=== PATIENT | female | born 1965 | race Caucasian/White ===

== ENCOUNTER 2017-05-09 20:23 | Inpatient (IN) | payer SELFPAY ==
[~2017-05-09] VITALS: Ht 167.6 cm; Wt 118.8 kg
[2017-05-09] MEDS ORDERED: RT-ALBUTEROL/IPRATROPIUM 3 ML (DUONEB) VIAL ONE (20:29)
[2017-05-09] MEDS ORDERED: RT-ALBUTEROL SULF 2.5 MG/3 ML PRE-MIX VIAL INH STA ×3 (20:32→21:34)
--- OUTSIDE RECORDS SUMMARY | 2017-05-09 20:32 | XMS REPORT ---
Author Author DIYA MITCHELL Organization [facility] Address [address] [place] [address] Care Team Providers Care Stuffing Machine Operator Name Role Phone DIYA MITCHELL Unavailable PROBLEMS Type Condition ICD9-CM Code [id number] Code Onset Dates Condition Status SNOMED Code Problem Non morbid obesity due to excess calories E66.09 Active 361704162 Problem Anxiety F41.9 Active 44755729 Problem Controlled type 2 diabetes mellitus without complication, without long -term current use of insulin E11.9 Active 266876503 Problem Mood disorder F39 Active 86826235 Problem Panlobular emphysema J43.1 Active 0173775 ALLERGIES No Information SOCIAL HISTORY Never Assessed PLAN OF CARE VITAL SIGNS MEDICATIONS Medication Instructions Dosage Frequency Start Date End Date Duration Status Xanax 0.25 MG Orally Three times a day 1 tablet 8h Active RESULTS No Results PROCEDURES No Known procedures IMMUNIZATIONS No Known Immunizations MEDICAL (GENERAL) HISTORY Type Description Date Medical History Diabetes Medical History Hyperlipidemia Medical History Hx of Pneumonia Surgical History tubal ligation Surgical History gall bladder removal Surgical History hysterectomy Hospitalization History surgeries Hospitalization History Pneumonia x 9
--- OUTSIDE RECORDS SUMMARY | 2017-05-09 20:32 | XMS REPORT ---
Author Author DIYA MITCHELL [facility] Address [address] [place] [address] Care Team Providers Care Soup Mixer Name Role Phone DIYA MITCHELL Unavailable PROBLEMS Type Condition ICD9-CM Code [id number] Code Onset Dates Condition Status SNOMED Code Problem Non morbid obesity due to excess calories E66.09 Active 127868449 Problem Anxiety F41.9 Active 78014786 Problem Controlled type 2 diabetes mellitus without complication, without long -term current use of insulin E11.9 Active 265351797 Problem Mood disorder F39 Active 13943629 Problem Panlobular emphysema J43.1 Active 3891235 ALLERGIES Unknown Allergies SOCIAL HISTORY No smoking Hx information available PLAN OF CARE VITAL SIGNS MEDICATIONS Medication Instructions Dosage Frequency Start Date End Date Duration Status Xanax 0.25 MG Orally Three times a day 1 tablet 8h Active RESULTS No Results PROCEDURES No Known procedures IMMUNIZATIONS No Known Immunizations
--- OUTSIDE RECORDS SUMMARY | 2017-05-09 20:32 | XMS REPORT ---
Author Author DIYA MITCHELL [facility] Address [address] [place] [address] Care Team Providers Care Cloth Cutting Inspector Name Role Phone DIYA MITCHELL Unavailable PROBLEMS Type Condition ICD9-CM Code DCM51-[id number] Code Onset Dates Condition Status SNOMED Code Problem Non morbid obesity due to excess calories E66.09 Active 014291785 Problem Anxiety F41.9 Active 45206099 Problem Controlled type 2 diabetes mellitus without complication, without long -term current use of insulin E11.9 Active 171532196 Problem Mood disorder F39 Active 10408661 Problem Panlobular emphysema J43.1 Active 8356927 ALLERGIES No Information SOCIAL HISTORY Never Assessed PLAN OF CARE VITAL SIGNS MEDICATIONS Unknown Medications RESULTS No Results PROCEDURES No Known procedures IMMUNIZATIONS No Known Immunizations MEDICAL (GENERAL) HISTORY Type Description Date Medical History Diabetes Medical History Hyperlipidemia Medical History Hx of Pneumonia Surgical History tubal ligation Surgical History gall bladder removal Surgical History hysterectomy Hospitalization History surgeries Hospitalization History Pneumonia x 9
--- OUTSIDE RECORDS SUMMARY | 2017-05-09 20:32 | XMS REPORT ---
Author Author DIYA MITCHELL [facility] Address [address] [place] [address] Care Team Providers Care Home Service Technician Name Role Phone STEPHEN DIYA Unavailable PROBLEMS Type Condition ICD9-CM Code [id number] Code Onset Dates Condition Status SNOMED Code Problem Non morbid obesity due to excess calories E66.09 Active 575745080 Problem Anxiety F41.9 Active 78935341 Problem Controlled type 2 diabetes mellitus without complication, without long -term current use of insulin E11.9 Active 856172325 Problem Mood disorder F39 Active 06046729 Problem Panlobular emphysema J43.1 Active 6895755 ALLERGIES Substance Reaction Event Type Date Status Penicillin V Potassium vomiting Drug Allergy Jun, Active Morphine Sulfate anaphylaxis Drug Allergy Jun, Active Aspirin hives Drug Allergy Jun, Active SOCIAL HISTORY Never Assessed PLAN OF CARE Activity Details Follow Up 4 Weeks Reason:mood disorder VITAL SIGNS Height 5 ft 6 in in 2016-07-01 Weight 282 lbs 2016-07-01 Temperature 98.3 degrees Fahrenheit 2016-07-01 Heart Rate 80 bpm 2016-07-01 Respiratory Rate 20 2016-07-01 BMI 45.51 kg/m2 2016-07-01 Blood pressure systolic 120 mmHg 2016-07-01 Blood pressure diastolic 76 mmHg 2016-07-01 MEDICATIONS Medication Instructions Dosage Frequency Start Date End Date Duration Status Simvastatin 20 mg Orally Once a day 1 tablet in the evening 24h Active Metformin HCl 500 MG Orally Twice a day 1 tablet with meals 12h Active Lisinopril 5 MG Orally Once a day 1 tablet 24h Active Incruse Ellipta 62.5 MCG/INH Inhalation Once a day 1 puff 24h Active Venlafaxine HCl 37.5 MG Orally Once a day 1 tablet with food 24h Jun, 30 day(s) Active Breo Ellipta 100-25 MCG/INH Inhalation Once a day 1 puff 24h Active Amaryl 2 MG Orally 2 times a day 1 tablet with breakfast or the first main meal of the day 12h Active Xanax 0.25 MG Orally Three times a day 1 tablet 8h Active RESULTS Name Result Date Reference Range MICROALBUMIN, URINE (IN HOUSE) 2016-07-01 MICROALBUMIN NORMAL Lot # [id number] Exp date 06/2017 Clarity CLEAR Color YELLOW ALB 10MG/L CRE 200MG/DL A:C (IN HOUSE) <300MG/G Control Control Lot # Exp date LH 2016-07-01 LH 18.6 TSH 2016-07-01 TSH 2.370 0.450-4.500 FSH, SERUM 2016-07-01 FSH 27.1 CBC 2016-07-01 WBC 6.9 3.4-10.8 RBC 5.02 3.77-5.28 Hemoglobin 15.0 11.1-15.9 Hematocrit 43.2 34.0-46.6 MCV 86 79-97 MCH 29.9 26.6-33.0 MCHC 34.7 31.5-35.7 RDW 13.4 12.3-15.4 Platelets 242 150-379 Neutrophils 61 Lymphs 32 Monocytes 5 Eos 2 Basos 0 Neutrophils (Absolute) 4.1 1.4-7.0 Lymphs (Absolute) 2.2 0.7-3.1 Monocytes(Absolute) 0.4 0.1-0.9 Eos (Absolute) 0.1 0.0-0.4 Baso (Absolute) 0.0 0.0-0.2 Immature Granulocytes 0 Immature Grans (Abs) 0.0 0.0-0.1 VITAMIN D, 25-H 2016-07-01 Vitamin D, 25-Hydroxy 11.5 30.0-100.0 LIPID PANEL 2016-07-01 Cholesterol, Total 193 100-199 Triglycerides 153 0-149 HDL Cholesterol 50 >39 VLDL Cholesterol Jamar 31 5-40 LDL Cholesterol Calc 112 0-99 CMP 2016-07-01 Glucose, Serum 154 65-99 BUN 9 6-24 Creatinine, Serum 0.51 0.57-1.00 eGFR If NonAfricn Am 111 >59 eGFR If Africn Am 128 >59 BUN/Creatinine Ratio 18 9-23 Sodium, Serum 139 134-144 Potassium, Serum 4.3 3.5-5.2 Chloride, Serum 98 96-106 Carbon Dioxide, Total 26 18-29 Calcium, Serum 9.2 8.7-10.2 Protein, Total, Serum 6.5 6.0-8.5 Albumin, Serum 4.1 3.5-5.5 Globulin, Total 2.4 1.5-4.5 A/G Ratio 1.7 1.1-2.5 Bilirubin, Total 0.4 0.0-1.2 Alkaline Phosphatase, S 95 39-117 AST (SGOT) 15 0-40 ALT (SGPT) 16 0-32 A1C (IN HOUSE) 2016-07-01 A1C IN HOUSE 8.1 4.3 - 5.6 % Previous A1c NA Lot [id number] Exp date 06/2017 PROCEDURES Procedure Date Ordered Result Body Site LIPID PANEL Jul 01, 2016 COMPREHEN METABOLIC PANEL Jul 01, 2016 GLYCATED HEMOGLOBIN TEST Jul 01, 2016 MICROALBUMIN, SEMIQUANT Jul 01, 2016 COMPLETE CBC W/AUTO DIFF WBC Jul 01, 2016 GONADOTROPIN (FSH) Jul 01, 2016 ASSAY OF VITAMIN D Jul 01, 2016 VENIPUNCT, ROUTINE* Jul 01, 2016 ASSAY THYROID STIM HORMONE Jul 01, 2016 GONADOTROPIN (LH) Jul 01, 2016 IMMUNIZATIONS No Known Immunizations MEDICAL (GENERAL) HISTORY Type Description Date Medical History Diabetes Medical History Hyperlipidemia Medical History Hx of Pneumonia Surgical History tubal ligation Surgical History gall bladder removal Surgical History hysterectomy Hospitalization History surgeries Hospitalization History Pneumonia x 9
--- OUTSIDE RECORDS SUMMARY | 2017-05-09 20:32 | XMS REPORT ---
Author Author DIYA MITCHELL [facility] Address [address] [place] [address] Care Team Providers Care Structural Test Engineer Name Role Phone DIYA MITCHELL Unavailable PROBLEMS Type Condition ICD9-CM Code AYS00-TA Code Onset Dates Condition Status SNOMED Code Problem Non morbid obesity due to excess calories E66.09 Active 456214717 Problem Anxiety F41.9 Active 89697927 Problem Controlled type 2 diabetes mellitus without complication, without long -term current use of insulin E11.9 Active 828729739 Problem Mood disorder F39 Active 64211683 Problem Panlobular emphysema J43.1 Active 9472223 ALLERGIES Unknown Allergies SOCIAL HISTORY No smoking Hx information available PLAN OF CARE VITAL SIGNS MEDICATIONS Unknown Medications RESULTS No Results PROCEDURES No Known procedures IMMUNIZATIONS No Known Immunizations
--- OUTSIDE RECORDS SUMMARY | 2017-05-09 20:33 | XMS REPORT ---
Author Author DIYA MITCHELL Organization [facility] Address [address] [place] [address] Care Team Providers Care Typing Element Machine Operator Name Role Phone STEPHEN DIYA Unavailable PROBLEMS Type Condition ICD9-CM Code MUP49-LM Code Onset Dates Condition Status SNOMED Code Problem Non morbid obesity due to excess calories E66.09 Active 795623575 Problem Anxiety F41.9 Active 35295930 Problem Controlled type 2 diabetes mellitus without complication, without long -term current use of insulin E11.9 Active 697915894 Problem Mood disorder F39 Active 38069328 Problem Panlobular emphysema J43.1 Active 0109200 ALLERGIES Substance Reaction Event Type Date Status Penicillin V Potassium vomiting Drug Allergy Jul, Active Morphine Sulfate anaphylaxis Drug Allergy Jul, Active Aspirin hives Drug Allergy Jul, Active SOCIAL HISTORY Never Assessed PLAN OF CARE Activity Details Follow Up 4 Weeks Reason:obesity VITAL SIGNS Height 5 ft 6 in in 2016-07-29 Weight 283.7 lbs 2016-07-29 Temperature 97.8 degrees Fahrenheit 2016-07-29 Heart Rate 78 bpm 2016-07-29 Respiratory Rate 20 2016-07-29 BMI 45.79 kg/m2 2016-07-29 Blood pressure systolic 126 mmHg 2016-07-29 Blood pressure diastolic 78 mmHg 2016-07-29 MEDICATIONS Medication Instructions Dosage Frequency Start Date End Date Duration Status Metformin HCl 500 MG Orally Twice a day 2 tablets 12h Active Lisinopril 5 mg Orally Once a day 1 tablet 24h Active Simvastatin 20 mg Orally Once a day 1 tablet in the evening 24h Active Ergocalciferol 04653 UNIT Orally 2 times a week 1 capsule Jun, September, 12 weeks Active Amaryl 2 MG Orally 2 times a day 1 tablet with meal 12h Active Breo Ellipta 100-25 MCG/INH Inhalation Once a day 1 puff 24h Active Xanax 0.25 MG Orally Three times a day 1 tablet 8h Active Venlafaxine HCl 37.5 MG Orally Once a day 1 tablet with food 24h Jun, 30 day(s) Active Incruse Ellipta 62.5 MCG/INH Inhalation Once a day 1 puff 24h Active RESULTS No Results PROCEDURES No Known procedures IMMUNIZATIONS No Known Immunizations MEDICAL (GENERAL) HISTORY Type Description Date Medical History Diabetes Medical History Hyperlipidemia Medical History Hx of Pneumonia Surgical History tubal ligation Surgical History gall bladder removal Surgical History hysterectomy Hospitalization History surgeries Hospitalization History Pneumonia x 9
--- OUTSIDE RECORDS SUMMARY | 2017-05-09 20:33 | XMS REPORT ---
Author DIYA Quintero Organization [employer] Address Unknown Phone Unavailable Care Team Providers Care Gamma Operator Name Role Phone DIYA MITCHELL CP Unavailable Allergies, Adverse Reactions, Alerts Substance Reaction Event Type Penicillin V Potassium vomiting Drug Allergy Morphine Sulfate anaphylaxis Drug Allergy Aspirin hives Drug Allergy Problems Problem Type Condition Code Onset Dates Condition Status Assessment Controlled type 2 diabetes mellitus without complication, without long-term current use of insulin E11.9 Active Problem Controlled type 2 diabetes mellitus without complication, without long -term current use of insulin E11.9 Active Medications Medication Code System Code Instructions Start Date End Date Status Dosage Xanax [facility] [address]-02 0.25 MG Orally Three times a day 1 tablet Prozac NDC 0 20 mg Oral Once a day 1 capsule Lisinopril [facility] [address]-67 5 MG Orally Once a day 1 tablet Breo Ellipta [facility] [address]-26 100-25 MCG/INH Inhalation Once a day, voucher 1st fill 1 [place] [address]-31 2 MG Orally 2 times a day 1 tablet with breakfast or the first [place] [address]-85 20 mg Orally Once a day 1 tablet in the evening Metformin HCl [facility] [address]-55 500 MG Orally Twice a day 1 tablet with meals Procedures Procedure Coding System Code Date Office Visit, Est Pt., Level 3 CPT-4 05058 Mar 11, 2016 VENIPUNCT, ROUTINE* CPT-4 65579 Mar 11, 2016 GLYCATED HEMOGLOBIN TEST CPT-4 03014 Mar 11, 2016 Vital Signs Date/Time: Mar 11, 2016 Cardiac Monitoring Heart Rate 88 bpm Weight 269 lbs Height 5 ft 6 in in BMI 43.41 Index Blood Pressure Diastolic 70 mmHg Blood Pressure Systolic 118 mmHg Results Name Result Date Reference Range Unit Abnormality Flag A1C ----Hemoglobin A1c 7.8 [id number] 4.8-5.6 % H ROUTINE VENIPUNCTURE Summary Purpose [employer] Submission
--- OUTSIDE RECORDS SUMMARY | 2017-05-09 20:33 | XMS REPORT | Continuity of Care Document ---
Demographics x Preferred Language Unknown Marital Status Unknown Hindu Affiliation Unknown Race Unknown Ethnic Group Unknown Author Author [facility] Organization [facility] Address Unknown Phone Unavailable Allergies There is no data. Medications There is no data. Problems There is no data. Procedures There is no data. Results There is no data. Encounters ACCT No. Visit Date/Time Discharge Status Pt. Type Provider Facility Loc./Unit Complaint [id number] 04/23/2014 10:21:00 04/23/2014 23:59:59 CLS Outpatient Carissa Bagley
--- OUTSIDE RECORDS SUMMARY | 2017-05-09 20:33 | XMS REPORT ---
Author Author DIYA MITCHELL [facility] Address [address] [place] [address] Care Team Providers Care Materials Planner/Production Planner Name Role Phone DIYA MITCHELL Unavailable PROBLEMS Type Condition ICD9-CM Code [id number] Code Onset Dates Condition Status SNOMED Code Problem Non morbid obesity due to excess calories E66.09 Active 907994560 Problem Anxiety F41.9 Active 89887221 Problem Controlled type 2 diabetes mellitus without complication, without long -term current use of insulin E11.9 Active 037589399 Problem Mood disorder F39 Active 00253403 Problem Panlobular emphysema J43.1 Active 8454859 ALLERGIES Substance Reaction Event Type Date Status Penicillin V Potassium vomiting Drug Allergy September, Active Morphine Sulfate anaphylaxis Drug Allergy September, Active Aspirin hives Drug Allergy September, Active SOCIAL HISTORY Never Assessed PLAN OF CARE VITAL SIGNS Height 5 ft 6 in in 2016-09-29 Weight 279.3 lbs 2016-09-29 Temperature 98.4 degrees Fahrenheit 2016-09-29 Heart Rate 78 bpm 2016-09-29 Respiratory Rate 20 2016-09-29 BMI 45.08 kg/m2 2016-09-29 Blood pressure systolic 116 mmHg 2016-09-29 Blood pressure diastolic 70 mmHg 2016-09-29 MEDICATIONS Medication Instructions Dosage Frequency Start Date End Date Duration Status Venlafaxine HCl 37.5 MG Orally Once a day 1 tablet with food 24h Jun, 30 day(s) Active Xanax 0.25 MG Orally Three times a day 1 tablet 8h 28 days Active Metformin HCl 500 MG Orally Twice a day 2 tablets 12h Active Breo Ellipta 100-25 MCG/INH Inhalation Once a day 1 puff 24h Active Lisinopril 5 mg Orally Once a day 1 tablet 24h Active Amaryl 2 MG Orally 2 times a day 1 tablet with meal 12h Active Simvastatin 20 mg Orally Once a day 1 tablet in the evening 24h Active Incruse Ellipta 62.5 MCG/INH Inhalation Once a day 1 puff 24h Active RESULTS Name Result Date Reference Range A1C (IN HOUSE) 2016-09-29 A1C IN HOUSE 7.5 4.3 - 5.6 % Previous A1c 8.1 Lot [id number] Exp date 05/2018 PROCEDURES Procedure Date Ordered Result Body Site GLYCATED HEMOGLOBIN TEST September 29, 2016 IMMUNIZATIONS No Known Immunizations MEDICAL (GENERAL) HISTORY Type Description Date Medical History Diabetes Medical History Hyperlipidemia Medical History Hx of Pneumonia Surgical History tubal ligation Surgical History gall bladder removal Surgical History hysterectomy Hospitalization History surgeries Hospitalization History Pneumonia x 9
--- OUTSIDE RECORDS SUMMARY | 2017-05-09 20:33 | XMS REPORT ---
Author Author DIYA MITCHELL Organization [facility] Address [address] [place] [address] Care Team Providers Care Principal Architectural Firm Name Role Phone DIYA MITCHELL Unavailable PROBLEMS Type Condition ICD9-CM Code WEV77-JA Code Onset Dates Condition Status SNOMED Code Problem Non morbid obesity due to excess calories E66.09 Active 666268404 Problem Anxiety F41.9 Active 68721677 Problem Controlled type 2 diabetes mellitus without complication, without long -term current use of insulin E11.9 Active 995739150 Problem Mood disorder F39 Active 01026054 Problem Panlobular emphysema J43.1 Active 7313735 ALLERGIES No Information SOCIAL HISTORY Never Assessed PLAN OF CARE VITAL SIGNS MEDICATIONS Medication Instructions Dosage Frequency Start Date End Date Duration Status Ergocalciferol 37557 UNIT Orally 2 times a week 1 capsule Jun, September, 12 weeks Active RESULTS No Results PROCEDURES No Known procedures IMMUNIZATIONS No Known Immunizations MEDICAL (GENERAL) HISTORY Type Description Date Medical History Diabetes Medical History Hyperlipidemia Medical History Hx of Pneumonia Surgical History tubal ligation Surgical History gall bladder removal Surgical History hysterectomy Hospitalization History surgeries Hospitalization History Pneumonia x 9
[2017-05-09] MEDS ORDERED: FLUT1AER INH (20:44)
[2017-05-09] MEDS ORDERED: METF500T4 PO (20:44)
[2017-05-09] MEDS ORDERED: VNL37.5T PO (20:44)
[2017-05-09] MEDS ORDERED: UMEC62.5 INH (20:44)
[2017-05-09] MEDS ORDERED: LISI-556 PO (20:44)
[2017-05-09] MEDS ORDERED: SIMV20TA3 PO (20:44)
[2017-05-09] MEDS ORDERED: GLIM2TAB PO (20:44)
[2017-05-09] MEDS ORDERED: RT-ALBUTEROL/IPRATROPIUM 3 ML (DUONEB) VIAL INH ONE ×2 (20:45→21:45)
[2017-05-09 20:49] LABS: BASOPHILS % (AUTO) 0 % (0-10); EOSINOPHILS # (AUTO) 0.2 10^3/uL (0.0-0.3); EOSINOPHILS % (AUTO) 2 % (0-10); HEMATOCRIT 45 % (35-52); HEMOGLOBIN 14.7 G/DL (11.5-16.0); LYMPHOCYTES # (AUTO) 1.6 X 10^3 (1.0-4.0); LYMPHOCYTES % (AUTO) 16 % (12-44); MEAN CORPUSCULAR HEMOGLOBIN 30 PG (25-34); MEAN CORPUSCULAR HGB CONC 33 G/DL (32-36); MEAN CORPUSCULAR VOLUME 92 FL (80-99); MEAN PLATELET VOLUME 10.2 FL (7.4-10.4); MONOCYTES # (AUTO) 0.7 X 10^3 (0.0-1.0); MONOCYTES % (AUTO) 7 % (0-12); NEUTROPHILS # (AUTO) 7.4 X 10^3 (1.8-7.8); NEUTROPHILS % (AUTO) 76 % (42-75); PLATELET COUNT 268 10^3/uL (130-400); RED BLOOD COUNT 4.88 10^6/uL (4.35-5.85); RED CELL DISTRIBUTION WIDTH 13.5 % (10.0-14.5); WHITE BLOOD COUNT 9.8 10^3/uL (4.3-11.0)
[2017-05-09 21:06] LABS: ALANINE AMINOTRANSFERASE 23 U/L (0-55); ALBUMIN 3.9 GM/DL (3.2-4.5); ALKALINE PHOSPHATASE 127 U/L (40-136); BILIRUBIN,TOTAL 0.4 MG/DL (0.1-1.0); BUN/CREATININE RATIO 21; CALCIUM 9.2 MG/DL (8.5-10.1); CARBON DIOXIDE 28 MMOL/L (21-32); CHLORIDE 99 MMOL/L (98-107); CREATININE SERUM 0.72 MG/DL (0.60-1.30); GFR ESTIMATED > 60; GLUCOSE 177 MG/DL (70-105); POTASSIUM 4.1 MMOL/L (3.6-5.0); SODIUM 141 MMOL/L (135-145); TOTAL PROTEIN 7.5 GM/DL (6.4-8.2)
--- NOTE | 2017-05-09 21:19 | Diagnostic Imaging Report ---
INDICATION: Shortness of breath, chest pain COMPARISON: None FINDINGS: Single view of the chest demonstrates infiltrate in the lingula and left base. The right lung is clear. The heart is normal. There is no pneumothorax or effusion. IMPRESSION: Infiltrate left lung base and lingula. Followup recommended. Dictated by: Dictated on workstation # [id number]
--- NOTE | 2017-05-09 21:26 | ED General ---
General Chief Complaint: Chest Pain Stated Complaint: CHEST PAIN Nursing Triage Note: PT PRESENTS TO ER WITH COMPLAINT OF CHEST PAIN, SOA, COUGH, CONGESTION, FEVER. STATES ALL HER SYMPTOMS STARTED 05/06/17. Nursing Sepsis Screen: No Definite Risk Source of Information: Patient Exam Limitations: No Limitations History of Present Illness Time Seen by Provider: 20:25 Initial Comments Here with report of chest pain, short of air, cough, congestion and fever that has been going on over the last 3-4 days. Report is quite short of breath tonight. Has central chest pain related to coughing. O2 sat on arrival was 80 percent on room air. Patient is not typically on oxygen. She quit smoking 2-3 months ago. Denies vomiting or diarrhea. Timing/Duration: 3-4 Days Severity: Moderate, Severe Associated Systoms: Chest Pain, Cough, Fever/Chills, No Nausea/Vomiting, Shortness of Air Allergies and Home Medications Allergies Coded Allergies: Penicillins (Verified Allergy, Unknown, 05/09/17) aspirin (Verified Allergy, Unknown, 05/09/17) morphine (Verified Allergy, Unknown, 05/09/17) Home Medications Fluticasone/Vilanterol 1 Each Blst.w.dev, (Reported) Glimepiride 2 Mg Tablet, (Reported) Lisinopril 5 Mg Tablet, (Reported) Metformin HCl 500 Mg Tablet, (Reported) Simvastatin 20 Mg Tablet, (Reported) Umeclidinium [place] 62.5 Mcg Blst.w.dev, (Reported) Venlafaxine HCl 37.5 Mg Tab, (Reported) Constitutional: see HPI, chills, fever EENTM: nose congestion, No ear pain Respiratory: short of breath, wheezing Cardiovascular: chest pain, No palpitations Gastrointestinal: No abdominal pain, No nausea, No vomiting Genitourinary: no symptoms reported Musculoskeletal: no symptoms reported Skin: no symptoms reported Psychiatric/Neurological: No Symptoms Reported All Other Systems Reviewed Negative Unless Noted: Yes Past Ncmrcsc-Uniudb-Wkmepu Hx Patient Social History Alcohol Use: Denies Use Recreational Drug Use: No Smoking Status: Former Smoker Former Smoker, Quit: Mar 07, 2017 Recent Foreign Travel: No Contact w/Someone Who Travel: No Recent Infectious Disease Expo: No Recent Hopitalizations: No Physical Abuse: No Sexual Abuse: No Seasonal Allergies Seasonal Allergies: No Surgeries Surgeries: Gallbladder, 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, Tubal Ligation Respiratory Respiratory Disorders: COPD Cardiovascular Cardiac Disorders: Hypertension Neurological History of Neurological Disord: No 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 Genitourinary History of Genitourinary Disor: No Gastrointestinal History of Gastrointestinal Di: No Musculoskeletal History of Musculoskeletal Dis: No Endocrine History of Endocrine Disorders: Yes Endocrine Disorders: Diabetes, Non-Insulin dep HEENT History of HEENT Disorders: No Cancer History of Cancer: No Psychosocial History of Psychiatric Problem: Yes Behavioral Health Disorders: Anxiety, Depression Suicide Risk Score: 0 Integumentary History of Skin or Integumenta: No Blood Transfusions History of Blood Disorders: No Reviewed Nursing Assessment Reviewed/Agree w Nursing PMH: Yes Family Medical History Significant Family History: No Pertinent Family Hx Physical Exam-Suspected Sepsis Physical Exam Vital Signs Vital Sign - Last 12Hours 05/09/17 05/09/17 20:33 20:45 Temp 98.6 Pulse 125 Resp 22 B/P (MAP) 142/75 (97) Pulse Ox 91 O2 Delivery Nasal Cannula O2 Flow Rate 2.00 Capillary Refill : Less Than 3 Seconds Blood Pressure Mean: 97 General Appearance: No Apparent Distress, WD/WN HEENT: PERRL/EOMI, Pharynx Normal Neck: Non Tender, Supple Respiratory: Accessory Muscle Use, Decreased Breath Sounds, Expiration, Wheezing Cardiovascular: No Murmur Gastrointestinal: Non Tender, Soft Back: Normal Inspection, No CVA Tenderness, No Vertebral Tenderness Extremity: Normal Range of Motion, Non Tender Neurologic/Psychiatric: Alert, Oriented x3 Skin: normal color, warm/dry Focused Exam Evaluation Lactate Level Laboratory Tests 05/09/17 20:37: Lactic Acid Level 1.39 Lactic Acid Level Laboratory Tests Test 05/09/17 20:37 Lactic Acid Level 1.39 MMOL/L (0.50-2.00) Progress/Results/Core Measures Suspected Sepsis Recent Fever Within 48 Hours: No Infection Criteria Present: None New/Unexplained Altered Menta: No Sepsis Screen: No Definite Risk Sepsis Diagnosis: SIRS Temperature:98.6 Pulse: 125 Respiratory Rate: 22 Laboratory Tests 05/09/17 20:37: White Blood Count 9.8 Blood Pressure 142 /75 Mean: 97 Laboratory Tests 05/09/17 20:37: Lactic Acid Level 1.39 Laboratory Tests 05/09/17 20:37: Creatinine 0.72, INR Comment 1.0, Platelet Count 268, Total Bilirubin 0.4 Results/Orders Lab Results Laboratory Tests Test 05/09/17 20:37 Range/Units White Blood Count 9.8 4.3-11.0 10^3/uL Red Blood Count 4.88 4.35-5.85 10^6/uL Hemoglobin 14.7 11.5-16.0 G/DL Hematocrit 45 35-52 % Mean Corpuscular Volume 92 80-99 FL Mean Corpuscular Hemoglobin 30 25-34 PG Mean Corpuscular Hemoglobin Concent 33 32-36 G/DL Red Cell Distribution Width 13.5 10.0-14.5 % Platelet Count 268 130-400 10^3/uL Mean Platelet Volume 10.2 7.4-10.4 FL Neutrophils (%) (Auto) 76 H 42-75 % Lymphocytes (%) (Auto) 16 12-44 % Monocytes (%) (Auto) 7 0-12 % Eosinophils (%) (Auto) 2 0-10 % Basophils (%) (Auto) 0 0-10 % Neutrophils # (Auto) 7.4 1.8-7.8 X 10^3 Lymphocytes # (Auto) 1.6 1.0-4.0 X 10^3 Monocytes # (Auto) 0.7 0.0-1.0 X 10^3 Eosinophils # (Auto) 0.2 0.0-0.3 10^3/uL Basophils # (Auto) 0.0 0.0-0.1 10^3/uL Prothrombin Time 13.0 12.2-14.7 SEC INR Comment 1.0 0.8-1.4 Activated Partial Thromboplast Time 31 24-35 SEC Sodium Level 141 135-145 MMOL/L Potassium Level 4.1 3.6-5.0 MMOL/L Chloride Level 99 98-107 MMOL/L Carbon Dioxide Level 28 21-32 MMOL/L Anion Gap 14 5-14 MMOL/L Blood Urea Nitrogen 15 7-18 MG/DL Creatinine 0.72 0.60-1.30 MG/DL Estimat Glomerular Filtration Rate > 60 BUN/Creatinine Ratio 21 Glucose Level 177 H 70-105 MG/DL Lactic Acid Level 1.39 0.50-2.00 MMOL/L Calcium Level 9.2 8.5-10.1 MG/DL Total Bilirubin 0.4 0.1-1.0 MG/DL Aspartate Amino Transf (AST/SGOT) 25 5-34 U/L Alanine Aminotransferase (ALT/SGPT) 23 0-55 U/L Alkaline Phosphatase 127 40-136 U/L Troponin I < 0.30 <0.30 NG/ML Total Protein 7.5 6.4-8.2 GM/DL Albumin 3.9 3.2-4.5 GM/DL Micro Results Microbiology 05/09/17 Influenza Types A,B Antigen (NOEMI) - Final, Complete My Orders Orders - HERMELINDO RAMSEY MD Cbc With Automated Diff (05/09/17 20:30) Comprehensive Metabolic Panel (05/09/17 20:30) Lactic Acid Analyzer (05/09/17 20:30) Blood Culture (05/09/17 20:30) Sputum Culture (05/09/17 20:30) Ua Culture If Indicated (05/09/17 20:30) Protime With Inr (05/09/17 20:30) Partial Thromboplastin Time (05/09/17 20:30) Chest 1 View, Ap/Pa Only (05/09/17 20:30) O2 (05/09/17 20:30) Saline Lock/Iv-Start (05/09/17 20:30) Ekg Tracing (05/09/17 20:30) Troponin I (05/09/17 20:30) Vital Signs Adult Sepsis Patie Q1H (05/09/17 20:30) Remove Rings In Anticipation O (05/09/17 20:30) Influenza A And B Antigens (05/09/17 20:30) Albuterol/Ipra Inhalation Soln (Duoneb I (05/09/17 20:29) Albuterol Pre-Mix Nebs (Rt) (Proventil (05/09/17 20:32) Albuterol/Ipra Inhalation Soln (Duoneb I (05/09/17 20:45) Svn Sm Volume Nebulizer Rt-Rfs (05/09/17 20:32) Svn Sm Volume Nebulizer Rt-Rfs (05/09/17 20:32) Albuterol Pre-Mix Nebs (Rt) (Proventil (05/09/17 20:39) Svn Sm Volume Nebulizer Rt-Rfs (05/09/17 20:39) Prednisone Tablet (Deltasone Tablet) (05/09/17 21:45) Albuterol Pre-Mix Nebs (Rt) (Proventil (05/09/17 21:34) Albuterol/Ipra Inhalation Soln (Duoneb I (05/09/17 21:45) Svn Sm Volume Nebulizer Rt-Rfs (05/09/17 21:34) Svn Sm Volume Nebulizer Rt-Rfs (05/09/17 21:34) Levofloxacin Pre-Mix 750mg Bag (05/09/17 21:43) Medications Given in ED Current Medications Medications Dose Ordered Sig/Cait Route Start Time Stop Time Status Last Admin Dose Admin Albuterol/ Ipratropium 3 ml ONCE ONCE INH 05/09/17 20:45 05/09/17 20:46 DC 05/09/17 20:36 3 ML Prednisone 40 mg ONCE ONCE PO 05/09/17 21:45 05/09/17 21:46 05/09/17 21:35 40 MG Vital Signs/I&O Vital Sign - Last 12Hours 05/09/17 05/09/17 05/09/17 05/09/17 20:33 20:35 20:37 20:41 Pulse Ox 91 94 94 O2 Delivery Nasal Cannula Nasal Cannula Nasal Cannula Nasal Cannula O2 Flow Rate 2.00 3.00 2.0 3.00 05/09/17 20:45 Temp 98.6 Pulse 125 Resp 22 B/P (MAP) 142/75 (97) Pulse Ox 80 O2 Delivery Room Air Capillary Refill : Less Than 3 Seconds Blood Pressure Mean: 97 Progress Note : Progress Note Seen and evaluated on arrival. Patient had O2 saturation 80 percent on room air. Placed on nasal cannula at 3 L and initiated DuoNeb treatment. This was followed by 3 albuterol treatments. After this we will or near baseline but she is still requiring oxygen. Blood cultures, lactic acid, influenza screen and chest x-ray ordered as well as labs and EKG. Monitor patient. 2126: I did discuss the case with Dr. Pinky Harry after findings of pneumonia noted on chest x-ray. Patient still requiring oxygen. Patient to be admitted, inpatient status. Discussed with patient who agrees with plan. Rocephin and Zithromax considered for treatment but patient reports that she has penicillin allergy and questions that she may have had a reaction to cephalexin. Levaquin 750 mg IV ordered. Admit, inpatient status. Patient agrees with plan. ECG Initial ECG Impression Date: May 09, 2017 Initial ECG Impression Time: 20:25 Initial ECG Rate: 125 Initial ECG Rhythm: S.Tach Comment Sinus tachycardia with left atrial abnormality. No evidence of ST elevation MO. Normal axis. No previous available for comparison. Interpreted by me. Diagnostic Imaging Diagonstic Imaging: Xray Plain Films/CT/US/NM/MRI: chest Comments VIA [facility]. [place], [place] NAME: [facility] REC#: [id number] PT STATUS: REG ER : 1965 PHYSICIAN: HERMELINDO RAMSEY MD ADMIT DATE: 05/09/17/ER Draft Date of Exam:05/09/17 CHEST 1 VIEW, AP/PA ONLY INDICATION: Shortness of breath, chest pain COMPARISON: None FINDINGS: Single view of the chest demonstrates infiltrate in the lingula and left base. The right lung is clear. The heart is normal. There is no pneumothorax or effusion. IMPRESSION: Infiltrate left lung base and lingula. Followup recommended. Dictated on workstation # [id number] Dict: 05/09/172115 Trans: 05/09/17 [facility] [id number] Interpreted by: RHEA DARDEN Electronically signed by: Departure Communication (Admissions) Time/Spoke to Admitting Phy: 21:27 Impression Impression: Primary Impression: Left lower lobe pneumonia Qualified Codes: J18.1 - Lobar pneumonia, unspecified organism Additional Impression: Hypoxia Disposition: ADMITTED INPATIENT Condition: Stable Admissions Decision to Admit Reason: Admit from ER (General) Decision to Admit/Date: May 09, 2017 Time/Decision to Admit Time: 21:27 Departure-Patient Inst. Referrals: [facility] [place] ([place]P) Primary Care Physician HERMELINDO RAMSEY MD May 09, 2017 21:26
[2017-05-09] MEDS ORDERED: LEVOFLOXACIN 750 MG/150 ML IV 150 ML IV STA (21:43)
[2017-05-09] MEDS ORDERED: predniSONE 20 MG TAB PO ONE (21:45)
--- OUTSIDE RECORDS SUMMARY | 2017-05-09 21:58 | XMS REPORT | Continuity of Care Document ---
Demographics x Preferred Language Unknown Marital Status Unknown Congregational Affiliation Unknown Race Unknown Ethnic Group Unknown Author Author [facility] Organization [facility] Address Unknown Phone Unavailable Allergies There is no data. Medications There is no data. Problems There is no data. Procedures There is no data. Results There is no data. Encounters ACCT No. Visit Date/Time Discharge Status Pt. Type Provider Facility Loc./Unit Complaint [id number] 04/23/2014 10:21:00 04/23/2014 23:59:59 CLS Outpatient Carissa Bagley
[2017-05-09] MEDS ORDERED: ONDANSETRON 4 MG/2 ML (SDV) Z0FRAN IVP ONE (22:15)
[2017-05-09 22:38] VITALS: BP 96/48
[2017-05-09] MEDS ORDERED: CATHETER FLUSH 10 ML SYR IV PRN (22:45)
[2017-05-09] MEDS: ACETAMINOPHEN 325 MG TABLET/CAPLET (TYLENOL) PO PRN (22:49)
[2017-05-09] MEDS ORDERED: RT-ALBUTEROL/IPRATROPIUM 3 ML (DUONEB) VIAL INH PRN (23:15)
[2017-05-10] MEDS: RT-ALBUTEROL/IPRATROPIUM 3 ML (DUONEB) VIAL INH SCH ×6 (02:00→22:37)
[2017-05-10 03:17] VITALS: BP 108/50
[2017-05-10 05:39] LABS: BASOPHILS % (AUTO) 0 % (0-10); EOSINOPHILS % (AUTO) 0 % (0-10); HEMATOCRIT 40 % (35-52); HEMOGLOBIN 13.3 G/DL (11.5-16.0); LYMPHOCYTES # (AUTO) 0.5 X 10^3 (1.0-4.0); LYMPHOCYTES % (AUTO) 6 % (12-44); MEAN CORPUSCULAR HEMOGLOBIN 31 PG (25-34); MEAN CORPUSCULAR HGB CONC 33 G/DL (32-36); MEAN CORPUSCULAR VOLUME 93 FL (80-99); MEAN PLATELET VOLUME 10.1 FL (7.4-10.4); MONOCYTES # (AUTO) 0.3 X 10^3 (0.0-1.0); MONOCYTES % (AUTO) 3 % (0-12); NEUTROPHILS # (AUTO) 7.8 X 10^3 (1.8-7.8); NEUTROPHILS % (AUTO) 91 % (42-75); PLATELET COUNT 247 10^3/uL (130-400); RED BLOOD COUNT 4.32 10^6/uL (4.35-5.85); RED CELL DISTRIBUTION WIDTH 13.3 % (10.0-14.5); WHITE BLOOD COUNT 8.6 10^3/uL (4.3-11.0)
[2017-05-10 06:05] LABS: ALANINE AMINOTRANSFERASE 22 U/L (0-55); ALBUMIN 3.6 GM/DL (3.2-4.5); ALKALINE PHOSPHATASE 100 U/L (40-136); BILIRUBIN,TOTAL 0.3 MG/DL (0.1-1.0); BUN/CREATININE RATIO 20; CALCIUM 9.2 MG/DL (8.5-10.1); CARBON DIOXIDE 28 MMOL/L (21-32); CHLORIDE 99 MMOL/L (98-107); CREATININE SERUM 0.82 MG/DL (0.60-1.30); GFR ESTIMATED > 60; GLUCOSE 321 MG/DL (70-105); POTASSIUM 4.3 MMOL/L (3.6-5.0); SODIUM 140 MMOL/L (135-145); TOTAL PROTEIN 6.7 GM/DL (6.4-8.2)
[2017-05-10 06:12] LABS: BAND NEUTROPHILS 0 %; BASOPHILS % (MANUAL) 0 %; EOSINOPHILS % (MANUAL) 0 %; LYMPHOCYTES % (MANUAL) 5 %; MONOCYTES % (MANUAL) 6 %; NEUTROPHILS % (MANUAL) 88 %; RBC MORPH NORMAL; REACTIVE LYMPHOCYTES 1 %
[2017-05-10] MEDS: CATHETER FLUSH 10 ML SYR IV SCH ×3 (06:24→19:53)
[2017-05-10] MEDS ORDERED: predniSONE 20 MG TAB PO SCH (07:00)
[2017-05-10 08:00] VITALS: BP 114/71
[2017-05-10] MEDS ORDERED: IBUP-30 PO (08:59)
--- NOTE | 2017-05-10 09:07 | History & Physicial (CHS) ---
HPI History of Present Illness: Pleasant 51yo woman with a history of COPD presented to hospital with complaints of cough and shortness of breath developing over the past few days. Denies fever. Patient states she could tell that she was getting sick but wanted to wait to be seen until after [place] because she didn't want to miss [place] with her grandkids. After that, she realized that she had "gotten behind" and was sicker than she realized. She has a dry cough with minimal phlegm. She is short of breath getting up and around. No chest pain. NO edema. She quit smoking 2 months ago after many years of smoking cigarettes. Source: patient Exam Limitations: no limitations Date seen by provider: May 10, 2017 Time Seen by Provider: 09:00 Attending Physician Elmer Rick MD [facility] Date of Admission May 09, 2017 at 9:35 pm Home Medications Home Medications Reviewed patient Home Medication Reconciliation Form Allergies Coded Allergies: Penicillins (Verified Allergy, Unknown, 05/09/17) aspirin (Verified Allergy, Unknown, 05/09/17) morphine (Verified Allergy, Unknown, 05/09/17) ASN-[id number]-Uyejfp Hx Patient Social History Alcohol Use: Denies Use Recreational Drug Use: No Smoking Status: Former Smoker Type Used: Cigarettes Recent Foreign Travel: No Contact w/other who traveled: No Recent Hopitalizations: No Recent Infectious Disease Expo: No Physical Abuse Screen: No Sexual Abuse: No Family Medical History Significant Family History: No Pertinent Family Hx Family History: Diabetes mellitus 19 FATHER FH: breast cancer 19 MOTHER Myocardial infarction 19 FATHER Thyroid disease G8 SISTER Review of Systems (CHC) Constitutional: no symptoms reported All Other Systems Reviewed Negative Unless Noted: Yes (Negative excepted noted.) Reviewed Test Results Reviewed Test Results Lab Laboratory Tests Test 05/09/17 20:37 05/10/17 05:08 Range/Units White Blood Count 9.8 8.6 4.3-11.0 10^3/uL Red Blood Count 4.88 4.32 L 4.35-5.85 10^6/uL Hemoglobin 14.7 13.3 11.5-16.0 G/DL Hematocrit 45 40 35-52 % Mean Corpuscular Volume 92 93 80-99 FL Mean Corpuscular Hemoglobin 30 31 25-34 PG Mean Corpuscular Hemoglobin Concent 33 33 32-36 G/DL Red Cell Distribution Width 13.5 13.3 10.0-14.5 % Platelet Count 268 247 130-400 10^3/uL Mean Platelet Volume 10.2 10.1 7.4-10.4 FL Neutrophils (%) (Auto) 76 H 91 H 42-75 % Lymphocytes (%) (Auto) 16 6 L 12-44 % Monocytes (%) (Auto) 7 3 0-12 % Eosinophils (%) (Auto) 2 0 0-10 % Basophils (%) (Auto) 0 0 0-10 % Neutrophils # (Auto) 7.4 7.8 1.8-7.8 X 10^3 Lymphocytes # (Auto) 1.6 0.5 L 1.0-4.0 X 10^3 Monocytes # (Auto) 0.7 0.3 0.0-1.0 X 10^3 Eosinophils # (Auto) 0.2 0.0 0.0-0.3 10^3/uL Basophils # (Auto) 0.0 0.0 0.0-0.1 10^3/uL Prothrombin Time 13.0 12.2-14.7 SEC INR Comment 1.0 0.8-1.4 Activated Partial Thromboplast Time 31 24-35 SEC Sodium Level 141 140 135-145 MMOL/L Potassium Level 4.1 4.3 3.6-5.0 MMOL/L Chloride Level 99 99 98-107 MMOL/L Carbon Dioxide Level 28 28 21-32 MMOL/L Anion Gap 14 13 5-14 MMOL/L Blood Urea Nitrogen 15 16 7-18 MG/DL Creatinine 0.72 0.82 0.60-1.30 MG/DL Estimat Glomerular Filtration Rate > 60 > 60 BUN/Creatinine Ratio 21 20 Glucose Level 177 H 321 H 70-105 MG/DL Lactic Acid Level 1.39 0.50-2.00 MMOL/L Calcium Level 9.2 9.2 8.5-10.1 MG/DL Total Bilirubin 0.4 0.3 0.1-1.0 MG/DL Aspartate Amino Transf (AST/SGOT) 25 19 5-34 U/L Alanine Aminotransferase (ALT/SGPT) 23 22 0-55 U/L Alkaline Phosphatase 127 100 40-136 U/L Troponin I < 0.30 <0.30 NG/ML Total Protein 7.5 6.7 6.4-8.2 GM/DL Albumin 3.9 3.6 3.2-4.5 GM/DL Neutrophils % (Manual) 88 % Lymphocytes % (Manual) 5 % Monocytes % (Manual) 6 % Eosinophils % (Manual) 0 % Basophils % (Manual) 0 % Band Neutrophils 0 % Reactive Lymphocytes 1 % Blood Morphology Comment NORMAL Radiology Date of Exam: 05/09/17 CHEST 1 VIEW, AP/PA ONLY INDICATION: Shortness of breath, chest pain COMPARISON: None FINDINGS: Single view of the chest demonstrates infiltrate in the lingula and left base. The right lung is clear. The heart is normal. There is no pneumothorax or effusion. IMPRESSION: Infiltrate left lung base and lingula. Followup recommended. Physical Exam-(CHC) Physical Exam Vital Signs VS - Last 72 Hours, by Label 05/09/17 05/09/17 05/09/17 05/09/17 20:33 20:35 20:37 20:41 Pulse Ox 91 94 94 O2 Delivery Nasal Cannula Nasal Cannula Nasal Cannula Nasal Cannula O2 Flow Rate 2.00 3.00 2.0 3.00 05/09/17 05/09/17 05/09/17 05/09/17 20:45 22:25 22:38 22:49 Temp 98.6 98.9 100.0 100.0 Pulse 125 120 118 Resp 22 20 24 B/P (MAP) 142/75 (97) 96/48 (64) Pulse Ox 80 95 95 O2 Delivery Room Air Nasal Cannula Nasal Cannula O2 Flow Rate 3.00 3.00 05/09/17 05/09/17 05/09/17 05/10/17 22:58 22:58 23:10 02:38 Pulse 118 Pulse Ox 94 94 O2 Delivery Nasal Cannula Nasal Cannula Nasal Cannula O2 Flow Rate 3.00 3.00 3.00 05/10/17 05/10/17 05/10/17 03:17 08:00 10:23 Temp 95.5 99.0 Pulse 111 110 Resp 20 24 B/P (MAP) 108/50 (69) 114/71 (85) Pulse Ox 97 96 94 O2 Delivery Nasal Cannula Nasal Cannula Nasal Cannula O2 Flow Rate 3.00 3.00 3.00 Capillary Refill : Less Than 3 Seconds General Appearance: WD/WN, mild distress (dyspneic but able to complete full sentances) HEENT: PERRL/EOMI, normal ENT inspection, pharynx normal Neck: non-tender, full range of motion, supple, normal inspection Respiratory: chest non-tender, respiratory distress, decreased breath sounds, wheezing Cardiovascular: regular rate, rhythm, no edema, no gallop, no JVD, no murmur Gastrointestinal: normal bowel sounds, non tender, soft, no organomegaly Back: normal inspection, no CVA tenderness, no vertebral tenderness Extremities: normal range of motion, non-tender, normal inspection, no pedal edema, no calf tenderness, normal capillary refill 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/Psychiatric: supervisor drying II-XII nml as tested, no motor/sensory deficits, alert, normal mood/affect, oriented x 3 Skin: normal color, warm/dry Clinical Quality Measures DVT/VTE Risk/Contraindication: Risk Factor Score Per Nursin RFS Level Per Nursing on Admit: 4+=Very High Copy Copies To 1: ANDREE MITCHELL APRN Assessment/Plan Assessment/Plan Admission Dx ACUTE BACTERIAL EXACERBATION OF CHRONIC BRONCHITIS ACUTE HYPOXEMIA HTN DMT2 HL Plan ACUTE BACTERIAL EXACERBATION OF CHRONIC BRONCHITIS ACUTE HYPOXEMIA ADM: will change to solumedrol 40mg IV q6h, plan to decrease tomorrow; needs to do nebs q4h and q2h PRN SOB/cough. on levaquin day 05/21 (allergic to PCN). O2 to keep saO2 >90%. HTN ADM: restart home antihypertensives DMT2 ADM: anticipate that BS are going to go up with the steroids. start home glimepiride and metformin. Add SSI later today or tomorrow if BS >200. HL ADM: home simvastatin DVT PROPH: SCDs, encourage ambulation TID GI PROPH: not indicated ELMER RICK MD May 10, 2017 9:07 am
[2017-05-10] MEDS: methylPREDNISolone 40 MG/ML (Solu-MEDROL) VIAL IV SCH ×2 (09:51→16:26)
[2017-05-10] MEDS: GLIMEPIRIDE 2 MG (AMARYL) TAB PO SCH ×2 (09:51→16:26)
[2017-05-10] MEDS: VENlafaxine 37.5 MG (EFFEXOR) TAB PO SCH (09:51)
[2017-05-10] MEDS: lisINopril 5 MG (PRINIVIL) TABLET PO SCH (09:52)
[2017-05-10] MEDS: metFORMIN 500 MG (GLUCOPHAGE) TAB PO SCH ×2 (09:52→16:27)
[2017-05-10 12:00] VITALS: BP 105/64
[2017-05-10 15:55] VITALS: BP 125/66
[2017-05-10] MEDS: inSUlin ASPART (NovoLOG) 1 UNIT/0.01 ML (CHARGE PER UNIT) SC SCH ×2 (16:26→21:48)
[2017-05-10] MEDS: BENZONATATE 100 MG (TESSALON) CAPSULE PO PRN (17:17)
[2017-05-10 19:24] VITALS: BP 88/65
[2017-05-10] MEDS: SIMvastatin 20 MG (ZOCOR) TAB PO SCH (19:53)
[2017-05-10] MEDS ORDERED: LEVOFLOXACIN 750 MG/D5W 150 ML PRE-MIX IV SCH (21:00)
[2017-05-11] VITALS: BP 100/88
[2017-05-11] MEDS: methylPREDNISolone 40 MG/ML (Solu-MEDROL) VIAL IV SCH ×3 (00:06→11:34)
[2017-05-11] MEDS: RT-ALBUTEROL/IPRATROPIUM 3 ML (DUONEB) VIAL INH SCH ×5 (03:04→19:43)
[2017-05-11 05:52] LABS: BASOPHILS % (AUTO) 0 % (0-10); EOSINOPHILS % (AUTO) 0 % (0-10); HEMATOCRIT 39 % (35-52); HEMOGLOBIN 12.8 G/DL (11.5-16.0); LYMPHOCYTES # (AUTO) 0.6 X 10^3 (1.0-4.0); LYMPHOCYTES % (AUTO) 9 % (12-44); MEAN CORPUSCULAR HEMOGLOBIN 30 PG (25-34); MEAN CORPUSCULAR HGB CONC 33 G/DL (32-36); MEAN CORPUSCULAR VOLUME 93 FL (80-99); MONOCYTES # (AUTO) 0.5 X 10^3 (0.0-1.0); MONOCYTES % (AUTO) 8 % (0-12); NEUTROPHILS # (AUTO) 5.2 X 10^3 (1.8-7.8); NEUTROPHILS % (AUTO) 83 % (42-75); PLATELET COUNT 246 10^3/uL (130-400); RED BLOOD COUNT 4.21 10^6/uL (4.35-5.85); RED CELL DISTRIBUTION WIDTH 13.3 % (10.0-14.5); WHITE BLOOD COUNT 6.3 10^3/uL (4.3-11.0)
[2017-05-11 06:16] LABS: BUN/CREATININE RATIO 22; CALCIUM 9.2 MG/DL (8.5-10.1); CARBON DIOXIDE 27 MMOL/L (21-32); CHLORIDE 100 MMOL/L (98-107); CREATININE SERUM 0.65 MG/DL (0.60-1.30); GFR ESTIMATED > 60; GLUCOSE 219 MG/DL (70-105); POTASSIUM 4.3 MMOL/L (3.6-5.0); SODIUM 139 MMOL/L (135-145)
[2017-05-11] MEDS: GLIMEPIRIDE 2 MG (AMARYL) TAB PO SCH ×2 (06:36→16:45)
[2017-05-11] MEDS: metFORMIN 500 MG (GLUCOPHAGE) TAB PO SCH ×2 (06:36→16:45)
[2017-05-11] MEDS: inSUlin ASPART (NovoLOG) 1 UNIT/0.01 ML (CHARGE PER UNIT) SC SCH ×4 (06:36→21:05)
[2017-05-11] MEDS: CATHETER FLUSH 10 ML SYR IV SCH ×3 (06:36→21:17)
[2017-05-11 08:00] VITALS: BP 109/73
--- NOTE | 2017-05-11 09:16 | Progress Note (SOAP) ---
Subjective Subjective/Events-last exam Pt complaining of coughing but feeling better on the whole. Review of Systems Date Seen by Provider: May 11, 2017 Time Seen by Provider: 09:00 Pulmonary: No Dyspnea, Cough Cardiovascular: No: Chest Pain Objective Exam Last Set of Vital Signs Vital Signs Date Time Temp Pulse Resp B/P (MAP) Pulse Ox O2 Delivery O2 Flow Rate FiO2 05/11/17 08:00 98.4 86 24 109/73 (85) 93 Nasal Cannula 3.00 Capillary Refill : Less Than 3 Seconds I&O Intake and Output 05/11/17 00:00 Intake Total 1940 ml Output Total 600 ml Balance 1340 ml Intake Oral 1790 ml IV Total 150 ml Output Urine Total 600 ml # Voids 5 # Bowel Movements 2 General: Alert, Oriented X3, Cooperative, No Acute Distress Lungs: Clear to Auscultation, Normal Air Movement Heart: Regular Rate, Normal S1, Normal S2, No Murmurs, Gallops, Rubs Abdomen: Normal Bowel Sounds, Soft, No Tenderness, No Hepatosplenomegaly, No Masses Extremities: No Clubbing, No Cyanosis, No Edema, Normal Pulses, No Tenderness/ Swelling Psych/Mental Status: Mental Status NL, Mood NL Results/Procedures Lab Laboratory Tests 05/10/17 15:34: Glucometer 282H 05/10/17 21:11: Glucometer 256H 05/11/17 05:20: White Blood Count 6.3, Red Blood Count 4.21L, Hemoglobin 12.8, Hematocrit 39, Mean Corpuscular Volume 93, Mean Corpuscular Hemoglobin 30, Mean Corpuscular Hemoglobin Concent 33, Red Cell Distribution Width 13.3, Platelet Count 246, Mean Platelet Volume 10.0, Neutrophils (%) (Auto) 83H, Lymphocytes (%) (Auto) 9L , Monocytes (%) (Auto) 8, Eosinophils (%) (Auto) 0, Basophils (%) (Auto) 0, Neutrophils # (Auto) 5.2, Lymphocytes # (Auto) 0.6L, Monocytes # (Auto) 0.5, Eosinophils # (Auto) 0.0, Basophils # (Auto) 0.0, Sodium Level 139, Potassium Level 4.3, Chloride Level 100, Carbon Dioxide Level 27, Anion Gap 12, Blood Urea Nitrogen 14, Creatinine 0.65, Estimat Glomerular Filtration Rate > 60, BUN/ Creatinine Ratio 22, Glucose Level 219H, Calcium Level 9.2 Microbiology 05/09/17 Blood Culture - Preliminary, Resulted No growth 05/09/17 Gram Stain - Final, Resulted 05/09/17 Sputum Culture - Preliminary, Resulted Probable Strep Pneumoniae Radiology Date of Exam: 05/09/17 CHEST 1 VIEW, AP/PA ONLY INDICATION: Shortness of breath, chest pain COMPARISON: None FINDINGS: Single view of the chest demonstrates infiltrate in the lingula and left base. The right lung is clear. The heart is normal. There is no pneumothorax or effusion. IMPRESSION: Infiltrate left lung base and lingula. Followup recommended. Assessment/Plan Assessment/Plan Plan ACUTE BACTERIAL EXACERBATION OF CHRONIC BRONCHITIS ACUTE HYPOXEMIA ADM: will change to solumedrol 40mg IV q6h, plan to decrease tomorrow; needs to do nebs q4h and q2h PRN SOB/cough. on levaquin day 05/21 (allergic to PCN). O2 to keep saO2 >90%. 05/11 - drop solumedrol to 40mg IV q12h; probably go to [facility] tomorrow. continue nebs. levaquin day 06/21. still on 3L, anticipate she will need home O2 , so will do O2 qual today. maybe home tomorrow with O2 depending on how she does; equally likely to be over the weekend. HTN ADM: restart home antihypertensives 05/10 - stable DMT2 ADM: anticipate that BS are going to go up with the steroids. start home glimepiride and metformin. Add SSI later today or tomorrow if BS >200. 05/10 - on SSI HL ADM: home simvastatin DVT PROPH: SCDs, encourage ambulation TID GI PROPH: not indicated Clinical Quality Measures DVT/VTE Risk/Contraindication: Risk Factor Score Per Nursin RFS Level Per Nursing on Admit: 4+=Very High ELMER RICK MD May 11, 2017 9:16 am
[2017-05-11] MEDS: VENlafaxine 37.5 MG (EFFEXOR) TAB PO SCH (09:19)
[2017-05-11] MEDS: lisINopril 5 MG (PRINIVIL) TABLET PO SCH (09:19)
[2017-05-11] MEDS: BENZONATATE 100 MG (TESSALON) CAPSULE PO PRN ×2 (09:20→21:23)
[2017-05-11] MEDS: ACETAMINOPHEN 325 MG TABLET/CAPLET (TYLENOL) PO PRN ×2 (09:21→16:49)
[2017-05-11] MEDS: LEVOFLOXACIN 750 MG TAB (LEVAQUIN) PO SCH (11:33)
[2017-05-11 15:59] VITALS: BP 116/57
[2017-05-11] MEDS: SIMvastatin 20 MG (ZOCOR) TAB PO SCH (21:17)
[2017-05-11 23:46] VITALS: BP 114/58
[2017-05-12] MEDS: methylPREDNISolone 40 MG/ML (Solu-MEDROL) VIAL IV SCH ×3 (00:15→23:48)
[2017-05-12] MEDS: RT-ALBUTEROL/IPRATROPIUM 3 ML (DUONEB) VIAL INH SCH ×7 (00:50→22:24)
[2017-05-12 06:02] LABS: BASOPHILS % (AUTO) 0 % (0-10); EOSINOPHILS % (AUTO) 0 % (0-10); HEMATOCRIT 43 % (35-52); HEMOGLOBIN 14.1 G/DL (11.5-16.0); LYMPHOCYTES % (AUTO) 15 % (12-44); MEAN CORPUSCULAR HEMOGLOBIN 31 PG (25-34); MEAN CORPUSCULAR HGB CONC 33 G/DL (32-36); MEAN CORPUSCULAR VOLUME 93 FL (80-99); MEAN PLATELET VOLUME 9.8 FL (7.4-10.4); MONOCYTES # (AUTO) 0.5 X 10^3 (0.0-1.0); MONOCYTES % (AUTO) 8 % (0-12); NEUTROPHILS # (AUTO) 5.2 X 10^3 (1.8-7.8); NEUTROPHILS % (AUTO) 78 % (42-75); PLATELET COUNT 262 10^3/uL (130-400); RED BLOOD COUNT 4.63 10^6/uL (4.35-5.85); RED CELL DISTRIBUTION WIDTH 13.5 % (10.0-14.5); WHITE BLOOD COUNT 6.7 10^3/uL (4.3-11.0)
[2017-05-12] MEDS: CATHETER FLUSH 10 ML SYR IV SCH ×3 (06:07→20:45)
[2017-05-12] MEDS: metFORMIN 500 MG (GLUCOPHAGE) TAB PO SCH ×2 (06:07→16:40)
[2017-05-12] MEDS: GLIMEPIRIDE 2 MG (AMARYL) TAB PO SCH ×2 (06:07→16:40)
[2017-05-12] MEDS: inSUlin ASPART (NovoLOG) 1 UNIT/0.01 ML (CHARGE PER UNIT) SC SCH ×4 (06:07→20:44)
[2017-05-12 06:21] LABS: BUN/CREATININE RATIO 26; CALCIUM 9.1 MG/DL (8.5-10.1); CARBON DIOXIDE 31 MMOL/L (21-32); CHLORIDE 97 MMOL/L (98-107); CREATININE SERUM 0.66 MG/DL (0.60-1.30); GFR ESTIMATED > 60; GLUCOSE 237 MG/DL (70-105); SODIUM 138 MMOL/L (135-145)
[2017-05-12 08:00] VITALS: BP 102/65
[2017-05-12] MEDS: VENlafaxine 37.5 MG (EFFEXOR) TAB PO SCH (08:46)
[2017-05-12] MEDS: lisINopril 5 MG (PRINIVIL) TABLET PO SCH (08:46)
--- NOTE | 2017-05-12 11:13 | Progress Note (SOAP) ---
Subjective Subjective/Events-last exam Patient states she is breathing better, not as short of breath, coughing up some mucus. was up walking in halls yesterday. Review of Systems Date Seen by Provider: May 12, 2017 Time Seen by Provider: 09:00 Pulmonary: Dyspnea, Cough Cardiovascular: No: Chest Pain Objective Exam Last Set of Vital Signs Vital Signs Date Time Temp Pulse Resp B/P (MAP) Pulse Ox O2 Delivery O2 Flow Rate FiO2 05/12/17 08:00 97.7 101 20 102/65 (77) 93 Nasal Cannula 3.00 Capillary Refill : Less Than 3 Seconds I&O Intake and Output 05/12/17 00:00 Intake Total 4420 ml Balance 4420 ml Intake Oral 4420 ml # Voids 18 # Bowel Movements 2 General: Alert, Oriented X3, Cooperative, No Acute Distress Lungs: Clear to Auscultation, Normal Air Movement Heart: Regular Rate, Normal S1, Normal S2, No Murmurs, Gallops, Rubs Abdomen: Normal Bowel Sounds, Soft, No Tenderness, No Hepatosplenomegaly, No Masses Extremities: No Clubbing, No Cyanosis, No Edema Psych/Mental Status: Mental Status NL, Mood NL Results/Procedures Lab Laboratory Tests 05/11/17 11:12: Glucometer 231H 05/11/17 15:42: Glucometer 255H 05/11/17 20:57: Glucometer 195H 05/12/17 05:39: Glucometer 216H 05/12/17 05:51: White Blood Count 6.7, Red Blood Count 4.63, Hemoglobin 14.1, Hematocrit 43, Mean Corpuscular Volume 93, Mean Corpuscular Hemoglobin 31, Mean Corpuscular Hemoglobin Concent 33, Red Cell Distribution Width 13.5, Platelet Count 262, Mean Platelet Volume 9.8, Neutrophils (%) (Auto) 78H, Lymphocytes (%) (Auto) 15 , Monocytes (%) (Auto) 8, Eosinophils (%) (Auto) 0, Basophils (%) (Auto) 0, Neutrophils # (Auto) 5.2, Lymphocytes # (Auto) 1.0, Monocytes # (Auto) 0.5, Eosinophils # (Auto) 0.0, Basophils # (Auto) 0.0, Sodium Level 138, Potassium Level 5.0, Chloride Level 97L, Carbon Dioxide Level 31, Anion Gap 10, Blood Urea Nitrogen 17, Creatinine 0.66, Estimat Glomerular Filtration Rate > 60, BUN/ Creatinine Ratio 26, Glucose Level 237H, Calcium Level 9.1 Microbiology 05/09/17 Blood Culture - Preliminary, Resulted No growth 05/09/17 Gram Stain - Final, Complete 05/09/17 Sputum Culture - Final, Complete Normal britta Radiology Date of Exam: 05/09/17 CHEST 1 VIEW, AP/PA ONLY INDICATION: Shortness of breath, chest pain COMPARISON: None FINDINGS: Single view of the chest demonstrates infiltrate in the lingula and left base. The right lung is clear. The heart is normal. There is no pneumothorax or effusion. IMPRESSION: Infiltrate left lung base and lingula. Followup recommended. Assessment/Plan Assessment/Plan Plan ACUTE BACTERIAL EXACERBATION OF CHRONIC BRONCHITIS ACUTE HYPOXEMIA ADM: will change to solumedrol 40mg IV q6h, plan to decrease tomorrow; needs to do nebs q4h and q2h PRN SOB/cough. on levaquin day 1 (allergic to PCN). O2 to keep saO2 >90%. 05/11 - drop solumedrol to 40mg IV q12h; probably go to [facility] tomorrow. continue nebs. levaquin day 2/7. still on 3L, anticipate she will need home O2 , so will do O2 qual today. maybe home tomorrow with O2 depending on how she does; equally likely to be over the weekend. 05/12 - start oral steroids at prednisone 60mg. advise slow taper as outpatinet. levaquin day 3/7. still on 3L, home O2 order is paper and will need to be signed prior to discharge. anticipate DC on Mon or Monday. HTN ADM: restart home antihypertensives 05/10 - stable DMT2 ADM: anticipate that BS are going to go up with the steroids. start home glimepiride and metformin. Add SSI later today or tomorrow if BS >200. 05/10 - on SSI 05/11 - BS still in the 200s HL ADM: home simvastatin DVT PROPH: SCDs, encourage ambulation TID GI PROPH: not indicated Clinical Quality Measures DVT/VTE Risk/Contraindication: Risk Factor Score Per Nursin RFS Level Per Nursing on Admit: 4+=Very High ELMER RICK MD May 12, 2017 11:12 am
[2017-05-12] MEDS: LEVOFLOXACIN 750 MG TAB (LEVAQUIN) PO SCH (11:23)
[2017-05-12 14:46] VITALS: BP 102/65
[2017-05-12 16:27] VITALS: BP 97/60
[2017-05-12] MEDS: BENZONATATE 100 MG (TESSALON) CAPSULE PO PRN (16:45)
[2017-05-12] MEDS: SIMvastatin 20 MG (ZOCOR) TAB PO SCH (20:44)
[2017-05-13] VITALS: BP 115/75
[2017-05-13] MEDS: BENZONATATE 100 MG (TESSALON) CAPSULE PO PRN (01:15)
[2017-05-13] MEDS: RT-ALBUTEROL/IPRATROPIUM 3 ML (DUONEB) VIAL INH SCH ×4 (01:50→13:35)
--- NOTE | 2017-05-13 05:03 | Progress Note (SOAP) ---
Subjective Subjective/Events-last exam No acute events overnight. Patient is feeling well this morning, sats are 97% on 3L and patient states that she has been up and walked and she would like to go home today. Review of Systems Date Seen by Provider: May 13, 2017 Time Seen by Provider: 12:29 General: No Chills, No Night Sweats, No Fatigue HEENT: No Head Aches, No Eye Pain, No Ear Pain Pulmonary: No Dyspnea, Cough Cardiovascular: No: Chest Pain, Lt Headedness Gastrointestinal: No: Nausea, Vomiting, Abdominal Pain Genitourinary: No Dysuria, No Frequency Neurological: No: Weakness, Numbness, Incoordination, Seizures Objective Exam Last Set of Vital Signs Vital Signs Date Time Temp Pulse Resp B/P (MAP) Pulse Ox O2 Delivery O2 Flow Rate FiO2 05/13/17 01:51 97 Nasal Cannula 3.00 05/13/17 00:00 97.4 79 20 115/75 (88) 05/12/17 14:46 32 Capillary Refill : Less Than 3 Seconds I&O Intake and Output 05/13/17 00:00 Intake Total 1450 ml Balance 1450 ml Intake Oral 1450 ml # Voids 16 # Bowel Movements 6 General: Alert, Oriented X3, Cooperative, No Acute Distress HEENT: Atraumatic, PERRLA, EOMI, Mucous Memb Moist/[place] Neck: Supple, No JVD, No Thyromegaly Lungs: Other (mildly decreased in bases; 3L per NC) Heart: Regular Rate, Normal S1, Normal S2 Abdomen: Normal Bowel Sounds, Soft, No Tenderness, No Hepatosplenomegaly, No Masses Extremities: No Clubbing, No Cyanosis Skin: No Rashes, No Significant Lesion Neuro: Normal Speech, Normal Tone, Sensation Intact, Cranial Nerves 3-12 NL Psych/Mental Status: Mental Status NL, Mood NL Results/Procedures Lab Laboratory Tests 05/12/17 05:39: Glucometer 216H 05/12/17 05:51: White Blood Count 6.7, Red Blood Count 4.63, Hemoglobin 14.1, Hematocrit 43, Mean Corpuscular Volume 93, Mean Corpuscular Hemoglobin 31, Mean Corpuscular Hemoglobin Concent 33, Red Cell Distribution Width 13.5, Platelet Count 262, Mean Platelet Volume 9.8, Neutrophils (%) (Auto) 78H, Lymphocytes (%) (Auto) 15 , Monocytes (%) (Auto) 8, Eosinophils (%) (Auto) 0, Basophils (%) (Auto) 0, Neutrophils # (Auto) 5.2, Lymphocytes # (Auto) 1.0, Monocytes # (Auto) 0.5, Eosinophils # (Auto) 0.0, Basophils # (Auto) 0.0, Sodium Level 138, Potassium Level 5.0, Chloride Level 97L, Carbon Dioxide Level 31, Anion Gap 10, Blood Urea Nitrogen 17, Creatinine 0.66, Estimat Glomerular Filtration Rate > 60, BUN/ Creatinine Ratio 26, Glucose Level 237H, Calcium Level 9.1 05/12/17 11:04: Glucometer 246H 05/12/17 16:29: Glucometer 230H 05/12/17 20:14: Glucometer 186H Microbiology 05/09/17 Blood Culture - Preliminary, Resulted No growth 05/09/17 Gram Stain - Final, Complete 05/09/17 Sputum Culture - Final, Complete Normal britta Radiology Date of Exam: 05/09/17 CHEST 1 VIEW, AP/PA ONLY INDICATION: Shortness of breath, chest pain COMPARISON: None FINDINGS: Single view of the chest demonstrates infiltrate in the lingula and left base. The right lung is clear. The heart is normal. There is no pneumothorax or effusion. IMPRESSION: Infiltrate left lung base and lingula. Followup recommended. Assessment/Plan Assessment/Plan Plan ACUTE BACTERIAL EXACERBATION OF CHRONIC BRONCHITIS ACUTE HYPOXEMIA ADM: will change to solumedrol 40mg IV q6h, plan to decrease tomorrow; needs to do nebs q4h and q2h PRN SOB/cough. on levaquin day 05/21 (allergic to PCN). O2 to keep saO2 >90%. 05/11 - drop solumedrol to 40mg IV q12h; probably go to [facility] tomorrow. continue nebs. levaquin day 06/21. still on 3L, anticipate she will need home O2 , so will do O2 qual today. maybe home tomorrow with O2 depending on how she does; equally likely to be over the weekend. 05/12 - start oral steroids at prednisone 60mg. advise slow taper as outpatinet. levaquin day 07/19. still on 3L, home O2 order is paper and will need to be signed prior to discharge. anticipate DC on Mon or Monday. 05/13 - Pt remains on 3L but now maintaining sats of 3L per NC. Will qualify for home O2 and plan for discharge today HTN ADM: restart home antihypertensives 05/10 - stable 05/13 - Vital signs remain stable DMT2 ADM: anticipate that BS are going to go up with the steroids. start home glimepiride and metformin. Add SSI later today or tomorrow if BS >200. 05/10 - on SSI 05/11 - BS still in the 200s 05/13 - remains with mild hyperclycemia despite sliding scale insulin, likely secondary to steroid use HL ADM: home simvastatin DVT PROPH: SCDs, encourage ambulation TID GI PROPH: not indicated Clinical Quality Measures DVT/VTE Risk/Contraindication: Risk Factor Score Per Nursin RFS Level Per Nursing on Admit: 4+=Very High NOLBERTO CARR DO May 13, 2017 05:03
[2017-05-13 05:30] LABS: BASOPHILS % (AUTO) 0 % (0-10); EOSINOPHILS % (AUTO) 0 % (0-10); HEMATOCRIT 41 % (35-52); HEMOGLOBIN 13.4 G/DL (11.5-16.0); LYMPHOCYTES # (AUTO) 0.9 X 10^3 (1.0-4.0); LYMPHOCYTES % (AUTO) 20 % (12-44); MEAN CORPUSCULAR HEMOGLOBIN 31 PG (25-34); MEAN CORPUSCULAR HGB CONC 33 G/DL (32-36); MEAN CORPUSCULAR VOLUME 94 FL (80-99); MEAN PLATELET VOLUME 9.8 FL (7.4-10.4); MONOCYTES # (AUTO) 0.3 X 10^3 (0.0-1.0); MONOCYTES % (AUTO) 6 % (0-12); NEUTROPHILS # (AUTO) 3.5 X 10^3 (1.8-7.8); NEUTROPHILS % (AUTO) 75 % (42-75); PLATELET COUNT 208 10^3/uL (130-400); RED BLOOD COUNT 4.38 10^6/uL (4.35-5.85); RED CELL DISTRIBUTION WIDTH 13.4 % (10.0-14.5); WHITE BLOOD COUNT 4.7 10^3/uL (4.3-11.0)
[2017-05-13 05:48] LABS: BUN/CREATININE RATIO 28; CALCIUM 8.7 MG/DL (8.5-10.1); CARBON DIOXIDE 27 MMOL/L (21-32); CHLORIDE 95 MMOL/L (98-107); CREATININE SERUM 0.68 MG/DL (0.60-1.30); GFR ESTIMATED > 60; GLUCOSE 279 MG/DL (70-105); POTASSIUM 4.5 MMOL/L (3.6-5.0); SODIUM 137 MMOL/L (135-145)
[2017-05-13] MEDS: GLIMEPIRIDE 2 MG (AMARYL) TAB PO SCH (06:16)
[2017-05-13] MEDS: inSUlin ASPART (NovoLOG) 1 UNIT/0.01 ML (CHARGE PER UNIT) SC SCH ×2 (06:16→11:04)
[2017-05-13] MEDS: metFORMIN 500 MG (GLUCOPHAGE) TAB PO SCH (06:16)
[2017-05-13] MEDS: CATHETER FLUSH 10 ML SYR IV SCH (06:16)
[2017-05-13] MEDS ORDERED: predniSONE 20 MG TAB PO SCH (07:00)
[2017-05-13 08:00] VITALS: BP 115/71
[2017-05-13] MEDS: lisINopril 5 MG (PRINIVIL) TABLET PO SCH (09:13)
[2017-05-13] MEDS: VENlafaxine 37.5 MG (EFFEXOR) TAB PO SCH (09:13)
[2017-05-13] MEDS: LEVOFLOXACIN 750 MG TAB (LEVAQUIN) PO SCH (11:03)
--- NOTE | 2017-05-13 12:43 | Discharge Summary ---
Diagnosis/Chief Complaint Date of Admission May 09, 2017 at 21:35 Date of Discharge 05/13/17 Admission Diagnosis Admission Diagnosis ACUTE BACTERIAL EXACERBATION OF CHRONIC BRONCHITIS ACUTE HYPOXEMIA HTN DMT2 HL Discharge Diagnosis ACUTE BACTERIAL EXACERBATION OF CHRONIC BRONCHITIS ACUTE HYPOXEMIA ADM: will change to solumedrol 40mg IV q6h, plan to decrease tomorrow; needs to do nebs q4h and q2h PRN SOB/cough. on levaquin day 05/21 (allergic to PCN). O2 to keep saO2 >90%. 05/11 - drop solumedrol to 40mg IV q12h; probably go to [facility] tomorrow. continue nebs. levaquin day 06/21. still on 3L, anticipate she will need home O2 , so will do O2 qual today. maybe home tomorrow with O2 depending on how she does; equally likely to be over the weekend. 05/12 - start oral steroids at prednisone 60mg. advise slow taper as outpatinet. levaquin day 07/19. still on 3L, home O2 order is paper and will need to be signed prior to discharge. anticipate DC on Mon or Monday. 05/13 - Pt remains on 3L but now maintaining sats of 3L per NC. Qualified for home O2, will discharge home on 3L. Levaquin to complete a total of 7 days. Prolonged steroid taper over 12 days. HTN ADM: restart home antihypertensives 05/10 - stable 05/13 - Vital signs remain stable, continue on home medications DMT2 ADM: anticipate that BS are going to go up with the steroids. start home glimepiride and metformin. Add SSI later today or tomorrow if BS >200. 05/10 - on SSI 05/11 - BS still in the 200s 05/13 - remains with mild hyperclycemia despite sliding scale insulin, likely secondary to steroid use HL ADM: home simvastatin 05/13: continue home medication Chief Complaint/HPI Chief Complaint/HPI Pleasant 51yo woman with a history of COPD presented to hospital with complaints of cough and shortness of breath developing over the past few days. Denies fever. Patient states she could tell that she was getting sick but wanted to wait to be seen until after [place] because she didn't want to miss [place] with her grandkids. After that, she realized that she had "gotten behind" and was sicker than she realized. She has a dry cough with minimal phlegm. She is short of breath getting up and around. No chest pain. NO edema. She quit smoking 2 months ago after many years of smoking cigarettes. Discharge Summary-Simple/Stand Consultations Discharge Physical Examination Allergies: Coded Allergies: Penicillins (Verified Allergy, Unknown, 05/09/17) aspirin (Verified Allergy, Unknown, 05/09/17) morphine (Verified Allergy, Unknown, 05/09/17) Vitals & I&Os Vital Sign - Last 12Hours Date Time Temp Pulse Resp B/P (MAP) Pulse Ox O2 Delivery O2 Flow Rate FiO2 05/13/17 10:45 96 Nasal Cannula 3.00 05/13/17 08:00 97.4 92 18 115/71 (86) 05/12/17 14:46 32 Intake and Output 05/13/17 00:00 Intake Total 1400 ml Balance 1400 ml General Appearance: Alert, Oriented X3, Cooperative, No Acute Distress HEENT: Atraumatic, PERRLA, EOMI, Mucous Memb Moist/[place] Respiratory: Other (mildly diminished in bases) Cardiovascular: Regular Rate, Normal S1, Normal S2, No Murmurs Abdominal: Normal Bowel Sounds, Soft, No Tenderness, No Hepatosplenomegaly, No Masses Extremities: No Clubbing, No Cyanosis, No Tenderness/Swelling Skin: No Rashes, No Significant Lesion Neuro: Normal Speech, Normal Tone, Cranial Nerves 3-12 NL Psych/Mental Status: Mental Status NL, Mood NL Hospital Course See final discharge diagnosis. Labs Laboratory Tests Test 05/10/17 21:11 05/11/17 05:20 05/11/17 11:12 05/11/17 15:42 Range/Units Glucometer 256 H 231 H 255 H 70-110 MG/DL White Blood Count 6.3 4.3-11.0 10^3/uL Red Blood Count 4.21 L 4.35-5.85 10^6/uL Hemoglobin 12.8 11.5-16.0 G/DL Hematocrit 39 35-52 % Mean Corpuscular Volume 93 80-99 FL Mean Corpuscular Hemoglobin 30 25-34 PG Mean Corpuscular Hemoglobin Concent 33 32-36 G/DL Red Cell Distribution Width 13.3 10.0-14.5 % Platelet Count 246 130-400 10^3/uL Mean Platelet Volume 10.0 7.4-10.4 FL Neutrophils (%) (Auto) 83 H 42-75 % Lymphocytes (%) (Auto) 9 L 12-44 % Monocytes (%) (Auto) 8 0-12 % Eosinophils (%) (Auto) 0 0-10 % Basophils (%) (Auto) 0 0-10 % Neutrophils # (Auto) 5.2 1.8-7.8 X 10^3 Lymphocytes # (Auto) 0.6 L 1.0-4.0 X 10^3 Monocytes # (Auto) 0.5 0.0-1.0 X 10^3 Eosinophils # (Auto) 0.0 0.0-0.3 10^3/uL Basophils # (Auto) 0.0 0.0-0.1 10^3/uL Sodium Level 139 135-145 MMOL/L Potassium Level 4.3 3.6-5.0 MMOL/L Chloride Level 100 98-107 MMOL/L Carbon Dioxide Level 27 21-32 MMOL/L Anion Gap 12 5-14 MMOL/L Blood Urea Nitrogen 14 7-18 MG/DL Creatinine 0.65 0.60-1.30 MG/DL Estimat Glomerular Filtration Rate > 60 BUN/Creatinine Ratio 22 Glucose Level 219 H 70-105 MG/DL Calcium Level 9.2 8.5-10.1 MG/DL Test 05/11/17 20:57 05/12/17 05:39 05/12/17 05:51 05/12/17 11:04 Range/Units Glucometer 195 H 216 H 246 H 70-110 MG/DL White Blood Count 6.7 4.3-11.0 10^3/uL Red Blood Count 4.63 4.35-5.85 10^6/uL Hemoglobin 14.1 11.5-16.0 G/DL Hematocrit 43 35-52 % Mean Corpuscular Volume 93 80-99 FL Mean Corpuscular Hemoglobin 31 25-34 PG Mean Corpuscular Hemoglobin Concent 33 32-36 G/DL Red Cell Distribution Width 13.5 10.0-14.5 % Platelet Count 262 130-400 10^3/uL Mean Platelet Volume 9.8 7.4-10.4 FL Neutrophils (%) (Auto) 78 H 42-75 % Lymphocytes (%) (Auto) 15 12-44 % Monocytes (%) (Auto) 8 0-12 % Eosinophils (%) (Auto) 0 0-10 % Basophils (%) (Auto) 0 0-10 % Neutrophils # (Auto) 5.2 1.8-7.8 X 10^3 Lymphocytes # (Auto) 1.0 1.0-4.0 X 10^3 Monocytes # (Auto) 0.5 0.0-1.0 X 10^3 Eosinophils # (Auto) 0.0 0.0-0.3 10^3/uL Basophils # (Auto) 0.0 0.0-0.1 10^3/uL Sodium Level 138 135-145 MMOL/L Potassium Level 5.0 3.6-5.0 MMOL/L Chloride Level 97 L 98-107 MMOL/L Carbon Dioxide Level 31 21-32 MMOL/L Anion Gap 10 5-14 MMOL/L Blood Urea Nitrogen 17 7-18 MG/DL Creatinine 0.66 0.60-1.30 MG/DL Estimat Glomerular Filtration Rate > 60 BUN/Creatinine Ratio 26 Glucose Level 237 H 70-105 MG/DL Calcium Level 9.1 8.5-10.1 MG/DL Test 05/12/17 16:29 05/12/17 20:14 05/13/17 05:14 05/13/17 05:32 Range/Units Glucometer 230 H 186 H 238 H 70-110 MG/DL White Blood Count 4.7 4.3-11.0 10^3/uL Red Blood Count 4.38 4.35-5.85 10^6/uL Hemoglobin 13.4 11.5-16.0 G/DL Hematocrit 41 35-52 % Mean Corpuscular Volume 94 80-99 FL Mean Corpuscular Hemoglobin 31 25-34 PG Mean Corpuscular Hemoglobin Concent 33 32-36 G/DL Red Cell Distribution Width 13.4 10.0-14.5 % Platelet Count 208 130-400 10^3/uL Mean Platelet Volume 9.8 7.4-10.4 FL Neutrophils (%) (Auto) 75 42-75 % Lymphocytes (%) (Auto) 20 12-44 % Monocytes (%) (Auto) 6 0-12 % Eosinophils (%) (Auto) 0 0-10 % Basophils (%) (Auto) 0 0-10 % Neutrophils # (Auto) 3.5 1.8-7.8 X 10^3 Lymphocytes # (Auto) 0.9 L 1.0-4.0 X 10^3 Monocytes # (Auto) 0.3 0.0-1.0 X 10^3 Eosinophils # (Auto) 0.0 0.0-0.3 10^3/uL Basophils # (Auto) 0.0 0.0-0.1 10^3/uL Sodium Level 137 135-145 MMOL/L Potassium Level 4.5 3.6-5.0 MMOL/L Chloride Level 95 L 98-107 MMOL/L Carbon Dioxide Level 27 21-32 MMOL/L Anion Gap 15 H 5-14 MMOL/L Blood Urea Nitrogen 19 H 7-18 MG/DL Creatinine 0.68 0.60-1.30 MG/DL Estimat Glomerular Filtration Rate > 60 BUN/Creatinine Ratio 28 Glucose Level 279 H 70-105 MG/DL Calcium Level 8.7 8.5-10.1 MG/DL Test 05/13/17 10:50 Range/Units Glucometer 268 H 70-110 MG/DL Radiology Reviewed Date of Exam: 05/09/17 CHEST 1 VIEW, AP/PA ONLY INDICATION: Shortness of breath, chest pain COMPARISON: None FINDINGS: Single view of the chest demonstrates infiltrate in the lingula and left base. The right lung is clear. The heart is normal. There is no pneumothorax or effusion. IMPRESSION: Infiltrate left lung base and lingula. Followup recommended. Discussion & Recommendations On the morning of discharge patient reports that she is feeling back to baseline and she feels ready to go home. We had her qualified for home oxygen and she was discharged on 3L O2 per [place]. She was discharged on a slow prednisone taper over 12 days. We will have her follow up with her PCP next week as scheduled on her discharge paperwork. Discharge Instructions to patient/family Please see electronic discharge instructions given to patient. Discharge Medications Reviewed and agree with Discharge Medication list on patient's Discharge Instruction sheet Clinical Quality Measures DVT/VTE Risk/Contraindication: Risk Factor Score Per Nursin RFS Level Per Nursing on Admit: 4+=Very High NOLBERTO CARR DO May 13, 2017 12:43
[2017-05-13] MEDS ORDERED: BENZ-36 PO (12:53)
[2017-05-13] MEDS ORDERED: PRD20T PO (12:53)
[2017-05-13] MEDS ORDERED: IPRA3AMP INH (12:53)
[2017-05-13] MEDS ORDERED: LEVO750T39 PO (12:53)
--- NOTE | 2017-05-13 12:57 | Discharge Instructions ---
Discharge [facility] Discharge Medications New, Converted or Re-Newed RX: Transmitted to Pharmacy New Medications: Benzonatate (Benzonatate) 100 Mg Capsule 200 MG PO BID PRN for COUGH for 14 Days, #28 CAP 0 Refills Levofloxacin (Levofloxacin) 750 Mg Tablet 750 MG PO DAILY@1100 for 3 Days, #3 TAB 0 Refills Prednisone (Prednisone) 20 Mg Tab 60 MG PO DAILY@0700 for 12 Days, #17 TAB 0 Refills 60 mg x2 days, 40 mg x3 days, 20 mg x3 days, 10 mg x4 days Continued Medications: Fluticasone/Vilanterol (Breo Ellipta 100-25 Mcg INH) 1 Each Blst.w.dev 1 PUFF INH HS, EA LAST FILLED 02-13-17 Glimepiride (Glimepiride) 2 Mg Tablet 2 MG PO BID, TAB LAST FILLED #60 03-20-17 Ibuprofen (Advil) 200 Mg Tablet 400 MG PO Q6H PRN for PAIN-MILD, TAB TAKES 2 (200MG) TABLETS Lisinopril (Lisinopril) 5 Mg Tablet 5 MG PO DAILY, TAB LAST FILLED #30 03-20-17 Metformin HCl (Metformin HCl) 500 Mg Tablet 1000 MG PO BID, TAB LAST FILLED #120 03-20-17 TAKES 2 (500MG) TABLETS Simvastatin (Simvastatin) 20 Mg Tablet 20 MG PO HS, TAB LAST FILLED #30 03-20-17 Umeclidinium [place] (Incruse Ellipta) 62.5 Mcg Blst.w.dev 1 PUFF INH DAILY, EA LAST FILLED 02-13-17 Venlafaxine HCl (Venlafaxine HCl) 37.5 Mg Tab 37.5 MG PO DAILY, TAB LAST FILLED #30 03-20-17 Patient Instructions Patient Instructions use home oxygen until directed to stop by PCP Goal/Follow Up Appt: Mason GEORGES 05/19/17 at 1:20 PM Patient Instructions: take medications as directed, keep follow up appt, use oxygen as directed Return to [facility] For: fever greater than 101 unrelieved by ibuprofen or tylenol, severe pain unrelieved by medication, severe shortness of breath unrelieved by home medications or oxygen, or any other emergent complaints or concerns Activity & Diet Discharge Diet: ADA Diet, Cardiac Diet Activity as Tolerated: Yes Orders-Post D/C & Referrals Pneu Vac Indicated: Yes NOLBERTO CARR DO May 13, 2017 12:57
[2017-05-13 14:42] VITALS: BP 115/71
== END 2017-05-13 14:42 | disposition home or self-care (01) | DRG 192 ==
LOC: EDUNIT# 20:23 → ER 20:25 → 4TH 21:35
PROVIDERS: ADMIT Pediatrics; ATTEND Pediatrics
DX: J44.0 Chronic obstructive pulmonary disease with (acute) lower respiratory infection (principal); J44.1 Chronic obstructive pulmonary disease with (acute) exacerbation; R09.02 Hypoxemia; I10 Essential (primary) hypertension; E11.9 Type 2 diabetes mellitus without complications; E78.5 Hyperlipidemia, unspecified; Z87.891 Personal history of nicotine dependence; Z88.0 Allergy status to penicillin; Z88.5 Allergy status to narcotic agent; Z88.8 Allergy status to other drugs, medicaments and biological substances; F41.9 Anxiety disorder, unspecified; F32.9 Major depressive disorder, single episode, unspecified; Z79.84 Long term (current) use of oral hypoglycemic drugs
CPT/HCPCS: 36415; 71010; 80048; 80053; 82962; 83605; 84484; 85007; 85025; 85027; 85610; 85730; 87040; 87070; 87077; 87205; 87804; 93005; 94640; 94644; 94760; 94761; 96374; 96375

== ENCOUNTER 2017-07-12 15:17 | Emergency (ER) | payer SELFPAY ==
[~2017-07-12] VITALS: Ht 167.6 cm; Wt 145.1 kg
[~2017-07-12 15:17] MED LIST: BENZ-36 PO; FLUT1AER INH; GLIM2TAB PO; IBUP-30 PO; IPRA3AMP INH; LEVO750T39 PO; LISI-556 PO; METF500T4 PO; PRD20T PO; SIMV20TA3 PO; UMEC62.5 INH; VNL37.5T PO
--- OUTSIDE RECORDS SUMMARY | 2017-07-12 15:23 | XMS REPORT | Continuity of Care Document ---
Demographics x Preferred Language Unknown Marital Status Unknown [employer] Affiliation Unknown Race Unknown Ethnic Group Unknown Author Author [facility] Organization [facility] Address Unknown Phone Unavailable Allergies There is no data. Medications There is no data. Problems There is no data. Procedures There is no data. Results There is no data. Encounters ACCT No. Visit Date/Time Discharge Status Pt. Type Provider Facility Loc./Unit Complaint [id number] 04/23/2014 10:21:00 04/23/2014 23:59:59 CLS Outpatient Carissa Bagley
[2017-07-12] MEDS ORDERED: RT-ALBUTEROL/IPRATROPIUM 3 ML (DUONEB) VIAL ONE (15:30)
[2017-07-12] MEDS ORDERED: NS IV 1000 ML 1,000 ML IV SCH (15:59)
[2017-07-12] MEDS ORDERED: ACETAMINOPHEN 500 MG TAB (TYLENOL) PO PRN (16:00)
[2017-07-12 16:10] LABS: BASOPHILS % (AUTO) 0 % (0-10); EOSINOPHILS # (AUTO) 0.3 10^3/uL (0.0-0.3); EOSINOPHILS % (AUTO) 5 % (0-10); HEMATOCRIT 41 % (35-52); HEMOGLOBIN 13.9 G/DL (11.5-16.0); LYMPHOCYTES # (AUTO) 1.9 X 10^3 (1.0-4.0); LYMPHOCYTES % (AUTO) 28 % (12-44); MEAN CORPUSCULAR HEMOGLOBIN 31 PG (25-34); MEAN CORPUSCULAR HGB CONC 34 G/DL (32-36); MEAN CORPUSCULAR VOLUME 91 FL (80-99); MEAN PLATELET VOLUME 10.1 FL (7.4-10.4); MONOCYTES # (AUTO) 0.5 X 10^3 (0.0-1.0); MONOCYTES % (AUTO) 7 % (0-12); NEUTROPHILS # (AUTO) 4.2 X 10^3 (1.8-7.8); NEUTROPHILS % (AUTO) 61 % (42-75); PLATELET COUNT 222 10^3/uL (130-400); RED BLOOD COUNT 4.55 10^6/uL (4.35-5.85); RED CELL DISTRIBUTION WIDTH 13.2 % (10.0-14.5); WHITE BLOOD COUNT 6.9 10^3/uL (4.3-11.0)
[2017-07-12 16:21] LABS: ALANINE AMINOTRANSFERASE 27 U/L (0-55); ALKALINE PHOSPHATASE 84 U/L (40-136); BILIRUBIN,TOTAL 0.4 MG/DL (0.1-1.0); BUN/CREATININE RATIO 18; CALCIUM 9.2 MG/DL (8.5-10.1); CARBON DIOXIDE 29 MMOL/L (21-32); CHLORIDE 102 MMOL/L (98-107); CREATININE SERUM 0.61 MG/DL (0.60-1.30); GFR ESTIMATED > 60; GLUCOSE 190 MG/DL (70-105); POTASSIUM 3.8 MMOL/L (3.6-5.0); PROTHROMBIN TIME PATIENT 13.2 SEC (12.2-14.7); SODIUM 142 MMOL/L (135-145)
--- NOTE | 2017-07-12 16:23 | Diagnostic Imaging Report ---
Indication: Shortness of breath. Comparison: 05/09/2017 Findings: Upright portable view of the chest is obtained. Heart size is normal. The pulmonary vessels appear unremarkable. There is no pneumothorax, mediastinal widening or pleural fluid. Lungs are clear. Impression: Negative chest. Dictated by: Dictated on workstation # [id number]
[2017-07-12 16:41] LABS: TSH (THYROID ANALYZER) 1.42 UIU/ML (0.35-4.94)
[2017-07-12] MEDS ORDERED: RT-ALBUTEROL SULF 2.5 MG/3 ML PRE-MIX VIAL INH STA (17:08)
[2017-07-12] MEDS ORDERED: methylPREDNISolone 125 MG (Solu-MEDROL) VIAL IVP ONE (17:15)
[2017-07-12] MEDS ORDERED: RT-ALBUTEROL/IPRATROPIUM 3 ML (DUONEB) VIAL INH ONE (17:15)
--- NOTE | 2017-07-12 17:21 | ED Respiratory ---
General Chief Complaint: Respiratory Problems Stated Complaint: SOA Nursing Triage Note: AMB TO ROOM WITH O2 IN PLACE. PATIENT REPORTS SHE HAS BEEN SOA FOR SEVERAL DAYS. Source: patient Exam Limitations: no limitations History of Present Illness Date Seen by Provider: Jul 12, 2017 Time Seen by Provider: 16:50 Allergies and Home Medications Allergies Coded Allergies: Penicillins (Verified Allergy, Unknown, 05/09/17) aspirin (Verified Allergy, Unknown, 05/09/17) morphine (Verified Allergy, Unknown, 05/09/17) Home Medications Benzonatate 100 Mg Capsule, 200 MG PO BID PRN for COUGH Prescribed by: NOLBERTO CARR on 05/13/17 1253 Fluticasone/Vilanterol 1 Each Blst.w.dev, 1 PUFF INH HS, (Reported) LAST FILLED 02-13-17 Glimepiride 2 Mg Tablet, 2 MG PO BID, (Reported) LAST FILLED #60 03-20-17 Ibuprofen 200 Mg Tablet, 400 MG PO Q6H PRN for PAIN-MILD, (Reported) TAKES 2 (200MG) TABLETS Levofloxacin 750 Mg Tablet, 750 MG PO DAILY@1100 Prescribed by: NOLBERTO CARR on 05/13/17 1253 Lisinopril 5 Mg Tablet, 5 MG PO DAILY, (Reported) LAST FILLED #30 03-20-17 Metformin HCl 500 Mg Tablet, 1,000 MG PO BID, (Reported) LAST FILLED #120 03-20-17 TAKES 2 (500MG) TABLETS Prednisone 20 Mg Tab, 60 MG PO DAILY@0700 60 mg x2 days, 40 mg x3 days, 20 mg x3 days, 10 mg x4 days Prescribed by: NOLBERTO CARR on 05/13/17 1253 Simvastatin 20 Mg Tablet, 20 MG PO HS, (Reported) LAST FILLED #30 03-20-17 Umeclidinium [place] 62.5 Mcg Blst.w.dev, 1 PUFF INH DAILY, (Reported) LAST FILLED 02-13-17 Venlafaxine HCl 37.5 Mg Tab, 37.5 MG PO DAILY, (Reported) LAST FILLED #30 03-20-17 Past [id number] Hx Patient Social History Alcohol Use: Denies Use Recreational Drug Use: No Type Used: Cigarettes Former Smoker, Quit: Mar 06, 2017 Recent Foreign Travel: No Contact w/Someone Who Travel: No Recent Infectious Disease Expo: No Recent Hopitalizations: No Seasonal Allergies Seasonal Allergies: No Surgeries History of Surgeries: Yes Surgeries: Gallbladder, 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, Tubal Ligation Respiratory History of Respiratory Disorde: Yes Respiratory Disorders: COPD Cardiovascular History of Cardiac Disorders: No Cardiac Disorders: Hypertension Neurological History of Neurological Disord: No 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 Genitourinary History of Genitourinary Disor: No Gastrointestinal History of Gastrointestinal Di: No Musculoskeletal History of Musculoskeletal Dis: No Endocrine History of Endocrine Disorders: Yes Endocrine Disorders: Diabetes, Non-Insulin dep HEENT History of HEENT Disorders: No Cancer History of Cancer: No Psychosocial History of Psychiatric Problem: Yes Behavioral Health Disorders: Anxiety, Depression Integumentary History of Skin or Integumenta: No Blood Transfusions History of Blood Disorders: No Family Medical History Significant Family History: No Pertinent Family Hx Family Medial History: Diabetes mellitus 19 FATHER FH: breast cancer 19 MOTHER Myocardial infarction 19 FATHER Thyroid disease G8 SISTER Physical Exam Vital Signs Vital Signs - First Documented 07/12/17 15:24 Temp 98.2 Pulse 88 Resp 18 B/P (MAP) 149/98 (115) Pulse Ox 90 O2 Delivery Nasal Cannula O2 Flow Rate 3.00 FiO2 90 Capillary Refill : Less Than 3 Seconds Focused Exam Evaluation Lactate Level Laboratory Tests 07/12/17 15:45: Lactic Acid Level 1.98 Lactic Acid Level Laboratory Tests Test 07/12/17 15:45 Lactic Acid Level 1.98 MMOL/L (0.50-2.00) Progress/Results/Core Measures Suspected Sepsis Recent Fever Within 48 Hours: No Infection Criteria Present: Suspected New Infection New/Unexplained Altered Menta: No Sepsis Screen: No Definite Risk Sepsis Diagnosis: SIRS Temperature:98.2 Pulse: 88 Respiratory Rate: 18 Laboratory Tests 07/12/17 15:45: White Blood Count 6.9 Blood Pressure 149 /98 Mean: 115 Laboratory Tests 07/12/17 15:45: Lactic Acid Level 1.98 Laboratory Tests 07/12/17 15:45: Creatinine 0.61, INR Comment 1.0, Platelet Count 222, Total Bilirubin 0.4 Results/Orders Lab Results Laboratory Tests Test 07/12/17 15:45 07/12/17 19:30 Range/Units White Blood Count 6.9 4.3-11.0 10^3/uL Red Blood Count 4.55 4.35-5.85 10^6/uL Hemoglobin 13.9 11.5-16.0 G/DL Hematocrit 41 35-52 % Mean Corpuscular Volume 91 80-99 FL Mean Corpuscular Hemoglobin 31 25-34 PG Mean Corpuscular Hemoglobin Concent 34 32-36 G/DL Red Cell Distribution Width 13.2 10.0-14.5 % Platelet Count 222 130-400 10^3/uL Mean Platelet Volume 10.1 7.4-10.4 FL Neutrophils (%) (Auto) 61 42-75 % Lymphocytes (%) (Auto) 28 12-44 % Monocytes (%) (Auto) 7 0-12 % Eosinophils (%) (Auto) 5 0-10 % Basophils (%) (Auto) 0 0-10 % Neutrophils # (Auto) 4.2 1.8-7.8 X 10^3 Lymphocytes # (Auto) 1.9 1.0-4.0 X 10^3 Monocytes # (Auto) 0.5 0.0-1.0 X 10^3 Eosinophils # (Auto) 0.3 0.0-0.3 10^3/uL Basophils # (Auto) 0.0 0.0-0.1 10^3/uL Prothrombin Time 13.2 12.2-14.7 SEC INR Comment 1.0 0.8-1.4 Activated Partial Thromboplast Time 25 24-35 SEC Sodium Level 142 135-145 MMOL/L Potassium Level 3.8 3.6-5.0 MMOL/L Chloride Level 102 98-107 MMOL/L Carbon Dioxide Level 29 21-32 MMOL/L Anion Gap 11 5-14 MMOL/L Blood Urea Nitrogen 11 7-18 MG/DL Creatinine 0.61 0.60-1.30 MG/DL Estimat Glomerular Filtration Rate > 60 BUN/Creatinine Ratio 18 Glucose Level 190 H 70-105 MG/DL Lactic Acid Level 1.98 0.50-2.00 MMOL/L Calcium Level 9.2 8.5-10.1 MG/DL Total Bilirubin 0.4 0.1-1.0 MG/DL Aspartate Amino Transf (AST/SGOT) 25 5-34 U/L Alanine Aminotransferase (ALT/SGPT) 27 0-55 U/L Alkaline Phosphatase 84 40-136 U/L Troponin I < 0.30 <0.30 NG/ML Total Protein 7.0 6.4-8.2 GM/DL Albumin 4.0 3.2-4.5 GM/DL TSH Person Testing 1.42 0.35-4.94 UIU/ML Urine Color YELLOW Urine Clarity CLEAR Urine pH 5 5-9 Urine Specific [place] 1.025 H 1.016-1.022 Urine Protein 2+ H NEGATIVE Urine Glucose (UA) NEGATIVE NEGATIVE Urine Ketones 1+ H NEGATIVE Urine Nitrite NEGATIVE NEGATIVE Urine Bilirubin 1+ H NEGATIVE Urine Urobilinogen 1 NORMAL MG/DL Urine Leukocyte Esterase 1+ H NEGATIVE Urine RBC (Auto) NEGATIVE NEGATIVE Urine RBC NONE /HPF Urine WBC 0-2 /HPF Urine Squamous Epithelial Cells 10-25 H /HPF Urine Crystals PRESENT H /LPF Urine Amorphous Sediment RARE PRATIBHA URATES H /LPF Urine Bacteria NONE /HPF Urine Casts NONE /LPF Urine Mucus MODERATE H /LPF Urine Culture Indicated NO Micro Results Microbiology 07/12/17 Influenza Types A,B Antigen (NOEMI) - Final, Complete My Orders Orders - TONIA GASTELUM PA Cbc With Automated Diff (07/12/17 15:59) Comprehensive Metabolic Panel (07/12/17 15:59) Lactic Acid Analyzer (07/12/17 15:59) Blood Culture (07/12/17 15:59) Sputum Culture (07/12/17 15:59) Ua Culture If Indicated (07/12/17 15:59) Protime With Inr (07/12/17 15:59) Partial Thromboplastin Time (07/12/17 15:59) Chest 1 View, Ap/Pa Only (07/12/17 15:59) O2 (07/12/17 15:59) Acetaminophen Tablet (Tylenol Tablet) (07/12/17 16:00) Saline Lock/Iv-Start (07/12/17 15:59) Saline Lock/Iv-Start (07/12/17 15:59) Ekg Tracing (07/12/17 15:59) Troponin I (07/12/17 15:59) Vital Signs Adult Sepsis Patie Q1H (07/12/17 15:59) Remove Rings In Anticipation O (07/12/17 15:59) Influenza A And B Antigens (07/12/17 15:59) Thyroid Analyzer (07/12/17 15:59) Ns Iv 1000 Ml (Sodium Chloride 0.9%) (07/12/17 15:59) Albuterol Pre-Mix Nebs (Rt) (Proventil (07/12/17 17:08) Albuterol/Ipra Inhalation Soln (Duoneb I (07/12/17 17:15) Svn Sm Volume Nebulizer Rt-Rfs (07/12/17 17:08) Svn Sm Volume Nebulizer Rt-Rfs (07/12/17 17:08) Methylprednisolone Sod Succ (Solu-Medrol (07/12/17 17:15) Saline Lock/Iv-Start (07/12/17 18:38) Ns Iv 1000 Ml (Sodium Chloride 0.9%) (07/12/17 18:38) Medications Given in ED Current Medications Medications Dose Ordered Sig/Cait Route Start Time Stop Time Status Last Admin Dose Admin Acetaminophen 1,000 mg ONCE PRN PO 07/12/17 16:00 07/12/17 16:28 DC 07/12/17 16:27 1,000 MG Albuterol/ Ipratropium 3 ml ONCE ONCE INH 07/12/17 17:15 07/12/17 17:16 DC 07/12/17 17:33 3 ML Albuterol/ Ipratropium 3 ml STK-MED ONCE .ROUTE 07/12/17 15:30 07/12/17 15:34 DC 07/12/17 15:44 3 ML Methylprednisolone Sodium Succinate 125 mg ONCE ONCE IVP 07/12/17 17:15 07/12/17 17:16 DC 07/12/17 17:51 125 MG Ondansetron HCl 4 mg ONCE ONCE IVP 07/12/17 20:15 07/12/17 20:16 DC 07/12/17 20:07 4 MG Sodium Chloride 1,000 ml @ 0 mls/hr Q0M ONCE IV 07/12/17 18:38 07/12/17 18:39 DC 07/12/17 18:45 0 MLS/HR Vital Signs/I&O Vital Sign - Last 12Hours 07/12/17 07/12/17 07/12/17 07/12/17 15:24 15:24 15:41 17:33 Temp 98.2 Pulse 88 Resp 18 B/P (MAP) 149/98 (115) Pulse Ox 90 93 94 O2 Delivery Nasal Cannula Nasal Cannula Nasal Cannula Nasal Cannula O2 Flow Rate 3.00 3.00 3.00 FiO2 90 07/12/17 17:54 Pulse 89 Resp 18 B/P (MAP) 128/84 (99) Pulse Ox 94 O2 Delivery Nasal Cannula O2 Flow Rate 3.00 Capillary Refill : Less Than 3 Seconds Blood Pressure Mean: 115 Departure Impression Impression: Primary Impression: Acute viral bronchitis Additional Impressions: COPD with exacerbation Volume depletion Disposition: 01 HOME, SELF-CARE Condition: Improved Departure-Patient Inst. Decision time for Depature: 20:24 Referrals: [facility] (PCP/Family) Primary Care Physician Patient Instructions: Acute Bronchitis, Adult (DC) Add. Discharge Instructions: All discharge instructions reviewed with patient and/or family. Voiced understanding. Medications as instructed. Tylenol Extra Strength over-the- counter as directed for pain. Ibuprofen 600 mg by mouth every 6-8 hours as needed for pain or fever. Drink plenty of fluids. Elevate the lower extremities on pillows. Monitor blood sugars closely. If your blood sugars are ranging above 250, stop the prednisone. You may need to wear your oxygen more frequently over the next several days. Follow-up with [facility] in the next 1-2 days for recheck, call for appointment time tomorrow morning. Return to the emergency department for worsened symptoms or any other concerns. Scripts Levalbuterol HCl (Xopenex) 1.25 Mg/3 Ml Vial.neb 1.25 MG IH Q4H Y for SHORTNESS OF BREATH, #25 INHALER 0 Refills Prov: TONIA GASTELMU 07/12/17 Ondansetron (Ondansetron Odt) 8 Mg Tab.rapdis 8 MG PO Q6H Y for NAUSEA/VOMITING-1ST LINE, #10 TAB 0 Refills Prov: TONIA GASTELUM 07/12/17 Prednisone (Prednisone) 20 Mg Tab 20 MG PO DAILY, #5 TAB 0 Refills Prov: TONIA GASTELUM 07/12/17 TONIA GASTELUM Jul 12, 2017 17:21
[2017-07-12 17:54] VITALS: BP 128/84
[2017-07-12] MEDS ORDERED: NS IV 1000 ML 1,000 ML IV ONE (18:38)
[2017-07-12 19:41] LABS: CLARITY,URINE CLEAR; COLOR,URINE YELLOW; GLUCOSE, URINE (UA) NEGATIVE (NEGATIVE); KETONES,URINE 1+ (NEGATIVE); LEUKOCYTE ESTERASE ,URINE 1+ (NEGATIVE); NITRITE,URINE NEGATIVE (NEGATIVE); PH,URINE 5 (5-9); PROTEIN,URINE 2+ (NEGATIVE); UROBILINOGEN,URINE 1 MG/DL (NORMAL)
[2017-07-12 19:57] LABS: BILIRUBIN,URINE 1+ (NEGATIVE); WBC,URINE 0-2 /HPF
[2017-07-12 19:58] LABS: AMORPHOUS SEDIMENT,UR RARE AMOR URATES /LPF
[2017-07-12] MEDS ORDERED: ONDANSETRON 4 MG/2 ML (SDV) Z0FRAN IVP ONE (20:15)
[2017-07-12] MEDS ORDERED: PRD20T PO (20:41)
[2017-07-12] MEDS ORDERED: ONDA8TAB13 PO (20:41)
[2017-07-12] MEDS ORDERED: LEVA1.2527 IH (20:41)
[2017-07-12] MEDS ORDERED: RX-ONDANSETRON 4 MG ODT (ZOFRAN) PPK #4 PO STA (20:42)
[2017-07-12] MEDS ORDERED: POTA10TA10 PO (20:44)
[2017-07-12] MEDS ORDERED: FURO-125 PO (20:44)
[2017-07-12 21:15] VITALS: BP 122/90
== END 2017-07-12 21:15 | disposition home or self-care (01) ==
LOC: EDUNIT# 15:17 → ER 15:18
DX: J20.9 Acute bronchitis, unspecified (principal); J44.1 Chronic obstructive pulmonary disease with (acute) exacerbation; E86.9 Volume depletion, unspecified; I10 Essential (primary) hypertension; E11.9 Type 2 diabetes mellitus without complications; F41.9 Anxiety disorder, unspecified; F32.9 Major depressive disorder, single episode, unspecified; Z88.0 Allergy status to penicillin; Z88.6 Allergy status to analgesic agent; Z88.5 Allergy status to narcotic agent; Z79.84 Long term (current) use of oral hypoglycemic drugs; Z82.49 Family history of ischemic heart disease and other diseases of the circulatory system; Z80.3 Family history of malignant neoplasm of breast; Z79.52 Long term (current) use of systemic steroids; Z87.891 Personal history of nicotine dependence; Z90.710 Acquired absence of both cervix and uterus; Z98.51 Tubal ligation status
CPT/HCPCS: 36415; 71045; 80053; 81000; 82962; 83605; 84443; 84484; 85025; 85610; 85730; 87040; 87070; 87077; 87186; 87205; 87804; 93005; 94640; 96361; 96374; 96375

== ENCOUNTER 2020-03-18 21:38 | Inpatient (IN) | payer SELFPAY ==
[~2020-03-18] VITALS: Ht 167.7 cm; Wt 119.3 kg
[~2020-03-18 21:38] MED LIST changes: +FURO-125 PO; -GLIM2TAB PO; +GLIM2TAB4 PO; -IPRA3AMP INH; +IPRA3AMP31 INH; +LEVA1.2527 IH; +METF-397 PO; -METF500T4 PO; +ONDA8TAB13 PO; +POTA10TA10 PO; +SIMV20TA26 PO; -SIMV20TA3 PO
[2020-03-18] MEDS ORDERED: ADVAIR HFA 115/21 MCG INHALER 8 GM IH ONE (21:44)
[2020-03-18] MEDS ORDERED: ALBUTEROL/IPRATROP (COMBIVENT RESPIMAT) 4 GM INHALER ONE (21:44)
[2020-03-18] MEDS ORDERED: ONDANSETRON 4 MG/2 ML (SDV) Z0FRAN ONE (21:58)
[2020-03-18] MEDS ORDERED: ACETAMINOPHEN 500 MG TAB (TYLENOL) ONE (22:01)
[2020-03-18] MEDS ORDERED: IBUPROFEN 800 MG (MOTRIN) TAB PO ONE ×2 (22:01→22:15)
[2020-03-18] MEDS ORDERED: ACETAMINOPHEN 500 MG TAB (TYLENOL) PO ONE (22:15)
[2020-03-18 22:31] LABS: BASOPHILS % (AUTO) 1 % (0-10); EOSINOPHILS % (AUTO) 1 % (0-10); HEMATOCRIT 45 % (35-52); HEMOGLOBIN 15.2 g/dL (11.5-16.0); LYMPHOCYTES # (AUTO) 0.6 10^3/uL (1.0-4.0); LYMPHOCYTES % (AUTO) 10 % (12-44); MEAN CORPUSCULAR HEMOGLOBIN 30 pg (25-34); MEAN CORPUSCULAR HGB CONC 34 g/dL (32-36); MEAN CORPUSCULAR VOLUME 88 fL (80-99); MEAN PLATELET VOLUME 10.5 fL (9.0-12.2); MONOCYTES # (AUTO) 0.5 10^3/uL (0.0-1.0); MONOCYTES % (AUTO) 9 % (0-12); NEUTROPHILS # (AUTO) 4.9 10^3/uL (1.8-7.8); NEUTROPHILS % (AUTO) 80 % (42-75); PLATELET COUNT 186 10^3/uL (130-400); WHITE BLOOD COUNT 6.1 10^3/uL (4.3-11.0)
[2020-03-18] MEDS ORDERED: NS IV 1000 ML 1,000 ML ONE (22:33)
[2020-03-18] MEDS ORDERED: NS IV 1000 ML 1,000 ML IV SCH ×2 (22:34→23:35)
[2020-03-18] MEDS ORDERED: NS IV 1000 ML 1,000 ML IV ONE ×2 (22:45→23:35)
[2020-03-18 22:46] LABS: FIBRIN DEGRADATION PRODUCTS 0.59 UG/ML (0.00-0.49); PROTHROMBIN TIME PATIENT 13.1 SEC (12.2-14.7)
[2020-03-18 22:54] LABS: ERYTHROCYTE SEDIMENTATION RATE 17 MM/HR (0-30)
[2020-03-18 22:55] LABS: ALANINE AMINOTRANSFERASE 23 U/L (0-55); ALBUMIN 3.8 GM/DL (3.2-4.5); ALKALINE PHOSPHATASE 96 U/L (40-136); BILIRUBIN,TOTAL 0.5 MG/DL (0.1-1.0); BUN/CREATININE RATIO 12; CALCIUM 8.8 MG/DL (8.5-10.1); CARBON DIOXIDE 22 MMOL/L (21-32); CHLORIDE 98 MMOL/L (98-107); CREATINE KINASE 51 U/L (29-168); CREATININE SERUM 0.81 MG/DL (0.60-1.30); GFR ESTIMATED > 60; GLUCOSE 368 MG/DL (70-105); MAGNESIUM 1.6 MG/DL (1.6-2.4); POTASSIUM 3.8 MMOL/L (3.6-5.0); SODIUM 136 MMOL/L (135-145); TOTAL PROTEIN 6.9 GM/DL (6.4-8.2)
[2020-03-18 23:11] LABS: ABG BASE EXCESS 2.4 MMOL/L (-2.5-2.5); ABG OXYGEN SATURATION 92 % (94-100); ABG PCO2 48 MMHG (35-45); ABG PH 7.38 (7.37-7.43); ABG PO2 75 MMHG (79-93); ABG TCO2 28.1 MMOL/L (21.0-31.0)
--- NOTE | 2020-03-18 23:13 | ED Respiratory ---
General Chief Complaint: Respiratory Problems Stated Complaint: CHEST PAIN;SOA;COUGH;FEVER;DIZZINESS Source: patient (SOMEWHAT LIMITED HISTORIAN) History of Present Illness Date Seen by Provider: Mar 18, 2020 Time Seen by Provider: 21:43 Initial Comments PT ARRIVES VIA POV FROM HOME--PTS' ADULT DAUGHTER DROVE THEM HERE PT'S 16 Y.O. "FOSTER" DAUGHTER IS ALSO BEING SEEN FOR SAME--FOSTER DAUGHTER BEGAN HAVING SYMPTOMS YESTERDAY AND WAS SENT HOME FROM SCHOOL YESTERDAY, BUT DID NOT SEEK CARE UNTIL TONIGHT. 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 SMOKED 2 PPD, QUIT 2 YEARS AGO HAS HISTORY OF PNEUMONIA HAS NOT TAKEN ANYTHING FOR BODY ACHES OR FEVER PT IS DIABETIC, TAKES PILLS, BUT DOES NOT CHECK HER BLOOD SUGAR STATES SHE WAS TESTED FOR COVID-19 AT WORK A COUPLE OF MONTHS AGO, AND WAS NEGATIVE. NO KNOWN SICK CONTACTS AT WORK. "FOSTER" DAUGHTER IS IN SCHOOL. IS NOT KNOWN IF SHE HAS BEEN EXPOSED TO COVID- 19. PCP: [facility], AMANDA MITCHELL Allergies and Home Medications Allergies Coded Allergies: Penicillins (Verified Allergy, Unknown, 05/09/17) aspirin (Verified Allergy, Unknown, 05/09/17) morphine (Verified Allergy, Unknown, 05/09/17) Home Medications Benzonatate 100 Mg Capsule, 200 MG PO BID PRN for COUGH Prescribed by: NOLBERTO CARR on 05/13/17 1253 Fluticasone/Vilanterol 1 Each Blst.w.dev, 1 PUFF INH HS, (Reported) LAST FILLED 02-13-17 Furosemide 20 Mg Tablet, 20 MG PO DAILY Prescribed by: TONIA GASTELUM on 07/12/172043 Glimepiride 2 Mg Tablet, 2 MG PO BID, (Reported) LAST FILLED #60 03-20-17 Ibuprofen 200 Mg Tablet, 400 MG PO Q6H PRN for PAIN-MILD, (Reported) TAKES 2 (200MG) TABLETS Levalbuterol HCl 1.25 Mg/3 Ml Vial.neb, 1.25 MG IH Q4H PRN for SHORTNESS OF ENRIQUE ATH Prescribed by: TONIA GASTELUM on 07/12/172040 Levofloxacin 750 Mg Tablet, 750 MG PO DAILY@1100 Prescribed by: NOLBERTO CARR on 05/13/17 1253 Lisinopril 5 Mg Tablet, 5 MG PO DAILY, (Reported) LAST FILLED #30 03-20-17 Metformin HCl 500 Mg Tablet, 1,000 MG PO BID, (Reported) LAST FILLED #120 03-20-17 TAKES 2 (500MG) TABLETS Ondansetron 8 Mg Tab.rapdis, 8 MG PO Q6H PRN for NAUSEA/VOMITING-1ST LINE Prescribed by: TONIA GASTELUM on 07/12/172040 Potassium Chloride 10 Meq Tablet.er, 10 MEQ PO DAILY Prescribed by: TONIA GASTELUM on 07/12/172043 Prednisone 20 Mg Tab, 60 MG PO DAILY@0700 60 mg x2 days, 40 mg x3 days, 20 mg x3 days, 10 mg x4 days Prescribed by: NOLBERTO CARR on 05/13/17 1253 Prednisone 20 Mg Tab, 20 MG PO DAILY Prescribed by: TONIA GASTELUM on 07/12/172040 Simvastatin 20 Mg Tablet, 20 MG PO HS, (Reported) LAST FILLED #30 03-20-17 Umeclidinium Keyser 62.5 Mcg Blst.w.dev, 1 PUFF INH DAILY, (Reported) LAST FILLED 02-13-17 Venlafaxine HCl 37.5 Mg Tab, 37.5 MG PO DAILY, (Reported) LAST FILLED #30 03-20-17 Patient Home Medication List Home Medication List Reviewed: Yes Review of Systems Review of Systems Constitutional: see HPI, chills, dizziness, fever, malaise, weakness EENTM: no symptoms reported Respiratory: see HPI, cough, dyspnea on exertion, orthopnea; No phlegm; short of breath Cardiovascular: chest pain (ONLY WITH BREATHING); No edema, No palpitations, No syncope Gastrointestinal: see HPI; No abdominal pain, No diarrhea; nausea; No vomiting Genitourinary: no symptoms reported Musculoskeletal: see HPI (BODY ACHES) Skin: no symptoms reported; No rash Psychiatric/Neurological: No Symptoms Reported; Denies Headache, Denies Numbness, Denies Paresthesia, Denies Seizure, Denies Tingling, Denies Weakness Hematologic/Lymphatic: No Symptoms Reported Immunological/Allergic: no symptoms reported Past Utvknht-Tediyw-Pngyai Hx Past Med/Social Hx: Reviewed and Corrections made Patient Social History Alcohol Use: Denies Use Recreational Drug Use: No Smoking Status: Former Smoker (2 PPD, QUIT 2 YEARS AGO) Type Used: Cigarettes Former Smoker, Quit: Mar 06, 2017 Recent Hopitalizations: No Seasonal Allergies Seasonal Allergies: No Past Medical History Surgeries: Yes Gallbladder, 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, Tubal Ligation Respiratory: Yes Pneumonia, COPD Cardiac: Yes Hypertension 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 12.8oz. [id number]; 42.3 BMI Method:Stated General Appearance: mild distress (MILDLY DYSPNEIC ON ARRIVAL. APPEARS MILDLY ILL. 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 tested, no motor/sensory deficits, a lert, oriented x 3 Skin: normal color, warm/dry (VERY WARM); No rash Focused Exam Lactate Level 03/18/20 21:55: Lactic Acid Level 0.91 Lactic Acid Level Laboratory Tests Test 03/18/20 21:55 Lactic Acid Level 0.91 MMOL/L (0.50-2.00) Progress/Results/Core Measures Suspected Sepsis SIRS Temperature: Pulse: Respiratory Rate: Laboratory Tests 03/18/20 21:55: White Blood Count 6.1 Blood Pressure / Mean: 03/18/20 21:55: Lactic Acid Level 0.91 Laboratory Tests 03/18/20 21:55: Creatinine 0.81, INR Comment 1.0, Platelet Count 186, Total Bilirubin 0.5 Results/Orders Lab Results Laboratory Tests Test 03/18/20 02:15 03/18/20 21:50 03/18/20 21:55 03/18/20 22:20 Range/Units Urine Color YELLOW Urine Clarity SL CLOUDY Urine pH 5.5 5-9 Urine Specific [place] 1.010 L 1.016-1.022 Urine Protein NEGATIVE NEGATIVE Urine Glucose (UA) 3+ H NEGATIVE Urine Ketones 2+ H NEGATIVE Urine Nitrite NEGATIVE NEGATIVE Urine Bilirubin NEGATIVE NEGATIVE Urine Urobilinogen 0.2 < = 1.0 MG/DL Urine Leukocyte Esterase NEGATIVE NEGATIVE Urine RBC (Auto) 1+ H NEGATIVE Urine RBC 5-10 H /HPF Urine WBC 5-10 H /HPF Urine Squamous Epithelial Cells 5-10 /HPF Urine Crystals PRESENT H /LPF Urine Amorphous Sediment FEW PRATIBHA URATES H /LPF Urine Bacteria FEW H /HPF Urine Casts NONE /LPF Urine Mucus NEGATIVE /LPF Urine Culture Indicated YES Urine Opiates Screen NEGATIVE NEGATIVE Urine Oxycodone Screen NEGATIVE NEGATIVE Urine Methadone Screen NEGATIVE NEGATIVE Urine Propoxyphene Screen NEGATIVE NEGATIVE Urine Barbiturates Screen NEGATIVE NEGATIVE Ur Tricyclic Antidepressants Screen NEGATIVE NEGATIVE Urine Phencyclidine Screen NEGATIVE NEGATIVE Urine Amphetamines Screen NEGATIVE NEGATIVE Urine Methamphetamines Screen NEGATIVE NEGATIVE Urine Benzodiazepines Screen NEGATIVE NEGATIVE Urine Cocaine Screen NEGATIVE NEGATIVE Urine Cannabinoids Screen NEGATIVE NEGATIVE Coronavirus 2019 (TASHA) Positive H Negative White Blood Count 6.1 4.3-11.0 10^3/uL Red Blood Count 5.08 3.80-5.11 10^6/uL Hemoglobin 15.2 11.5-16.0 g/dL Hematocrit 45 35-52 % Mean Corpuscular Volume 88 80-99 fL Mean Corpuscular Hemoglobin 30 25-34 pg Mean Corpuscular Hemoglobin Concent 34 32-36 g/dL Red Cell Distribution Width 12.4 10.0-14.5 % Platelet Count 186 130-400 10^3/uL Mean Platelet Volume 10.5 9.0-12.2 fL Immature Granulocyte % (Auto) 0 % Neutrophils (%) (Auto) 80 H 42-75 % Lymphocytes (%) (Auto) 10 L 12-44 % Monocytes (%) (Auto) 9 0-12 % Eosinophils (%) (Auto) 1 0-10 % Basophils (%) (Auto) 1 0-10 % Neutrophils # (Auto) 4.9 1.8-7.8 10^3/uL Lymphocytes # (Auto) 0.6 L 1.0-4.0 10^3/uL Monocytes # (Auto) 0.5 0.0-1.0 10^3/uL Eosinophils # (Auto) 0.0 0.0-0.3 10^3/uL Basophils # (Auto) 0.0 0.0-0.1 10^3/uL Immature Granulocyte # (Auto) 0.0 0.0-0.1 10^3/uL Erythrocyte Sedimentation Rate 17 0-30 MM/HR Prothrombin Time 13.1 12.2-14.7 SEC INR Comment 1.0 0.8-1.4 Activated Partial Thromboplast Time 25 24-35 SEC D-Dimer 0.59 H 0.00-0.49 UG/ML Sodium Level 136 135-145 MMOL/L Potassium Level 3.8 3.6-5.0 MMOL/L Chloride Level 98 98-107 MMOL/L Carbon Dioxide Level 22 21-32 MMOL/L Anion Gap 16 H 5-14 MMOL/L Blood Urea Nitrogen 10 7-18 MG/DL Creatinine 0.81 0.60-1.30 MG/DL Estimat Glomerular Filtration Rate > 60 BUN/Creatinine Ratio 12 Glucose Level 368 H 70-105 MG/DL Lactic Acid Level 0.91 0.50-2.00 MMOL/L Calcium Level 8.8 8.5-10.1 MG/DL Corrected Calcium 9.0 8.5-10.1 MG/DL Magnesium Level 1.6 1.6-2.4 MG/DL Total Bilirubin 0.5 0.1-1.0 MG/DL Aspartate Amino Transf (AST/SGOT) 20 5-34 U/L Alanine Aminotransferase (ALT/SGPT) 23 0-55 U/L Alkaline Phosphatase 96 40-136 U/L Lactate Dehydrogenase 196 125-220 U/L Total Creatine Kinase 51 29-168 U/L Creatine Kinase MB 1.1 <6.6 NG/ML Myoglobin 30.6 10.0-92.0 NG/ML Troponin I < 0.028 <0.028 NG/ML C-Reactive Protein High Sensitivity 2.00 H 0.00-0.50 MG/DL B-Type Natriuretic Peptide 15.3 <100.0 PG/ML Total Protein 6.9 6.4-8.2 GM/DL Albumin 3.8 3.2-4.5 GM/DL Procalcitonin 0.10 H <0.10 NG/ML Serum Test, Qualitative NEGATIVE NEGATIVE Blood Gas Puncture Site RW Blood Gas Patient Temperature 38.6 Arterial Blood pH 7.38 7.37-7.43 Arterial Blood Partial Pressure CO2 48 H 35-45 MMHG Arterial Blood Partial Pressure O2 75 L 79-93 MMHG Arterial Blood HCO3 27 23-27 MMOL/L Arterial Blood Total CO2 28.1 21.0-31.0 MMOL/L Arterial Blood Oxygen Saturation 92 L 94-100 % Arterial Blood Base Excess 2.4 -2.5-2.5 MMOL/L Erich Test POS Blood Gas Ventilator Setting NO Blood Gas Inspired Oxygen 2 Micro Results Microbiology 03/18/20 Influenza Types A,B Antigen (NOEMI) - Final, Complete My Orders Orders - ELANA CINTRON DO Fluticasone/Salmeterol 115/21 (Advair Hf (03/18/20 21:44) Dexamethasone Injection (Decadron Inje (03/18/20 21:44) Albuterol/Ipratropium Inhaler (Combivent (03/18/20 21:44) Chest 1 View, Ap/Pa Only (03/18/20 21:46) Ed Iv/Invasive Line Start (03/18/20 21:46) Ekg Tracing (03/18/20 21:46) O2 (03/18/20 21:46) Monitor-Rhythm Ecg Trace Only (03/18/20 21:46) Arterial Blood Gas (03/18/20 21:46) BNP (03/18/20 21:46) Cbc With Automated Diff (03/18/20 21:46) Comprehensive Metabolic Panel (03/18/20 21:46) Creatine Kinase (03/18/20 21:46) Creatine Kinase Mb (03/18/20 21:46) Hs C Reactive Protein (03/18/20 21:46) Fibrin Degradation Products (03/18/20 21:46) Drug Screen Stat (Urine) (03/18/20 21:46) Hcg,Qualitative Serum (03/18/20 21:46) Lactic Acid Analyzer (03/18/20 21:46) Magnesium (03/18/20 21:46) Procalcitonin (Pct) (03/18/20 21:46) Protime With Inr (03/18/20 21:46) Partial Thromboplastin Time (03/18/20 21:46) Ua Culture If Indicated (03/18/20 21:46) Blood Culture (03/18/20 21:46) Influenza A And B Antigens (03/18/20 21:46) Erythrocyte Sedimentation Rate (03/18/20 21:46) Myoglobin Serum (03/18/20 21:46) Troponin I (03/18/20 21:46) LDH (03/18/20 21:46) Covid 19 Inhouse Test (03/18/20 21:46) Ondansetron Injection (Zofran Injectio (03/18/20 21:58) Acetaminophen Tablet (Tylenol Tablet) (03/18/20 22:15) Ibuprofen Tablet (Motrin Tablet) (03/18/20 22:15) Ibuprofen Tablet (Motrin Tablet) (03/18/20 22:01) Acetaminophen Tablet (Tylenol Tablet) (03/18/20 22:01) Ed Iv/Invasive Line Start (03/18/20 22:34) Ns Iv 1000 Ml (Sodium Chloride 0.9%) (03/18/20 22:34) Ns Iv 1000 Ml (Sodium Chloride 0.9%) (03/18/20 22:33) Ns Iv 1000 Ml (Sodium Chloride 0.9%) (03/18/20 22:45) Ns Iv 1000 Ml (Sodium Chloride 0.9%) (03/18/20 23:35) Ct Angio Chest W (03/18/20 23:35) Ed Iv/Invasive Line Start (03/18/20 23:35) Ns Iv 1000 Ml (Sodium Chloride 0.9%) (03/18/20 23:35) Medications Given in ED Current Medications Medications Dose Ordered Sig/Cait Route Start Time Stop Time Status Last Admin Dose Admin Acetaminophen 1,000 mg ONCE ONCE PO 03/18/20 22:15 03/18/20 22:16 DC 03/18/20 22:26 1,000 MG Albuterol/ Ipratropium 4 gm STK-MED ONCE .ROUTE 03/18/20 21:44 03/18/20 21:45 DC 03/18/20 21:55 4 GM Dexamethasone Sodium Phosphate 10 mg STK-MED ONCE .ROUTE 03/18/20 21:44 03/18/20 21:45 DC 03/18/20 22:05 6 MG Ibuprofen 800 mg ONCE ONCE PO 03/18/20 22:15 03/18/20 22:16 DC 03/18/20 22:26 800 MG Ondansetron HCl 4 mg STK-MED ONCE .ROUTE 03/18/20 21:58 03/18/20 22:01 DC 03/18/20 22:00 4 MG Salmeterol Xinafoate/ Fluticasone 60 puff STK-MED ONCE IH 03/18/20 21:44 03/18/20 21:45 DC 03/18/20 21:55 60 PUFF Vital Signs/I&O 03/18/20 03/18/20 03/18/20 03/18/20 21:40 21:40 22:26 22:26 Temp 38.6 38.7 38.7 Pulse 126 Resp 22 B/P (MAP) 137/78 (97) Pulse Ox 94 94 O2 Delivery Nasal Cannula Nasal Cannula O2 Flow Rate 2.00 2.00 03/19/20 00:00 Intake Total 1000 ml Balance 1000 ml Capillary Refill : Progress Note : Progress Note PLACED IN ISOLATION ROOM PPE WORN AT ALL TIMES COVID-19 TESTING PERFORMED O2 SAT 89% ON ROOM AIR ON ARRIVAL--PLACED ON O2 AT 2L/NC WITH O2 SATS UP TO 95% GIVEN IV FLUIDS, TYLENOL AND MOTRIN--TEMP AND HEART RATE DOWN GIVEN DECADRON, AND COMBIVENT AND ADVAIR INHALERS WITH MUCH IMPROVEMENT IN BREATHING--RESPIRATORY RATE DOWN TO 20'S, RESPIRATIONS EVEN AND UNLABORED, WITH INCREASED AERATION IN ALL LUNG MCADAMS PT BEGAN HAVING NAUSEA SHORTLY AFTER ARRIVAL, GIVEN ZOFRAN AND NAUSEA MUCH IMPROVED NO COUGH NOTED DURING ER STAY ACCUCHECK AT TIME OF ADMIT 353 FEELS MUCH BETTER AT TIME OF ADMIT NO DETERIORATION IN PT'S CONDITION DURING ER STAY ADVISED PT OF PRESENCE OF AORTIC ANEURYSM AND NEED FOR FOLLOW UP WITH HER PCP TO MONITOR THIS ECG Initial ECG Impression Date: Mar 18, 2020 Initial ECG Impression Time: 21:54 Initial ECG Rate: 115 Initial ECG Rhythm: S.Tach Diagnostic Imaging Comments CXR--BIBASILAR ATELECTASIS ? --PENDING RADIOLOGIST REVIEW CT CHEST ANGIOGRAM--PER STAT RAD VIA FAX AT 0032 NO P.E. OR ACUTE FINDINGS, SMALL 4 CM ASCENDING THORACIC AORTIC ANEURYSM. Reviewed: Reviewed by Me Departure Communication (Admissions) Family Conversation SPOKE WITH PT'S DAUGHTER,( NELSON ) THAT BROUGHT HER AND FOSTER DAUGHTER TO ER, AND INFORMED HER OF POSITIVE COVID-19 TESTS AND STRESSED THE NEED AND IMPORTANCE FOR ALL HOUSEHOLD MEMBERS AND CLOSE CONTACTS TO BE QUARANTINED FOR 2 WEEKS, OR UNTIL CLEARED BY HEALTH DEPARTMENT. WORK NOTES GIVEN FOR OTHER FAMILY MEMBERS. 0033--SPOKE WITH DR. OCHOA, HOSPITALIST FOR COVID PATIENTS. ACCEPTS PT FOR ADMIT. ORDERS NOTED. Impression Primary Impression: COVID-19 virus infection Additional Impressions: Acute respiratory failure with hypoxia COPD (chronic obstructive pulmonary disease) Uncontrolled diabetes mellitus Disposition: ADMITTED INPATIENT Condition: Improved Admissions Decision to Admit Reason: Admit from ER (General) Decision to Admit/Date: Mar 19, 2020 Time/Decision to Admit Time: 00:30 Departure-Patient Inst. Referrals: [facility] (PCP/Family) Primary Care Physician ELANA CINTRON DO Mar 18, 2020 23:13
[2020-03-18 23:15] LABS: CREATINE KINASE MB 1.1 NG/ML (<6.6)
--- NOTE | 2020-03-18 23:15 | NUR ---
SPOKE WITH PATIENT DAUGHTER NELSON AT THIS TIME TO UPDATE HER OF HER MOTHERS CONDITION. NELSON ALSO ASKED ABOUT MEKA WHO LIVES WITH MAYO. MAYO IS/WAS MEKA'S FOSTER MOTHER AND NOW POA/GUARDIAN SINCE MEKA HAS MENTAL RETARDATION AND CANNOT CARE FOR HERSELF.
[2020-03-18 23:18] LABS: ALLENS TEST POS; INSPIRED O2 2; PATIENT TEMP 38.6; VENTILATOR NO
[2020-03-19] VITALS (10 sets, daily range): BP systolic 100–137; BP diastolic 55–89
[2020-03-19] MEDS ORDERED: cefTRIAXone FOR IV USE 1,000 MG in WATER (STERILE) FOR INJECTION 10 ML IV ONE (00:45)
[2020-03-19] MEDS ORDERED: ENOXAPARIN 40 MG/0.4 ML (LOVENOX) SYR SC ONE (00:45)
[2020-03-19] MEDS ORDERED: NS IV 1000 ML 1,000 ML IV SCH (01:00)
--- NOTE | 2020-03-19 01:00 | NUR ---
PATIENT ENCOURAGED TO VOID FOR URINE SAMPLE. STATES DOES NOT FEEL LIKE SHE NEEDS TO GO AT THIS TIME. DR CINTRON INFORMED ORDER WAS ADDED UA TO ADMISSION ORDER SET.
--- NOTE | 2020-03-19 01:37 | NUR ---
REPORT TO MARGARETTE JACKMAN PATIENT IS GOING TO ROOM 431.
--- NOTE | 2020-03-19 02:00 | NUR ---
Pt admitted to room 431-1, with an admitting diagnosis of COVID-19, Acute Resp Failure w/ Hypoxia, Uncontrolled DM, and COPD, on 03/19/20 from [place] ED via wheelchair, accompanied by staff. MAYO CONDE introduced to surroundings, call light, bed controls, phone, TV, temperature control, lights, meal times, smoking policy, visitor policy, side rail policy, bathrooms and showers. Patient Rights given to patient in the handbook. MAYO CONDE verbalizes understanding that [facility] is not responsible for the loss or damage to any personal effects or valuables that are kept in the patients possession during their hospitalization. MAYO CONDE verbalizes understanding of Interdisciplinary Patient Education. Patient was informed about the Rapid Response Team and its purpose.
[2020-03-19] MEDS: NS IV 1000 ML 1,000 ML IV SCH ×4 (02:30→23:24)
[2020-03-19 02:37] LABS: BILIRUBIN,URINE NEGATIVE (NEGATIVE); CLARITY,URINE SL CLOUDY; COLOR,URINE YELLOW; GLUCOSE, URINE (UA) 3+ (NEGATIVE); KETONES,URINE 2+ (NEGATIVE); LEUKOCYTE ESTERASE ,URINE NEGATIVE (NEGATIVE); NITRITE,URINE NEGATIVE (NEGATIVE); PH,URINE 5.5 (5-9); PROTEIN,URINE NEGATIVE (NEGATIVE)
[2020-03-19] MEDS ORDERED: ONDANSETRON 4 MG/2 ML (SDV) Z0FRAN IV PRN (02:45)
[2020-03-19 02:57] LABS: AMORPHOUS SEDIMENT,UR FEW AMOR URATES /LPF; BACTERIA,URINE FEW /HPF
[2020-03-19] MEDS ORDERED: AZITHROMYCIN 500 MG/NS 250 ML IVPB IV ONE ×2 (03:00)
[2020-03-19 03:03] LABS: AMPHETAMINE SCREEN, URINE NEGATIVE (NEGATIVE); BENZODIAZEPINES SCREEN URINE NEGATIVE (NEGATIVE); COCAINE SCREEN URINE NEGATIVE (NEGATIVE)
[2020-03-19 03:04] LABS: BARBITURATE SCREEN URINE NEGATIVE (NEGATIVE); CANNABINOID SCREEN, URINE NEGATIVE (NEGATIVE); METHADONE STAT NEGATIVE (NEGATIVE); METHAMPHETAMINE SCREEN URINE S NEGATIVE (NEGATIVE); OPIATE SCREEN URINE NEGATIVE (NEGATIVE); OXYCODONE STAT NEGATIVE (NEGATIVE); PROPOXYPHENE STAT NEGATIVE (NEGATIVE); TRICYCLIC ANTIDEPRESSANTS SCRE NEGATIVE (NEGATIVE)
--- NOTE | 2020-03-19 05:15 | NUR ---
PT'S ACCUCHECK READING [address] OCHOA WAS CONTACTED AND NOTIFIED. ORDER RECEIVED TO GIVE NOVOLOG 20 UNITS.
[2020-03-19] MEDS ORDERED: inSUlin ASPART (NovoLOG) 1 UNIT/0.01 ML (CHARGE PER UNIT) SC ONE (05:30)
[2020-03-19] MEDS: inSUlin ASPART (NovoLOG) 1 UNIT/0.01 ML (CHARGE PER UNIT) SC SCH ×2 (05:31→11:15)
--- NOTE | 2020-03-19 05:37 | Diagnostic Imaging Report ---
INDICATION: Dyspnea. Comparison made with prior examination 03/11/2018. FINDINGS: The heart size, mediastinal configuration, and pulmonary vascularity are within normal limits. There is no pleural effusion, pneumothorax, or pneumonia. The osseous structures are unremarkable. IMPRESSION: No acute cardiopulmonary abnormality. Dictated by: Dictated on workstation # [id number]
[2020-03-19] MEDS ORDERED: RT-ALBUTEROL INHALER HFA (VENTOLIN HFA) 18 GM IH SCH (06:00)
[2020-03-19 06:10] LABS: BASOPHILS % (AUTO) 0 % (0-10); EOSINOPHILS % (AUTO) 0 % (0-10); HEMATOCRIT 42 % (35-52); HEMOGLOBIN 13.6 g/dL (11.5-16.0); LYMPHOCYTES # (AUTO) 0.4 10^3/uL (1.0-4.0); LYMPHOCYTES % (AUTO) 8 % (12-44); MEAN CORPUSCULAR HEMOGLOBIN 30 pg (25-34); MEAN CORPUSCULAR HGB CONC 33 g/dL (32-36); MEAN CORPUSCULAR VOLUME 91 fL (80-99); MONOCYTES # (AUTO) 0.2 10^3/uL (0.0-1.0); MONOCYTES % (AUTO) 3 % (0-12); NEUTROPHILS # (AUTO) 3.9 10^3/uL (1.8-7.8); NEUTROPHILS % (AUTO) 88 % (42-75); PLATELET COUNT 173 10^3/uL (130-400); WHITE BLOOD COUNT 4.4 10^3/uL (4.3-11.0)
[2020-03-19 06:30] LABS: ALANINE AMINOTRANSFERASE 22 U/L (0-55); ALBUMIN 3.2 GM/DL (3.2-4.5); ALKALINE PHOSPHATASE 83 U/L (40-136); BILIRUBIN,TOTAL 0.3 MG/DL (0.1-1.0); BUN/CREATININE RATIO 18; CALCIUM 7.6 MG/DL (8.5-10.1); CARBON DIOXIDE 16 MMOL/L (21-32); CHLORIDE 104 MMOL/L (98-107); GFR ESTIMATED > 60; POTASSIUM 4.5 MMOL/L (3.6-5.0); SODIUM 137 MMOL/L (135-145); TOTAL PROTEIN 6.1 GM/DL (6.4-8.2)
[2020-03-19 06:37] LABS: LYMPHOCYTES % (MANUAL) 7 %; MONOCYTES % (MANUAL) 2 %; NEUTROPHILS % (MANUAL) 91 %; RBC MORPH NORMAL
[2020-03-19 07:02] LABS: GLUCOSE 466 MG/DL (70-105)
--- NOTE | 2020-03-19 07:09 | Diagnostic Imaging Report ---
PROCEDURE: CT angiography of the chest with contrast. TECHNIQUE: Multiple contiguous axial images were obtained through the chest after uneventful bolus administration of intravenous contrast. 3D reconstructed CTA MIP acquisitions were also performed. Auto Exposure Controls were utilized during the CT exam to meet ALARA standards for radiation dose reduction. INDICATION: Chest pain, cough, shortness of air COMPARISON: Radiographs from the same day FINDINGS: The pulmonary arteries are diagnostic to the proximal lobar level and no filling defect is seen to indicate a pulmonary embolus. The heart is normal in size. The ascending aorta is mildly ectatic measuring 3.9 cm, with no dissection seen. There is a small 5 mm nodule in the right lower lobe (image 61 series 2). There is significant motion artifact in the lungs. No consolidation is seen. There is no pleural effusion or pneumothorax. No central endobronchial lesion is seen. No acute osseous abnormality is seen. Imaged portions of the upper abdomen demonstrate no acute abnormality. IMPRESSION: 1. No pulmonary embolus. 2. Mildly ectatic ascending aorta with no dissection seen. 3. 5 mm nodule in the right lower lobe. Follow-up CT of the chest could be considered in 12 months Dictated by: Dictated on workstation # [id number]
[2020-03-19] MEDS: ENOXAPARIN 40 MG/0.4 ML (LOVENOX) SYR SC SCH ×2 (08:39→21:58)
[2020-03-19] MEDS: PANTOPRAZOLE 40 MG (PROTONIX) VIAL IV SCH (08:41)
[2020-03-19] MEDS: UMECLIDINIUM BROMIDE (INCRUSE ELLIPTA) 7'S IH SCH (08:47)
[2020-03-19] MEDS: ADVAIR HFA 115/21 MCG INHALER 8 GM IH SCH ×2 (08:47→22:02)
[2020-03-19] MEDS: ALBUTEROL/IPRATROP (COMBIVENT RESPIMAT) 4 GM INHALER IH SCH ×4 (08:47→22:03)
--- NOTE | 2020-03-19 11:00 | NUR ---
DEIRDRE AT BEDSIDE ROUNDING WITH PT. VERBAL ORDERS FOR 25U REGULAR INSULIN X1 GIVEN AT THIS TIME.
--- NOTE | 2020-03-19 11:07 | History & Physical-Hospitalist ---
History of Present Illness HPI/Chief Complaint CC: COVID-19 with hypoxia HPI: This is a 54yoWF clinic patient of [facility] who has a h/o DM and obesity with TAM who presents to the ER with hypoxia and dyspnea. Patient was given Decadron and high sugars have occurred. Insulin given aggressively. Patient feels aching and severe weakness. I have reviewed her home meds and will restart OHA also. No pain reported. Source: patient, RN/MD Exam Limitations: no limitations Date Seen 03/19/20 Time Seen by a Provider: 11:00 Attending Physician Arik Dowling MD PCP Center[facility] [place] Referring Physician Date of Admission Mar 19, 2020 at 00:30 Home Medications & Allergies Home Medications Reviewed patient Home Medication Reconciliation performed by pharmacy medication reconciliations control valve technician and/or nursing. Patients Allergies have been reviewed. Allergies Allergies Coded Allergies Penicillins (Verified Allergy, Unknown, 05/09/17) aspirin (Verified Allergy, Unknown, 05/09/17) morphine (Verified Allergy, Unknown, 05/09/17) Past Buhsndy-Szpvpq-Zacfqo Hx Past Med/Social Hx: Reviewed Nursing Past Med/Soc Hx, Reviewed and Corrections made Patient Social History Marrital Status: single Employed/Student: employed Alcohol Use: Denies Use Recreational Drug Use: No Smoking Status: Former Smoker (2 PPD, QUIT 2 YEARS AGO) Former Smoker, Quit: Mar 06, 2017 Type Used: Cigarettes Recent Foreign Travel: No Contact w/other who traveled: No Recent Hopitalizations: No Recent Infectious Disease Expo: No Seasonal Allergies Seasonal Allergies: No Past Medical History Surgeries: Gallbladder, 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, Tubal Ligation Respiratory: Sleep Apnea Currently Using CPAP: Yes Currently Using BIPAP: No Cardiac: Hypertension 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, Menopausal Endocrine: Diabetes, Non-Insulin dep Psychosocial: Anxiety, Depression History of Blood Disorders: No Family History Diabetes mellitus 19 FATHER FH: breast cancer 19 MOTHER Myocardial infarction 19 FATHER Thyroid disease G8 SISTER No Pertinent Family Hx Review of Systems Constitutional: dizziness, fever, malaise, weakness Respiratory: cough, dyspnea on exertion, short of breath Physical Exam Physical Exam Vital Signs Vital Signs - First Documented 03/18/20 03/19/20 21:40 04:59 Temp 38.6 Pulse 126 Resp 22 B/P (MAP) 137/78 (97) Pulse Ox 94 O2 Delivery Nasal Cannula O2 Flow Rate 2.00 FiO2 28 Capillary Refill : Less Than 3 Seconds Height, Weight, BMI Height: 5'6.00" Weight: 320lbs. 12.8oz. 145.566609vk; 42.42 BMI Method:Stated General Appearance: No Apparent Distress, Anxious, Chronically ill, Obese Eyes: Right Eye Normal Inspection, Right Eye PERRL HEENT: PERRL/EOMI, Normal ENT Inspection, Pharynx Normal, Moist Mucous Membranes Neck: Full Range of Motion, Normal Inspection, Non Tender Respiratory: Chest Non Tender, No Accessory Muscle Use, No Respiratory Distress, Decreased Breath Sounds, Wheezing Cardiovascular: Regular Rate, Rhythm, No Edema, No Gallop, No JVD, No Murmur, Normal Peripheral Pulses Gastrointestinal: Normal Bowel Sounds, No Organomegaly, No Pulsatile Mass, Non Tender, Soft Back: Normal Inspection, No CVA Tenderness, No Vertebral Tenderness Extremity: Normal Capillary Refill, Normal Inspection, Normal Range of Motion, Non Tender, No Calf Tenderness, No Pedal Edema Neurologic/Psychiatric: Alert, Oriented x3, No Motor/Sensory Deficits, Normal Mood/Affect Skin: Normal Color, Warm/Dry Lymphatic: No Adenopathy Results Results/Procedures Labs Laboratory Tests 03/18/20 21:55 03/19/20 05:21 Patient resulted labs reviewed. Assessment/Plan Admission Diagnosis Assessment: COVID-19 BOBBY with hypoxia TAM COPD TAM on CPAP DM OOC Plan: Monitor labs Monitor sugars Home meds Admission Status: Inpatient Order (span 2 midnights) Reason for Inpatient Admission: COVID 19 Diagnosis/Problems Diagnosis/Problems (1) COVID-19 virus infection Status: Acute (2) Acute respiratory failure with hypoxia Status: Acute (3) Uncontrolled diabetes mellitus Status: Acute (4) COPD (chronic obstructive pulmonary disease) Status: Acute Clinical Quality Measures DVT/VTE Risk/Contraindication: Risk Factor Score Per Nursin RFS Level Per Nursing on Admit: 4+=Very High FEDERICA GILMORE DO Mar 19, 2020 11:07
[2020-03-19] MEDS ORDERED: VNL37.5T PO (11:12)
[2020-03-19] MEDS ORDERED: SPIR50TA PO (11:12)
[2020-03-19] MEDS ORDERED: SIMV40TA25 PO (11:12)
[2020-03-19] MEDS ORDERED: METF-478 PO (11:12)
[2020-03-19] MEDS ORDERED: GLMP2T PO (11:12)
[2020-03-19] MEDS ORDERED: PIOG30TA38 PO (11:12)
[2020-03-19] MEDS ORDERED: ONDA-105 PO (11:12)
[2020-03-19] MEDS ORDERED: BUDE10.22 IH (11:12)
--- NOTE | 2020-03-19 11:15 | NUR ---
SPOKE WITH THE PT (I CALLED HER ROOM PHONE) AND CALLED [facility] AND [facility] TO COMPLETE THE MED REC WHEN I FIRST CALLED THE PT SHE SEEMED CONFUSED ABOUT HER MEDICATIONS AND COULDNT NAME MOST OF THEM (THE ONLY ONES SHE COULD REMEMBER WERE METFORMIN AND SYMBICORT) AND I LET HER KNOW I WOULD GET A MEDICATION LIST FROM [facility] AND CALL HER BACK TO GO OVER HER MEDICATIONS. [facility] TOLD ME THE FOLLOWING INFORMATION: 02-13-2020 METFORMIN ER 500MG #120/30DS 02-13-2020 SYMBICORT 80 #1/30DS 02-13-2020 SPIRONOLACTONE 50MG #30/30DS 02-13-2020 ZOFRAN 4MG #30 THE FOLLOWING MEDICATIONS ARE PAST DUE FOR REFILLS AND I DID DOCUMENT THE FILL DATE ON THE MED REC: 01-17-2020 ACTOS 30MG #30/30DS 12-31-2019 VENLAFAXINE 37.5MG #30/30DS 12-31-2019 GLIMEPIRIDE 2MG #60/30DS 12-31-2019 SIMVASTATIN 20MG #30/30DS WHEN I WAS GOING OVER THE ABOVE MEDICATIONS WITH THE PT SHE KEPT SAYING "IM NOT SURE THE DR JUST CHANGED THEM ALL AROUND AND IM SO CONFUSED". I THEN REDIRECTED THE CONVERSATION TO PAST DUE FILL DATES AND THE PT WAS NOT ABLE TO TELL ME HOW/WHY SHE STILL HAS MEDICATIONS ON THE ABOVE MEDS THAT ARE PAST DUE. I ASKED IF THERE WAS A FAMILY MEMBER/LOVED ONE/FRIEND WHO I COULD CALL TO FIND OUT MORE INFORMATION ABOUT THE MEDICATIONS AND PT RESPONDED "NO, I TAKE CARE OF ALL MY OWN MEDS" OTC MEDS: NONE
[2020-03-19] MEDS ORDERED: inSUlin (REGULAR) HUMAN 1 UNIT/0.01 ML (CHARGE PER UNIT) ONE (11:27)
[2020-03-19] MEDS ORDERED: inSUlin (REGULAR) HUMAN 1 UNIT/0.01 ML (CHARGE PER UNIT) SC NR (11:30)
--- NOTE | 2020-03-19 13:20 | NUR ---
"RD ASSESSMENT PMHx: COPD; DM; pneumonia; HTN; PT INTERACTION: Note pt is currently in COVID isolation, per chart review. Note all information for nutrition assessment is per Anthony RN or per chart review. Anthony states current appetite appears good. Note PO intake 50% x1meal, per chart review. Anthony states no issues with nausea, vomiting, constipation, diarrhea, or chewing/swallowing food, and that her last BM was 03/17. Note pt not currently on bowel regimen per chart review. Note unable to determine recent wt hx, per chart review. Note unable to determine current level of DM management or recent HbA1c, per chart review. Note per ED Provider report, pt does not regularly check blood glucose levels. ABNORMAL NUTRITION-RELATED LAB VALUES LOW: Ca 7.6; Pro 6.1; HIGH: glu 466 Est. kcal needs: 4388-7681 kcal | 15-18 kcal/kg Est. Pro needs: 95-119 g Pro | 0.8-1.0 g Pro/kg PES STATEMENT: Inadequate oral intake (NI-2.1) related to loss of appetite as evidenced by chart review, communication with RN, and PO intake 50% x1meal. INTERVENTION: Continue with current diet order of CHO 45g/m 1snack diet. Pt may benefit from nutrition supplementation if PO intake declines. Did not offer diet education at this time, due to COVID isolation. Would encourage pt to eat when able. Will continue to follow and reassess as pt needs, intake, and status change. Celso Stern, MS RD LD"
[2020-03-19] MEDS: IBUPROFEN 800 MG (MOTRIN) TAB PO PRN ×2 (14:12→21:57)
[2020-03-19] MEDS ORDERED: NON-FORMULARY MEDICATION 1 EA EA (Ondansetron HCl 4 MG) PO PRN (16:45)
[2020-03-19] MEDS ORDERED: ONDANSETRON 4 MG (ZOFRAN) ORAL DISSOLVE TAB PO PRN (17:30)
[2020-03-19] MEDS: ACETAMINOPHEN 500 MG TAB (TYLENOL) PO PRN (18:05)
[2020-03-19] MEDS: inSUlin (REGULAR) HUMAN 1 UNIT/0.01 ML (CHARGE PER UNIT) SC SCH (18:05)
[2020-03-19] MEDS ORDERED: GLIMEPIRIDE 2 MG (AMARYL) TAB PO SCH (21:00)
[2020-03-19] MEDS ORDERED: metFORMIN XR 500 MG (GLUCOPHAGE XR) TAB PO SCH (21:00)
[2020-03-19] MEDS ORDERED: NON-FORMULARY MEDICATION 1 EA EA (Budesonide/Formoterol Fumarate (Symbicort 80-4.5 Mcg Inh IH SCH (21:00)
[2020-03-19] MEDS ORDERED: cefTRIAXone 1,000 MG/SWFI 10 ML IV PUSH IV SCH ×2 (21:00)
[2020-03-19] MEDS: SIMvastatin 40 MG (ZOCOR) TAB PO SCH (21:58)
[2020-03-20] VITALS (7 sets, daily range): BP systolic 101–138; BP diastolic 59–84
[2020-03-20] MEDS: ALBUTEROL/IPRATROP (COMBIVENT RESPIMAT) 4 GM INHALER IH SCH ×6 (04:43→23:34)
[2020-03-20] MEDS: metFORMIN XR 500 MG (GLUCOPHAGE XR) TAB PO SCH ×2 (06:03→17:26)
[2020-03-20] MEDS: inSUlin (REGULAR) HUMAN 1 UNIT/0.01 ML (CHARGE PER UNIT) SC SCH ×3 (06:05→17:26)
[2020-03-20] MEDS: NS IV 1000 ML 1,000 ML IV SCH ×3 (06:07→21:51)
--- NOTE | 2020-03-20 06:47 | NUR ---
Dr. Reid notified of consult.
[2020-03-20] MEDS: UMECLIDINIUM BROMIDE (INCRUSE ELLIPTA) 7'S IH SCH (07:32)
[2020-03-20] MEDS: ADVAIR HFA 115/21 MCG INHALER 8 GM IH SCH ×2 (07:33→19:19)
[2020-03-20 08:12] LABS: BASOPHILS % (AUTO) 0 % (0-10); EOSINOPHILS % (AUTO) 0 % (0-10); HEMATOCRIT 40 % (35-52); HEMOGLOBIN 12.9 g/dL (11.5-16.0); LYMPHOCYTES # (AUTO) 2.4 10^3/uL (1.0-4.0); LYMPHOCYTES % (AUTO) 57 % (12-44); MEAN CORPUSCULAR HEMOGLOBIN 30 pg (25-34); MEAN CORPUSCULAR HGB CONC 33 g/dL (32-36); MEAN CORPUSCULAR VOLUME 92 fL (80-99); MEAN PLATELET VOLUME 10.2 fL (9.0-12.2); MONOCYTES # (AUTO) 0.3 10^3/uL (0.0-1.0); MONOCYTES % (AUTO) 6 % (0-12); NEUTROPHILS # (AUTO) 1.5 10^3/uL (1.8-7.8); NEUTROPHILS % (AUTO) 37 % (42-75); PLATELET COUNT 157 10^3/uL (130-400); WHITE BLOOD COUNT 4.2 10^3/uL (4.3-11.0)
[2020-03-20 08:34] LABS: ALBUMIN 3.3 GM/DL (3.2-4.5); CHLORIDE 109 MMOL/L (98-107); POTASSIUM 3.2 MMOL/L (3.6-5.0); SODIUM 143 MMOL/L (135-145)
[2020-03-20 08:36] LABS: CALCIUM 7.9 MG/DL (8.5-10.1)
[2020-03-20 08:37] LABS: GLUCOSE 101 MG/DL (70-105); TOTAL PROTEIN 5.8 GM/DL (6.4-8.2)
[2020-03-20 08:38] LABS: CARBON DIOXIDE 23 MMOL/L (21-32)
[2020-03-20 08:39] LABS: BILIRUBIN,TOTAL 0.2 MG/DL (0.1-1.0)
[2020-03-20 08:40] LABS: ALKALINE PHOSPHATASE 66 U/L (40-136); CREATININE SERUM 0.68 MG/DL (0.60-1.30); GFR ESTIMATED > 60
[2020-03-20 08:41] LABS: BUN/CREATININE RATIO 21
[2020-03-20 08:43] LABS: ALANINE AMINOTRANSFERASE 25 U/L (0-55)
--- NOTE | 2020-03-20 08:43 | Pulmonary Consultation ---
History of Present Illness History of Present Illness Date Seen by Provider: Mar 20, 2020 Time Seen by Provider: 08:39 Date of Admission History of Present Illness 54yo with hx of COPD, morbid obesity and TAM presented to ED secondary to worsening hypoxia. his is a 54yoWF clinic patient of [facility] who has a h/o DM and obesity with TAM who presents to the ER with hypoxia and dyspnea. Patient was given Decadron and high sugars have occurred. Insulin given aggressively. Patient feels aching and severe weakness. I have reviewed her home meds and will restart OHA also. No pain reported. PT ARRIVES VIA POV FROM HOME--PTS' ADULT DAUGHTER DROVE THEM HERE PT'S 18 Y.O. "FOSTER" DAUGHTER IS ALSO BEING SEEN FOR SAME--FOSTER DAUGHTER BEGAN HAVING SYMPTOMS YESTERDAY AND WAS SENT HOME FROM SCHOOL YESTERDAY, BUT DID NOT SEEK CARE UNTIL TONIGHT. 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 NO KNOWN SICK CONTACTS AT WORK. "FOSTER" DAUGHTER IS IN SCHOOL. IS NOT KNOWN IF SHE HAS BEEN EXPOSED TO COVID- 19. 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 Allergies and Home Medications Allergies Coded Allergies: Penicillins (Verified Allergy, Unknown, 05/09/17) aspirin (Verified Allergy, Unknown, 05/09/17) morphine (Verified Allergy, Unknown, 05/09/17) Home Medications Budesonide/Formoterol Fumarate 10.2 Gm Hfa.aer.ad, 2 PUFF IH BID, (Reported) Glimepiride 2 Mg Tab, 2 MG PO BID, (Reported) LAST FILLED 12-31-2019 #60 Metformin HCl 500 Mg Tab.er.24, 1,000 MG PO BID, (Reported) Ondansetron HCl 4 Mg Tablet, 4 MG PO TID PRN for NAUSEA/VOMITING-1ST LINE, (Reported) Pioglitazone HCl 30 Mg Tablet, 30 MG PO DAILY, (Reported) LAST FILLED 01-17-2020 #30 Simvastatin 40 Mg Tablet, 40 MG PO HS, (Reported) LAST FILLED 12-31-2019 #30 Spironolactone 50 Mg Tablet, 50 MG PO DAILY, (Reported) Venlafaxine HCl 37.5 Mg Tab, 37.5 MG PO DAILY, (Reported) LAST FILLED 12-31-2019 #30 Past Kxlnblt-Udfycc-Zwvqed Hx Past Med/Social Hx: Reviewed Nursing Past Med/Soc Hx, Reviewed and Corrections made Patient Social History Alcohol Use: Denies Use Recreational Drug Use: No Smoking Status: Former Smoker (2 PPD, QUIT 2 YEARS AGO) Type Used: Cigarettes Former Smoker, Quit: Mar 06, 2017 Recent Foreign Travel: No Contact w/Someone Who Travel: No Recent Infectious Disease Expo: No Recent Hopitalizations: No Physical Abuse: No Sexual Abuse: No Mistreated: No Fear: No Seasonal Allergies Seasonal Allergies: No Past Medical History Surgeries: Yes Gallbladder, 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, Tubal Ligation Respiratory: Yes Pneumonia, COPD Currently Using CPAP: Yes Currently Using BIPAP: No Cardiac: Yes Hypertension Neurological: 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 12.8oz. 145.964312aj; 42.42 BMI Method:Stated Exam Exam Vital Signs Date Time Temp Pulse Resp B/P (MAP) Pulse Ox O2 Delivery O2 Flow Rate FiO2 03/20/20 07:35 98 Nasal Cannula 1.00 03/20/20 07:33 98 Nasal Cannula 1.00 03/20/20 07:32 98 Nasal Cannula 1.00 03/20/20 07:31 98 Nasal Cannula 1.00 03/20/20 07:00 74 03/20/20 04:10 36.2 79 18 101/59 (73) 96 Nasal Cannula 1.00 03/20/20 01:00 75 03/19/20 23:17 36.2 76 18 113/55 (74) 96 Room Air 03/19/20 21:50 Nasal Cannula 2.00 03/19/20 19:49 36.0 74 18 100/58 (72) 92 Room Air 03/19/20 19:48 76 03/19/20 16:05 35.8 104 18 132/89 (103) 94 Room Air 03/19/20 14:52 95 Room Air 03/19/20 12:15 91 03/19/20 11:18 95 Nasal Cannula 2.00 03/19/20 11:15 36.9 87 18 111/62 (78) 96 Nasal Cannula 1.00 03/19/20 08:48 97 Nasal Cannula 2.00 I & O 03/20/20 07:00 Intake Total 4000 ml Output Total 3100 ml Balance 900 ml Height & Weight Height: 5'6.00" Weight: 320lbs. 12.8oz. 145.498240qx; 42.42 BMI Method:Stated General Appearance: No Apparent Distress, Anxious, Chronically ill, Obese HEENT: PERRL/EOMI, Normal ENT Inspection, Pharynx Normal, Moist Mucous Membranes Neck: Full Range of Motion, Normal Inspection, Non Tender Respiratory: Chest Non Tender, No Accessory Muscle Use, No Respiratory Distress, Decreased Breath Sounds, Wheezing Cardiovascular: Regular Rate, Rhythm, No Edema, No Gallop, No JVD, No Murmur, Normal Peripheral Pulses Capillary Refill: Less Than 3 Seconds Gastrointestinal: normal bowel sounds, non tender, soft Extremity: Normal Capillary Refill, Normal Inspection, Normal Range of Motion, Non Tender, No Calf Tenderness, No Pedal Edema Neurologic/Psychiatric: Alert, Oriented x3, No Motor/Sensory Deficits, Normal Mood/Affect Skin: Normal Color, Warm/Dry Lymphatic: No Adenopathy Results Lab Laboratory Tests 03/18/20 21:55 03/19/20 05:21 03/20/20 08:00 Assessment/Plan Assessment/Plan COVID positive pneumonia -Start Remdesivir and CVP -Continue Decadron -Doubt bacterial PNA -D/C ABx COPD Obesity with TAM MEGHA MOYER DO Mar 20, 2020 08:43
[2020-03-20] MEDS ORDERED: KCL 20 MEQ TAB (K-DUR) PO NR (08:45)
[2020-03-20] MEDS: ENOXAPARIN 40 MG/0.4 ML (LOVENOX) SYR SC SCH ×2 (08:51→21:17)
[2020-03-20] MEDS: SPIRONOLACTONE 25 MG (ALDACTONE) TAB PO SCH (08:51)
[2020-03-20] MEDS: PANTOPRAZOLE 40 MG (PROTONIX) VIAL IV SCH (08:51)
[2020-03-20] MEDS: VENlafaxine 37.5 MG (EFFEXOR) TAB PO SCH (08:51)
[2020-03-20] MEDS: PIOGLITAZONE 30MG (ACTOS) TAB PO SCH (08:52)
[2020-03-20] MEDS: GLIMEPIRIDE 2 MG (AMARYL) TAB PO SCH ×2 (08:52→17:26)
[2020-03-20] MEDS ORDERED: AZITHROMYCIN 250 MG TAB (ZITHROMAX) PO SCH (09:00)
[2020-03-20] MEDS ORDERED: REMDESIVIR INJ 200 MG in NS (IVPB) 210 ML IV NR (09:00)
[2020-03-20] MEDS ORDERED: SPIRONOLACTONE 50 MG PO SCH (09:00)
--- NOTE | 2020-03-20 11:52 | Progress Note - Hospitalist ---
Subjective HPI/CC On Admission Date Seen by Provider: Mar 20, 2020 Time Seen by Provider: 11:30 CC: COVID-19 with hypoxia HPI: This is a 54yoWF clinic patient of [facility] who has a h/o DM and obesity with TAM who presents to the ER with hypoxia and dyspnea. Patient was given Decadron and high sugars have occurred. Insulin given aggressively. Patient feels aching and severe weakness. I have reviewed her home meds and will restart OHA also. No pain reported. Subjective/Events-last exam Pt hesitant about plasma because she thinks she is going to get hepatitis and I tried to reassure her Remdesivir gave her nausea so will try to restart that Wants some outside food SOB continues Feels awful Tried to reassure Review of Systems General: Fatigue Pulmonary: Dyspnea, Cough Focused Exam Lactate Level 03/18/20 21:55: Lactic Acid Level 0.91 Objective Exam Vital Signs Vital Signs Date Time Temp Pulse Resp B/P (MAP) Pulse Ox O2 Delivery O2 Flow Rate FiO2 03/20/20 20:17 35.7 62 18 120/72 (88) 95 Room Air 03/20/20 19:19 1.00 03/19/20 08:32 28 Capillary Refill : Less Than 3 Seconds General Appearance: No Apparent Distress, WD/WN, Chronically ill, Obese Respiratory: Chest Non Tender, No Accessory Muscle Use, No Respiratory Distress, Crackles, Decreased Breath Sounds Cardiovascular: Regular Rate, Rhythm Neurologic/Psychiatric: Alert, Oriented x3, No Motor/Sensory Deficits, Normal Mood/Affect Results/Procedures Lab Laboratory Tests 03/20/20 08:00 Patient resulted labs reviewed. Assessment/Plan Assessment and Plan Assess & Plan/Chief Complaint Assessment: COVID-19 BOBBY with hypoxia TAM COPD TAM on CPAP DM OOC Plan: Monitor labs Monitor sugars Home meds Diagnosis/Problems Diagnosis/Problems (1) COVID-19 virus infection Status: Acute (2) Acute respiratory failure with hypoxia Status: Acute (3) Uncontrolled diabetes mellitus Status: Acute (4) COPD (chronic obstructive pulmonary disease) Status: Acute Clinical Quality Measures DVT/VTE Risk/Contraindication: Risk Factor Score Per Nursin RFS Level Per Nursing on Admit: 4+=Very High FEDERICA GILMORE DO Mar 20, 2020 11:52
[2020-03-20] MEDS: IBUPROFEN 800 MG (MOTRIN) TAB PO PRN (17:26)
[2020-03-20] MEDS: SIMvastatin 40 MG (ZOCOR) TAB PO SCH (21:17)
[2020-03-21 00:32] VITALS: BP 128/84
[2020-03-21] MEDS: NS IV 1000 ML 1,000 ML IV SCH ×4 (01:47→17:20)
[2020-03-21] MEDS: ALBUTEROL/IPRATROP (COMBIVENT RESPIMAT) 4 GM INHALER IH SCH ×5 (03:09→19:22)
[2020-03-21 04:30] VITALS: BP 139/76
[2020-03-21] MEDS: inSUlin (REGULAR) HUMAN 1 UNIT/0.01 ML (CHARGE PER UNIT) SC SCH ×3 (06:02→17:18)
[2020-03-21] MEDS: metFORMIN XR 500 MG (GLUCOPHAGE XR) TAB PO SCH ×2 (06:02→17:18)
[2020-03-21 07:07] LABS: BASOPHILS % (AUTO) 0 % (0-10); EOSINOPHILS % (AUTO) 0 % (0-10); HEMOGLOBIN 11.8 g/dL (11.5-16.0); MEAN PLATELET VOLUME 10.6 fL (9.0-12.2); PLATELET COUNT 132 10^3/uL (130-400)
[2020-03-21 07:10] LABS: HEMATOCRIT 36 % (35-52); LYMPHOCYTES # (AUTO) 2.3 10^3/uL (1.0-4.0); LYMPHOCYTES % (AUTO) 42 % (12-44); MEAN CORPUSCULAR HEMOGLOBIN 30 pg (25-34); MEAN CORPUSCULAR HGB CONC 33 g/dL (32-36); MEAN CORPUSCULAR VOLUME 93 fL (80-99); MONOCYTES # (AUTO) 0.4 10^3/uL (0.0-1.0); MONOCYTES % (AUTO) 6 % (0-12); NEUTROPHILS # (AUTO) 2.8 10^3/uL (1.8-7.8); NEUTROPHILS % (AUTO) 52 % (42-75); WHITE BLOOD COUNT 5.5 10^3/uL (4.3-11.0)
[2020-03-21 07:18] LABS: CHLORIDE 109 MMOL/L (98-107); POTASSIUM 3.5 MMOL/L (3.6-5.0); SODIUM 140 MMOL/L (135-145)
[2020-03-21 07:19] LABS: CALCIUM 7.8 MG/DL (8.5-10.1)
[2020-03-21 07:20] LABS: GLUCOSE 117 MG/DL (70-105); TOTAL PROTEIN 5.3 GM/DL (6.4-8.2)
[2020-03-21 07:21] LABS: CARBON DIOXIDE 24 MMOL/L (21-32)
[2020-03-21 07:22] LABS: BILIRUBIN,TOTAL 0.3 MG/DL (0.1-1.0)
[2020-03-21 07:23] LABS: ALKALINE PHOSPHATASE 67 U/L (40-136)
[2020-03-21 07:24] LABS: CREATININE SERUM 0.59 MG/DL (0.60-1.30); GFR ESTIMATED > 60
[2020-03-21 07:25] LABS: BUN/CREATININE RATIO 20
[2020-03-21 07:27] LABS: ALANINE AMINOTRANSFERASE 29 U/L (0-55)
[2020-03-21] MEDS: ADVAIR HFA 115/21 MCG INHALER 8 GM IH SCH ×2 (08:02→19:22)
[2020-03-21] MEDS: UMECLIDINIUM BROMIDE (INCRUSE ELLIPTA) 7'S IH SCH (08:04)
[2020-03-21 08:20] VITALS: BP 119/72
[2020-03-21] MEDS: SPIRONOLACTONE 25 MG (ALDACTONE) TAB PO SCH (09:24)
[2020-03-21] MEDS: GLIMEPIRIDE 2 MG (AMARYL) TAB PO SCH ×2 (09:24→17:18)
[2020-03-21] MEDS: ENOXAPARIN 40 MG/0.4 ML (LOVENOX) SYR SC SCH ×2 (09:26→21:04)
[2020-03-21] MEDS: VENlafaxine 37.5 MG (EFFEXOR) TAB PO SCH (09:26)
[2020-03-21] MEDS: PANTOPRAZOLE 40 MG (PROTONIX) VIAL IV SCH (09:26)
[2020-03-21] MEDS: PIOGLITAZONE 30MG (ACTOS) TAB PO SCH (09:26)
[2020-03-21] MEDS: REMDESIVIR INJ 100 MG in NS (IVPB) 230 ML IV SCH (09:29)
[2020-03-21 11:50] VITALS: BP 139/69
--- NOTE | 2020-03-21 12:54 | Progress Note - Hospitalist ---
Subjective HPI/CC On Admission Date Seen by Provider: Mar 21, 2020 Time Seen by Provider: 12:49 CC: COVID-19 with hypoxia HPI: This is a 54yoWF clinic patient of [facility] who has a h/o DM and obesity with TAM who presents to the ER with hypoxia and dyspnea. Patient was given Decadron and high sugars have occurred. Insulin given aggressively. Patient feels aching and severe weakness. I have reviewed her home meds and will restart OHA also. No pain reported. Subjective/Events-last exam feeling better afebile with less SOB. Off oxygen with sats >94 Focused Exam Lactate Level 03/18/20 21:55: Lactic Acid Level 0.91 Objective Exam Vital Signs Vital Signs Date Time Temp Pulse Resp B/P (MAP) Pulse Ox O2 Delivery O2 Flow Rate FiO2 03/21/20 12:34 75 03/21/20 11:50 36.2 18 139/69 (92) 96 Room Air 03/21/20 11:10 0.50 03/19/20 08:32 28 Capillary Refill : NONELess Than 3 Seconds General Appearance: No Apparent Distress Respiratory: Chest Non Tender, Lungs Clear, Normal Breath Sounds, No Accessory Muscle Use, No Respiratory Distress Cardiovascular: Regular Rate, Rhythm, No Edema, No Gallop, No JVD, No Murmur, Normal Peripheral Pulses Gastrointestinal: Normal Bowel Sounds, No Organomegaly, No Pulsatile Mass, Non Tender, Soft Results/Procedures Lab Laboratory Tests 03/21/20 06:50 Patient resulted labs reviewed. Assessment/Plan Assessment and Plan Assess & Plan/Chief Complaint Assessment: COVID-19 BOBBY with hypoxia improving continue decadron TAM COPD TAM on CPAP DM OOC discussed importance of maintaining a very low glycemic diet in lamens terms. Clinical Quality Measures DVT/VTE Risk/Contraindication: Risk Factor Score Per Nursin RFS Level Per Nursing on Admit: 4+=Very High MARIA ISABEL OCHOA MD Mar 21, 2020 12:54
[2020-03-21 16:05] VITALS: BP 139/76
[2020-03-21 20:00] VITALS: BP 125/75
[2020-03-21] MEDS: SIMvastatin 40 MG (ZOCOR) TAB PO SCH (21:04)
[2020-03-21] MEDS: ACETAMINOPHEN 500 MG TAB (TYLENOL) PO PRN (21:05)
[2020-03-22 00:49] VITALS: BP 129/62
[2020-03-22] MEDS: NS IV 1000 ML 1,000 ML IV SCH ×2 (00:51→08:08)
[2020-03-22 03:55] VITALS: BP 147/73
[2020-03-22] MEDS: metFORMIN XR 500 MG (GLUCOPHAGE XR) TAB PO SCH (06:34)
[2020-03-22] MEDS: inSUlin (REGULAR) HUMAN 1 UNIT/0.01 ML (CHARGE PER UNIT) SC SCH ×2 (06:37→12:21)
[2020-03-22] MEDS: ALBUTEROL/IPRATROP (COMBIVENT RESPIMAT) 4 GM INHALER IH SCH (07:30)
[2020-03-22 08:00] VITALS: BP 159/83
[2020-03-22] MEDS: VENlafaxine 37.5 MG (EFFEXOR) TAB PO SCH (08:07)
[2020-03-22] MEDS: SPIRONOLACTONE 25 MG (ALDACTONE) TAB PO SCH (08:08)
[2020-03-22] MEDS: PIOGLITAZONE 30MG (ACTOS) TAB PO SCH (08:08)
[2020-03-22] MEDS: ENOXAPARIN 40 MG/0.4 ML (LOVENOX) SYR SC SCH (08:08)
[2020-03-22] MEDS: PANTOPRAZOLE 40 MG (PROTONIX) VIAL IV SCH (08:09)
[2020-03-22] MEDS: REMDESIVIR INJ 100 MG in NS (IVPB) 230 ML IV SCH (08:09)
[2020-03-22] MEDS: GLIMEPIRIDE 2 MG (AMARYL) TAB PO SCH (08:13)
[2020-03-22] MEDS: UMECLIDINIUM BROMIDE (INCRUSE ELLIPTA) 7'S IH SCH (09:06)
[2020-03-22] MEDS: ADVAIR HFA 115/21 MCG INHALER 8 GM IH SCH (09:07)
[2020-03-22 11:07] VITALS: BP 159/83
[2020-03-22] MEDS ORDERED: ALBUTEROL/IPRATROP (COMBIVENT RESPIMAT) 4 GM INHALER IH SCH (11:15)
[2020-03-22 11:32] VITALS: BP 141/74
--- NOTE | 2020-03-22 12:09 | Discharge Summary ---
Diagnosis/Chief Complaint Date of Admission Mar 19, 2020 at 00:30 Date of Discharge Admission Diagnosis Assessment: COVID-19 BOBBY with hypoxia TAM COPD TAM on CPAP DM OOC Plan: Monitor labs Monitor sugars Home meds [facility] Discharge Diagnosis (1) COVID-19 virus infection Status: Acute (2) Acute respiratory failure with hypoxia Status: Acute (3) Uncontrolled diabetes mellitus Status: Acute (4) COPD (chronic obstructive pulmonary disease) Status: Acute Discharge Summary Discharge Physical Exam Allergies: Coded Allergies: Penicillins (Verified Allergy, Unknown, 05/09/17) aspirin (Verified Allergy, Unknown, 05/09/17) morphine (Verified Allergy, Unknown, 05/09/17) Vitals & I&Os Vital Signs Date Time Temp Pulse Resp B/P (MAP) Pulse Ox O2 Delivery O2 Flow Rate FiO2 03/22/20 11:32 72 20 141/74 (96) 93 Room Air 03/22/20 11:07 36.2 21 03/22/20 08:00 0.00 General Appearance: No Apparent Distress, WD/WN Respiratory: Chest Non Tender, Lungs Clear, Normal Breath Sounds, No Accessory Muscle Use, No Respiratory Distress Cardiovascular: Regular Rate, Rhythm, No Edema, No Gallop, No JVD, No Murmur, Normal Peripheral Pulses Gastrointestinal: Normal Bowel Sounds, No Organomegaly, No Pulsatile Mass, Non Tender, Soft Extremity: Normal Capillary Refill, Normal Inspection, Normal Range of Motion, Non Tender, No Calf Tenderness, No Pedal Edema Hospital Course Was the Problem List Reviewed?: Yes Patient reports initially feeling feverish with body aches and pains 9 days ago on Monday. This was associated with fatigue. Her daughter was sick with similar symptoms and both tested positive for Covid. Upon arrival to the emergency room 4 days ago the patient had a room air saturation of 89%. CT angio of the chest revealed no evidence for pulmonary embolism it also revealed no evidence for infiltrate and her chest x-ray was unremarkable. Patient is a 80-59-ltbn-year smoking history but quit 2 years ago. She was started on O2 2 L with increase in saturation to 94 to 96% was given Decadron and has had I belie ve about 3-1/2 days of remdesivir. She is remained afebrile for the past 48 hours she has been off of oxygen with O2 saturations 93 to 94%. She has had minimal intermittent cough in her chest has been clear with unremarkable vital signs. She still reports feeling a little fatigue but reports no other symptoms. She has been independent in her room and appear to be in no acute di stress. As she has type 2 diabetes mellitus and is required insulin in addition to her usual oral therapy due to Decadron in addition to the fact that she has not had pneumonia risk of Decadron are outweighed by the benefits she will not be discharged on Decadron. Infection control has been notified and this time after checking with the [facility] will will be giving the patient quarantine recommendations. For now the patient is to remain quarantined until further notice. Her and daughter are at home and the daughter has known Covid and doing well. The will remain quarantined from his place of work and has been so for the past week. We will continue home medication unchanged with follow-up at [facility] when the patient is released from quarantined she was told that she will also require a negative Covid test before she can return to working at [employer] [facility] [facility]. Labs (last 24 hrs) Laboratory Tests 03/21/20 16:15: Glucometer 208H 03/21/20 20:13: Glucometer 135H 03/22/20 06:32: Glucometer 109 03/22/20 11:15: Glucometer 196H Microbiology 03/19/20 Urine Culture - Final, Complete Gram Pos Mixed Bacterial Valerie 03/18/20 Blood Culture - Preliminary, Resulted No growth 03/18/20 Influenza Types A,B Antigen (NOEMI) - Final, Complete Patient resulted labs reviewed. Pending Labs Laboratory Tests 03/22/20 06:32: Glucometer 109 03/22/20 11:15: Glucometer 196 Discussion & Recommendations Discharge Planning: >30 minutes discharge planning Discharge Home Medications: Active Scripts Active Reported Ondansetron HCl 4 Mg Tablet 4 Mg PO TID PRN Simvastatin 40 Mg Tablet 40 Mg PO HS LAST FILLED 12-31-2019 #30 Venlafaxine HCl 37.5 Mg Tab 37.5 Mg PO DAILY LAST FILLED 12-31-2019 #30 Aldactone (Spironolactone) 50 Mg Tablet 50 Mg PO DAILY Metformin HCl ER (Metformin HCl) 500 Mg Tab.er.24 1,000 Mg PO BID Symbicort 80-4.5 Mcg Inhaler (Budesonide/Formoterol Fumarate) 10.2 Gm Hfa.aer.ad 2 Puff IH BID Actos (Pioglitazone HCl) 30 Mg Tablet 30 Mg PO DAILY LAST FILLED 01-17-2020 #30 Amaryl (Glimepiride) 2 Mg Tab 2 Mg PO BID LAST FILLED 12-31-2019 #60 Instructions to patient/family Please see electronic discharge instructions given to patient. Clinical Quality Measures DVT/VTE Risk/Contraindication: Risk Factor Score Per Nursin RFS Level Per Nursing on Admit: 4+=Very High Copy Copies To 1: [facility]/MARIA ISABEL KERNS MD Mar 22, 2020 12:09
[2020-03-22 14:00] VITALS: BP 141/74
== END 2020-03-22 14:20 | disposition home or self-care (01) | DRG 177 ==
LOC: EDUNIT# 21:38 → ER 21:39 → 4TH 03-19 00:30
PROVIDERS: ADMIT Internal Medicine; ATTEND Internal Medicine
PROC: XW033E5 Introduction of Remdesivir Anti-infective into Peripheral Vein, Percutaneous Approach, New Technology Group 5 (ICD-10-PCS; principal; 2020-03-20)
DX: U07.1 COVID-19 (principal); J12.89 Other viral pneumonia; J96.01 Acute respiratory failure with hypoxia; Z68.41 Body mass index [BMI] 40.0-44.9, adult; J44.0 Chronic obstructive pulmonary disease with (acute) lower respiratory infection; E66.01 Morbid (severe) obesity due to excess calories; G47.33 Obstructive sleep apnea (adult) (pediatric); E11.65 Type 2 diabetes mellitus with hyperglycemia; T38.0X5A Adverse effect of glucocorticoids and synthetic analogues, initial encounter; I10 Essential (primary) hypertension; F41.9 Anxiety disorder, unspecified; F32.9 Major depressive disorder, single episode, unspecified; I71.2 Thoracic aortic aneurysm, without rupture; Z87.891 Personal history of nicotine dependence; Z79.84 Long term (current) use of oral hypoglycemic drugs
CPT/HCPCS: 36415; 71045; 71275; 80053; 80306; 81000; 82550; 82553; 82805; 82962; 83605; 83615; 83735; 83874; 83880; 84145; 84484; 84703; 85007; 85025; 85027; 85379; 85610; 85652; 85730; 86141; 86900; 86901; 87040; 87088; 87635; 87804; 93005; 93041; 94640; 94664; 94760

== ENCOUNTER 2020-03-25 11:45 | Inpatient (IN) | payer SELFPAY ==
[~2020-03-25] VITALS: Ht 167 cm; Wt 82.8 kg
[~2020-03-25 11:45] MED LIST changes: +BUDE10.22 IH; +GLMP2T PO; +METF-478 PO; +ONDA-105 PO; +PIOG30TA38 PO; +SIMV40TA25 PO; +SPIR50TA PO
[2020-03-25] MEDS ORDERED: ONDANSETRON 4 MG/2 ML (SDV) Z0FRAN ONE (11:55)
--- NOTE | 2020-03-25 12:08 | ED General ---
General Stated Complaint: COVID +,SOB Source of Information: Patient Exam Limitations: No Limitations History of Present Illness Date Seen by Provider: Mar 25, 2020 Time Seen by Provider: 12:04 Initial Comments To ER with reports of shortness of breath headache nausea and general malaise. She has known Covid. She arrives by EMS. She is living at home with her daughter who also has Covid. Her is staying out of the house and is not ill. She became symptomatic around 03/14/2020. She was admitted to hospital and discharged on 03/22/2020 after receiving convalescent plasma and remdesivir. She was discharged home on oxygen at 1 L/min. Upon EMS arrival this morning her saturations 90% on at 1 L. History of COPD and a years of smoking but she quit 2 years ago. Timing/Duration: 1-2 Days Severity: Moderate Associated Systoms: Headaches Allergies and Home Medications Allergies Coded Allergies: Penicillins (Verified Allergy, Unknown, 05/09/17) aspirin (Verified Allergy, Unknown, 05/09/17) morphine (Verified Allergy, Unknown, 05/09/17) Home Medications Budesonide/Formoterol Fumarate 10.2 Gm Hfa.aer.ad, 2 PUFF IH BID, (Reported) Glimepiride 2 Mg Tab, 2 MG PO BID, (Reported) LAST FILLED 12-31-2019 #60 Metformin HCl 500 Mg Tab.er.24, 1,000 MG PO BID, (Reported) Ondansetron 8 Mg Tab.rapdis, 8 MG PO Q6H PRN for NAUSEA/VOMITING Prescribed by: BENTON BECKER on 03/25/20 1402 Ondansetron HCl 4 Mg Tablet, 4 MG PO TID PRN for NAUSEA/VOMITING-1ST LINE, (Reported) Pioglitazone HCl 30 Mg Tablet, 30 MG PO DAILY, (Reported) LAST FILLED 01-17-2020 #30 Simvastatin 40 Mg Tablet, 40 MG PO HS, (Reported) LAST FILLED 12-31-2019 #30 Spironolactone 50 Mg Tablet, 50 MG PO DAILY, (Reported) Venlafaxine HCl 37.5 Mg Tab, 37.5 MG PO DAILY, (Reported) LAST FILLED 12-31-2019 #30 Patient Home Medication List Home Medication List Reviewed: Yes Review of Systems Review of Systems Constitutional: see HPI, chills, malaise, weakness EENTM: see HPI Respiratory: see HPI, cough, dyspnea on exertion Cardiovascular: no symptoms reported Genitourinary: no symptoms reported Musculoskeletal: no symptoms reported Skin: no symptoms reported Psychiatric/Neurological: No Symptoms Reported Hematologic/Lymphatic: No Symptoms Reported Immunological/Allergic: no symptoms reported Past Nwlqzsv-Lsjcnt-Hfxxkh Hx Patient Social History Type Used: Cigarettes Former Smoker, Quit: Mar 06, 2017 Recent Hopitalizations: No Seasonal Allergies Seasonal Allergies: No Past Medical History Surgeries: Yes Gallbladder, 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, Tubal Ligation Respiratory: Yes Pneumonia, COPD Currently Using CPAP: Yes Currently Using BIPAP: No Cardiac: Yes Hypertension Neurological: No [employer]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 History: 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, Menopausal Genitourinary: No Gastrointestinal: No Musculoskeletal: No Endocrine: Yes Diabetes, Non-Insulin dep HEENT: No Cancer: No Psychosocial: Yes Anxiety, Depression Integumentary: No Blood Disorders: No Family Medical History Diabetes mellitus 19 FATHER FH: breast cancer 19 MOTHER Myocardial infarction 19 FATHER Thyroid disease G8 SISTER No Pertinent Family Hx Physical Exam Vital Signs Vital Signs - First Documented 03/25/20 11:45 Temp 37.3 Pulse 90 Resp 30 B/P (MAP) 143/48 (79) Pulse Ox 93 O2 Delivery Nasal Cannula O2 Flow Rate 3.00 Capillary Refill : Height, Weight, BMI Height: 5'6.00" Weight: 320lbs. 12.8oz. 145.664509pe; 42.42 BMI Method:Stated General Appearance: No Apparent Distress, WD/WN, Obese Eyes: Bilateral Eye Normal Inspection, Bilateral Eye PERRL, Bilateral Eye EOMI HEENT: PERRL/EOMI, TMs Normal Neck: Full Range of Motion, Normal Inspection Respiratory: No Accessory Muscle Use, No Respiratory Distress, Decreased Breath Sounds Cardiovascular: Regular Rate, Rhythm, Normal Peripheral Pulses Gastrointestinal: Normal Bowel Sounds, Non Tender, Soft Extremity: Normal Capillary Refill Neurologic/Psychiatric: Alert, Oriented x3 Skin: Normal Color, Warm/Dry Focused Exam Lactate Level 03/25/20 11:57: Lactic Acid Level 0.95 Lactic Acid Level Laboratory Tests Test 03/25/20 11:57 Lactic Acid Level 0.95 MMOL/L (0.50-2.00) Progress/Results/Core Measures Suspected Sepsis SIRS Temperature: Pulse: Respiratory Rate: Laboratory Tests 03/25/20 11:57: White Blood Count 6.9 Blood Pressure / Mean: 03/25/20 11:57: Lactic Acid Level 0.95 Laboratory Tests 03/25/20 11:57: Creatinine 0.66, Platelet Count 190, Total Bilirubin 0.7 Results/Orders Lab Results Laboratory Tests Test 03/25/20 11:57 Range/Units White Blood Count 6.9 4.3-11.0 10^3/uL Red Blood Count 4.47 3.80-5.11 10^6/uL Hemoglobin 13.1 11.5-16.0 g/dL Hematocrit 40 35-52 % Mean Corpuscular Volume 90 80-99 fL Mean Corpuscular Hemoglobin 29 25-34 pg Mean Corpuscular Hemoglobin Concent 33 32-36 g/dL Red Cell Distribution Width 12.8 10.0-14.5 % Platelet Count 190 130-400 10^3/uL Mean Platelet Volume 9.9 9.0-12.2 fL Immature Granulocyte % (Auto) 0 % Neutrophils (%) (Auto) 80 H 42-75 % Lymphocytes (%) (Auto) 13 12-44 % Monocytes (%) (Auto) 6 0-12 % Eosinophils (%) (Auto) 0 0-10 % Basophils (%) (Auto) 0 0-10 % Neutrophils # (Auto) 5.5 1.8-7.8 10^3/uL Lymphocytes # (Auto) 0.9 L 1.0-4.0 10^3/uL Monocytes # (Auto) 0.4 0.0-1.0 10^3/uL Eosinophils # (Auto) 0.0 0.0-0.3 10^3/uL Basophils # (Auto) 0.0 0.0-0.1 10^3/uL Immature Granulocyte # (Auto) 0.0 0.0-0.1 10^3/uL D-Dimer 2.28 H 0.00-0.49 UG/ML Sodium Level 140 135-145 MMOL/L Potassium Level 3.5 L 3.6-5.0 MMOL/L Chloride Level 98 98-107 MMOL/L Carbon Dioxide Level 31 21-32 MMOL/L Anion Gap 11 5-14 MMOL/L Blood Urea Nitrogen 5 L 7-18 MG/DL Creatinine 0.66 0.60-1.30 MG/DL Estimat Glomerular Filtration Rate > 60 BUN/Creatinine Ratio 8 Glucose Level 269 H 70-105 MG/DL Lactic Acid Level 0.95 0.50-2.00 MMOL/L Calcium Level 8.6 8.5-10.1 MG/DL Corrected Calcium 9.1 8.5-10.1 MG/DL Total Bilirubin 0.7 0.1-1.0 MG/DL Aspartate Amino Transf (AST/SGOT) 14 5-34 U/L Alanine Aminotransferase (ALT/SGPT) 24 0-55 U/L Alkaline Phosphatase 67 40-136 U/L C-Reactive Protein High Sensitivity 6.72 H 0.00-0.50 MG/DL Total Protein 6.1 L 6.4-8.2 GM/DL Albumin 3.4 3.2-4.5 GM/DL Procalcitonin 0.04 <0.10 NG/ML My Orders Orders - BENTON BECKER APRN Cbc With Automated Diff (03/25/20 11:48) Comprehensive Metabolic Panel (03/25/20 11:48) Chest 1 View, Ap/Pa Only (03/25/20 11:48) Hs C Reactive Protein (03/25/20 11:48) Procalcitonin (Pct) (03/25/20 11:48) Fibrin Degradation Products (03/25/20 11:48) Blood Culture (03/25/20 11:48) Lactic Acid Analyzer (03/25/20 11:48) Ed Iv/Invasive Line Start (03/25/20 11:48) Ondansetron Injection (Zofran Injectio (03/25/20 11:55) Ns Iv 500 Ml (Sodium Chloride 0.9%) (03/25/20 12:15) Ondansetron Injection (Zofran Injectio (03/25/20 12:15) Ketorolac Injection (Toradol Injection) (03/25/20 12:15) Ondansetron Injection (Zofran Injectio (03/25/20 12:15) Ct Angio Chest W (03/25/20 12:46) Iohexol Injection (Omnipaque 350 Mg/Ml 1 (03/25/20 13:00) Received Contrast (Hold Metformin- Contr (03/25/20 13:00) Ns (Ivpb) (Sodium Chloride 0.9% Ivpb Bag (03/25/20 13:00) Fentanyl Injection (Sublimaze Injection (11/11/20 14:20) Albuterol Inhaler (Ventolin Hfa) (03/25/20 14:21) Levalbuterol (Non-Formulary) (Xopenex (N (03/25/20 14:30) Levalbuterol (Non-Formulary) (Xopenex-Hf (03/25/20 15:00) Fentanyl Injection (Sublimaze Injection (03/25/20 15:00) Medications Given in ED Current Medications Medications Dose Ordered Sig/Cait Route Start Time Stop Time Status Last Admin Dose Admin Iohexol 75 ml ONCE ONCE IV 03/25/20 13:00 03/25/20 13:01 DC 03/25/20 13:25 84 ML Ketorolac Tromethamine 15 mg ONCE ONCE IVP 03/25/20 12:15 03/25/20 12:16 DC 03/25/20 12:09 15 MG Ondansetron HCl 4 mg ONCE ONCE IVP 03/25/20 12:15 03/25/20 12:16 DC 03/25/20 12:05 4 MG Ondansetron HCl 4 mg ONCE ONCE IVP 03/25/20 12:15 03/25/20 12:16 DC 03/25/20 12:10 4 MG Sodium Chloride 100 ml ONCE ONCE IV 03/25/20 13:00 03/25/20 13:01 DC 03/25/20 13:26 80 ML Vital Signs/I&O 03/25/20 11:45 Temp 37.3 Pulse 90 Resp 30 B/P (MAP) 143/48 (79) Pulse Ox 93 O2 Delivery Nasal Cannula O2 Flow Rate 3.00 Capillary Refill : Diagnostic Imaging Diagonstic Imaging: Xray Plain Films/CT/US/NM/MRI: chest Comments NAME: MAY[facility] REC#: [id number] PT STATUS: REG ER : 1965 PHYSICIAN: BENTON BECKER APRN ADMIT DATE: 03/25/20/ER Draft Date of Exam:03/25/20 CHEST 1 VIEW, AP/PA ONLY INDICATION: Shortness of breath.. Time of exam 12:39 p.m. Correlation is made with prior chest from 03/18/2020. Heart size is stable. Lungs appear to be clear. No infiltrates are seen. There is no effusion or pneumothorax. IMPRESSION: No acute cardiopulmonary process is detected. Dictated on workstation # [id number] Dict: 03/25/20 1307 Trans: 03/25/20 1310 [facility] [id number] Interpreted by: GUICHO BEAVERS MD Electronically signed by: Departure Communication (Admissions) 1356-oxygen saturation is 94% on 3 L of oxygen heart rate 81 blood pressure 143/83. Patient is alert and oriented. Although she does feel terrible her work-up is fairly unremarkable. Her D-dimer elevation is likely the subcu taneous abdominal wall bruising from Lovenox injections during her last admission. 1454-discharge patient home, however with submental oxygen her saturation dropped to 69% when getting up to the bathroom. It quickly recovered but stayed in the mid 70s for 1 to 2 minutes. Impression Primary Impression: COVID-19 virus infection Additional Impression: COPD (chronic obstructive pulmonary disease) Disposition: ADMITTED INPATIENT Condition: Stable Admissions Decision to Admit Reason: Admit from ER (General) Decision to Admit/Date: Mar 25, 2020 Time/Decision to Admit Time: 14:57 Departure-Patient Inst. Decision time for Depature: 13:58 Referrals: [facility] ([place]P/Family) Primary Care Physician Patient Instructions: COVID19, Chronic Obstructive Pulmonary Disease (COPD) (DC) Add. Discharge Instructions: 1. Return to ER for any concerns. Call your family doctor today to make an appointment for a telehealth visit within the next few days. Use the inhaler as directed and the nausea medication as needed. Scripts [Commode] No Conflict Check EA PRN for Dyspean, #1 Diagnosis: R06.09 Prov: BENTON BECKER [employer]AR[employer] ASSEMBL[employer] SUPERVISOR 03/25/20 Ondansetron (Ondansetron Odt) 8 Mg Tab.rapdis 8 MG PO Q6H PRN for NAUSEA/VOMITING, #10 TAB Prov: BENTON BECKER [employer] ASSEMBL[employer] SUPERVISOR 03/25/20 BENTON BECKER APRN Mar 25, 2020 12:08
[2020-03-25 12:12] LABS: BASOPHILS % (AUTO) 0 % (0-10); EOSINOPHILS % (AUTO) 0 % (0-10); HEMATOCRIT 40 % (35-52); HEMOGLOBIN 13.1 g/dL (11.5-16.0); LYMPHOCYTES # (AUTO) 0.9 10^3/uL (1.0-4.0); LYMPHOCYTES % (AUTO) 13 % (12-44); MEAN CORPUSCULAR HEMOGLOBIN 29 pg (25-34); MEAN CORPUSCULAR HGB CONC 33 g/dL (32-36); MEAN CORPUSCULAR VOLUME 90 fL (80-99); MEAN PLATELET VOLUME 9.9 fL (9.0-12.2); MONOCYTES # (AUTO) 0.4 10^3/uL (0.0-1.0); MONOCYTES % (AUTO) 6 % (0-12); NEUTROPHILS # (AUTO) 5.5 10^3/uL (1.8-7.8); NEUTROPHILS % (AUTO) 80 % (42-75); PLATELET COUNT 190 10^3/uL (130-400); WHITE BLOOD COUNT 6.9 10^3/uL (4.3-11.0)
[2020-03-25] MEDS ORDERED: NS IV 500 ML 500 ML IV SCH (12:15)
[2020-03-25] MEDS ORDERED: KETOROLAC 30 MG/ML VIAL IVP ONE (12:15)
[2020-03-25] MEDS ORDERED: ONDANSETRON 4 MG/2 ML (SDV) Z0FRAN IVP ONE ×2 (12:15)
[2020-03-25 12:17] LABS: ALBUMIN 3.4 GM/DL (3.2-4.5); CHLORIDE 98 MMOL/L (98-107); POTASSIUM 3.5 MMOL/L (3.6-5.0); SODIUM 140 MMOL/L (135-145)
[2020-03-25 12:18] LABS: CALCIUM 8.6 MG/DL (8.5-10.1)
[2020-03-25 12:19] LABS: GLUCOSE 269 MG/DL (70-105); TOTAL PROTEIN 6.1 GM/DL (6.4-8.2)
[2020-03-25 12:20] LABS: CARBON DIOXIDE 31 MMOL/L (21-32)
[2020-03-25 12:21] LABS: BILIRUBIN,TOTAL 0.7 MG/DL (0.1-1.0)
[2020-03-25 12:23] LABS: ALKALINE PHOSPHATASE 67 U/L (40-136); CREATININE SERUM 0.66 MG/DL (0.60-1.30); GFR ESTIMATED > 60
[2020-03-25 12:24] LABS: BUN/CREATININE RATIO 8
[2020-03-25 12:26] LABS: ALANINE AMINOTRANSFERASE 24 U/L (0-55)
[2020-03-25] MEDS ORDERED: NS 100 ML (IVPB) BAG IV ONE (13:00)
[2020-03-25] MEDS ORDERED: IOHEXOL 350 MG/ML 100 ML (OMNIPAQUE 350) VIAL IV ONE (13:00)
[2020-03-25] MEDS ORDERED: HOLD METFORMIN - RECEIVED CONTRAST 20 ML VIAL IV SCH (13:00)
--- NOTE | 2020-03-25 13:10 | Diagnostic Imaging Report ---
INDICATION: Shortness of breath.. Time of exam 12:39 p.m. Correlation is made with prior chest from 03/18/2020. Heart size is stable. Lungs appear to be clear. No infiltrates are seen. There is no effusion or pneumothorax. IMPRESSION: No acute cardiopulmonary process is detected. Dictated by: Dictated on workstation # [id number]
--- NOTE | 2020-03-25 13:33 | Diagnostic Imaging Report ---
PROCEDURE: CT angiography of the chest with contrast. TECHNIQUE: Multiple contiguous axial images were obtained through the chest after uneventful bolus administration of intravenous contrast. 3D reconstructed CTA MIP acquisitions were also performed. Auto Exposure Controls were utilized during the CT exam to meet ALARA standards for radiation dose reduction. INDICATION: Shortness of breath, elevated d-dimer. COMPARISON: 03/18/2020. FINDINGS: There is poor opacification of the distal pulmonary arterial branches as well as their evaluation challenged by respiratory motion artifact. No demonstrated PE and no findings of right heart strain or elevated right heart pressures. This patient has small bilateral pleural effusions, greater right, with an average depth on the right measuring 1 cm. There is no pericardial effusion. The heart size is stable. The thoracic aorta is patent and nonacute with stable mild ectasia of its ascending component measuring 3.9 cm. No focal pulmonary consolidation. There is mild distention of the pulmonary venous structures and a very slight degree of interstitial edema could not be excluded. No focal pneumonia. No suspicious mass. No adenopathy. No acute chest wall pathology. There has been development of some subcutaneous edema. The visualized upper abdomen shows no free fluid or free air. IMPRESSION: No demonstrated PE. Mild vascular distention, subcutaneous edema, and small pleural effusions with upper limits heart size. The findings may reflect mild failure or hypervolemia. No appreciable PE or acute aortic disease. Dictated by: Dictated on workstation # [id number]
[2020-03-25] MEDS ORDERED: COMMODE (14:02)
[2020-03-25] MEDS ORDERED: ONDA8TAB13 PO (14:02)
[2020-03-25] MEDS ORDERED: fentaNYL INJECTION 100 MCG/2 ML AMP ONE (14:20)
[2020-03-25] MEDS ORDERED: RT-ALBUTEROL INHALER HFA (VENTOLIN HFA) 18 GM IH ONE (14:21)
[2020-03-25] MEDS ORDERED: RT-LEVALBUTEROL (XOPENEX) 1.25 MG/3 ML NEB NON-FORMULARY INH PRN (14:30)
[2020-03-25] MEDS ORDERED: LEVALBUTEROL INH SCH (15:00)
[2020-03-25] MEDS ORDERED: fentaNYL INJECTION 100 MCG/2 ML AMP IVP ONE (15:00)
--- NOTE | 2020-03-25 15:45 | NUR ---
ATTEMPTED TO CALL 4TH FOR REPORT; NO ANSWER.
[2020-03-25 16:26] VITALS: BP 136/68
[2020-03-25] MEDS ORDERED: fentaNYL INJECTION 100 MCG/2 ML AMP IVP PRN (17:00)
[2020-03-25] MEDS: ENOXAPARIN 40 MG/0.4 ML (LOVENOX) SYR SC SCH (17:41)
[2020-03-25] MEDS ORDERED: ONDANSETRON 4 MG/2 ML (SDV) Z0FRAN IVP PRN (18:00)
[2020-03-25] MEDS ORDERED: ALBUTEROL/IPRATROP (COMBIVENT RESPIMAT) 4 GM INHALER INH SCH (19:00)
[2020-03-25 20:28] VITALS: BP 179/83
[2020-03-25] MEDS: inSUlin ASPART (NovoLOG) 1 UNIT/0.01 ML (CHARGE PER UNIT) SC SCH (20:43)
[2020-03-26] VITALS (7 sets, daily range): BP systolic 109–158; BP diastolic 56–70
--- NOTE | 2020-03-26 01:20 | NUR ---
PT C/O SOA. O2 STATS 91-92% ON [address] YOUNG NOTIFIED. MAT PROTOCOL ORDER AND PO 0.5MG ATIVAN. RT NOTIFIED ABOUT MAT. [place] REQUEST A FAN. PO ATIVAN AND FAN GIVEN TO PT. REPORT THAT HER BREATHING IS BETTER. WILL CONTINUO TO MONITOR
[2020-03-26] MEDS: LORazepam 0.5 MG (ATIVAN) TABLET PO PRN (01:40)
[2020-03-26] MEDS: ALBUTEROL/IPRATROP (COMBIVENT RESPIMAT) 4 GM INHALER INH SCH ×6 (01:49→22:15)
[2020-03-26] MEDS: inSUlin ASPART (NovoLOG) 1 UNIT/0.01 ML (CHARGE PER UNIT) SC SCH ×4 (05:22→21:15)
[2020-03-26] MEDS: ACETAMINOPHEN 325 MG TABLET PO PRN ×2 (05:58→21:15)
[2020-03-26 06:03] LABS: BASOPHILS % (AUTO) 0 % (0-10); EOSINOPHILS % (AUTO) 0 % (0-10); HEMATOCRIT 37 % (35-52); HEMOGLOBIN 12.1 g/dL (11.5-16.0); LYMPHOCYTES # (AUTO) 0.9 10^3/uL (1.0-4.0); LYMPHOCYTES % (AUTO) 18 % (12-44); MEAN CORPUSCULAR HEMOGLOBIN 30 pg (25-34); MEAN CORPUSCULAR HGB CONC 33 g/dL (32-36); MEAN CORPUSCULAR VOLUME 91 fL (80-99); MEAN PLATELET VOLUME 10.2 fL (9.0-12.2); MONOCYTES # (AUTO) 0.4 10^3/uL (0.0-1.0); MONOCYTES % (AUTO) 7 % (0-12); NEUTROPHILS # (AUTO) 3.8 10^3/uL (1.8-7.8); NEUTROPHILS % (AUTO) 75 % (42-75); PLATELET COUNT 164 10^3/uL (130-400)
[2020-03-26 06:14] LABS: ALBUMIN 3.1 GM/DL (3.2-4.5); CHLORIDE 98 MMOL/L (98-107); POTASSIUM 3.3 MMOL/L (3.6-5.0); SODIUM 139 MMOL/L (135-145)
[2020-03-26 06:15] LABS: CALCIUM 8.4 MG/DL (8.5-10.1)
[2020-03-26 06:16] LABS: GLUCOSE 169 MG/DL (70-105)
[2020-03-26 06:17] LABS: TOTAL PROTEIN 5.6 GM/DL (6.4-8.2)
[2020-03-26 06:18] LABS: BILIRUBIN,TOTAL 0.7 MG/DL (0.1-1.0); CARBON DIOXIDE 30 MMOL/L (21-32)
[2020-03-26 06:20] LABS: ALKALINE PHOSPHATASE 65 U/L (40-136); CREATININE SERUM 0.61 MG/DL (0.60-1.30); GFR ESTIMATED > 60
[2020-03-26 06:21] LABS: BUN/CREATININE RATIO 11
[2020-03-26 06:23] LABS: ALANINE AMINOTRANSFERASE 17 U/L (0-55)
[2020-03-26] MEDS ORDERED: KCL 20 MEQ TAB (K-DUR) PO NR (07:30)
--- NOTE | 2020-03-26 11:09 | History & Physical ---
HPI History of Present Illness: 54 yo female with history of COPD, usually on 1 lpm supplemental oxygen, was recently admitted with COVID and discharged 2 days ago. She was using oxygen at home, but was feeling very tired and short of breath and having a hard time doing anything and came back to ER. She was noted to have significant hypoxia with activity. She was treated with convalescent plasma and remdesevir and dexamethasone prior admission. Source: patient Date seen by provider: Mar 26, 2020 Time Seen by Provider: 10:00 Attending Physician Lola Smith MD PCP Center/[facility] Consult Date of Admission Mar 25, 2020 at 14:53 Home Medications Home Medications Reviewed patient Home Medication Reconciliation performed by pharmacy medication reconciliations telecasting technician and/or nursing. Patients Allergies have been reviewed. Allergies Coded Allergies: Penicillins (Verified Allergy, Unknown, 05/09/17) aspirin (Verified Allergy, Unknown, 05/09/17) morphine (Verified Allergy, Unknown, 05/09/17) [id number]-Vgkvwt Hx Patient Social History Alcohol Use: Denies Use Recreational Drug Use: No Smoking Status: Former Smoker Type Used: Cigarettes Recent Foreign Travel: No Contact w/other who traveled: No Recent Hopitalizations: No Recent Infectious Disease Expo: No Past Medical History PMHx: COPD DMII Anxiety Depression HLD SurgHx: Tubal ligation Cholecystectomy 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 Family Medical History Family History: Diabetes mellitus 19 FATHER FH: breast cancer 19 MOTHER Myocardial infarction 19 FATHER Thyroid disease G8 SISTER Review of Systems (CHC) Constitutional: No fever; malaise Respiratory: cough, dyspnea on exertion, short of breath Cardiovascular: No chest pain Gastrointestinal: No abdominal pain Genitourinary: no symptoms reported Musculoskeletal: muscle pain Skin: no symptoms reported Psychiatric/Neurological: No Symptoms Reported Reviewed Test Results Reviewed Test Results Lab Laboratory Tests Test 03/25/20 11:57 03/25/20 20:27 03/26/20 05:07 03/26/20 05:44 Range/Units White Blood Count 6.9 5.0 4.3-11.0 10^3/uL Red Blood Count 4.47 4.09 3.80-5.11 10^6/uL Hemoglobin 13.1 12.1 11.5-16.0 g/dL Hematocrit 40 37 35-52 % Mean Corpuscular Volume 90 91 80-99 fL Mean Corpuscular Hemoglobin 29 30 25-34 pg Mean Corpuscular Hemoglobin Concent 33 33 32-36 g/dL Red Cell Distribution Width 12.8 12.7 10.0-14.5 % Platelet Count 190 164 130-400 10^3/uL Mean Platelet Volume 9.9 10.2 9.0-12.2 fL Immature Granulocyte % (Auto) 0 0 % Neutrophils (%) (Auto) 80 H 75 42-75 % Lymphocytes (%) (Auto) 13 18 12-44 % Monocytes (%) (Auto) 6 7 0-12 % Eosinophils (%) (Auto) 0 0 0-10 % Basophils (%) (Auto) 0 0 0-10 % Neutrophils # (Auto) 5.5 3.8 1.8-7.8 10^3/uL Lymphocytes # (Auto) 0.9 L 0.9 L 1.0-4.0 10^3/uL Monocytes # (Auto) 0.4 0.4 0.0-1.0 10^3/uL Eosinophils # (Auto) 0.0 0.0 0.0-0.3 10^3/uL Basophils # (Auto) 0.0 0.0 0.0-0.1 10^3/uL Immature Granulocyte # (Auto) 0.0 0.0 0.0-0.1 10^3/uL D-Dimer 2.28 H 0.00-0.49 UG/ML Sodium Level 140 139 135-145 MMOL/L Potassium Level 3.5 L 3.3 L 3.6-5.0 MMOL/L Chloride Level 98 98 98-107 MMOL/L Carbon Dioxide Level 31 30 21-32 MMOL/L Anion Gap 11 11 5-14 MMOL/L Blood Urea Nitrogen 5 L 7 7-18 MG/DL Creatinine 0.66 0.61 0.60-1.30 MG/DL Estimat Glomerular Filtration Rate > 60 > 60 BUN/Creatinine Ratio 8 11 Glucose Level 269 H 169 H 70-105 MG/DL Lactic Acid Level 0.95 0.50-2.00 MMOL/L Calcium Level 8.6 8.4 L 8.5-10.1 MG/DL Corrected Calcium 9.1 9.1 8.5-10.1 MG/DL Total Bilirubin 0.7 0.7 0.1-1.0 MG/DL Aspartate Amino Transf (AST/SGOT) 14 12 5-34 U/L Alanine Aminotransferase (ALT/SGPT) 24 17 0-55 U/L Alkaline Phosphatase 67 65 40-136 U/L C-Reactive Protein High Sensitivity 6.72 H 0.00-0.50 MG/DL Total Protein 6.1 L 5.6 L 6.4-8.2 GM/DL Albumin 3.4 3.1 L 3.2-4.5 GM/DL Procalcitonin 0.04 <0.10 NG/ML Glucometer 203 H 155 H 70-110 MG/DL Radiology CTA chest 03/25: IMPRESSION: No demonstrated PE. Mild vascular distention, subcutaneous edema, and small pleural effusions with upper limits heart size. The findings may reflect mild failure or hypervolemia. No appreciable PE or acute aortic disease. Physical Exam-([facility]) Physical Exam Vital Signs VS - Last 72 Hours, by Label 03/25/20 03/25/20 03/25/20 03/25/20 11:45 15:57 16:26 16:41 Temp 37.3 37.3 36.7 Pulse 90 85 88 Resp 30 30 22 B/P (MAP) 143/48 (79) 143/83 (79) 136/68 (90) Pulse Ox 93 99 95 95 O2 Delivery Nasal Cannula Nasal Cannula Nasal Cannula Nasal Cannula O2 Flow Rate 3.00 3.00 2.50 3.00 03/25/20 03/25/20 03/25/20 03/26/20 20:28 20:40 21:01 00:35 Temp 37.7 36.6 Pulse 107 98 Resp B/P (MAP) 179/83 (115) 158/69 (98) Pulse Ox 93 92 O2 Delivery Nasal Cannula Nasal Cannula Nasal Cannula Nasal Cannula O2 Flow Rate 4.00 4.00 4.00 4.00 03/26/20 03/26/20 03/26/20 03/26/20 01:38 03:39 08:00 08:03 Temp 37.0 Pulse 98 93 88 Resp B/P (MAP) 140/68 (92) 122/60 (80) Pulse Ox 92 95 93 O2 Delivery Nasal Cannula Nasal Cannula O2 Flow Rate 4.00 4.00 4.00 Capillary Refill : Less Than 3 SecondsLess Than 3 Seconds General Appearance: mild distress Respiratory: decreased breath sounds, accessory muscle use Cardiovascular: regular rate, rhythm, no murmur Gastrointestinal: normal bowel sounds, non tender, soft Extremities: no pedal edema Neurologic/Psychiatric: alert, normal mood/affect Skin: normal color, warm/dry Assessment/Plan Assessment/Plan Admission Status: Inpatient Order (span 2 midnights) Reason for Inpatient Admission: COVID infection with hypoxic respiratory failure (1) COVID-19 virus infection Status: Acute Assessment & Plan: Already received convalescent plasma and remdesevir. Resume dexamethasone. Supplemental oxygen as needed. (2) Acute respiratory failure with hypoxia Status: Acute Assessment & Plan: Secondary to COVID19 infection. No evidence of superimposed bacterial pneumonia. (3) COPD (chronic obstructive pulmonary disease) Status: Chronic Assessment & Plan: Resume home inhalers, RT protocol, supplemental oxygen as above. Qualifiers: Qualified Codes: J43.1 - Panlobular emphysema (4) Diabetes Status: Chronic Assessment & Plan: Diabetic diet, home medications, sliding scale insulin. Qualifiers: Qualified Codes: E11.65 - Type 2 diabetes mellitus with hyperglycemia (5) Elevated d-dimer Status: Acute Assessment & Plan: Suspect inflammation related, CTA chest negative for PE. (6) DVT prophylaxis Status: Acute Assessment & Plan: Enoxaparin Clinical Quality Measures DVT/VTE Risk/Contraindication: Risk Factor Score Per Nursin RFS Level Per Nursing on Admit: 4+=Very High LOLA SMITH MD Mar 26, 2020 11:09
[2020-03-26] MEDS ORDERED: ONDANSETRON 4 MG (ZOFRAN) ORAL DISSOLVE TAB PO PRN (11:30)
[2020-03-26] MEDS: dexAMETHasone 6 MG TAB (DECADRON) PO SCH (12:04)
--- NOTE | 2020-03-26 13:21 | NUR ---
SPOKE WITH THE PT (I CALLED HER ROOM PHONE) AND CALLED [facility] TO COMPLETE THE MED REC PT WAS HERE LAST WEEK AND I COMPLETED THE MED REC ON 03-19-2020 (THERE IS A NOTE FROM THAT DATE THAT LISTS THE FILL DATES), TODAY WHEN I SPOKE WITH THE PT SHE WASNT ABLE TO ANSWER MANY QUESTIONS BUT DID SAY NONE OF HER MEDS HAD CHANGED. ZOFRAN 8MG WAS SHOWING ON THE MED REC PRESCRIBED BY CORRY ON 03-25-2020 FROM THE ED. HOWEVER AFTER THIS SCRIPT WAS SENT TO [facility] IT WAS DECIDED TO ADMIT THE PT- I CALLED [facility] AND THEY HAVE THE SCRIPT FOR THE PT BUT IT WAS NOT PICKED UP. FOR THIS REASON I TOOK THE ZOFRAN 8MG OFF THE MED REC AND KEPT THE 4MG. I ALSO VERIFIED WITH BILL THAT NO OTHER MEDICATIONS HAD BEEN FILLED SINCE THE PT WAS DISCHARGED.
--- NOTE | 2020-03-26 14:47 | NUR ---
RD ASSESSMENT PMHx: COPD; DM: pneumonia; HTN; COVID-19 PT INTERACTION: Note pt currently in COVID isolation, per chart review. Note all diet information for nutrition assessment is per Imelda RN or per chart review. Imelda states current appetite is "she's not picky, she just doesn't like the food." Note avg PO intake 88% x2meal, per chart review. Imelda states some issues with nausea. Note last BM was 03/25, and pt not currently on bowel regimen per chart review. Note unable to determine recent wt hx, per chart review. Note unable to determine current level of DM management, and not unable to determine recent HbA1c, per chart review. ABNORMAL NUTRITION-RELATED LAB VALUES LOW: K 3.3; Ca 8.5; Pro 5.6; alb 3.1 HIGH: glu 169 Est. kcal needs: 5802-1916 kcal | 20-25 kcal/kg Est. Pro needs: 66-83 g Pro | 0.8-1.0 g Pro/kg PES STATEMENT: Given current PO intake, no nutrition diagnosis at this time (NO-1.1). INTERVENTION: Continue with current diet order of CHO 60g/m 3snack diet. Did not offer diet education on DM management, d/t COVID isolation. Will continue to follow and reassess as pt needs, intake, and status change. Celso Stern, MS RD LD
[2020-03-26] MEDS: ENOXAPARIN 40 MG/0.4 ML (LOVENOX) SYR SC SCH (16:29)
[2020-03-26] MEDS: GLIMEPIRIDE 2 MG (AMARYL) TAB PO SCH (16:29)
[2020-03-26] MEDS ORDERED: SIMvastatin 40 MG (ZOCOR) TAB PO SCH (21:00)
[2020-03-26] MEDS: ADVAIR HFA 45/21 MCG INHALER 8 GM IH SCH (22:15)
[2020-03-27 03:55] VITALS: BP 150/74
[2020-03-27] MEDS: dexAMETHasone 6 MG TAB (DECADRON) PO SCH (06:47)
[2020-03-27] MEDS: inSUlin ASPART (NovoLOG) 1 UNIT/0.01 ML (CHARGE PER UNIT) SC SCH ×2 (06:47→11:57)
[2020-03-27] MEDS: GLIMEPIRIDE 2 MG (AMARYL) TAB PO SCH (06:47)
[2020-03-27 07:19] LABS: BASOPHILS % (AUTO) 0 % (0-10); EOSINOPHILS % (AUTO) 0 % (0-10); HEMATOCRIT 38 % (35-52); HEMOGLOBIN 12.3 g/dL (11.5-16.0); LYMPHOCYTES # (AUTO) 0.9 10^3/uL (1.0-4.0); LYMPHOCYTES % (AUTO) 19 % (12-44); MEAN CORPUSCULAR HEMOGLOBIN 30 pg (25-34); MEAN CORPUSCULAR HGB CONC 33 g/dL (32-36); MEAN CORPUSCULAR VOLUME 91 fL (80-99); MEAN PLATELET VOLUME 10.4 fL (9.0-12.2); MONOCYTES # (AUTO) 0.3 10^3/uL (0.0-1.0); MONOCYTES % (AUTO) 7 % (0-12); NEUTROPHILS # (AUTO) 3.6 10^3/uL (1.8-7.8); NEUTROPHILS % (AUTO) 74 % (42-75); PLATELET COUNT 195 10^3/uL (130-400); WHITE BLOOD COUNT 4.9 10^3/uL (4.3-11.0)
[2020-03-27 07:40] LABS: BUN/CREATININE RATIO 17; CALCIUM 8.9 MG/DL (8.5-10.1); CARBON DIOXIDE 29 MMOL/L (21-32); CHLORIDE 98 MMOL/L (98-107); CREATININE SERUM 0.63 MG/DL (0.60-1.30); GFR ESTIMATED > 60; GLUCOSE 230 MG/DL (70-105); SODIUM 139 MMOL/L (135-145)
[2020-03-27] MEDS: ALBUTEROL/IPRATROP (COMBIVENT RESPIMAT) 4 GM INHALER INH SCH ×2 (07:43→10:55)
[2020-03-27] MEDS: ADVAIR HFA 45/21 MCG INHALER 8 GM IH SCH (07:44)
[2020-03-27 08:20] VITALS: BP 125/69
[2020-03-27] MEDS ORDERED: PIOGLITAZONE 30MG (ACTOS) TAB PO SCH (09:00)
[2020-03-27] MEDS ORDERED: VENlafaxine 37.5 MG (EFFEXOR) TAB PO SCH (09:00)
[2020-03-27] MEDS ORDERED: SPIRONOLACTONE 25 MG (ALDACTONE) TAB PO SCH (09:00)
[2020-03-27 11:00] VITALS: BP 140/70
[2020-03-27] MEDS ORDERED: RT-ALBUINH IH (11:18)
[2020-03-27] MEDS ORDERED: UMEC62.5 IH (11:18)
[2020-03-27] MEDS ORDERED: DEXA6TAB PO (11:18)
--- NOTE | 2020-03-27 11:30 | Discharge Summary ---
Discharge Summary Hospital Course Problems/Diagnosis: (1) COVID-19 virus infection Status: Acute Assessment & Plan: Already received convalescent plasma and remdesevir. Resume dexamethasone. Supplemental oxygen as needed. 03/27 improved, on 2 lpm supplemental oxygen and reports being able to walk around in the room and to the bathroom without difficulty. She feels comfortable with discharge. Will continue home oxygen and complete 5 more days of dexamethasone on discharge. (2) Acute respiratory failure with hypoxia Status: Acute Assessment & Plan: Secondary to COVID19 infection. No evidence of superimposed bacterial pneumonia. (3) COPD (chronic obstructive pulmonary disease) Status: Chronic Assessment & Plan: On baseline 1 lpm supplemental oxygen before COVID infection, now on 2 lpm. Resume home inhalers, RT protocol, supplemental oxygen as above. Qualifiers: Qualified Codes: J43.1 - Panlobular emphysema (4) Diabetes Status: Chronic Assessment & Plan: Diabetic diet, home medications, sliding scale insulin. Qualifiers: Qualified Codes: E11.65 - Type 2 diabetes mellitus with hyperglycemia (5) Elevated d-dimer Status: Acute Assessment & Plan: Suspect inflammation related, CTA chest negative for PE. Hospital Course Date of Admission: Mar 25, 2020 at 14:53 Admission Diagnosis : Family Physician/Provider: [place] Date of Discharge: 03/27/20 Discharge Diagnosis: See problem list Hospital Course: See problem list Labs and Pending Lab Test: Laboratory Tests 03/26/20 11:30: Glucometer 207H 03/26/20 16:27: Glucometer 213H 03/26/20 21:06: Glucometer 359H 03/27/20 02:31: Glucometer 237H 03/27/20 05:34: Glucometer 217H 03/27/20 06:49: White Blood Count 4.9, Red Blood Count 4.17, Hemoglobin 12.3, Hematocrit 38, Mean Corpuscular Volume 91, Mean Corpuscular Hemoglobin 30, Mean Corpuscular Hemoglobin Concent 33, Red Cell Distribution Width 12.6, Platelet Count 195, Mean Platelet Volume 10.4, Immature Granulocyte % (Auto) 0, Neutrophils (%) (Auto) 74, Lymphocytes (%) (Auto) 19, Monocytes (%) (Auto) 7, Eosinophils (%) (Auto) 0, Basophils (%) (Auto) 0, Neutrophils # (Auto) 3.6, Lymphocytes # (Auto) 0.9L, Monocytes # (Auto) 0.3, Eosinophils # (Auto) 0.0, Basophils # (Auto) 0.0, Immature Granulocyte # (Auto) 0.0, Sodium Level 139, Potassium Level 4.0, Chloride Level 98, Carbon Dioxide Level 29, Anion Gap 12, Blood Urea Nitrogen 11, Creatinine 0.63, Estimat Glomerular Filtration Rate > 60, BUN/Creatinine Ratio 17, Glucose Level 230H, Calcium Level 8.9 03/27/20 10:58: Glucometer 286H Microbiology 03/25/20 Blood Culture - Preliminary, Resulted No growth Home Meds Active Dexamethasone 6 Mg Tablet 6 Mg PO DAILY Incruse Ellipta (Umeclidinium [place]) 62.5 Mcg Blst.w.dev 62.5 Mcg IH DAILY Proair Hfa (Albuterol Sulfate) 1 Puff Puff 2 Puff IH Q4H PRN 1 PUFF = 90 MCG Reported Ondansetron HCl 4 Mg Tablet 4 Mg PO TID PRN Simvastatin 40 Mg Tablet 40 Mg PO HS LAST FILLED 12-31-2019 #30 Venlafaxine HCl 37.5 Mg Tab 37.5 Mg PO DAILY LAST FILLED 12-31-2019 #30 Aldactone (Spironolactone) 50 Mg Tablet 50 Mg PO DAILY Metformin HCl ER (Metformin HCl) 500 Mg Tab.er.24 1,000 Mg PO BID Symbicort 80-4.5 Mcg Inhaler (Budesonide/Formoterol Fumarate) 10.2 Gm Hfa.aer.ad 2 Puff IH BID Actos (Pioglitazone HCl) 30 Mg Tablet 30 Mg PO DAILY LAST FILLED 01-17-2020 #30 Amaryl (Glimepiride) 2 Mg Tab 2 Mg PO BID LAST FILLED 12-31-2019 #60 Assessment/Pt DC Instructions Follow up with Brandon Galindo on 04/01 at 2 pm. Discharge Diet: ADA Diet Discharge Physical Examination Allergies: Coded Allergies: Penicillins (Verified Allergy, Unknown, 05/09/17) aspirin (Verified Allergy, Unknown, 05/09/17) morphine (Verified Allergy, Unknown, 05/09/17) General Appearance: No Apparent Distress, WD/WN Respiratory: Lungs Clear, Normal Breath Sounds Cardiovascular: Regular Rate, Rhythm, No Murmur Skin: Normal Color, Warm/Dry Neurologic/Psychiatric: Alert, Normal Mood/Affect Clinical Quality Measures DVT/VTE Risk/Contraindication: Risk Factor Score Per Nursin RFS Level Per Nursing on Admit: 4+=Very High LOLA YOUNG MD Mar 27, 2020 11:26
[2020-03-27] MEDS: LORazepam 0.5 MG (ATIVAN) TABLET PO PRN (11:57)
--- NOTE | 2020-03-27 14:43 | NUR ---
Patient was discharged prior to new home oxygen study being completed. I called and talked with Genet and she was at home using her home concentrator. She reports that she feels like she is breathing okay on her home oxygen level of 2LPM. She says that she feels tired but is breathing fine. She denies any needs at this time and reports that she will be following up with her primary care physician. also aware that the patient discharged prior to having repeat home study done.
== END 2020-03-27 12:57 | disposition home or self-care (01) | DRG 177 ==
LOC: EDUNIT# 11:45 → ER 11:46 → 4TH 14:53
PROVIDERS: ADMIT Family Medicine; ATTEND Family Medicine
DX: U07.1 COVID-19 (principal); J96.01 Acute respiratory failure with hypoxia; J44.9 Chronic obstructive pulmonary disease, unspecified; E11.9 Type 2 diabetes mellitus without complications; I10 Essential (primary) hypertension; E78.5 Hyperlipidemia, unspecified; F41.9 Anxiety disorder, unspecified; F32.9 Major depressive disorder, single episode, unspecified; R79.1 Abnormal coagulation profile; Z99.81 Dependence on supplemental oxygen; Z87.891 Personal history of nicotine dependence; Z79.84 Long term (current) use of oral hypoglycemic drugs; Z87.01 Personal history of pneumonia (recurrent); Z88.6 Allergy status to analgesic agent; Z88.0 Allergy status to penicillin
CPT/HCPCS: 36415; 71045; 71275; 80048; 80053; 82962; 83605; 84145; 85025; 85379; 86141; 87040; 94640

== ENCOUNTER 2020-08-14 09:33 | Emergency (ER) | payer SELFPAY ==
[~2020-08-14] VITALS: Ht 167.7 cm; Wt 90.7 kg
[~2020-08-14 09:33] MED LIST changes: +COMMODE; +DEXA6TAB PO; -LISI-556 PO; +LISI-729 PO; +RT-ALBUINH IH; +UMEC62.5 IH
--- NOTE | 2020-08-14 10:05 | ED GU-Female ---
General Chief Complaint: Female 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 Stated Complaint: VAGINAL ABCESS Nursing Triage Note: PT AMB TO [facility] WITH COMPLAINT OF CYST ON VAGINA. STATES HAS BEEN THERE FOR FOUR DAYS. HAS BEEN DOING EPSOM SALT BATHS AT HOME WITH NO RELIEF. Nursing Sepsis Screen: No Definite Risk Source: patient Exam Limitations: no limitations History of Present Illness Date Seen by Provider: Aug 14, 2020 Time Seen by Provider: 09:55 Initial Comments Patient presents ER by private conveyance with chief complaint of 4 to 5 days progressively worsening swelling on the outside of her privates. She says one of the areas opened up and drained some foul-smelling fluid. She has been doing Epson salt baths. She is been using Tylenol with her last dose being 2 extra strength Tylenol at 7:00, 3 hours prior to arrival. She has had no fevers nausea vomiting diarrhea. She is piv-jjbxqvh-lfwmnctho diabetic. She has never had this happen before. She used to follow-up with Brandon Galindo but has not seen anybody since. Allergies and Home Medications Allergies Coded Allergies: Penicillins (Verified Allergy, Unknown, 05/09/17) aspirin (Verified Allergy, Unknown, 05/09/17) morphine (Verified Allergy, Unknown, 05/09/17) Home Medications Albuterol Sulfate 1 Puff Puff, 2 PUFF IH Q4H PRN for SHORTNESS OF BREATH 1 PUFF = 90 MCG Prescribed by: LOLA YOUNG on 03/27/20 1118 Budesonide/Formoterol Fumarate 10.2 Gm Hfa.aer.ad, 2 PUFF IH BID, (Reported) Dexamethasone 6 Mg Tablet, 6 MG PO DAILY Prescribed by: LOLA YOUNG on 03/27/20 1118 Glimepiride 2 Mg Tab, 2 MG PO BID, (Reported) LAST FILLED 12-31-2019 #60 Hydrocodone/Acetaminophen 1 Each Tablet, 1 TAB PO Q4H PRN for PAIN-MODERATE (5- 7) Prescribed by: FAUSTINO BRASHER on 08/14/20 1036 Metformin HCl 500 Mg Tab.er.24, 1,000 MG PO BID, (Reported) Ondansetron HCl 4 Mg Tablet, 4 MG PO TID PRN for NAUSEA/VOMITING-1ST LINE, (Reported) Pioglitazone HCl 30 Mg Tablet, 30 MG PO DAILY, (Reported) LAST FILLED 01-17-2020 #30 Simvastatin 40 Mg Tablet, 40 MG PO HS, (Reported) LAST FILLED 12-31-2019 #30 Spironolactone 50 Mg Tablet, 50 MG PO DAILY, (Reported) Sulfamethoxazole/Trimethoprim 1 Each Tablet, 1 EACH PO BID Prescribed by: FAUSTINO BRASHER on 08/14/20 1035 Umeclidinium [place] 62.5 Mcg Blst.w.dev, 62.5 MCG IH DAILY Prescribed by: LOLA YOUNG on 03/27/20 1118 Venlafaxine HCl 37.5 Mg Tab, 37.5 MG PO DAILY, (Reported) LAST FILLED 12-31-2019 #30 Patient Home Medication List Home Medication List Reviewed: Yes Review of Systems Review of Systems Constitutional: No chills, No diaphoresis EENTM: No ear discharge, No ear pain Respiratory: No cough, No short of breath Cardiovascular: No chest pain, No edema Gastrointestinal: No abdominal pain, No constipation, No diarrhea, No dysphagia Genitourinary: see HPI; denies burning, denies dysuria All Other Systemes Reviewed Negative Unless Noted: Yes Past Oudpuvt-Tqqxts-Xcyntx Hx Patient Social History Alcohol Use: Denies Use Smoking Status: Former Smoker Type Used: Cigarettes Former Smoker, Quit: Mar 06, 2017 Recent Infectious Disease Expo: No Recent Hopitalizations: No Immunizations Up To Date Tetanus Booster (TDap): Unknown Seasonal Allergies Seasonal Allergies: No Past Medical History Surgeries: Yes Gallbladder, 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, Tubal Ligation Respiratory: Yes Pneumonia, COPD Currently Using CPAP: Yes Currently Using BIPAP: No Cardiac: Yes Hypertension 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 12.8oz. [id number]; 32.00 BMI Method:Stated General Appearance: WD/WN, moderate distress HEENT: PERRL/EOMI, normal ENT inspection, pharynx normal Neck: full range of motion, normal inspection Cardiovascular: normal peripheral pulses, regular rate, rhythm Respiratory: no respiratory distress, no accessory muscle use Gastrointestinal: normal bowel sounds, non tender, soft Rectal: other (At the base of the left gluteus is a area of erythema induration and fluctuance with pointing able to express a small amount of purulence. 3 x 6 cm area of induration that is very tender.) Neurologic/Psychiatric: alert, oriented x 3, other (Anxious affect) Procedures/Interventions I&D : Site: Base of the left buttock Blade Size: 11 I & D Procedure: betadine prep, Wound Packing (Iodoform gauze quarter inch) Progress Site was anesthetized with 3 cc of 1% lidocaine and using a 1 cm x 1 cm crosswise incision and an 11 blade scalpel we were able to express about 30 to 40 cc of thick purulent drainage. We probed the wound after collecting a sterile wound culture and then broke up loculations. We then flushed the wound with sterile saline and packed it with iodoform gauze. Patient tolerated the procedure. Progress/Results/Core Measures Suspected Sepsis Recent Fever Within 48 Hours: No Infection Criteria Present: None New/Unexplained Altered Menta: No Sepsis Screen: No Definite Risk SIRS Temperature: Pulse: 120 Respiratory Rate: 20 Blood Pressure 118 /74 Mean: 89 Results/Orders My Orders Orders - FAUSTINO BRASHER Ketorolac Injection (Toradol Injection) (08/14/20 10:15) Hydrocodone/Apap 5/325 Tablet (Lortab 5 (08/14/20 10:30) Wound Culture (08/14/20 10:24) Ceftriaxone For Im Use (Rocephin For Im (08/14/20 10:30) Lidocaine 1% Inj 20 Ml (Xylocaine 1% Inj (08/14/20 10:30) Lidocaine 1% Inj 20 Ml (Xylocaine 1% Inj (08/14/20 10:22) Medications Given in ED Current Medications Medications Dose Ordered Sig/Cait Route Start Time Stop Time Status Last Admin Dose Admin Acetaminophen/ Hydrocodone Bitart 1 ea ONCE ONCE PO 08/14/20 10:30 08/14/20 10:31 DC 08/14/20 10:36 1 EA Ceftriaxone Sodium 1,000 mg ONCE ONCE IM 08/14/20 10:30 08/14/20 10:31 DC 08/14/20 10:37 1,000 MG Lidocaine HCl 2.1 ml ONCE ONCE INJ 08/14/20 10:30 08/14/20 10:31 DC 08/14/20 10:37 2.1 ML Vital Signs/I&O 08/14/20 08/14/20 09:44 11:05 Temp 35.7 35.7 Pulse 120 86 Resp 20 20 B/P (MAP) 118/74 (89) 115/86 (89) Pulse Ox 94 94 O2 Delivery Room Air Room Air Capillary Refill : Less Than 3 Seconds Blood Pressure Mean: 89 Progress Note : Time: 10:29 Progress Note After draining the wound and probing it collecting a wound culture he does not appear to extend very deep so we can pack it and have her back tomorrow. We will give her a dose of Rocephin IM and some hydrocodone. Instructed her to bring the iodoform gauze back with her as well as her sister who is gone to help her with wound dressings and will examine the wound and teach how to repack the wound tomorrow. Departure Impression Primary Impression: Abscess of left buttock Disposition: HOME, SELF-CARE Condition: Stable Departure-Patient Inst. Decision time for Depature: 10:29 Referrals: ALY BRISCOE DO NO,LOCAL PHYSICIAN (PCP) Primary Care Physician Patient Instructions: Abscess Incision and Drainage (DC) Add. Discharge Instructions: Keep the wound clean with regular soap and water. Showers are okay but no submersing in baths. There is a small tag of gauze hanging out of the wound, just leave it alone until tomorrow. Put gauze packing around the wound to catch the drainage. Bactrim 1 tablet twice a day for the next week. Return to the ER tomorrow to have the wound reexamined, repacked and to do teaching on how to pack the wound at home. Hydrocodone 1 tablets every 4 hours as necessary for severe, breakthrough pain. Warm compresses and heat can be helpful for pain. Call and follow-up next week with Dr. Briscoe for reexamination of the wound or your primary care doctor. Return to the ER promptly if you are experiencing fevers, intractable vomiting or other worrisome symptoms. All discharge instructions reviewed with patient and/or family. Voiced understanding. Scripts Hydrocodone/Acetaminophen (Hydrocodone-Acetamin 5-325 mg) 1 Each Tablet 1 TAB PO Q4H PRN for PAIN-MODERATE (5-7), #20 TAB 0 Refills Prov: FAUSTINO BRASHER 08/14/20 Sulfamethoxazole/Trimethoprim (Bactrim Ds Tablet) 1 Each Tablet 1 EACH PO BID for 7 Days, #14 TAB 0 Refills Prov: FAUSTINO BRASHER 08/14/20 Work/School Note: Work Release Form Date Seen in the Emergency Department: Aug 14, 2020 Return to Work: Aug 17, 2020 Restrictions: No Restrictions Copy Copies To 1: ALY BRISCOE DO FAUSTINO BRASHER Aug 14, 2020 10:05
[2020-08-14] MEDS ORDERED: KETOROLAC 60 MG/2 ML VIAL IM ONE (10:15)
[2020-08-14] MEDS ORDERED: LIDOCAINE 1% INJ 20 ML 20 ML VIAL ONE (10:22)
[2020-08-14] MEDS ORDERED: LIDOCAINE 1% INJ 20 ML 20 ML VIAL INJ ONE (10:30)
[2020-08-14] MEDS ORDERED: cefTRIAXone 1,000 MG/2.86 ml vial (IM ONLY) IM ONE (10:30)
[2020-08-14] MEDS ORDERED: HYDROcodone/APAP 5 MG/325 MG (LORTAB) TAB PO ONE (10:30)
[2020-08-14] MEDS ORDERED: cefTRIAXone FOR IV USE 1,000 MG in WATER (STERILE) FOR INJECTION 10 ML IV ONE (10:30)
[2020-08-14] MEDS ORDERED: ACHD5005 PO ×2 (10:35→11:30)
[2020-08-14] MEDS ORDERED: SULF1TAB35 PO ×2 (10:35→11:30)
[2020-08-14 11:05] VITALS: BP 115/86
[2020-08-15] MEDS ORDERED: OXYC1TAB11 PO (11:59)
[2020-08-15] MEDS ORDERED: PROM25TA14 PO (12:27)
== END 2020-08-14 11:05 | disposition home or self-care (01) ==
LOC: EDUNIT# 09:33 → ER 09:35
DX: L02.31 Cutaneous abscess of buttock (principal); I10 Essential (primary) hypertension; E11.9 Type 2 diabetes mellitus without complications; F41.9 Anxiety disorder, unspecified; F32.9 Major depressive disorder, single episode, unspecified; J44.9 Chronic obstructive pulmonary disease, unspecified; Z87.891 Personal history of nicotine dependence; Z79.84 Long term (current) use of oral hypoglycemic drugs; Z79.51 Long term (current) use of inhaled steroids; Z80.3 Family history of malignant neoplasm of breast; Z88.0 Allergy status to penicillin; Z88.5 Allergy status to narcotic agent; Z88.6 Allergy status to analgesic agent
CPT/HCPCS: 10061; 87070; 87077; 87205

== ENCOUNTER 2020-08-15 09:43 | Emergency (ER) | payer SELFPAY ==
[~2020-08-15] VITALS: Ht 167.7 cm; Wt 99.8 kg
[~2020-08-15 09:43] MED LIST changes: +ACHD5005 PO; +SULF1TAB35 PO
[2020-08-15 11:08] VITALS: BP 120/74
[2020-08-15] MEDS ORDERED: KETOROLAC 60 MG/2 ML VIAL ONE (11:14)
--- NOTE | 2020-08-15 11:37 | ED Suture Removal/Wound Check ---
Suture/Wound Re-check General Appearance: WD/WN, no apparent distress Neuro/Tendon: normal sensation Skin Exam: normal color, warm/dry Physical Exam Vital Signs Vital Signs - First Documented 08/15/20 11:08 Temp 36.7 Pulse 109 Resp 20 B/P (MAP) 120/74 Pulse Ox 97 O2 Delivery Room Air Capillary Refill : General Appearance: WD/WN, no apparent distress Neck: non-tender, full range of motion Respiratory: no respiratory distress, no accessory muscle use Neurologic/Psychiatric: alert Skin: normal color, warm/dry Skin Problem Character: abscess, other (To the left buttock and proximal posterior thigh there is erythema. There is about 3 cm of induration around the incision and the packing. The packing was removed. The incision made yesterday was reanesthetized with 1% lidocaine without epinephrine. Due to the discomfort that daily packing changes causing her, I placed a 14 [place] Dyer catheter cut to about 4 inches and sutured this into place which will leave in place for abo ut for 5 days.) Departure Impression Primary Impression: Abscess of left buttock Disposition: HOME, SELF-CARE Condition: Stable Departure-Patient Inst. Decision time for Depature: 11:35 Referrals: NO,LOCAL PHYSICIAN (PCP/Family) Primary Care Physician Patient Instructions: Wound Incision and Drainage (DC) Add. Discharge Instructions: 1. Return to ER for any concerns. Continue current antibiotics. Warm compresses to the area. You may bathe and shower. Return to ER on Monday for wound check. We will plan to remove the packing in about 4 to 5 days. Scripts Promethazine HCl (Promethazine Tablet) 25 Mg Tablet 12.5 MG PO Q8H PRN for NAUSEA/VOMITING, #10 TAB Prov: BENTON BECKER APRN 08/15/20 Oxycodone HCl/Acetaminophen (Oxycodone-Acetaminophen 5-325) 1 Each Tablet 1 EACH PO Q4H PRN for PAIN-MODERATE MDD 6 for 3 Days, #14 TAB 0 Refills Prov: BENTON BECKER APRN 08/15/20 BENTON BECKER APRN Aug 15, 2020 11:37
[2020-08-15] MEDS ORDERED: LIDOCAINE 1% INJ 20 ML 20 ML VIAL INJ ONE (11:45)
[2020-08-15] MEDS ORDERED: cefTRIAXone 1,000 MG/2.86 ml vial (IM ONLY) IM SCH (11:45)
[2020-08-15] MEDS ORDERED: OXYC1TAB11 PO (11:59)
[2020-08-15] MEDS ORDERED: PROM25TA14 PO (12:27)
== END 2020-08-15 12:10 | disposition home or self-care (01) ==
LOC: EDUNIT# 09:43 → ER 09:45
DX: L02.31 Cutaneous abscess of buttock (principal)

== ENCOUNTER 2020-08-17 12:26 | Emergency (ER) | payer SELFPAY ==
[~2020-08-17] VITALS: Ht 167.7 cm; Wt 90.7 kg
[~2020-08-17 12:26] MED LIST changes: +OXYC1TAB11 PO; +PROM25TA14 PO
[2020-08-17 12:36] VITALS: BP 121/74
[2020-08-17] MEDS ORDERED: CLIN300C12 PO (12:42)
[2020-08-17] MEDS ORDERED: OXYC1TAB11 PO (12:42)
--- NOTE | 2020-08-17 12:43 | ED Integumentary General ---
General Stated Complaint: WOUND CHECK Source: patient Exam Limitations: no limitations History of Present Illness Date Seen by Provider: Aug 17, 2020 Time Seen by Provider: 12:40 Initial Comments Here for abscess check to the left buttock. I removed the gauze packing yesterday and inserted a section of a Dyer catheter 18-gauge sutured in place for drain. Timing/Duration: other Severity: moderate Possible Cause: no cause identified Associated Symptoms: denies symptoms Allergies and Home Medications Allergies Coded Allergies: Penicillins (Verified Allergy, Unknown, 05/09/17) aspirin (Verified Allergy, Unknown, 05/09/17) morphine (Verified Allergy, Unknown, 05/09/17) Home Medications Albuterol Sulfate 1 Puff Puff, 2 PUFF IH Q4H PRN for SHORTNESS OF BREATH 1 PUFF = 90 MCG Prescribed by: LOLA YOUNG on 03/27/20 1118 Budesonide/Formoterol Fumarate 10.2 Gm Hfa.aer.ad, 2 PUFF IH BID, (Reported) Clindamycin HCl 300 Mg Capsule, 300 MG PO TID Prescribed by: BENTON BECKER on 08/17/20 1242 Dexamethasone 6 Mg Tablet, 6 MG PO DAILY Prescribed by: LOLA YOUNG on 03/27/20 1118 Glimepiride 2 Mg Tab, 2 MG PO BID, (Reported) LAST FILLED 12-31-2019 #60 Hydrocodone/Acetaminophen 1 Each Tablet, 1 TAB PO Q4H PRN for PAIN-MODERATE (5- 7) Prescribed by: FAUSTINO BRASHER on 08/14/20 1131 Metformin HCl 500 Mg Tab.er.24, 1,000 MG PO BID, (Reported) Ondansetron HCl 4 Mg Tablet, 4 MG PO TID PRN for NAUSEA/VOMITING-1ST LINE, (Reported) Oxycodone HCl/Acetaminophen 1 Each Tablet, 1 EACH PO Q4H PRN for PAIN-MODERATE Prescribed by: BENTON BECKER on 08/15/20 1159 Oxycodone HCl/Acetaminophen 1 Each Tablet, 1 EACH PO Q4H PRN for PAIN-MODERATE Prescribed by: BENTON BECKER on 08/17/20 1243 Pioglitazone HCl 30 Mg Tablet, 30 MG PO DAILY, (Reported) LAST FILLED 01-17-2020 #30 Promethazine HCl 25 Mg Tablet, 12.5 MG PO Q8H PRN for NAUSEA/VOMITING Prescribed by: BENTON BECKER on 08/15/20 1227 Simvastatin 40 Mg Tablet, 40 MG PO HS, (Reported) LAST FILLED 12-31-2019 #30 Spironolactone 50 Mg Tablet, 50 MG PO DAILY, (Reported) Sulfamethoxazole/Trimethoprim 1 Each Tablet, 1 EACH PO BID Prescribed by: FAUSTION BRASHER on 08/14/20 1130 Umeclidinium [place] 62.5 Mcg Blst.w.dev, 62.5 MCG IH DAILY Prescribed by: LOLA YOUNG on 03/27/20 1118 Venlafaxine HCl 37.5 Mg Tab, 37.5 MG PO DAILY, (Reported) LAST FILLED 12-31-2019 #30 Patient Home Medication List Home Medication List Reviewed: Yes Review of Systems Review of Systems Constitutional: see HPI; No chills, No fever EENTM: see HPI Respiratory: no symptoms reported Cardiovascular: no symptoms reported Genitourinary: no symptoms reported Musculoskeletal: no symptoms reported Skin: no symptoms reported Psychiatric/Neurological: No Symptoms Reported Endocrine: No Symptoms Reported Past Krwonrf-Eiloyv-Fwwdga Hx Patient Social History Type Used: Cigarettes Former Smoker, Quit: Mar 06, 2017 Recent Hopitalizations: No Immunizations Up To Date Tetanus Booster (TDap): Unknown Seasonal Allergies Seasonal Allergies: No Past Medical History Surgeries: Yes Gallbladder, 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, Tubal Ligation Respiratory: Yes Pneumonia, COPD Currently Using CPAP: Yes Currently Using BIPAP: No Cardiac: Yes Hypertension 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, 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 Genitourinary: No Gastrointestinal: No Musculoskeletal: No Endocrine: Yes Diabetes, Non-Insulin dep HEENT: No Cancer: No Psychosocial: Yes Anxiety, Depression Integumentary: No Blood Disorders: No Family Medical History Diabetes mellitus 19 FATHER FH: breast cancer 19 MOTHER Myocardial infarction 19 FATHER Thyroid disease G8 SISTER Physical Exam Vital Signs Vital Signs - First Documented 08/17/20 12:36 Pulse 96 Resp 20 B/P (MAP) 121/74 Pulse Ox 99 O2 Delivery Room Air Capillary Refill : General Appearance: WD/WN, no apparent distress HEENT: PERRL/EOMI, normal ENT inspection Neck: non-tender, full range of motion Respiratory: no respiratory distress, no accessory muscle use Extremities: normal range of motion, non-tender Neurologic/Psychiatric: alert, normal mood/affect, oriented x 3 Skin: normal color, warm/dry Skin Problem Character: other (Yesterday I outlined the border of the erythema with a skin pen. Today there has been significant receding of the erythema from this border.) Progress/Results/Core Measures Results/Orders Vital Signs/I&O 08/17/20 12:36 Pulse 96 Resp 20 B/P (MAP) 121/74 Pulse Ox 99 O2 Delivery Room Air Departure Impression Primary Impression: Abscess of left buttock Disposition: HOME, SELF-CARE Condition: Stable Departure-Patient Inst. Decision time for Depature: 12:41 Referrals: NO,LOCAL PHYSICIAN (PCP) Primary Care Physician Patient Instructions: Wound Care ED Add. Discharge Instructions: 1. Your wound is looking much better. Continue the Bactrim and add the second antibiotic. Return to ER on of this week to have the drain removed. Scripts Clindamycin HCl (Clindamycin HCl) 300 Mg Capsule 300 MG PO TID, #21 CAP Prov: BENTON BECKER APRN 08/17/20 Oxycodone HCl/Acetaminophen (Oxycodone-Acetaminophen 5-325) 1 Each Tablet 1 EACH PO Q4H PRN for PAIN-MODERATE MDD 6 for 3 Days, #14 TAB 0 Refills Prov: BENTON BECKER APRN 08/17/20 BENTON BECKER APRN Aug 17, 2020 12:43
[2020-08-21] MEDS ORDERED: SULF1TAB35 PO (15:37)
[2020-08-21] MEDS ORDERED: AMOX-358 PO (17:35)
== END 2020-08-17 12:47 | disposition home or self-care (01) ==
LOC: EDUNIT# 12:26 → ER 12:29
DX: L02.31 Cutaneous abscess of buttock (principal); F41.9 Anxiety disorder, unspecified; F32.9 Major depressive disorder, single episode, unspecified; E11.9 Type 2 diabetes mellitus without complications; J44.9 Chronic obstructive pulmonary disease, unspecified; Z88.0 Allergy status to penicillin; Z88.5 Allergy status to narcotic agent; Z88.8 Allergy status to other drugs, medicaments and biological substances; Z87.891 Personal history of nicotine dependence; Z80.3 Family history of malignant neoplasm of breast; Z79.84 Long term (current) use of oral hypoglycemic drugs

== ENCOUNTER 2020-08-20 15:03 | Inpatient (IN) | payer OTHER ==
[2020-08-20] VITALS (8 sets, daily range): BP systolic 109–162; BP diastolic 70–94
[~2020-08-20] VITALS: Ht 167.4 cm; Wt 115.8 kg
[~2020-08-20 15:03] MED LIST changes: +CLIN300C12 PO
--- NOTE | 2020-08-20 15:34 | ED Integumentary General ---
General Chief Complaint: Skin/Wound Problems Stated Complaint: WOUND CHECK Nursing Triage Note: AMB TO ED HAS AREA ON R BUTTOCKS THAT SHE HAS BEEN SEEN SINCE AUGUST 14 HAD HAD I&D AND DRAN PLACED. AND ON ANTIBIOTICS. CON'T TO HAVE PAIN WITH REDNESS AT SITE. Source: patient Exam Limitations: no limitations History of Present Illness Date Seen by Provider: Aug 20, 2020 Time Seen by Provider: 15:20 Initial Comments Patient is a 54-year-old female who presents to the emergency department today with a chief complaint of wound recheck. Patient had a abscess incision and drainage done on August 14 and has had multiple visits since that time for packing replacement and wound checks. Patient had a [place] dressing placed about 5 days ago and this apparently has fallen out in the interim. Patient complains of significant pain to the area and continued drainage. No fevers are reported. Patient is a diabetic. States that her blood sugars run about 150. Patient has been taking pain medications without relief and currently rates her pain a "a 10". No reported shortness of breath or cough although the patient does have a history of COPD and takes Symbicort for this. All other review of systems reviewed and negative except as stated above. Timing/Duration: week, getting worse Severity: severe Location: genitalia Allergies and Home Medications Allergies Coded Allergies: Penicillins (Verified Allergy, Unknown, 05/09/17) aspirin (Verified Allergy, Unknown, 05/09/17) morphine (Verified Allergy, Unknown, 05/09/17) Home Medications Amoxicillin/Potassium Clav 1 Each Tablet, 1 EACH PO BID Prescribed by: MOLLY RODRIGUEZ on 08/21/20 4796 Clindamycin HCl 300 Mg Capsule, 300 MG PO TID, (Reported) LAST FILLED 08-17-2020 #21/7 DAY SUPPLY Hydrocodone/Acetaminophen 1 Each Tablet, 1 TAB PO Q4H PRN for PAIN-MODERATE (5- 7), (Reported) Oxycodone HCl/Acetaminophen 1 Each Tablet, 1 EACH PO Q4H PRN for PAIN-SEVERE, (Reported) Promethazine HCl 25 Mg Tablet, 12.5 MG PO Q8H PRN for NAUSEA/VOMITING, (Reported) Sulfamethoxazole/Trimethoprim 1 Each Tablet, 1 EACH PO BID, (Reported) FILLED 08-14-2020 #14/7 DAY SUPPLY Patient Home Medication List Home Medication List Reviewed: Yes Review of Systems Review of Systems Constitutional: see HPI Respiratory: no symptoms reported Cardiovascular: no symptoms reported Gastrointestinal: no symptoms reported Genitourinary: no symptoms reported : No Musculoskeletal: no symptoms reported Skin: other (Abscess left perineum) Past Bcxegoe-Jlzqyn-Adcuom Hx Patient Social History Type Used: Cigarettes Former Smoker, Quit: Mar 06, 2017 Recent Infectious Disease Expo: No Recent Hopitalizations: No Immunizations Up To Date Tetanus Booster (TDap): Unknown Seasonal Allergies Seasonal Allergies: No Past Medical History Surgeries: Yes Gallbladder, 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, Tubal Ligation Respiratory: Yes Pneumonia, COPD Currently Using CPAP: Yes Currently Using BIPAP: No Cardiac: Yes Hypertension 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, Menopausal Genitourinary: No Gastrointestinal: No Musculoskeletal: No Endocrine: Yes Diabetes, Non-Insulin dep HEENT: No Cancer: No Psychosocial: Yes Anxiety, Depression Integumentary: No Blood Disorders: No Family Medical History Diabetes mellitus 19 FATHER FH: breast cancer 19 MOTHER Myocardial infarction 19 FATHER Thyroid disease G8 SISTER Physical Exam Vital Signs Capillary Refill : Less Than 3 Seconds General Appearance: WD/WN, moderate distress Cardiovascular: regular rate, rhythm Respiratory: lungs clear, normal breath sounds, no respiratory distress, no accessory muscle use Gastrointestinal: non tender, soft Extremities: normal range of motion Neurologic/Psychiatric: alert, normal mood/affect, oriented x 3 Skin: other (Abscess to the left of the perineum in the gluteal cleft, open area that is draining, packing was initially present and removed by me. Wound has a significant amount of active purulent drainage with necrotic tissue extruding from the incised area. Area of induration extends into the proximal medial thigh. The induration is approximately 15 cm in vertical length by 8 cm in width extremely tender to palpation) Skin Problem Character: abscess, drainage Progress/Results/Core Measures Results/Orders Lab Results Laboratory Tests Test 08/20/20 15:35 08/20/20 16:18 Range/Units White Blood Count 13.1 H 4.3-11.0 10^3/uL Red Blood Count 4.69 3.80-5.11 10^6/uL Hemoglobin 13.6 11.5-16.0 g/dL Hematocrit 42 35-52 % Mean Corpuscular Volume 89 80-99 fL Mean Corpuscular Hemoglobin 29 25-34 pg Mean Corpuscular Hemoglobin Concent 33 32-36 g/dL Red Cell Distribution Width 12.7 10.0-14.5 % Platelet Count 360 130-400 10^3/uL Mean Platelet Volume 9.2 9.0-12.2 fL Immature Granulocyte % (Auto) 1 % Neutrophils (%) (Auto) 81 H 42-75 % Lymphocytes (%) (Auto) 11 L 12-44 % Monocytes (%) (Auto) 7 0-12 % Eosinophils (%) (Auto) 0 0-10 % Basophils (%) (Auto) 0 0-10 % Neutrophils # (Auto) 10.6 H 1.8-7.8 10^3/uL Lymphocytes # (Auto) 1.5 1.0-4.0 10^3/uL Monocytes # (Auto) 0.9 0.0-1.0 10^3/uL Eosinophils # (Auto) 0.0 0.0-0.3 10^3/uL Basophils # (Auto) 0.0 0.0-0.1 10^3/uL Immature Granulocyte # (Auto) 0.1 0.0-0.1 10^3/uL Sodium Level 133 L 135-145 MMOL/L Potassium Level 3.7 3.6-5.0 MMOL/L Chloride Level 92 L 98-107 MMOL/L Carbon Dioxide Level 18 L 21-32 MMOL/L Anion Gap 23 H 5-14 MMOL/L Blood Urea Nitrogen 7 7-18 MG/DL Creatinine 0.86 0.60-1.30 MG/DL Estimat Glomerular Filtration Rate > 60 BUN/Creatinine Ratio 8 Glucose Level 408 *H 70-105 MG/DL Lactic Acid Level 1.24 0.50-2.00 MMOL/L Calcium Level 9.2 8.5-10.1 MG/DL Total Bilirubin 0.4 0.1-1.0 MG/DL Direct Bilirubin 0.3 0.0-0.3 MG/DL Indirect Bilirubin 0.1 MG/DL Aspartate Amino Transf (AST/SGOT) 8 5-34 U/L Alanine Aminotransferase (ALT/SGPT) 12 0-55 U/L Alkaline Phosphatase 209 H 40-136 U/L Total Protein 7.4 6.4-8.2 GM/DL Albumin 3.2 3.2-4.5 GM/DL Beta-Hydroxybutyrate (Chem panel) 5.09 H 0.00-0.27 MMOL/L Lab Scanned Report Referred Lab Report [id number] Micro Results Microbiology 08/20/20 Blood Culture - Final, Complete No growth My Orders Orders - LEISA HUNT MD Ed Iv/Invasive Line Start (08/20/20 15:34) Cbc With Automated Diff (08/20/20 15:34) Basic Metabolic Panel (08/20/20 15:34) Blood Culture (08/20/20 15:34) Lactic Acid Analyzer (08/20/20 15:34) Fentanyl Inj (Sublimaze Injection) (08/20/20 15:45) Meropenem (Merrem 500 Mg) (08/20/20 15:45) Vancomycin Injection (Vancomycin Injecti (08/20/20 15:45) Vancomycin Injection (Vancomycin Injecti (08/20/20 15:45) Ns Iv 1000 Ml (Sodium Chloride 0.9%) (08/20/20 16:15) Beta Hydroxybutyrate (08/20/20 16:14) Medications Given in ED Vital Signs/I&O Blood Pressure Mean: 111 Progress Progress Note : Time: 15:33 Progress Note Case discussed with Dr. Rodriguez. Recommends admission for anal exam under anesthesia and I&D of ischio rectal abscess [address] Krause on for [facility]. Patient is noted to have hyperglycemia with a Leukos of 404. She also has an anion gap of 23 with a slightly decreased CO2 at 18. Beta hydroxybutyrate was added and it is greater than 5. DKA protocol was implemented. Patient will be admitted to the ICU with Dr. Krause to manage her DKA and Dr. Rodriguez to manage her abscess. Antibiotics have been administered. Critical Care Note Critical Care Start Time: 15:45 Stop Time: 17:00 Total Time (minutes) 40 minutes critical care time in the evaluation and management of this patient with a cutaneous perineal abscess and diabetic ketoacidosis. Time includes patient of the patient, review and interpretation of laboratory studies, initiation of fluid resuscitation, insulin drip; Discussion with admitting provider and review of medical records. Departure Communication (Admissions) Time/Spoke to Admitting Phy: 15:[address] Rodriguez on for general surgery who accepts the patient for admission Impression Primary Impression: Cutaneous abscess of perineum Additional Impression: Diabetic ketoacidosis Qualified Codes: E11.10 - Type 2 diabetes mellitus with ketoacidosis without coma Disposition: ADMITTED INPATIENT Condition: Stable Admissions Decision to Admit Reason: Admit from ER (General) Decision to Admit/Date: Aug 20, 2020 Time/Decision to Admit Time: 15:45 Departure-Patient Inst. Referrals: NO,LOCAL PHYSICIAN (PCP/Family) Primary Care Physician Scripts Amoxicillin/Potassium Clav (Augmentin 875-125 Tablet) 1 Each Tablet 1 EACH PO BID, #28 TAB Prov: MOLLY RODRIGUEZ MD 08/21/20 LEISA HUNT MD Aug 20, 2020 15:33
[2020-08-20] MEDS ORDERED: VANCOMYCIN 1,750 MG/NS 500 ML IVPB IV NR ×2 (15:45)
[2020-08-20] MEDS ORDERED: fentaNYL INJ 100 MCG/2 ML AMP IVP ONE ×2 (15:45→17:30)
[2020-08-20] MEDS ORDERED: MEROPENEM 500 MG in WATER (STERILE) FOR INJECTION 10 ML IV ONE (15:45)
[2020-08-20] MEDS ORDERED: VANCOMYCIN INJECTION 1,000 MG in NS (IVPB) 250 ML IV SCH (15:45)
[2020-08-20 15:46] LABS: BASOPHILS % (AUTO) 0 % (0-10); EOSINOPHILS % (AUTO) 0 % (0-10); HEMATOCRIT 42 % (35-52); HEMOGLOBIN 13.6 g/dL (11.5-16.0); LYMPHOCYTES # (AUTO) 1.5 10^3/uL (1.0-4.0); LYMPHOCYTES % (AUTO) 11 % (12-44); MEAN CORPUSCULAR HEMOGLOBIN 29 pg (25-34); MEAN CORPUSCULAR HGB CONC 33 g/dL (32-36); MEAN CORPUSCULAR VOLUME 89 fL (80-99); MEAN PLATELET VOLUME 9.2 fL (9.0-12.2); MONOCYTES # (AUTO) 0.9 10^3/uL (0.0-1.0); MONOCYTES % (AUTO) 7 % (0-12); NEUTROPHILS # (AUTO) 10.6 10^3/uL (1.8-7.8); NEUTROPHILS % (AUTO) 81 % (42-75); PLATELET COUNT 360 10^3/uL (130-400); WHITE BLOOD COUNT 13.1 10^3/uL (4.3-11.0)
[2020-08-20 15:57] LABS: CHLORIDE 92 MMOL/L (98-107); POTASSIUM 3.7 MMOL/L (3.6-5.0); SODIUM 133 MMOL/L (135-145)
[2020-08-20 15:58] LABS: CALCIUM 9.2 MG/DL (8.5-10.1)
[2020-08-20 16:00] LABS: CARBON DIOXIDE 18 MMOL/L (21-32)
[2020-08-20 16:03] LABS: CREATININE SERUM 0.86 MG/DL (0.60-1.30)
[2020-08-20 16:04] LABS: BUN/CREATININE RATIO 8; GFR ESTIMATED > 60
[2020-08-20 16:06] LABS: GLUCOSE 408 MG/DL (70-105)
[2020-08-20] MEDS ORDERED: NS IV 1000 ML 1,000 ML IV SCH (16:15)
[2020-08-20 17:28] LABS: ALBUMIN 3.2 GM/DL (3.2-4.5)
[2020-08-20 17:31] LABS: TOTAL PROTEIN 7.4 GM/DL (6.4-8.2)
[2020-08-20 17:33] LABS: BILIRUBIN,TOTAL 0.4 MG/DL (0.1-1.0)
[2020-08-20 17:36] LABS: BILIRUBIN,DIRECT 0.3 MG/DL (0.0-0.3); BILIRUBIN,INDIRECT 0.1 MG/DL
[2020-08-20 18:05] LABS: ABG BASE EXCESS -5.7 MMOL/L (-2.5-2.5); ABG OXYGEN SATURATION 93 % (94-100); ABG PCO2 37 MMHG (35-45); ABG PO2 73 MMHG (79-93); ABG TCO2 20.3 MMOL/L (21.0-31.0)
[2020-08-20 18:06] LABS: ALLENS TEST YES-POS; INSPIRED O2 RA; PATIENT TEMP 37; VENTILATOR NO
[2020-08-20 18:07] LABS: ABG PH 7.33 (7.37-7.43)
[2020-08-20] MEDS ORDERED: POTASSIUM CL 10MEQ/50ML IVPB 50 ML IV ONE (18:33)
[2020-08-20] MEDS ORDERED: 1/2 NS IV SOLUTION 1,000 ML IV ONE (18:33)
[2020-08-20] MEDS ORDERED: D5 1/2 NS 1000 ML IV SOLUTION 1,000 ML IV ONE (18:33)
[2020-08-20] MEDS ORDERED: HYDROmorphone 2 MG/ML VIAL (DILAUDID) ONE (18:35)
[2020-08-20] MEDS: 1/2 NS IV SOLUTION 1,000 ML IV SCH ×2 (18:54→20:27)
[2020-08-20] MEDS: HYDROmorphone 2 MG/ML VIAL (DILAUDID) IV PRN ×2 (18:55→23:35)
[2020-08-20] MEDS: POTASSIUM CL 10MEQ/50ML IVPB 50 ML IV SCH (18:55)
[2020-08-20] MEDS ORDERED: fentaNYL INJ 100 MCG/2 ML AMP IV PRN (19:00)
[2020-08-20] MEDS: NS IV 1000 ML 1,000 ML IV SCH (19:00)
[2020-08-20] MEDS ORDERED: ONDANSETRON 4 MG/2 ML (SDV) Z0FRAN IV PRN (19:00)
--- NOTE | 2020-08-20 19:15 | Progress Note-Pre Operative ---
Pre-Operative Progress Note H&P Reviewed The H&P was reviewed, patient examined and no changes noted. Date Seen by Provider: Aug 20, 2020 Time Seen by Provider: 19:00 Date H&P Reviewed: Aug 20, 2020 Time H&P Reviewed: 19:00 Pre-Operative Diagnosis: recurrent perineal abscess. MOLLY RODRIGUEZ MD Aug 20, 2020 19:15
[2020-08-20] MEDS ORDERED: RT-ALBUTEROL INHALER HFA (VENTOLIN HFA) 18 GM IH PRN (19:30)
--- NOTE | 2020-08-20 19:42 | HISTORY AND PHYSICAL ---
DATE OF SERVICE: HISTORY OF PRESENT ILLNESS: The patient is a 54-year-old female who has presented to the Emergency Department previously on 08/14/2020. She initially presented with redness and drainage in the perineal region and underwent incision and drainage as well as a [place] drain placement. She presented today stating that the drain came out on its own several days ago and she continued to have pain in the region as well as continue drainage. The patient is also diabetic and was found to have a significantly elevated glucose. Upon examination, there is a recurrent redness, erythema around the perineal region consistent with a recurrent abscess. PAST MEDICAL HISTORY: Diabetes, COPD, hypertension, depression. PAST SURGICAL HISTORY: Tubal ligation, and hysterectomy. ALLERGIES: PENICILLIN, ASPIRIN, MORPHINE. MEDICATIONS: 1. Albuterol 2 puffs q.4 hours p.r.n. 2. Budesonide/formoterol 2 puffs b.i.d. 3. Clindamycin 300 mg t.i.d. 4. Dexamethasone 6 mg daily. 5. Glimepiride 2 mg b.i.d. 6. Hydrocodone p.r.n. 7. Metformin 1000 mg b.i.d. 8. Oxycodone q.4 hours p.r.n. 9. Pioglitazone 30 mg daily. 10. Promethazine 12.5 mg q.8 hours p.r.n. 11. Simvastatin 40 mg daily. 12. Spironolactone 50 mg daily. 13. Bactrim one tab b.i.d. 14. Venlafaxine 37.5 mg daily. SOCIAL HISTORY: Previous smoker, quit 2017. Negative alcohol. FAMILY HISTORY: Mother, breast cancer. Father, diabetes, myocardial infarction. VITAL SIGNS: Temperature 36.3, blood pressure 154/90, pulse 93, respirations 18, pulse ox 93% on room air. REVIEW OF SYSTEMS: This is a well-nourished female, currently guarded secondary to the pain. She is not experiencing any new shortness of breath or difficulty breathing nor any new cough or sputum production. No chest pain, palpitations, diaphoresis. No nausea, vomiting. History of constipation and pain upon defecation. He does not report any fever or chills, no recent inadvertent weight loss. All other review of systems negative. PHYSICAL EXAMINATION: CHEST: Distant breath sounds bilaterally with scattered wheezes. HEART: Regular, no murmurs. EXTREMITIES: +1/3 bilateral lower extremity edema, negative Homans sign. HEENT: No scleral icterus. NECK: No cervical lymphadenopathy. ABDOMEN: Soft, nontender, nondistended. SKIN: Along the region of the perineum around the previous incision and drainage site is some erythema and redness as well as a mild amount of fluctuance, which likely indicates a recurrent abscess. LABORATORY DATA: WBC 13.1, hemoglobin 13.6, hematocrit 42, platelets 360. BUN 7, creatinine 0.86, glucose 408. ASSESSMENT AND PLAN: A 54-year-old female with recurrent perineal abscess secondary to uncontrolled diabetes. We will proceed with a perineal and anal exam under anesthesia to rule out fistula as well as an incision and drainage of the recurrent perineal abscess as well as likely drain placement. Job ID: [id number] DocumentID: [id number] Dictated Date: 08/20/2020 19:14:21 Treating Engineer Date: 08/20/2020 19:41:42 Dictated By: MOLLY RODRIGUEZ MD
[2020-08-20 20:27] LABS: BUN/CREATININE RATIO 8; CALCIUM 8.5 MG/DL (8.5-10.1); CARBON DIOXIDE 18 MMOL/L (21-32); CHLORIDE 98 MMOL/L (98-107); CREATININE SERUM 0.78 MG/DL (0.60-1.30); GFR ESTIMATED > 60; GLUCOSE 292 MG/DL (70-105); POTASSIUM 3.4 MMOL/L (3.6-5.0); SODIUM 133 MMOL/L (135-145)
[2020-08-20] MEDS: oxyCODONE/APAP 5/325MG (PERCOCET 5) TABLET PO PRN (20:27)
--- NOTE | 2020-08-20 20:56 | Consultation - Hospitalist ---
HPI History of Present Illness: HPI/Chief Complaint CC: DKA with perineum abscess HPI: This is a 54yoWF known to me from prior COVID 03/2020 who presents to ER for thrid time due to buttock abscess. Dr Martinez has consulted me for DKA management. Insulin drip started. Pain is not controlled so ordered Dilaudid. Checked meds and labs. BP elevated so ordered meds. Source: patient, RN/MD, old records Exam Limitations: clinical condition Date Seen 08/20/20 Attending Physician Abhijeet Martinez MD PCP No,Local Physician Referring Physician Date of Admission Aug 20, 2020 at 16:18 Home Medications & Allergies Home Medications Reviewed patient Home Medication Reconciliation performed by pharmacy medication reconciliations catheterization laboratory technician and/or nursing. Patients Allergies have been reviewed. Allergies Allergies Coded Allergies Penicillins (Verified Allergy, Unknown, 05/09/17) aspirin (Verified Allergy, Unknown, 05/09/17) morphine (Verified Allergy, Unknown, 05/09/17) Patient Social History Marrital Status: single Employed/Student: unemployed Smoking Status: Current Everyday Smoker Immunizations Up To Date Influenza Vaccine Up-to-Date: Yes; Up-to-Date Current Status Primary Language: Maori Past Medical History PMHx: COPD DMII Anxiety Depression HLD SurgHx: Tubal ligation Cholecystectomy 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 Review of Systems Constitutional: see HPI, fever, malaise, weakness Physical Exam Physical Exam Vital Signs Vital Signs - First Documented 08/20/20 08/20/20 08/20/20 15:21 19:15 21:21 Temp 36.3 Pulse 93 Resp 18 B/P (MAP) 154/90 (111) Pulse Ox 93 O2 Delivery Room Air O2 Flow Rate 2.00 FiO2 21 Capillary Refill : Less Than 3 Seconds Height, Weight, BMI Height: 5'6.00" Weight: 320lbs. 12.8oz. 145.671392ej; 35.68 BMI Method:Actual General Appearance: WD/WN, Chronically ill, Moderate Distress, Obese Eyes: Bilateral Eye Normal Inspection, Bilateral Eye PERRL HEENT: PERRL/EOMI, Normal ENT Inspection, Pharynx Normal Neck: Full Range of Motion, Normal Inspection, Non Tender, Supple, Carotid Bruit Respiratory: Chest Non Tender, Lungs Clear, Normal Breath Sounds, No Accessory Muscle Use, No Respiratory Distress Cardiovascular: Regular Rate, Rhythm, No Edema, No Gallop, No JVD, No Murmur, Normal Peripheral Pulses Gastrointestinal: Normal Bowel Sounds, No Organomegaly, No Pulsatile Mass, Non Tender, Soft Back: Normal Inspection, No CVA Tenderness, No Vertebral Tenderness Extremity: Normal Capillary Refill, Normal Inspection, Normal Range of Motion, Non Tender, No Calf Tenderness, No Pedal Edema Neurologic/Psychiatric: Alert, Oriented x3, No Motor/Sensory Deficits, Normal Mood/Affect Skin: Normal Color, Warm/Dry, Other (perineum abscess with edema and erythema) Lymphatic: No Adenopathy Results Results/Procedures Labs Laboratory Tests 08/20/20 15:35 08/20/20 20:00 08/21/20 00:05 08/21/20 01:09 08/21/20 01:22 08/21/20 04:45 Patient resulted labs reviewed. Assessment/Plan Assessment and Plan Assess & Plan/Chief Complaint Assessment: DKA Sepsis Perineum abscess Plan: Insulin drip Pain control IV abx FEDERICA GILMORE DO Aug 20, 2020 20:56
[2020-08-20] MEDS ORDERED: MELATONIN 3 MG TABLET PO PRN (21:00)
[2020-08-20] MEDS ORDERED: DOCUSATE SODIUM 100 MG (COLACE) CAP PO PRN (21:00)
[2020-08-20] MEDS ORDERED: ALPRAZolam 0.25 MG (XANAX) TAB PO PRN (21:00)
[2020-08-20] MEDS ORDERED: CALCIUM CARBONATE 500 MG (TUMS) TAB.CHEW PO PRN (21:00)
[2020-08-20] MEDS ORDERED: diphenhydrAMINE 25 MG TAB (BENADRYL) PO PRN (21:00)
[2020-08-20] MEDS ORDERED: ACETAMINOPHEN 500 MG TAB (TYLENOL) PO PRN (21:00)
[2020-08-20] MEDS ORDERED: hydrALAZINE (APESOLINE) 20 MG/ML VIAL IV PRN (21:15)
[2020-08-20] MEDS ORDERED: ENALAPRILAT 1.25 MG/1 ML (VASOTEC) 1 ML VIAL IV SCH (21:15)
[2020-08-20] MEDS: ENOXAPARIN 40 MG/0.4 ML (LOVENOX) SYR SC SCH (22:37)
[2020-08-20] MEDS: SENNA W/DOCUSATE (SENOKOT S) TABLET PO SCH (22:37)
[2020-08-20] MEDS: SIMvastatin 40 MG (ZOCOR) TAB PO SCH (22:37)
[2020-08-20] MEDS: D5 1/2 NS 1000 ML IV SOLUTION 1,000 ML IV SCH (22:38)
[2020-08-20] MEDS: MEROPENEM 500 MG/SWFI 10 ML IV PUSH IV SCH ×2 (22:38)
[2020-08-21] VITALS (31 sets, daily range): BP systolic 78–154; BP diastolic 46–92
[2020-08-21 00:22] LABS: CHLORIDE 99 MMOL/L (98-107); POTASSIUM 3.1 MMOL/L (3.6-5.0); SODIUM 134 MMOL/L (135-145)
[2020-08-21 00:23] LABS: CALCIUM 8.3 MG/DL (8.5-10.1); GLUCOSE 157 MG/DL (70-105)
[2020-08-21 00:25] LABS: CARBON DIOXIDE 20 MMOL/L (21-32)
[2020-08-21 00:27] LABS: CREATININE SERUM 0.67 MG/DL (0.60-1.30); GFR ESTIMATED > 60
[2020-08-21 00:28] LABS: BUN/CREATININE RATIO 9
[2020-08-21] MEDS: POTASSIUM CL 10MEQ/50ML IVPB 50 ML IV SCH ×3 (00:35→17:11)
[2020-08-21 01:35] LABS: BASOPHILS # (AUTO) 0.1 10^3/uL (0.0-0.1); BASOPHILS % (AUTO) 1 % (0-10); EOSINOPHILS % (AUTO) 0 % (0-10); HEMATOCRIT 38 % (35-52); HEMOGLOBIN 12.4 g/dL (11.5-16.0); LYMPHOCYTES % (AUTO) 16 % (12-44); MEAN CORPUSCULAR HEMOGLOBIN 29 pg (25-34); MEAN CORPUSCULAR HGB CONC 33 g/dL (32-36); MEAN CORPUSCULAR VOLUME 89 fL (80-99); MEAN PLATELET VOLUME 8.9 fL (9.0-12.2); MONOCYTES # (AUTO) 0.8 10^3/uL (0.0-1.0); MONOCYTES % (AUTO) 6 % (0-12); NEUTROPHILS # (AUTO) 9.5 10^3/uL (1.8-7.8); NEUTROPHILS % (AUTO) 77 % (42-75); PLATELET COUNT 299 10^3/uL (130-400); WHITE BLOOD COUNT 12.4 10^3/uL (4.3-11.0)
[2020-08-21 01:43] LABS: CHLORIDE 99 MMOL/L (98-107); POTASSIUM 3.4 MMOL/L (3.6-5.0); SODIUM 134 MMOL/L (135-145)
[2020-08-21 01:45] LABS: CALCIUM 8.6 MG/DL (8.5-10.1); GLUCOSE 117 MG/DL (70-105)
[2020-08-21 01:45] LABS: BAND NEUTROPHILS 4 %; NEUTROPHILS % (MANUAL) 75 %
[2020-08-21 01:46] LABS: LYMPHOCYTES % (MANUAL) 17 %; MONOCYTES % (MANUAL) 4 %; RBC MORPH NORMAL
[2020-08-21 01:47] LABS: CARBON DIOXIDE 22 MMOL/L (21-32)
[2020-08-21 01:49] LABS: CREATININE SERUM 0.65 MG/DL (0.60-1.30); GFR ESTIMATED > 60; PHOSPHORUS 2.5 MG/DL (2.3-4.7)
[2020-08-21 01:50] LABS: BUN/CREATININE RATIO 9
[2020-08-21 01:51] LABS: MAGNESIUM 1.6 MG/DL (1.6-2.4)
[2020-08-21 02:18] LABS: BUN/CREATININE RATIO 9; CARBON DIOXIDE 22 MMOL/L (21-32); CHLORIDE 99 MMOL/L (98-107); CREATININE SERUM 0.65 MG/DL (0.60-1.30); GFR ESTIMATED > 60; POTASSIUM 3.4 MMOL/L (3.6-5.0); SODIUM 134 MMOL/L (135-145)
[2020-08-21 02:19] LABS: CALCIUM 8.6 MG/DL (8.5-10.1); GLUCOSE 117 MG/DL (70-105)
[2020-08-21] MEDS: D5 1/2 NS 1000 ML IV SOLUTION 1,000 ML IV SCH ×3 (02:51→21:19)
[2020-08-21] MEDS: 1/2 NS IV SOLUTION 1,000 ML IV SCH (03:05)
[2020-08-21] MEDS: HYDROmorphone 2 MG/ML VIAL (DILAUDID) IV PRN ×7 (03:05→23:36)
[2020-08-21] MEDS: NS IV 1000 ML 1,000 ML IV SCH ×3 (03:06→19:00)
--- NOTE | 2020-08-21 04:24 | Pulmonary Consultation ---
History of Present Illness History of Present Illness Date Seen by Provider: Aug 21, 2020 Time Seen by Provider: 04:18 Date of Admission History of Present Illness 54-year-old female with hx of DM who presents to the emergency department today with a chief complaint of wound recheck. Patient had a abscess incision and drainage done on August 14 and has had multiple visits since that time for packing replacement and wound checks. Patient had a [place] dressing placed about 5 days ago and this apparently has fallen out in the interim. Patient complains of significant pain to the area and continued drainage. No fevers are reported. Allergies and Home Medications Allergies Coded Allergies: Penicillins (Verified Allergy, Unknown, 05/09/17) aspirin (Verified Allergy, Unknown, 05/09/17) morphine (Verified Allergy, Unknown, 05/09/17) Home Medications Amoxicillin/Potassium Clav 1 Each Tablet, 1 EACH PO BID Prescribed by: MOLLY RODRIGUEZ on 08/21/20 1737 Clindamycin HCl 300 Mg Capsule, 300 MG PO TID, (Reported) LAST FILLED 08-17-2020 #21/7 DAY SUPPLY Hydrocodone/Acetaminophen 1 Each Tablet, 1 TAB PO Q4H PRN for PAIN-MODERATE (5- 7), (Reported) Oxycodone HCl/Acetaminophen 1 Each Tablet, 1 EACH PO Q4H PRN for PAIN-SEVERE, (Reported) Promethazine HCl 25 Mg Tablet, 12.5 MG PO Q8H PRN for NAUSEA/VOMITING, (Reported) Sulfamethoxazole/Trimethoprim 1 Each Tablet, 1 EACH PO BID, (Reported) FILLED 08-14-2020 #14/7 DAY SUPPLY Past Qyohaqe-Kokntm-Fyxyvb Hx Patient Social History Alcohol Use: Denies Use Smoking Status: Current Everyday Smoker Type Used: Cigarettes Former Smoker, Quit: Mar 06, 2017 Recent Infectious Disease Expo: No Recent Hopitalizations: No Immunizations Up To Date Tetanus Booster (TDap): Unknown Seasonal Allergies Seasonal Allergies: No Past Medical History Surgeries: Yes Gallbladder, 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, Tubal Ligation Respiratory: Yes Pneumonia, COPD Currently Using CPAP: Yes Currently Using BIPAP: No Cardiac: Yes Hypertension 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 12.8oz. 145.602062eo; 35.68 BMI Method:Actual Exam Exam Vital Signs Date Time Temp Pulse Resp B/P (MAP) Pulse Ox O2 Delivery O2 Flow Rate FiO2 08/21/20 01:00 93 08/21/20 01:00 93 14 141/85 (103) 96 Nasal Cannula 2.00 08/21/20 00:00 98 11 130/70 (90) 94 Nasal Cannula 2.00 08/20/20 23:30 Room Air 08/20/20 23:00 104 16 162/86 (111) 95 Nasal Cannula 2.00 08/20/20 22:00 108 13 109/77 (88) 95 Nasal Cannula 2.00 08/20/20 21:21 Nasal Cannula 2.00 08/20/20 20:45 114 18 134/94 (107) 90 Room Air 08/20/20 20:15 124 22 126/70 (88) 91 Room Air 08/20/20 19:45 112 16 109/77 (88) 95 Room Air 08/20/20 19:30 Room Air 08/20/20 19:30 122 23 144/72 (96) 92 Room Air 08/20/20 19:15 36.3 93 93 21 08/20/20 19:15 114 17 125/70 (88) 89 Room Air 08/20/20 19:03 117 08/20/20 19:00 120 18 115/82 (93) 90 Room Air 08/20/20 16:44 117 18 179/93 97 08/20/20 15:21 36.3 93 18 154/90 (111) 93 Room Air I & O 08/21/20 07:00 Intake Total 300 ml Balance 300 ml Height & Weight Height: 5'6.00" Weight: 320lbs. 12.8oz. 145.135625sc; 35.68 BMI Method:Actual General Appearance: Mild Distress HEENT: PERRL/EOMI, Normal ENT Inspection, Pharynx Normal Neck: Full Range of Motion, Non Tender, Supple Respiratory: Chest Non Tender, No Accessory Muscle Use, No Respiratory Distress, Decreased Breath Sounds Cardiovascular: Regular Rate, Rhythm, No Gallop Capillary Refill: Less Than 3 Seconds Gastrointestinal: non tender, soft Extremity: Normal Capillary Refill, Normal Inspection, No Pedal Edema Neurologic/Psychiatric: Alert, Oriented x3 Skin: Normal Color, Warm/Dry Lymphatic: No Adenopathy Results Lab Laboratory Tests 08/20/20 15:35 08/20/20 20:00 08/21/20 00:05 08/21/20 01:09 08/21/20 01:22 Assessment/Plan Assessment/Plan Cutaneous abscess of perineum] -Surgery is following -s/p Drain/packing -- Drain dislodged prior to arrival -Vanco and merrem -Yost cultures pending Diabetic ketoacidosis-- improving -check UA and repeat Betahydroxybuterate -If no signs of Ketosis will d/c insulin gtt 2hrs after Levemeir. -Will give 10units of Levemeir now. Hyponatremia -Change IVF from 1/2NS to LR MEGHA MOYER DO Aug 21, 2020 04:24
[2020-08-21] MEDS ORDERED: POTASSIUM PHOSPHATE INJ 30 MM in NS (IVPB) 250 ML IV ONE (04:30)
[2020-08-21] MEDS: D5 LR IV SOLUTION 1,000 ML IV SCH ×3 (05:03→20:30)
[2020-08-21] MEDS: MEROPENEM 500 MG/SWFI 10 ML IV PUSH IV SCH ×8 (05:03→21:40)
[2020-08-21] MEDS: MAGNESIUM 1 GM/100 ML IVPB 100 ML IV SCH ×2 (05:06→05:30)
[2020-08-21 05:25] LABS: CHLORIDE 99 MMOL/L (98-107); POTASSIUM 3.9 MMOL/L (3.6-5.0); SODIUM 131 MMOL/L (135-145)
[2020-08-21 05:26] LABS: CALCIUM 8.2 MG/DL (8.5-10.1)
[2020-08-21 05:27] LABS: GLUCOSE 173 MG/DL (70-105)
[2020-08-21 05:28] LABS: CARBON DIOXIDE 19 MMOL/L (21-32)
[2020-08-21 05:30] LABS: CREATININE SERUM 0.63 MG/DL (0.60-1.30); GFR ESTIMATED > 60
[2020-08-21 05:31] LABS: BUN/CREATININE RATIO 11
[2020-08-21] MEDS ORDERED: VANCOMYCIN 750 MG/VIAL IV ONE (06:02)
[2020-08-21] MEDS ORDERED: NS (IVPB) 250 ML ONE (06:02)
[2020-08-21] MEDS ORDERED: VANCOMYCIN 500 MG/VIAL IV ONE (06:02)
[2020-08-21] MEDS: VANCOMYCIN 1250 MG/NS 250 ML IVPB IV SCH ×4 (06:31→17:51)
--- NOTE | 2020-08-21 07:41 | Diagnostic Imaging Report ---
INDICATION: Rectal abscess, hypoxia. TECHNIQUE: Single view chest 5:45 AM. CORRELATION STUDY: 03/25/2020 FINDINGS: Heart size within normal limits. Slight prominent appearance about bilateral hilar structures. Perhaps slightly more pronounced on the right. Unchanged mildly elevated right diaphragm. No definitive infiltrate. IMPRESSION: 1. No definite abnormality of the chest. Hilar structures however are slightly prominent. Likely largely attributed to technique and positioning. Short-term followup repeat imaging, preferably 2 view would be recommended. Dictated by: Dictated on workstation # [id number]
[2020-08-21] MEDS: SENNA W/DOCUSATE (SENOKOT S) TABLET PO SCH ×2 (08:35→21:19)
[2020-08-21] MEDS: ENALAPRILAT 2.5 MG/2 ML (VASOTEC) VIAL IV SCH ×2 (08:35→21:18)
[2020-08-21 08:43] LABS: CHLORIDE 97 MMOL/L (98-107); POTASSIUM 3.5 MMOL/L (3.6-5.0); SODIUM 133 MMOL/L (135-145)
[2020-08-21 08:45] LABS: CALCIUM 8.7 MG/DL (8.5-10.1); GLUCOSE 109 MG/DL (70-105)
[2020-08-21 08:46] LABS: CARBON DIOXIDE 25 MMOL/L (21-32)
[2020-08-21 08:49] LABS: CREATININE SERUM 0.63 MG/DL (0.60-1.30); GFR ESTIMATED > 60
[2020-08-21 08:50] LABS: BUN/CREATININE RATIO 11
[2020-08-21 08:59] LABS: CLARITY,URINE CLOUDY; COLOR,URINE YELLOW; GLUCOSE, URINE (UA) 1+ (NEGATIVE); KETONES,URINE 2+ (NEGATIVE); LEUKOCYTE ESTERASE ,URINE 1+ (NEGATIVE); NITRITE,URINE NEGATIVE (NEGATIVE); PROTEIN,URINE 1+ (NEGATIVE)
[2020-08-21 09:20] LABS: BILIRUBIN,URINE 2+ (NEGATIVE)
[2020-08-21 09:21] LABS: AMORPHOUS SEDIMENT,UR FEW AMOR URATES /LPF; BACTERIA,URINE FEW /HPF; GRANULAR CASTS,URINE RARE /LPF
[2020-08-21 09:23] LABS: WBC,URINE 50-100 /HPF
[2020-08-21] MEDS ORDERED: LIDOCAINE/EPI 1%-1:100,000 (XYLOCAINE) 20ML ONE (09:31)
[2020-08-21] MEDS ORDERED: proPOfol 200 MG/20 ML (DIPRIVAN) VIAL IV ONE (10:10)
[2020-08-21] MEDS ORDERED: ONDANSETRON 4 MG/2 ML (SDV) Z0FRAN ONE (10:10)
[2020-08-21] MEDS ORDERED: LIDOCAINE PF 2% 5 ML (XYLOCAINE) VIAL ONE (10:10)
[2020-08-21] MEDS ORDERED: MIDAZOLAM 2 MG/2 ML (VERSED) VIAL ONE (10:11)
[2020-08-21] MEDS ORDERED: fentaNYL INJ 100 MCG/2 ML AMP ONE (10:12)
[2020-08-21] MEDS ORDERED: SEVOFLURANE (ULTANE) 15 ML INHAL SOLN ONE ×3 (10:13→11:32)
[2020-08-21] MEDS ORDERED: NEOSTIGMINE 3 MG/3 ML VIAL ONE (10:48)
[2020-08-21] MEDS ORDERED: ROCURONIUM 10 MG/ML 5 ML SYRINGE IV ONE (10:48)
[2020-08-21] MEDS ORDERED: GLYCOPYRROLATE 0.2 MG/ML (ROBINUL) 2 ML VIAL ONE (10:48)
[2020-08-21] MEDS ORDERED: NS IV 1000 ML 1,000 ML IV PRN (11:00)
--- NOTE | 2020-08-21 11:18 | Progress Note-Post Operative ---
Post-Operative Progess Note Surgeon (s)/Supervisor Mold Yard (s) Surgeon MOLLY RODRIGUEZ MD Supervisor [place]: none Pre-Operative Diagnosis recurrent perineal abscess. Post-Operative Diagnosis recurrent left ischiorectal abscess Procedure & Operative Findings Date of Procedure 08/21/20 Procedure Performed/Findings anal and perineal exam under anesthesia. incision and drainage and debridement left ischiorectal abscess([id number]) Anesthesia Type get Estimated Blood Loss Estimated blood loss (mL): minimal Specimens/Packing Specimens Removed ischorectal abscess. MOLLY RODRIGUEZ MD Aug 21, 2020 11:18
[2020-08-21] MEDS ORDERED: HYDROmorphone 2 MG/ML VIAL (DILAUDID) IV ONE (11:45)
[2020-08-21] MEDS ORDERED: ONDANSETRON 4 MG/2 ML (SDV) Z0FRAN IVP PRN (11:45)
--- NOTE | 2020-08-21 12:42 | Progress Note - Hospitalist ---
ERIN LEE, MED STUDENT 08/21/20 1242: Subjective HPI/CC On Admission CC: DKA with perineum abscess HPI: This is a 54yoWF known to me from prior COVID 03/2020 who presents to ER for thrid time due to buttock abscess. Dr Martinez has consulted me for DKA rayray zaragoza. Insulin drip started. Pain is not controlled so ordered Dilaudid. Checked meds and labs. BP elevated so ordered meds. Subjective/Events-last exam Pt is a lot of pain this morning. She rates the pain as a 12/10 but does state that the pain medications she has received has helped with the pain. The pain was recently made worse by the I&D w/ drain placement done on 08/17. She does note that the drain was having output previously but was displaced over the last few days. She is unsure when that happened. Review of Systems General: Fatigue HEENT: No Head Aches, No Visual Changes, No Eye Pain, No Ear Pain, No Dyspha monae, No Sinus Congestion, No Post Nasal Drip, No Sore Throat, No Other Pulmonary: No Dyspnea, No Cough, No Pleuritic Chest Pain, No Other Cardiovascular: No: Chest Pain, Palpitations, Orthopnea, Paroxysmal Noc. Dyspnea, Edema, Lt Headedness, Other Gastrointestinal: Nausea, Vomiting; No: Abdominal Pain, Diarrhea, Constipation, Melena, Hematochezia, Other Genitourinary: Hematuria, Other Musculoskeletal: No: other, neck pain, shoulder pain, arm pain, back pain, hand pain, leg pain, foot pain Neurological: No: Weakness, Numbness, Incoordination, Change in speech, Co nfusion, Seizures, Other Focused Exam Lactate Level 08/20/20 15:35: Lactic Acid Level 1.24 Objective Exam Vital Signs Vital Signs Date Time Temp Pulse Resp B/P (MAP) Pulse Ox O2 Delivery O2 Flow Rate FiO2 08/21/20 12:20 14 80/50 (60) 100 OxyMask 10 08/21/20 11:31 37.5 08/21/20 10:00 103 08/20/20 19:15 21 Capillary Refill : Less Than 3 Seconds General Appearance: Severe Distress Neck: Full Range of Motion, Normal Inspection Respiratory: Chest Non Tender, Lungs Clear, Normal Breath Sounds, No Accessory Muscle Use, No Respiratory Distress Cardiovascular: Regular Rate, Rhythm, No Edema, No Gallop, No JVD, No Murmur, Normal Peripheral Pulses Gastrointestinal: Normal Bowel Sounds, No Organomegaly Rectal: Deferred Back: Normal Inspection, No CVA Tenderness Extremity: Normal Capillary Refill, Normal Inspection, Normal Range of Motion, Non Tender, No Calf Tenderness, No Pedal Edema Neurologic/Psychiatric: Alert, Oriented x3 Results/Procedures Lab Laboratory Tests 08/20/20 15:35 08/20/20 20:00 08/21/20 00:05 08/21/20 01:09 08/21/20 01:22 08/21/20 04:45 08/21/20 08:15 Patient resulted labs reviewed. Assessment/Plan Assessment and Plan Assess & Plan/Chief Complaint Genet Leach is a 54 y/o F w/ PMH of DM presenting for a perineal abscess and DKA #Abscess - Located in perineal region - Expolartion for fistula w/ Dr. Martinez this morning - Pain 04/23 - Cx from 08/17 demonstrated Gram positive mixed britta, Group B strep, and yeast - Meropenem and vancomycin Plan: > Continue meropenem and vancomycin > Yost cultures > Start Eraxis > Continue fluids > Will reevaluate pain postop but continue Hydromorphone 0.5mg and Oxy 5/325 for now #DKA - Beta hydroxybutyrate 0.51 on admission - Anion gap 13 - Bicarb 19 - Blood sugars 160s - 170s - Insulin drip - K 3.9 on admission Plan: > Continue insulin drip > DKA is resolving based on anion gap and bicarb > K replacement started #HTN - Blood pressures 101/74 this morning - Enalaprilat 1.25mg BID Plan: > Continue enalaprilat 1.25mg BID #Hyponatremia - Na 131 this morning - Previously on 1/2NS but switched to LR - Osmolarity 274 Plan: > Continue LR > Likely 2/2 to 1/2NS #Hematuria - Reports hematuria starting this morning - Hgb 12.4 Plan: > UA pending > Could be cross contamination from abscess Dispo: Continue ICU care MONA GILMORE DO 08/22/20 0927: Subjective HPI/CC On Admission Date Seen by Provider: Aug 21, 2020 Time Seen by Provider: 10:00 Subjective/Events-last exam OR today Monitor closely Pain control IV abx Objective Exam General Appearance: WD/WN, Chronically ill, Moderate Distress, Obese Respiratory: Lungs Clear Cardiovascular: Regular Rate, Rhythm Neurologic/Psychiatric: Alert, Oriented x3 Assessment/Plan Assessment and Plan Assess & Plan/Chief Complaint OR today Insulin drip IVF IV abx Supervisory-Addendum Brief Verification & Attestation Participated in pt care: history, MDM, physical Personally performed: exam, history, MDM, supervision of care Care discussed with: Medical Student Procedures: n/a Results interpretation: Verified all documentation Verification and Attestation of Medical Student E/M Service A medical student performed and documented this service in my presence. I reviewed and verified all information documented by the medical student and made modifications to such information, when appropriate. I personally performed the physical exam and medical decision making. Mona Gilmore, Aug 22, 2020,09:27 ERIN LEE, MED STUDENT Aug 21, 2020 12:42 MONA GILMORE DO Aug 22, 2020 09:27
[2020-08-21 13:38] LABS: CHLORIDE 101 MMOL/L (98-107); POTASSIUM 4.1 MMOL/L (3.6-5.0); SODIUM 134 MMOL/L (135-145)
[2020-08-21 13:39] LABS: CALCIUM 8.2 MG/DL (8.5-10.1)
[2020-08-21 13:40] LABS: GLUCOSE 197 MG/DL (70-105)
[2020-08-21 13:41] LABS: CARBON DIOXIDE 17 MMOL/L (21-32)
[2020-08-21 13:44] LABS: CREATININE SERUM 0.75 MG/DL (0.60-1.30); GFR ESTIMATED > 60
[2020-08-21 13:45] LABS: BUN/CREATININE RATIO 11
[2020-08-21] MEDS ORDERED: ANIDULAFUNGIN 200 MG/NS 250 ML IVPB IV NR ×2 (14:00)
[2020-08-21] MEDS ORDERED: LACTATED RINGERS 1,000 ML IV ONE ×2 (14:08→14:15)
[2020-08-21] MEDS ORDERED: ACETAMINOPHEN 325 MG TABLET PO PRN (15:30)
[2020-08-21] MEDS ORDERED: CLIN300C12 PO (15:37)
[2020-08-21] MEDS ORDERED: PROM25TA14 PO (15:37)
[2020-08-21] MEDS ORDERED: SULF1TAB35 PO ×2 (15:37)
[2020-08-21] MEDS ORDERED: OXYC1TAB11 PO (15:37)
[2020-08-21] MEDS ORDERED: ACHD5005 PO (15:40)
[2020-08-21 16:14] LABS: CHLORIDE 101 MMOL/L (98-107); POTASSIUM 3.7 MMOL/L (3.6-5.0); SODIUM 134 MMOL/L (135-145)
[2020-08-21 16:16] LABS: GLUCOSE 166 MG/DL (70-105)
[2020-08-21 16:18] LABS: CARBON DIOXIDE 21 MMOL/L (21-32)
[2020-08-21 16:20] LABS: CREATININE SERUM 0.82 MG/DL (0.60-1.30); GFR ESTIMATED > 60; PHOSPHORUS 3.2 MG/DL (2.3-4.7)
[2020-08-21 16:21] LABS: BUN/CREATININE RATIO 12
[2020-08-21 16:22] LABS: MAGNESIUM 1.5 MG/DL (1.6-2.4)
[2020-08-21] MEDS ORDERED: AMOX-358 PO (17:35)
--- NOTE | 2020-08-21 17:36 | Discharge Inst-Surgical ---
D/C Lap Instructions-KIDO New, Converted, or Re-Newed RX: RX on Chart Follow Up Appt in 2 weeks Activity as tolerated Dressing change: lightly pack wet to dry BID. Incentive Spirometry use every 2 hours while awake 1800 Kcal ADA Regular Diet Symptoms to Report: Fever over 101 degree F, Nausea/Vomiting Infection Signs and Symptoms to report: Increased redness, Foul odor of wound, Increased drainage Bathing instructions: May shower Operative Area Clean/Dry; Keep incision clean/dry If any problems/questions: Contact your physician or go to Emergency Room MOLLY RODRIGUEZ MD Aug 21, 2020 17:36
[2020-08-21 18:02] LABS: CHLORIDE 102 MMOL/L (98-107); POTASSIUM 3.9 MMOL/L (3.6-5.0); SODIUM 132 MMOL/L (135-145)
[2020-08-21 18:03] LABS: CALCIUM 8.2 MG/DL (8.5-10.1)
[2020-08-21 18:04] LABS: GLUCOSE 149 MG/DL (70-105)
[2020-08-21 18:05] LABS: CARBON DIOXIDE 19 MMOL/L (21-32)
[2020-08-21 18:07] LABS: PHOSPHORUS 3.2 MG/DL (2.3-4.7)
[2020-08-21 18:08] LABS: CREATININE SERUM 0.84 MG/DL (0.60-1.30); GFR ESTIMATED > 60
[2020-08-21 18:09] LABS: BUN/CREATININE RATIO 11
[2020-08-21 18:10] LABS: MAGNESIUM 1.5 MG/DL (1.6-2.4)
--- NOTE | 2020-08-21 19:39 | OPERATIVE REPORT ---
DATE OF SERVICE: 08/21/2020 PREOPERATIVE DIAGNOSIS: Left recurrent ischiorectal abscess. POSTOPERATIVE DIAGNOSIS: Left recurrent ischiorectal abscess. PROCEDURE: 1. Incision and drainage and debridement, left ischiorectal abscess approximately 15 x 10 cm in size. 2. Anal and perineal exam under anesthesia. SURGEON: Molly Rodriguez MD. ANESTHESIA: General endotracheal with local. ESTIMATED BLOOD LOSS: Minimal. FINDINGS: No vaginal infectious source. No anorectal fistulas. Large abscess was approximately 15 x 10 cm in size majority of viable tissue not consistent with necrotizing soft tissue infection. DISPOSITION: The patient tolerated the procedure well. INDICATIONS: The patient is a 54-year-old female who initially presented to the Emergency Department on 08/14/2020. She had redness and swelling as well as apparent left perineal and perirectal drainage and underwent an incision and drainage as well as a Mario drain placement. She had presented back to the Emergency Department and stated that the drain had come out of approximately several days on its own and the region became red, swollen as well as more painful and continued to drain. The patient is also diabetic and found to have a significantly elevated glucose. Upon examination, she was found to have a recurrent redness, erythema and fluctuance consistent with ischiorectal abscess. DESCRIPTION OF PROCEDURE: The patient was brought to the operating room, laid supine on the table. After adequate IV pain and sedative medications and general endotracheal intubation, the patient was placed in lithotomy position and the perineum was prepped and draped in standard surgical fashion. A 1% lidocaine with epinephrine was then used to anesthetize the overlying skin in the left perineal and perianal region. An obtuse angled incision was then made along the buttock as well as next to the perineum as well as perirectal region using a 15 blade. An abscess cavity was identified with some necrotic debris within the abscess cavity. The dimensions approximately 15 x 10 cm in size. Any necrotic debris, which encompassed skin and subcutaneous tissue was debrided using electrocautery. The tissue was viable, bleeding with a normal structural integrity indicate likely abscess and no necrotizing soft tissue infection. Good hemostasis was then achieved using electrocautery and the abscess cavity was then packed with one inch iodoform gauze followed by 4 x 4 gauze followed by ABD pad and mesh shorts. The patient tolerated the procedure well. We will consult wound care for further evaluation and wound care and continue with IV antibiotics as well as medical therapy for her hyperglycemia. Job ID: [id number] DocumentID: [id number] Dictated Date: 08/21/2020 11:25:47 Assistant Professor Of Radiology Date: 08/21/2020 19:37:54 Dictated By: MOLLY RODRIGUEZ MD
[2020-08-21 19:58] LABS: CHLORIDE 101 MMOL/L (98-107); POTASSIUM 3.7 MMOL/L (3.6-5.0); SODIUM 133 MMOL/L (135-145)
[2020-08-21 19:59] LABS: CALCIUM 7.8 MG/DL (8.5-10.1); GLUCOSE 203 MG/DL (70-105)
[2020-08-21 20:01] LABS: CARBON DIOXIDE 20 MMOL/L (21-32)
[2020-08-21 20:03] LABS: CREATININE SERUM 0.95 MG/DL (0.60-1.30); GFR ESTIMATED > 60
[2020-08-21 20:04] LABS: BUN/CREATININE RATIO 11
[2020-08-21] MEDS: ENOXAPARIN 40 MG/0.4 ML (LOVENOX) SYR SC SCH (21:18)
[2020-08-21] MEDS: SIMvastatin 40 MG (ZOCOR) TAB PO SCH (21:19)
[2020-08-22] VITALS (7 sets, daily range): BP systolic 93–119; BP diastolic 56–89
[2020-08-22 00:39] LABS: CALCIUM 7.8 MG/DL (8.5-10.1); CREATININE SERUM 1.24 MG/DL (0.60-1.30); POTASSIUM 3.9 MMOL/L (3.6-5.0)
[2020-08-22] MEDS: NS IV 1000 ML 1,000 ML IV SCH ×2 (03:27→12:27)
[2020-08-22] MEDS ORDERED: TROUGH ORDER-PHARMACY XX NR (04:00)
[2020-08-22 04:02] LABS: POTASSIUM 4.2 MMOL/L (3.6-5.0)
[2020-08-22 04:03] LABS: CALCIUM 7.8 MG/DL (8.5-10.1)
[2020-08-22 04:08] LABS: CREATININE SERUM 1.37 MG/DL (0.60-1.30); PHOSPHORUS 3.6 MG/DL (2.3-4.7)
[2020-08-22 04:10] LABS: MAGNESIUM 1.4 MG/DL (1.6-2.4)
[2020-08-22 04:17] LABS: VANCOMYCIN,TROUGH 14.7 UG/ML (10.0-20.0)
[2020-08-22] MEDS: D5 LR IV SOLUTION 1,000 ML IV SCH ×3 (04:30→09:15)
[2020-08-22] MEDS: MEROPENEM 500 MG/SWFI 10 ML IV PUSH IV SCH ×8 (04:38→21:17)
[2020-08-22] MEDS: VANCOMYCIN 1250 MG/NS 250 ML IVPB IV SCH ×4 (04:38→17:02)
[2020-08-22] MEDS: oxyCODONE/APAP 5/325MG (PERCOCET 5) TABLET PO PRN ×4 (04:39→22:00)
[2020-08-22 04:57] LABS: BASOPHILS # (AUTO) 0.1 10^3/uL (0.0-0.1); BASOPHILS % (AUTO) 0 % (0-10); EOSINOPHILS % (AUTO) 0 % (0-10); HEMATOCRIT 35 % (35-52); HEMOGLOBIN 11.1 g/dL (11.5-16.0); LYMPHOCYTES % (AUTO) 13 % (12-44); MEAN CORPUSCULAR HEMOGLOBIN 30 pg (25-34); MEAN CORPUSCULAR HGB CONC 32 g/dL (32-36); MEAN CORPUSCULAR VOLUME 94 fL (80-99); MEAN PLATELET VOLUME 8.8 fL (9.0-12.2); MONOCYTES # (AUTO) 0.8 10^3/uL (0.0-1.0); MONOCYTES % (AUTO) 5 % (0-12); NEUTROPHILS # (AUTO) 12.2 10^3/uL (1.8-7.8); NEUTROPHILS % (AUTO) 81 % (42-75); PLATELET COUNT 302 10^3/uL (130-400); WHITE BLOOD COUNT 15.1 10^3/uL (4.3-11.0)
--- NOTE | 2020-08-22 05:09 | Pulmonary Progress Note ---
Subjective Time Seen by a Provider: 05:05 Subjective/Events-last exam complains of pain. Pt is currently on DKA protocol Sepsis Event Evaluation Height, Weight, BMI Height: 5'6.00" Weight: 320lbs. 12.8oz. 145.224447jp; 35.68 BMI Method:Actual Focused Exam Lactate Level 08/20/20 15:35: Lactic Acid Level 1.24 Exam Exam Vital Signs Date Time Temp Pulse Resp B/P (MAP) Pulse Ox O2 Delivery O2 Flow Rate FiO2 08/22/20 01:00 116 08/21/20 23:00 98 12 103/77 (86) 96 Nasal Cannula 1.00 08/21/20 22:00 98 12 103/75 (84) 95 Nasal Cannula 1.00 08/21/20 21:00 101 13 98/74 (82) 94 Room Air 08/21/20 20:00 111 13 104/92 (96) 94 Room Air 08/21/20 19:00 111 16 89/46 (60) 94 Room Air 08/21/20 19:00 111 08/21/20 18:00 104 16 107/67 (80) 95 Room Air 08/21/20 17:16 92 Room Air 08/21/20 17:00 106 19 106/71 (83) 95 Nasal Cannula 1.00 08/21/20 16:00 101 12 104/60 (75) 95 Nasal Cannula 1.00 08/21/20 15:32 36.5 93 Nasal Cannula 1.00 08/21/20 15:00 101 14 123/53 (76) 91 Nasal Cannula 2.00 08/21/20 14:00 93 13 100/62 (75) 96 Nasal Cannula 2.00 08/21/20 13:30 93 13 100/62 (75) 96 Nasal Cannula 2.00 08/21/20 13:15 96 12 79/55 (63) 95 Nasal Cannula 2.00 08/21/20 13:00 95 12 89 Nasal Cannula 2.00 08/21/20 12:52 95 08/21/20 12:45 98 13 83/59 (69) 95 Nasal Cannula 2.00 08/21/20 12:39 97 11 88/60 (75) 94 Nasal Cannula 2.00 08/21/20 12:35 Room Air 08/21/20 12:35 Nasal Cannula 2.00 97 08/21/20 12:30 36.9 13 88/60 (69) 92 Room Air 08/21/20 12:20 14 80/50 (60) 100 OxyMask 10 08/21/20 12:10 14 78/48 (58) 99 OxyMask 10 08/21/20 12:00 18 92/75 (81) 100 OxyMask 10 08/21/20 12:00 OxyMask 10 08/21/20 11:50 20 96/72 (80) 99 OxyMask 10 08/21/20 11:40 18 106/63 (77) 99 OxyMask 10 08/21/20 11:31 37.5 16 103/53 (70) 100 OxyMask 10 08/21/20 11:31 OxyMask 10 08/21/20 10:00 103 26 103/67 (79) 89 Nasal Cannula 2.00 08/21/20 09:00 117 17 108/63 (78) 95 Nasal Cannula 2.00 08/21/20 08:43 Nasal Cannula 2.00 08/21/20 08:00 115 13 94 Nasal Cannula 2.00 08/21/20 07:57 36.9 08/21/20 07:30 Room Air 08/21/20 07:00 94 101/74 (83) 93 Nasal Cannula 2.00 08/21/20 07:00 117 08/21/20 06:00 98 22 120/69 (86) 96 Nasal Cannula 2.00 I & O 08/22/20 07:00 Intake Total 1050 ml Balance 1050 ml Height & Weight Height: 5'6.00" Weight: 320lbs. 12.8oz. 145.887290tq; 35.68 BMI Method:Actual General Appearance: Anxious, Mild Distress HEENT: PERRL/EOMI, Normal ENT Inspection, Pharynx Normal Neck: Full Range of Motion, Normal Inspection Respiratory: Chest Non Tender, Lungs Clear, Normal Breath Sounds, No Accessory Muscle Use, No Respiratory Distress Cardiovascular: Regular Rate, Rhythm, No Edema, No Gallop, No JVD, No Murmur, Normal Peripheral Pulses Capillary Refill: Less Than 3 Seconds Gastrointestinal: non tender, soft Extremity: Normal Capillary Refill, Normal Inspection, Normal Range of Motion, Non Tender, No Calf Tenderness, No Pedal Edema Neurologic/Psychiatric: Alert, Oriented x3 Skin: Normal Color, Warm/Dry, Other (perineum abscess with edema and erythema) Lymphatic: No Adenopathy Results Lab Laboratory Tests 08/20/20 15:35 08/20/20 20:00 08/21/20 00:05 08/21/20 01:09 08/21/20 01:22 08/21/20 04:45 08/21/20 08:15 08/21/20 13:05 08/21/20 15:54 08/21/20 17:35 08/21/20 19:36 08/22/20 00:10 08/22/20 03:37 08/22/20 04:45 Assessment/Plan Assessment/Plan Cutaneous abscess of perineum s/p surgery -Pain control per surgery -Surgery is following -Vanco merrem Eraxis -Yost cultures pending Diabetic ketoacidosis-- improving -Continue DKA protocol -Repeat Labs Q4 Acute renal failure -D/C Vasotec HTN -Change vasotec to Lopressor PO -Hydralazine PRN Hyponatremia -D5LR MEGHA MOYER DO Aug 22, 2020 05:09
[2020-08-22] MEDS ORDERED: MAGNESIUM 1 GM/100 ML IVPB 100 ML IV SCH ×2 (05:30→06:00)
[2020-08-22] MEDS: HYDROmorphone 2 MG/ML VIAL (DILAUDID) IV PRN ×4 (05:37→22:07)
[2020-08-22] MEDS: MAGNESIUM 1 GM/100 ML IVPB 100 ML IV SCH ×2 (05:38→06:40)
[2020-08-22] MEDS: POTASSIUM CL 10MEQ/50ML IVPB 50 ML IV SCH ×4 (05:38→12:13)
[2020-08-22] MEDS ORDERED: POTASSIUM CL 10MEQ/50ML IVPB 50 ML IV SCH (06:00)
[2020-08-22] MEDS ORDERED: KCL 20 MEQ TAB (K-DUR) PO SCH (06:00)
[2020-08-22 08:20] LABS: POTASSIUM 4.4 MMOL/L (3.6-5.0)
[2020-08-22 08:21] LABS: CALCIUM 7.6 MG/DL (8.5-10.1)
[2020-08-22 08:25] LABS: CREATININE SERUM 1.46 MG/DL (0.60-1.30)
[2020-08-22] MEDS: SENNA W/DOCUSATE (SENOKOT S) TABLET PO SCH ×2 (09:09→21:18)
[2020-08-22] MEDS: meTOprolol TARTRATE 25 MG (LOPRESSOR) TABLET PO SCH ×2 (09:09→21:18)
[2020-08-22] MEDS: ANIDULAFUNGIN 100 MG/NS 100 ML IV SCH ×2 (09:10)
--- NOTE | 2020-08-22 09:40 | Diagnostic Imaging Report ---
INDICATION: Hypoxia. Comparison is made with prior examination from 08/21/2020. FINDINGS: The heart size, mediastinal configuration, and pulmonary vascularity are within normal limits. There is no pleural effusion, pneumothorax, or pneumonia. The osseous structures are unremarkable. IMPRESSION: No acute cardiopulmonary abnormality. Dictated by: Dictated on workstation # [id number]
--- NOTE | 2020-08-22 11:24 | Progress Note - Surgery ---
Subjective Time Seen by a Provider: 10:49 Subjective/Events-last exam Pt seen and examined, complains of pain; but just got pain shot. Pt denies SOB and is tolerating diet. Review of Systems General: Fatigue, Malaise Pulmonary: No Dyspnea, No Cough Cardiovascular: No: Chest Pain, Palpitations Gastrointestinal: No: Nausea, Vomiting, Abdominal Pain Focused Exam Lactate Level 08/20/20 15:35: Lactic Acid Level 1.24 Objective Exam Vital Signs Date Time Temp Pulse Resp B/P (MAP) Pulse Ox O2 Delivery O2 Flow Rate FiO2 08/22/20 09:00 89 12 98 Room Air 08/22/20 08:00 87 27 119/67 (84) 97 Room Air 08/22/20 07:00 112 08/22/20 07:00 81 93/72 (79) 94 Room Air 08/22/20 06:00 88 15 92 Room Air 08/22/20 05:00 98 19 93 Room Air 08/22/20 04:00 98 19 92 Nasal Cannula 1.00 08/22/20 03:00 97 12 114/89 (97) 97 Nasal Cannula 1.00 08/22/20 02:00 104 12 98 Nasal Cannula 1.00 08/22/20 01:00 116 08/22/20 01:00 112 15 93 Nasal Cannula 1.00 08/22/20 00:00 109 12 104/68 (80) 90 Nasal Cannula 1.00 08/21/20 23:00 98 12 103/77 (86) 96 Nasal Cannula 1.00 08/21/20 22:00 98 12 103/75 (84) 95 Nasal Cannula 1.00 08/21/20 21:00 101 13 98/74 (82) 94 Room Air 08/21/20 20:00 111 13 104/92 (96) 94 Room Air 08/21/20 19:00 111 16 89/46 (60) 94 Room Air 08/21/20 19:00 111 08/21/20 18:00 104 16 107/67 (80) 95 Room Air 08/21/20 17:16 92 Room Air 08/21/20 17:00 106 19 106/71 (83) 95 Nasal Cannula 1.00 08/21/20 16:00 101 12 104/60 (75) 95 Nasal Cannula 1.00 08/21/20 15:32 36.5 93 Nasal Cannula 1.00 08/21/20 15:00 101 14 123/53 (76) 91 Nasal Cannula 2.00 08/21/20 14:00 93 13 100/62 (75) 96 Nasal Cannula 2.00 08/21/20 13:30 93 13 100/62 (75) 96 Nasal Cannula 2.00 08/21/20 13:15 96 12 79/55 (63) 95 Nasal Cannula 2.00 08/21/20 13:00 95 12 89 Nasal Cannula 2.00 08/21/20 12:52 95 08/21/20 12:45 98 13 83/59 (69) 95 Nasal Cannula 2.00 08/21/20 12:39 97 11 88/60 (75) 94 Nasal Cannula 2.00 08/21/20 12:35 Room Air 08/21/20 12:35 Nasal Cannula 2.00 97 08/21/20 12:30 36.9 13 88/60 (69) 92 Room Air 08/21/20 12:20 14 80/50 (60) 100 OxyMask 10 08/21/20 12:10 14 78/48 (58) 99 OxyMask 10 08/21/20 12:00 18 92/75 (81) 100 OxyMask 10 08/21/20 12:00 OxyMask 10 08/21/20 11:50 20 96/72 (80) 99 OxyMask 10 08/21/20 11:40 18 106/63 (77) 99 OxyMask 10 08/21/20 11:31 37.5 16 103/53 (70) 100 OxyMask 10 08/21/20 11:31 OxyMask 10 I & O 08/22/20 07:00 Intake Total 1100 ml Balance 1100 ml Capillary Refill : Less Than 3 Seconds General Appearance: No Apparent Distress, WD/WN, Obese HEENT: PERRL/EOMI, Moist Mucous Membranes Respiratory: Lungs Clear, No Accessory Muscle Use, No Respiratory Distress Cardiovascular: Regular Rate, Rhythm, No Murmur Gastrointestinal: non tender, soft Extremity: No Calf Tenderness, No Pedal Edema Neurologic/Psychiatric: Alert, Oriented x3 Skin: Normal Color, Warm/Dry, Other (Melanie-rectal abscess packed, no erythema on edges, no necrotic tissue in wound) Results Lab Laboratory Tests 08/21/20 11:38: Glucometer 166H 08/21/20 12:44: Glucometer 232H 08/21/20 13:05: Sodium Level 134L, Potassium Level 4.1, Chloride Level 101, Carbon Dioxide Level 17L, Anion Gap 16H, Blood Urea Nitrogen 8, Creatinine 0.75, Estimat Glomerular Filtration Rate > 60, BUN/Creatinine Ratio 11, Glucose Level 197H, Calcium Level 8.2L 08/21/20 13:34: Glucometer 248H 08/21/20 14:35: Glucometer 297H 08/21/20 15:35: Glucometer 198H 08/21/20 15:54: Sodium Level 134L, Potassium Level 3.7, Chloride Level 101, Carbon Dioxide Level 21, Anion Gap 12, Blood Urea Nitrogen 10, Creatinine 0.82, Estimat Glomerular Filtration Rate > 60, BUN/Creatinine Ratio 12, Glucose Level 166H, Calcium Level 8.0L, Phosphorus Level 3.2, Magnesium Level 1.5L 08/21/20 16:32: Glucometer 145H 08/21/20 17:30: Glucometer 159H 08/21/20 17:35: Sodium Level 132L, Potassium Level 3.9, Chloride Level 102, Carbon Dioxide Level 19L, Anion Gap 11, Blood Urea Nitrogen 9, Creatinine 0.84, Estimat Glomerular Filtration Rate > 60, BUN/Creatinine Ratio 11, Glucose Level 149H, Calcium Level 8.2L, Phosphorus Level 3.2, Magnesium Level 1.5L 08/21/20 18:37: Glucometer 160H 08/21/20 19:36: Sodium Level 133L, Potassium Level 3.7, Chloride Level 101, Carbon Dioxide Level 20L, Anion Gap 12, Blood Urea Nitrogen 10, Creatinine 0.95, Estimat Glomerular Filtration Rate > 60, BUN/Creatinine Ratio 11, Glucose Level 203H, Calcium Level 7.8L 08/21/20 19:57: Glucometer 223H 08/21/20 21:37: Glucometer 202H 08/21/20 22:30: Glucometer 158H 08/21/20 23:33: Glucometer 143H 08/22/20 00:10: Sodium Level 134L, Potassium Level 3.9, Chloride Level 102, Carbon Dioxide Level 19L, Anion Gap 13, Blood Urea Nitrogen 11, Creatinine 1.24, Estimat Glomerular Filtration Rate 45, BUN/Creatinine Ratio 9, Glucose Level 95, Calcium Level 7.8L 08/22/20 01:19: Glucometer 89 08/22/20 02:55: Glucometer 121H 08/22/20 03:37: Sodium Level 132L, Potassium Level 4.2, Chloride Level 102, Carbon Dioxide Level 17L, Anion Gap 13, Blood Urea Nitrogen 11, Creatinine 1.37H, Estimat Glomerular Filtration Rate 40, BUN/Creatinine Ratio 8, Glucose Level 109H, Calcium Level 7.8L, Phosphorus Level 3.6, Magnesium Level 1.4L, Beta-Hydroxybutyrate (Chem panel) 0.05, Vancomycin Level Trough 14.7 08/22/20 04:43: Glucometer 136H 08/22/20 04:45: White Blood Count 15.1H, Red Blood Count 3.74L, Hemoglobin 11.1L, Hematocrit 35, Mean Corpuscular Volume 94, Mean Corpuscular Hemoglobin 30, Mean Corpuscular Hemoglobin Concent 32, Red Cell Distribution Width 13.2, Platelet Count 302, Mean Platelet Volume 8.8L, Immature Granulocyte % (Auto) 1, Neutrophils (%) (Auto) 81H, Lymphocytes (%) (Auto) 13, Monocytes (%) (Auto) 5, Eosinophils (%) (Auto) 0, Basophils (%) (Auto) 0, Neutrophils # (Auto) 12.2H, Lymphocytes # (Auto) 2.0, Monocytes # (Auto) 0.8, Eosinophils # (Auto) 0.0, Basophils # (Auto) 0.1, Immature Granulocyte # (Auto) 0.1 08/22/20 06:36: Glucometer 130H 08/22/20 07:43: Glucometer 126H 08/22/20 07:59: Sodium Level 132L, Potassium Level 4.4, Chloride Level 102, Carbon Dioxide Level 18L, Anion Gap 12, Blood Urea Nitrogen 11, Creatinine 1.46H, Estimat Glomerular Filtration Rate 37, BUN/Creatinine Ratio 8, Glucose Level 64L, Calcium Level 7.6L 08/22/20 09:30: Glucometer 76 08/22/20 10:33: Glucometer 104 Microbiology 08/21/20 Gram Stain - Final, Resulted 08/21/20 Anaerobic Culture, Resulted Pending 08/21/20 Surgical Culture - Preliminary, Resulted Gram Negative Bacillus 1 Lactobacillus species 08/20/20 Blood Culture - Preliminary, Resulted No growth Assessment/Plan Assessment/Plan Assessment/Plan Hyponatremia - D5LR will not help raise her Sodium, probably needs NS. The Na+ mEq in LR is 130 and her Sodium right now is 132 Ischio-Rectal abscess - not necrotizing fasciitis and no necrotic tissue at this time, pt refusing wound VAC. Continue local wound care CARY BROWN DO Aug 22, 2020 11:24
--- NOTE | 2020-08-22 12:21 | Progress Note - Hospitalist ---
Subjective HPI/CC On Admission Date Seen by Provider: Aug 22, 2020 Time Seen by Provider: 11:45 CC: DKA with perineum abscess HPI: This is a 54yoWF known to me from prior COVID 03/2020 who presents to ER for thrid time due to buttock abscess. Dr Martinez has consulted me for DKA management. Insulin drip started. Pain is not controlled so ordered Dilaudid. Checked meds and labs. BP elevated so ordered meds. Subjective/Events-last exam Patient asleep Pain controlled s/p I&D yesterday Maintained on broad spectrum abx Monitored closely BMP reviewed Review of Systems General: Fatigue Neurological: Weakness Focused Exam Lactate Level 08/20/20 15:35: Lactic Acid Level 1.24 Objective Exam Vital Signs Vital Signs Date Time Temp Pulse Resp B/P (MAP) Pulse Ox O2 Delivery O2 Flow Rate FiO2 08/22/20 17:00 109 95 Room Air 08/22/20 15:33 35.9 08/22/20 15:00 14 08/22/20 04:00 1.00 08/21/20 12:35 97 Capillary Refill : Less Than 3 Seconds General Appearance: No Apparent Distress, WD/WN, Chronically ill, Obese Respiratory: Lungs Clear Cardiovascular: Regular Rate, Rhythm Results/Procedures Lab Laboratory Tests 08/21/20 19:36 08/22/20 00:10 08/22/20 03:37 08/22/20 04:45 08/22/20 07:59 08/22/20 12:40 Patient resulted labs reviewed. Assessment/Plan Assessment and Plan Assess & Plan/Chief Complaint Assessment: Buttock abscess s/p I&D POD # 1 Dr Martinez DKA Obesity HTN HLP Plan: IV abx Packing Monitor closely FEDERICA GILMORE DO Aug 22, 2020 12:21
[2020-08-22 12:58] LABS: POTASSIUM 4.3 MMOL/L (3.6-5.0)
[2020-08-22 13:00] LABS: CALCIUM 7.9 MG/DL (8.5-10.1)
[2020-08-22 13:04] LABS: CREATININE SERUM 1.52 MG/DL (0.60-1.30)
[2020-08-22] MEDS: D5 1/2 NS 1000 ML IV SOLUTION 1,000 ML IV SCH (13:19)
[2020-08-22] MEDS ORDERED: LACTATED RINGERS 1,000 ML IV ONE (13:40)
[2020-08-22] MEDS: LACTATED RINGERS 1,000 ML IV SCH ×2 (14:06→22:02)
--- NOTE | 2020-08-22 15:12 | Anesthesia-General Post-Op ---
General Patient Condition Mental Status/LOC: Same as Preop Cardiovascular: Satisfactory Nausea/Vomiting: Absent Respiratory: Satisfactory Pain: Controlled Complications: Absent Post Op Complications Complications None Follow Up Care/Instructions Patient Instructions None needed. Anesthesia/Patient Condition Patient Condition Patient is doing well, no complaints, stable vital signs, no apparent adverse anesthesia problems. No complications reported per nursing. AUSTIN THIBODEAUX CRNA Aug 22, 2020 15:12
[2020-08-22] MEDS: inSUlin ASPART (NovoLOG) 1 UNIT/0.01 ML (CHARGE PER UNIT) SQ SCH ×2 (16:49→21:18)
[2020-08-22] MEDS ORDERED: MEROPENEM 500 MG VIAL (MERREM) IV ONE (21:05)
[2020-08-22] MEDS ORDERED: WATER (STERILE) FOR INJECTION 10 ML ONE (21:05)
[2020-08-22] MEDS: SIMvastatin 40 MG (ZOCOR) TAB PO SCH (21:18)
[2020-08-22] MEDS: ENOXAPARIN 40 MG/0.4 ML (LOVENOX) SYR SC SCH (21:18)
[2020-08-23 00:18] VITALS: BP 109/64
[2020-08-23] MEDS: inSUlin ASPART (NovoLOG) 1 UNIT/0.01 ML (CHARGE PER UNIT) SQ SCH ×6 (00:23→20:30)
[2020-08-23] MEDS ORDERED: MEROPENEM 500 MG VIAL (MERREM) IV ONE (04:00)
[2020-08-23] MEDS ORDERED: WATER (STERILE) FOR INJECTION 10 ML ONE (04:00)
[2020-08-23] MEDS: MEROPENEM 500 MG/SWFI 10 ML IV PUSH IV SCH ×8 (04:15→22:08)
[2020-08-23] MEDS: LACTATED RINGERS 1,000 ML IV SCH ×3 (04:15→23:05)
[2020-08-23] MEDS: oxyCODONE/APAP 5/325MG (PERCOCET 5) TABLET PO PRN ×4 (04:19→22:08)
[2020-08-23 04:23] VITALS: BP 141/93
[2020-08-23] MEDS: VANCOMYCIN 1250 MG/NS 250 ML IVPB IV SCH ×4 (05:26→16:27)
[2020-08-23 06:27] LABS: CALCIUM 7.9 MG/DL (8.5-10.1); CREATININE SERUM 1.53 MG/DL (0.60-1.30); POTASSIUM 4.2 MMOL/L (3.6-5.0)
[2020-08-23 06:41] LABS: BASOPHILS % (AUTO) 0 % (0-10); EOSINOPHILS # (AUTO) 0.1 10^3/uL (0.0-0.3); EOSINOPHILS % (AUTO) 1 % (0-10); HEMATOCRIT 38 % (35-52); LYMPHOCYTES # (AUTO) 1.5 10^3/uL (1.0-4.0); LYMPHOCYTES % (AUTO) 17 % (12-44); MEAN CORPUSCULAR HEMOGLOBIN 29 pg (25-34); MEAN CORPUSCULAR HGB CONC 32 g/dL (32-36); MEAN CORPUSCULAR VOLUME 92 fL (80-99); MEAN PLATELET VOLUME 9.4 fL (9.0-12.2); MONOCYTES # (AUTO) 0.5 10^3/uL (0.0-1.0); MONOCYTES % (AUTO) 5 % (0-12); NEUTROPHILS # (AUTO) 6.7 10^3/uL (1.8-7.8); NEUTROPHILS % (AUTO) 76 % (42-75); PLATELET COUNT 297 10^3/uL (130-400); WHITE BLOOD COUNT 8.8 10^3/uL (4.3-11.0)
[2020-08-23 06:55] LABS: ALBUMIN 2.4 GM/DL (3.2-4.5); BILIRUBIN,DIRECT 0.2 MG/DL (0.0-0.3); BILIRUBIN,INDIRECT 0.1 MG/DL; BILIRUBIN,TOTAL 0.3 MG/DL (0.1-1.0); TOTAL PROTEIN 5.7 GM/DL (6.4-8.2)
--- NOTE | 2020-08-23 06:59 | Progress Note - Hospitalist ---
Subjective HPI/CC On Admission Date Seen by Provider: Aug 23, 2020 Time Seen by Provider: 09:30 CC: DKA with perineum abscess HPI: This is a 54yoWF known to me from prior COVID 03/2020 who presents to ER for thrid time due to buttock abscess. Dr Martinez has consulted me for DKA management. Insulin drip started. Pain is not controlled so ordered Dilaudid. Checked meds and labs. BP elevated so ordered meds. Subjective/Events-last exam Patient sleeps all the time Sugars are improved Pain is controlled Checked meds and labs IV abx maintained Review of Systems General: Fatigue Focused Exam Lactate Level 08/20/20 15:35: Lactic Acid Level 1.24 Objective Exam Vital Signs Vital Signs Date Time Temp Pulse Resp B/P (MAP) Pulse Ox O2 Delivery O2 Flow Rate FiO2 08/23/20 12:00 36.6 92 24 129/72 (91) 97 Room Air 08/22/20 04:00 1.00 08/21/20 12:35 97 Capillary Refill : Less Than 3 Seconds General Appearance: No Apparent Distress, WD/WN, Chronically ill, Obese Respiratory: Lungs Clear Cardiovascular: Regular Rate, Rhythm Neurologic/Psychiatric: Alert, Oriented x3 Results/Procedures Lab Laboratory Tests 08/23/20 05:45 Patient resulted labs reviewed. Assessment/Plan Assessment and Plan Assess & Plan/Chief Complaint Assessment: Buttock abscess s/p I&D POD # 1 Dr Juan CABRERA Obesity HTN HLP Plan: IV abx Packing Monitor closely 08/23/20: Monitor sugar Monitor wound FEDERICA GILMORE DO Aug 23, 2020 06:59
[2020-08-23 08:00] VITALS: BP 113/67
[2020-08-23] MEDS: SENNA W/DOCUSATE (SENOKOT S) TABLET PO SCH ×2 (09:06→20:29)
[2020-08-23] MEDS: ANIDULAFUNGIN 100 MG/NS 100 ML IV SCH ×2 (09:06)
[2020-08-23] MEDS: meTOprolol TARTRATE 25 MG (LOPRESSOR) TABLET PO SCH ×2 (09:07→20:30)
[2020-08-23] MEDS: ENOXAPARIN 40 MG/0.4 ML (LOVENOX) SYR SC SCH ×2 (09:51→20:31)
--- NOTE | 2020-08-23 10:48 | Progress Note - Surgery ---
Subjective Time Seen by a Provider: 10:31 Subjective/Events-last exam Pt seen and examined, no new changes and no new complaints. States she still has "bad" pain, tolerating diet. Review of Systems General: Fatigue, Malaise Pulmonary: No Dyspnea, No Cough Cardiovascular: No: Chest Pain, Palpitations Gastrointestinal: No: Nausea, Vomiting, Abdominal Pain Focused Exam Lactate Level 08/20/20 15:35: Lactic Acid Level 1.24 Objective Exam Vital Signs Date Time Temp Pulse Resp B/P (MAP) Pulse Ox O2 Delivery O2 Flow Rate FiO2 08/23/20 09:32 Room Air 08/23/20 08:00 36.3 98 20 113/67 (82) 94 Room Air 08/23/20 08:00 Room Air 08/23/20 04:23 35.8 100 16 141/93 (109) 96 Room Air 08/23/20 00:18 36.0 97 18 109/64 (79) 95 Room Air 08/22/20 20:35 Room Air 08/22/20 20:00 36.1 102 16 109/56 (73) 96 Room Air 08/22/20 17:00 109 95 Room Air 08/22/20 16:00 96 107/67 (80) 97 Room Air 08/22/20 15:33 35.9 08/22/20 15:00 87 14 Room Air 08/22/20 14:00 112 37 97 Room Air 08/22/20 13:00 94 9 117/79 (92) 92 Room Air 08/22/20 12:45 82 08/22/20 12:10 35.8 08/22/20 12:00 81 21 93 Room Air 08/22/20 11:00 92 11 95 Room Air I & O 08/23/20 07:00 Intake Total 1772.5 ml Output Total 2025 ml Balance -252.5 ml Capillary Refill : Less Than 3 Seconds General Appearance: No Apparent Distress, Obese HEENT: PERRL/EOMI, Moist Mucous Membranes Respiratory: Lungs Clear, No Accessory Muscle Use, No Respiratory Distress Cardiovascular: Regular Rate, Rhythm, No Murmur Gastrointestinal: non tender, soft Extremity: No Calf Tenderness, No Pedal Edema Skin: Normal Color, Warm/Dry, Other (Melanie-rectal abscess packed, no erythema on edges, no necrotic tissue in wound) Results Lab Laboratory Tests 08/22/20 12:32: Glucometer 176H 08/22/20 12:40: Sodium Level 132L, Potassium Level 4.3, Chloride Level 101, Carbon Dioxide Level 20L, Anion Gap 11, Blood Urea Nitrogen 12, Creatinine 1.52H, Estimat Glomerular Filtration Rate 35, BUN/Creatinine Ratio 8, Glucose Level 159H, Calcium Level 7.9L 08/22/20 16:15: Glucometer 119H 08/22/20 21:14: Glucometer 151H 08/23/20 00:14: Glucometer 182H 08/23/20 04:13: Glucometer 133H 08/23/20 05:45: White Blood Count 8.8, Red Blood Count 4.10, Hemoglobin 12.0, Hematocrit 38, Mean Corpuscular Volume 92, Mean Corpuscular Hemoglobin 29, Mean Corpuscular Hemoglobin Concent 32, Red Cell Distribution Width 13.2, Platelet Count 297, Mean Platelet Volume 9.4, Immature Granulocyte % (Auto) 1, Neutrophils (%) (Auto) 76H, Lymphocytes (%) (Auto) 17, Monocytes (%) (Auto) 5, Eosinophils (%) (Auto) 1, Basophils (%) (Auto) 0, Neutrophils # (Auto) 6.7, Lymphocytes # (Auto) 1.5, Monocytes # (Auto) 0.5, Eosinophils # (Auto) 0.1, Basophils # (Auto) 0.0, Immature Granulocyte # (Auto) 0.1, Sodium Level 135, Potassium Level 4.2, Chloride Level 105, Carbon Dioxide Level 19L, Anion Gap 11, Blood Urea Nitrogen 15, Creatinine 1.53H, Estimat Glomerular Filtration Rate 35, BUN/Creatinine Ratio 10, Glucose Level 132H, Calcium Level 7.9L, Magnesium Level 2.0, Total Bilirubin 0.3, Direct Bilirubin 0.2, Indirect Bilirubin 0.1, Aspartate Amino Transf (AST/SGOT) 16, Alanine Aminotransferase (ALT/SGPT) 11, Alkaline Phosphatase 162H, Total Protein 5.7L, Albumin 2.4L 08/23/20 08:11: Glucometer 138H Microbiology 08/21/20 Gram Stain - Final, Resulted 08/21/20 Anaerobic Culture, Resulted Pending 08/21/20 Surgical Culture - Preliminary, Resulted Escherichia coli Lactobacillus gasseri 08/21/20 Urine Culture - Preliminary, Resulted YEAST 08/20/20 Blood Culture - Preliminary, Resulted No growth Assessment/Plan Assessment/Plan Assessment/Plan Hyponatremia - resolved Ischio-Rectal abscess - WBC down to 8 now, not necrotizing fasciitis and no necrotic tissue at this time, pt refusing wound VAC. Continue local wound care CARY BROWN DO Aug 23, 2020 10:48
[2020-08-23 12:00] VITALS: BP 129/72
[2020-08-23 15:48] VITALS: BP 130/82
[2020-08-23 20:00] VITALS: BP 113/72
[2020-08-23] MEDS: SIMvastatin 40 MG (ZOCOR) TAB PO SCH (20:30)
[2020-08-24] VITALS (7 sets, daily range): BP systolic 135–155; BP diastolic 68–86
[2020-08-24] MEDS: inSUlin ASPART (NovoLOG) 1 UNIT/0.01 ML (CHARGE PER UNIT) SQ SCH ×6 (00:03→20:19)
[2020-08-24 05:39] LABS: BASOPHILS % (AUTO) 0 % (0-10); EOSINOPHILS # (AUTO) 0.1 10^3/uL (0.0-0.3); EOSINOPHILS % (AUTO) 1 % (0-10); HEMATOCRIT 41 % (35-52); HEMOGLOBIN 12.7 g/dL (11.5-16.0); LYMPHOCYTES # (AUTO) 1.7 10^3/uL (1.0-4.0); LYMPHOCYTES % (AUTO) 20 % (12-44); MEAN CORPUSCULAR HEMOGLOBIN 29 pg (25-34); MEAN CORPUSCULAR HGB CONC 31 g/dL (32-36); MEAN CORPUSCULAR VOLUME 93 fL (80-99); MEAN PLATELET VOLUME 9.5 fL (9.0-12.2); MONOCYTES # (AUTO) 0.6 10^3/uL (0.0-1.0); MONOCYTES % (AUTO) 6 % (0-12); NEUTROPHILS # (AUTO) 6.4 10^3/uL (1.8-7.8); NEUTROPHILS % (AUTO) 73 % (42-75); PLATELET COUNT 318 10^3/uL (130-400); WHITE BLOOD COUNT 8.8 10^3/uL (4.3-11.0)
[2020-08-24] MEDS: MEROPENEM 500 MG/SWFI 10 ML IV PUSH IV SCH ×8 (05:50→22:50)
[2020-08-24] MEDS: LACTATED RINGERS 1,000 ML IV SCH ×3 (05:50→13:13)
[2020-08-24] MEDS: oxyCODONE/APAP 5/325MG (PERCOCET 5) TABLET PO PRN ×3 (05:53→17:26)
[2020-08-24 05:58] LABS: ALBUMIN 2.5 GM/DL (3.2-4.5); BILIRUBIN,TOTAL 0.4 MG/DL (0.1-1.0); CALCIUM 8.3 MG/DL (8.5-10.1); CREATININE SERUM 1.6 MG/DL (0.60-1.30); POTASSIUM 4.4 MMOL/L (3.6-5.0); TOTAL PROTEIN 6.2 GM/DL (6.4-8.2)
[2020-08-24] MEDS: VANCOMYCIN 1250 MG/NS 250 ML IVPB IV SCH ×4 (06:06→17:25)
[2020-08-24] MEDS: meTOprolol TARTRATE 25 MG (LOPRESSOR) TABLET PO SCH ×2 (08:36→20:19)
[2020-08-24] MEDS: SENNA W/DOCUSATE (SENOKOT S) TABLET PO SCH ×2 (08:37→19:58)
[2020-08-24] MEDS: ENOXAPARIN 40 MG/0.4 ML (LOVENOX) SYR SC SCH ×2 (08:37→20:19)
--- NOTE | 2020-08-24 08:47 | Physician Query Clarification ---
PQ-Uncertain Diagnosis Admission/Discharge Admission Date: Aug 20, 2020 at 16:18 Discharge Date: Dr. Rodriguez, The medical record reflects the following clinical scenario: History/Risk Factors: ischiorectal abscess Clinical Findings: WBC 13.1, Lactic 1.24, T 36.3, P 93, R 18 Treatment: I&D and debridement ischiorectal abscess, IV Meropenem, IV Vancomycin, IV Aridulafungin Question: Is Sepsis a clinically valid diagnosis? Sepsis was documented in Dr. Krause's consult with no further documentation in the medical record. Please document a response in Progress Note or Discharge Summary. 1. Yes, clinically valid, condition resolved. 2. No, condition ruled out. 3. Other, with explanation of clinical findings. 4. Undetermined, no explanation for clinical findings. PHYSICIAN RESPONSE Diagnosis clinically valid: Yes, Conditon resolved Please remember a lack of response to the above will prompt a phone page by [facility]/Coding staff. In responding to this query, please exercise your independent professional judgment. The purpose of this communication is to more accurately reflect the complexity of your patients condition. The fact that a question is asked does not imply that any particular answer is desired or expected. Thank you for your timely response to this clarification. Requestors name: [email or web address] THIS PHYSICIAN QUERY FORM IS A PERMANENT PART OF THE MEDICAL RECORD ANGIE QUESADA Aug 24, 2020 08:47 MOLLY RODRIGUEZ MD Aug 24, 2020 19:14
[2020-08-24] MEDS: ANIDULAFUNGIN 100 MG/NS 100 ML IV SCH ×2 (10:02)
--- NOTE | 2020-08-24 12:53 | Progress Note ---
Subjective Subjective/Events-last exam Patient states that she is having more pain today. + drainage. Tolerating PO diet. Has not been up out of bed Review of Systems General: No Chills; Fatigue Cardiovascular: Edema; No: Chest Pain, Palpitations Gastrointestinal: Other (soft stool); No: Nausea, Vomiting, Abdominal Pain Genitourinary: Incontinence (Stool and urine) Neurological: Weakness, Incoordination Objective Exam Last Set of Vital Signs Vital Signs Date Time Temp Pulse Resp B/P (MAP) Pulse Ox O2 Delivery O2 Flow Rate FiO2 08/24/20 11:48 35.7 98 20 148/80 (102) 97 Room Air 08/24/20 07:37 0.00 08/21/20 12:35 97 Capillary Refill : Less Than 3 Seconds I&O Intake and Output 08/24/20 00:00 Intake Total 1420 ml Output Total 2400 ml Balance -980 ml Intake Oral 410 ml IV Total 1010 ml Output Urine Total 2400 ml # Bowel Movements 3 General: Alert, Oriented X3, Cooperative, Mild Distress (due to pain, laying on right side) Lungs: Clear to Auscultation, Normal Air Movement Heart: Regular Rate, No Murmurs Abdomen: Normal Bowel Sounds, Soft, No Tenderness, No Masses Extremities: Other (1+ pitting edema bilaterally) Skin: Other (Wound with purulent drainage, Moderate induration and swelling and redness) Neuro: Normal Speech Psych/Mental Status: Other (anxious) Results/Procedures Lab Laboratory Tests 08/23/20 16:04: Glucometer 168H 08/23/20 20:12: Glucometer 194H 08/23/20 23:56: Glucometer 154H 08/24/20 05:00: White Blood Count 8.8, Red Blood Count 4.38, Hemoglobin 12.7, Hematocrit 41, Mean Corpuscular Volume 93, Mean Corpuscular Hemoglobin 29, Mean Corpuscular Hemoglobin Concent 31L, Red Cell Distribution Width 13.2, Platelet Count 318, Mean Platelet Volume 9.5, Immature Granulocyte % (Auto) 1, Neutrophils (%) (Auto) 73, Lymphocytes (%) (Auto) 20, Monocytes (%) (Auto) 6, Eosinophils (%) (Auto) 1, Basophils (%) (Auto) 0, Neutrophils # (Auto) 6.4, Lymphocytes # (Auto) 1.7, Monocytes # (Auto) 0.6, Eosinophils # (Auto) 0.1, Basophils # (Auto) 0.0, Immature Granulocyte # (Auto) 0.1, Sodium Level 139, Potassium Level 4.4, Chloride Level 106, Carbon Dioxide Level 18L, Anion Gap 15H, Blood Urea Nitrogen 16, Creatinine 1.60H, Estimat Glomerular Filtration Rate 33, BUN/Creatinine Ratio 10, Glucose Level 180H, Calcium Level 8.3L, Corrected Calcium 9.5, Total Bilirubin 0.4, Aspartate Amino Transf (AST/SGOT) 18, Alanine Aminotransferase (ALT/SGPT) 12, Alkaline Phosphatase 172H, Total Protein 6.2L, Albumin 2.5L 08/24/20 05:08: Glucometer 189H 08/24/20 08:43: Glucometer 176H 08/24/20 11:50: Glucometer 193H Microbiology 08/21/20 Gram Stain - Final, Resulted 08/21/20 Anaerobic Culture, Resulted Pending 08/21/20 Surgical Culture - Preliminary, Resulted Escherichia coli Lactobacillus gasseri 08/21/20 Urine Culture - Final, Complete YEAST 08/20/20 Blood Culture - Preliminary, Resulted No growth Assessment/Plan Assessment/Plan (1) Ischiorectal abscess Status: Acute Assessment & Plan: 08/24: managed by Dr Martinez, patient states today that she would be willing to consider wound Vac (2) Acute kidney failure Status: Acute Assessment & Plan: 08/24: Cr trending up, likely 2/2 to medication, Continue with IVFs and daily BMPs (3) Uncontrolled diabetes mellitus Status: Acute Assessment & Plan: 08/24: A1c pending, previous to hospitalization she was not taking insulin, discussed with patient that she needs insulin and needs to improve her blood sugars to help with wound healing Qualifiers: Qualified Codes: E11.65 - Type 2 diabetes mellitus with hyperglycemia (4) Hypertension Status: Chronic Qualifiers: Qualified Codes: I10 - Essential (primary) hypertension (5) Diabetic ketoacidosis Status: Resolved Qualifiers: Qualified Codes: E11.10 - Type 2 diabetes mellitus with ketoacidosis without coma (6) DVT prophylaxis Status: Acute Assessment & Plan: - JACKELINE Santana MD Aug 24, 2020 12:53
[2020-08-24] MEDS: HYDROmorphone 2 MG/ML VIAL (DILAUDID) IV PRN ×2 (16:07→18:56)
--- NOTE | 2020-08-24 19:07 | Progress Note ---
Subjective Date Seen by a Provider: Aug 24, 2020 Time Seen by a Provider: 18:00 Subjective/Events-last exam doing ok. still having pain. no fever/chills. having bowel fxn. Objective Exam Vital Signs Date Time Temp Pulse Resp B/P (MAP) Pulse Ox O2 Delivery O2 Flow Rate FiO2 08/24/20 18:19 94 Room Air 0.00 08/24/20 16:00 35.9 102 18 155/86 (109) 98 Room Air 08/24/20 11:48 35.7 98 20 148/80 (102) 97 Room Air 08/24/20 08:00 Room Air 08/24/20 07:37 96 Room Air 0.00 08/24/20 07:36 35.9 99 16 148/72 (97) 96 Room Air 08/24/20 04:20 36.6 95 16 135/84 (101) 99 Room Air 08/24/20 02:38 36.3 97 96 08/24/20 00:34 36.3 97 16 138/84 (102) 96 Room Air 08/23/20 20:30 Nasal Cannula 1.00 08/23/20 20:00 35.5 105 20 113/72 (86) 96 Room Air 08/23/20 19:13 Room Air I & O 08/24/20 07:00 Intake Total 1570 ml Output Total 2400 ml Balance -830 ml Capillary Refill : Less Than 3 Seconds General Appearance: No Apparent Distress HEENT: PERRL/EOMI Neck: Full Range of Motion Respiratory: Chest Non Tender, Normal Breath Sounds Cardiovascular: Regular Rate, Rhythm Gastrointestinal: normal bowel sounds, non tender, soft Extremity: Normal Capillary Refill Neurologic/Psychiatric: Alert, Oriented x3 Skin: Normal Color Lymphatic: No Adenopathy Results Lab Laboratory Tests 08/23/20 20:12: Glucometer 194H 08/23/20 23:56: Glucometer 154H 08/24/20 05:00: White Blood Count 8.8, Red Blood Count 4.38, Hemoglobin 12.7, Hematocrit 41, Mean Corpuscular Volume 93, Mean Corpuscular Hemoglobin 29, Mean Corpuscular Hemoglobin Concent 31L, Red Cell Distribution Width 13.2, Platelet Count 318, Mean Platelet Volume 9.5, Immature Granulocyte % (Auto) 1, Neutrophils (%) (Auto) 73, Lymphocytes (%) (Auto) 20, Monocytes (%) (Auto) 6, Eosinophils (%) (Auto) 1, Basophils (%) (Auto) 0, Neutrophils # (Auto) 6.4, Lymphocytes # (Auto) 1.7, Monocytes # (Auto) 0.6, Eosinophils # (Auto) 0.1, Basophils # (Auto) 0.0, Immature Granulocyte # (Auto) 0.1, Sodium Level 139, Potassium Level 4.4, Chloride Level 106, Carbon Dioxide Level 18L, Anion Gap 15H, Blood Urea Nitrogen 16, Creatinine 1.60H, Estimat Glomerular Filtration Rate 33, BUN/Creatinine Ratio 10, Glucose Level 180H, Calcium Level 8.3L, Corrected Calcium 9.5, Total Bilirubin 0.4, Aspartate Amino Transf (AST/SGOT) 18, Alanine Aminotransferase (ALT/SGPT) 12, Alkaline Phosphatase 172H, Total Protein 6.2L, Albumin 2.5L 08/24/20 05:08: Glucometer 189H 08/24/20 08:43: Glucometer 176H 08/24/20 11:50: Glucometer 193H 08/24/20 16:31: Glucometer 174H Microbiology 08/21/20 Gram Stain - Final, Resulted 08/21/20 Anaerobic Culture - Preliminary, Resulted Culture In Progress 08/21/20 Surgical Culture - Final, Resulted Escherichia coli Lactobacillus gasseri 08/21/20 Urine Culture - Final, Complete YEAST 08/20/20 Blood Culture - Preliminary, Resulted No growth Assessment/Plan Assessment/Plan Assess & Plan/Chief Complaint s/p I&D ischiorectal abscess. cont IV abx wound vac tomorrow. MOLLY RODRIGUEZ MD Aug 24, 2020 19:07
[2020-08-24] MEDS: SIMvastatin 40 MG (ZOCOR) TAB PO SCH (20:18)
[2020-08-25] VITALS (7 sets, daily range): BP systolic 117–165; BP diastolic 69–88
[2020-08-25] MEDS: inSUlin ASPART (NovoLOG) 1 UNIT/0.01 ML (CHARGE PER UNIT) SQ SCH ×6 (00:32→21:10)
[2020-08-25] MEDS: oxyCODONE/APAP 10/325MG (PERCOCET 10) TABLET PO PRN ×4 (00:38→22:20)
[2020-08-25] MEDS: MEROPENEM 500 MG/SWFI 10 ML IV PUSH IV SCH ×8 (04:23→22:16)
[2020-08-25 04:51] LABS: BASOPHILS % (AUTO) 0 % (0-10); EOSINOPHILS # (AUTO) 0.1 10^3/uL (0.0-0.3); EOSINOPHILS % (AUTO) 1 % (0-10); HEMATOCRIT 35 % (35-52); HEMOGLOBIN 10.9 g/dL (11.5-16.0); LYMPHOCYTES # (AUTO) 1.6 10^3/uL (1.0-4.0); LYMPHOCYTES % (AUTO) 22 % (12-44); MEAN CORPUSCULAR HEMOGLOBIN 29 pg (25-34); MEAN CORPUSCULAR HGB CONC 32 g/dL (32-36); MEAN CORPUSCULAR VOLUME 92 fL (80-99); MEAN PLATELET VOLUME 8.7 fL (9.0-12.2); MONOCYTES # (AUTO) 0.7 10^3/uL (0.0-1.0); MONOCYTES % (AUTO) 9 % (0-12); NEUTROPHILS # (AUTO) 5.1 10^3/uL (1.8-7.8); NEUTROPHILS % (AUTO) 67 % (42-75); PLATELET COUNT 316 10^3/uL (130-400); WHITE BLOOD COUNT 7.6 10^3/uL (4.3-11.0)
[2020-08-25 05:01] LABS: ALBUMIN 2.3 GM/DL (3.2-4.5)
[2020-08-25 05:02] LABS: CALCIUM 7.7 MG/DL (8.5-10.1)
[2020-08-25 05:03] LABS: TOTAL PROTEIN 5.3 GM/DL (6.4-8.2)
[2020-08-25 05:05] LABS: BILIRUBIN,TOTAL 0.3 MG/DL (0.1-1.0)
[2020-08-25 05:07] LABS: CREATININE SERUM 1.49 MG/DL (0.60-1.30)
[2020-08-25] MEDS: SENNA W/DOCUSATE (SENOKOT S) TABLET PO SCH ×2 (07:38→21:11)
[2020-08-25] MEDS: ANIDULAFUNGIN 100 MG/NS 100 ML IV SCH ×2 (08:30)
[2020-08-25] MEDS: meTOprolol TARTRATE 25 MG (LOPRESSOR) TABLET PO SCH ×2 (08:31→21:09)
[2020-08-25] MEDS: ENOXAPARIN 40 MG/0.4 ML (LOVENOX) SYR SC SCH ×2 (08:31→21:10)
[2020-08-25] MEDS: HYDROmorphone 2 MG/ML VIAL (DILAUDID) IV PRN ×2 (09:40→13:53)
[2020-08-25] MEDS: MICONAZOLE 2% POWDER (DESENEX AF) 90 GM TOP SCH ×2 (10:56→21:10)
--- NOTE | 2020-08-25 17:56 | Progress Note ---
Subjective Subjective/Events-last exam Patient getting wound vac placed this AM. States that pain has improved. + drainage from wound. Tolerating PO diet. Has not been up to ambulate yet. Review of Systems Pulmonary: No Dyspnea Cardiovascular: No: Chest Pain, Palpitations, Edema Gastrointestinal: No: Nausea, Vomiting, Abdominal Pain, Diarrhea, Constipation Genitourinary: Other (laureano in place) Neurological: Weakness, Incoordination Objective Exam Last Set of Vital Signs Vital Signs Date Time Temp Pulse Resp B/P (MAP) Pulse Ox O2 Delivery O2 Flow Rate FiO2 08/25/20 16:06 36.3 97 18 145/83 (103) 94 Room Air 08/24/20 20:19 93 08/24/20 18:19 0.00 Capillary Refill : Less Than 3 Seconds I&O Intake and Output 08/25/20 00:00 Intake Total 3965.0 ml Output Total 2000 ml Balance 1965.0 ml Intake Oral 1280 ml IV Total 2685.0 ml Output Urine Total 2000 ml # Bowel Movements 2 General: Alert, Oriented X3, Cooperative, No Acute Distress HEENT: Mucous Memb Moist/[place] Lungs: Clear to Auscultation, Normal Air Movement Heart: Regular Rate, No Murmurs Abdomen: Normal Bowel Sounds, Soft, No Tenderness, No Masses Extremities: Other (1+ pitting edema bilaterally) Skin: Other (open wound on left buttock/perinium, moderate purulent drainage, + induration and erythema to mid thigh) Neuro: Normal Speech, Sensation Intact, Cranial Nerves 3-12 NL Psych/Mental Status: Mental Status NL, Mood NL Results/Procedures Lab Laboratory Tests 08/24/20 19:41: Glucometer 187H 08/25/20 00:09: Glucometer 133H 08/25/20 04:30: White Blood Count 7.6, Red Blood Count 3.75L, Hemoglobin 10.9L, Hematocrit 35, Mean Corpuscular Volume 92, Mean Corpuscular Hemoglobin 29, Mean Corpuscular Hemoglobin Concent 32, Red Cell Distribution Width 13.2, Platelet Count 316, Mean Platelet Volume 8.7L, Immature Granulocyte % (Auto) 1, Neutrophils (%) (Auto) 67, Lymphocytes (%) (Auto) 22, Monocytes (%) (Auto) 9, Eosinophils (%) (Auto) 1, Basophils (%) (Auto) 0, Neutrophils # (Auto) 5.1, Lymphocytes # (Auto) 1.6, Monocytes # (Auto) 0.7, Eosinophils # (Auto) 0.1, Basophils # (Auto) 0.0, Immature Granulocyte # (Auto) 0.1, Sodium Level 141, Potassium Level 4.0, Chloride Level 106, Carbon Dioxide Level 22, Anion Gap 13, Blood Urea Nitrogen 15, Creatinine 1.49H, Estimat Glomerular Filtration Rate 36, BUN/Creatinine Ratio 10, Glucose Level 189H, Calcium Level 7.7L, Corrected Calcium 9.1, Total Bilirubin 0.3, Aspartate Amino Transf (AST/SGOT) 14, Alanine Aminotransferase (ALT/SGPT) 9, Alkaline Phosphatase 138H, Total Protein 5.3L, Albumin 2.3L 08/25/20 04:31: Glucometer 178H 08/25/20 08:01: Glucometer 162H 08/25/20 11:19: Glucometer 216H 08/25/20 15:27: Glucometer 106 Microbiology 08/21/20 Gram Stain - Final, Complete 08/21/20 Anaerobic Culture - Final, Complete Mixed Anaerobic Valerie Parabacteroides distasonis Bacteroides goldsteinii 08/21/20 Surgical Culture - Final, Complete Escherichia coli Lactobacillus gasseri 08/21/20 Urine Culture - Final, Complete YEAST 08/20/20 Blood Culture - Preliminary, Resulted No growth Assessment/Plan Assessment/Plan (1) Ischiorectal abscess Status: Acute Assessment & Plan: 08/24: managed by Dr Martinez, patient states today that she would be willing to consider wound Vac 08/25: Wound Vac placed this AM, will adjust antibiotics, No MRSA in culture, D/c Vanc (2) Acute kidney failure Status: Acute Assessment & Plan: 08/24: Cr trending up, likely 2/2 to medication, Continue with IVFs and daily BMPs 08/25: Cr trending down, D/c Vanc today, daily BMPs, push oral hydration, continue IV hydration (3) Uncontrolled diabetes mellitus Status: Acute Assessment & Plan: 08/24: A1c pending, previous to hospitalization she was not taking insulin, discussed with patient that she needs insulin and needs to improve her blood sugars to help with wound healing 08/25: A1c 15.2, will start Levemir at night, SSI Qualifiers: Qualified Codes: E11.65 - Type 2 diabetes mellitus with hyperglycemia (4) Hypertension Status: Chronic Qualifiers: Qualified Codes: I10 - Essential (primary) hypertension (5) Diabetic ketoacidosis Status: Resolved Qualifiers: Qualified Codes: E11.10 - Type 2 diabetes mellitus with ketoacidosis without coma (6) DVT prophylaxis Status: Acute Assessment & Plan: - JACKELINE Santana MD Aug 25, 2020 17:56
[2020-08-25] MEDS: SIMvastatin 40 MG (ZOCOR) TAB PO SCH (21:08)
[2020-08-25] MEDS: ALPRAZolam 0.5 MG (XANAX) TAB PO PRN (21:08)
[2020-08-26] MEDS: MEROPENEM 500 MG/SWFI 10 ML IV PUSH IV SCH ×8 (04:37→22:29)
[2020-08-26 04:44] VITALS: BP 124/62
[2020-08-26 04:53] LABS: BASOPHILS % (AUTO) 0 % (0-10); EOSINOPHILS # (AUTO) 0.1 10^3/uL (0.0-0.3); EOSINOPHILS % (AUTO) 1 % (0-10); HEMATOCRIT 35 % (35-52); HEMOGLOBIN 10.9 g/dL (11.5-16.0); LYMPHOCYTES # (AUTO) 1.9 10^3/uL (1.0-4.0); LYMPHOCYTES % (AUTO) 24 % (12-44); MEAN CORPUSCULAR HEMOGLOBIN 29 pg (25-34); MEAN CORPUSCULAR HGB CONC 31 g/dL (32-36); MEAN CORPUSCULAR VOLUME 92 fL (80-99); MEAN PLATELET VOLUME 8.5 fL (9.0-12.2); MONOCYTES # (AUTO) 0.8 10^3/uL (0.0-1.0); MONOCYTES % (AUTO) 10 % (0-12); NEUTROPHILS # (AUTO) 4.8 10^3/uL (1.8-7.8); NEUTROPHILS % (AUTO) 64 % (42-75); PLATELET COUNT 301 10^3/uL (130-400); WHITE BLOOD COUNT 7.6 10^3/uL (4.3-11.0)
[2020-08-26 05:21] LABS: POTASSIUM 3.8 MMOL/L (3.6-5.0)
[2020-08-26 05:22] LABS: CALCIUM 7.9 MG/DL (8.5-10.1)
[2020-08-26 05:26] LABS: CREATININE SERUM 1.41 MG/DL (0.60-1.30)
[2020-08-26] MEDS: inSUlin ASPART (NovoLOG) 1 UNIT/0.01 ML (CHARGE PER UNIT) SQ SCH ×4 (05:29→21:48)
[2020-08-26] MEDS: SENNA W/DOCUSATE (SENOKOT S) TABLET PO SCH ×2 (07:45→21:41)
[2020-08-26] MEDS: meTOprolol TARTRATE 25 MG (LOPRESSOR) TABLET PO SCH ×2 (08:15→21:42)
[2020-08-26] MEDS: ENOXAPARIN 40 MG/0.4 ML (LOVENOX) SYR SC SCH ×2 (08:15→21:42)
[2020-08-26] MEDS: oxyCODONE/APAP 10/325MG (PERCOCET 10) TABLET PO PRN ×3 (08:15→21:41)
[2020-08-26] MEDS: MICONAZOLE 2% POWDER (DESENEX AF) 90 GM TOP SCH ×2 (08:15→21:43)
[2020-08-26] MEDS: ANIDULAFUNGIN 100 MG/NS 100 ML IV SCH ×2 (08:15)
[2020-08-26 08:17] VITALS: BP 141/68
[2020-08-26 11:37] VITALS: BP 142/70
--- NOTE | 2020-08-26 12:35 | Progress Note ---
Subjective Subjective/Events-last exam Patient states that she is feeling much better with the wound vac in place. She has not been up and out of bed. Tolerating PO diet. Review of Systems Pulmonary: No Dyspnea, No Cough Cardiovascular: No: Chest Pain, Palpitations Gastrointestinal: No: Nausea, Vomiting, Abdominal Pain Genitourinary: Incontinence (laureano in place) Neurological: Weakness Objective Exam Last Set of Vital Signs Vital Signs Date Time Temp Pulse Resp B/P (MAP) Pulse Ox O2 Delivery O2 Flow Rate FiO2 08/26/20 11:37 36.4 84 20 142/70 (94) 99 Room Air 08/25/20 23:22 2.00 08/24/20 20:19 93 Capillary Refill : Less Than 3 Seconds I&O Intake and Output 08/26/20 00:00 Intake Total 650 ml Output Total 1475 ml Balance -825 ml Intake Oral 650 ml Output Urine Total 1475 ml General: Alert, Oriented X3, Cooperative, No Acute Distress Lungs: Clear to Auscultation, Normal Air Movement Heart: Regular Rate, No Murmurs Abdomen: Normal Bowel Sounds, Soft, No Tenderness, No Masses Skin: Other (Wound vac in place with good seal and no leaking, induration and redness around wound has improved, purulent drainage from wound vac) Neuro: Normal Speech Psych/Mental Status: Mental Status NL, Mood NL Results/Procedures Lab Laboratory Tests 08/25/20 15:27: Glucometer 106 08/25/20 20:58: Glucometer 226H 08/26/20 04:45: White Blood Count 7.6, Red Blood Count 3.81, Hemoglobin 10.9L, Hematocrit 35, Mean Corpuscular Volume 92, Mean Corpuscular Hemoglobin 29, Mean Corpuscular Hemoglobin Concent 31L, Red Cell Distribution Width 13.2, Platelet Count 301, Mean Platelet Volume 8.5L, Immature Granulocyte % (Auto) 0, Neutrophils (%) (Auto) 64, Lymphocytes (%) (Auto) 24, Monocytes (%) (Auto) 10, Eosinophils (%) (Auto) 1, Basophils (%) (Auto) 0, Neutrophils # (Auto) 4.8, Lymphocytes # (Auto) 1.9, Monocytes # (Auto) 0.8, Eosinophils # (Auto) 0.1, Basophils # (Auto) 0.0, Immature Granulocyte # (Auto) 0.0, Sodium Level 141, Potassium Level 3.8, Chloride Level 106, Carbon Dioxide Level 25, Anion Gap 10, Blood Urea Nitrogen 16, Creatinine 1.41H, Estimat Glomerular Filtration Rate 39, BUN/Creatinine Ratio 11, Glucose Level 88, Calcium Level 7.9L 08/26/20 11:19: Glucometer 84 Microbiology 08/21/20 Gram Stain - Final, Complete 08/21/20 Anaerobic Culture - Final, Complete Mixed Anaerobic Valerie Parabacteroides distasonis Bacteroides goldsteinii 08/21/20 Surgical Culture - Final, Complete Escherichia coli Lactobacillus gasseri 08/21/20 Urine Culture - Final, Complete YEAST 08/20/20 Blood Culture - Preliminary, Resulted No growth Assessment/Plan Assessment/Plan (1) Ischiorectal abscess Status: Acute Assessment & Plan: 08/24: managed by Dr Martinez, patient states today that she would be willing to consider wound Vac 08/25: Wound Vac placed this AM, will adjust antibiotics, No MRSA in culture, D/c Vanc 08/26: Continue wound Vac (2) Acute kidney failure Status: Acute Assessment & Plan: 08/24: Cr trending up, likely 2/2 to medication, Continue with IVFs and daily BMPs 08/25: Cr trending down, D/c Vanc today, daily BMPs, push oral hydration, continue IV hydration 08/26: Cr trending down, Oral hydration and daily BMPs (3) Uncontrolled diabetes mellitus Status: Acute Assessment & Plan: 08/24: A1c pending, previous to hospitalization she was not taking insulin, discussed with patient that she needs insulin and needs to improve her blood sugars to help with wound healing 08/25: A1c 15.2, will start Levemir at night, SSI 08/26: DM education, discussed the need for insulin and much better control of DM to help with wound healing potential Qualifiers: Qualified Codes: E11.65 - Type 2 diabetes mellitus with hyperglycemia (4) Hypertension Status: Chronic Qualifiers: Qualified Codes: I10 - Essential (primary) hypertension (5) Diabetic ketoacidosis Status: Resolved Qualifiers: Qualified Codes: E11.10 - Type 2 diabetes mellitus with ketoacidosis without coma (6) Urinary incontinence, mixed Status: Chronic Assessment & Plan: 08/26: Will start Oxybutinin, laureano in place due to wound (7) DVT prophylaxis Status: Acute Assessment & Plan: - JACKELINE Santana MD Aug 26, 2020 12:35
[2020-08-26] MEDS: OXYBUTYNIN (DITROPAN) 5 MG TAB PO SCH (13:35)
[2020-08-26 15:47] VITALS: BP 128/80
[2020-08-26 20:00] VITALS: BP 133/78
[2020-08-26] MEDS: SIMvastatin 40 MG (ZOCOR) TAB PO SCH (21:42)
[2020-08-27] VITALS (8 sets, daily range): BP systolic 125–171; BP diastolic 60–71
[2020-08-27] MEDS: MEROPENEM 500 MG/SWFI 10 ML IV PUSH IV SCH ×8 (05:04→23:28)
[2020-08-27 05:22] LABS: CREATININE SERUM 1.42 MG/DL (0.60-1.30); POTASSIUM 3.8 MMOL/L (3.6-5.0)
[2020-08-27] MEDS: inSUlin ASPART (NovoLOG) 1 UNIT/0.01 ML (CHARGE PER UNIT) SQ SCH ×4 (05:37→20:32)
[2020-08-27] MEDS: MICONAZOLE 2% POWDER (DESENEX AF) 90 GM TOP SCH ×2 (09:55→21:39)
[2020-08-27] MEDS: OXYBUTYNIN (DITROPAN) 5 MG TAB PO SCH (09:55)
[2020-08-27] MEDS: ENOXAPARIN 40 MG/0.4 ML (LOVENOX) SYR SC SCH ×2 (09:55→20:32)
[2020-08-27] MEDS: SENNA W/DOCUSATE (SENOKOT S) TABLET PO SCH ×2 (09:55→20:32)
[2020-08-27] MEDS: meTOprolol TARTRATE 25 MG (LOPRESSOR) TABLET PO SCH ×2 (09:55→20:31)
[2020-08-27] MEDS: ANIDULAFUNGIN 100 MG/NS 100 ML IV SCH ×2 (09:56)
[2020-08-27] MEDS: oxyCODONE/APAP 10/325MG (PERCOCET 10) TABLET PO PRN (10:05)
[2020-08-27] MEDS: HYDROmorphone 2 MG/ML VIAL (DILAUDID) IV PRN ×4 (10:50→18:50)
--- NOTE | 2020-08-27 10:51 | Progress Note ---
Subjective Date Seen by a Provider: Aug 27, 2020 Time Seen by a Provider: 10:00 Subjective/Events-last exam doing ok. still having pain. wound improving. much less redness/edema Objective Exam Vital Signs Date Time Temp Pulse Resp B/P (MAP) Pulse Ox O2 Delivery O2 Flow Rate FiO2 08/27/20 10:30 92 Room Air 08/27/20 07:50 83 18 171/71 (104) 97 Room Air 08/27/20 04:00 36.2 83 18 142/68 (92) 94 Room Air 08/27/20 02:28 36.4 73 93 08/27/20 00:00 36.4 73 18 128/63 (84) 93 Room Air 08/26/20 20:59 Room Air 08/26/20 20:00 36.5 88 18 133/78 (96) 94 Room Air 08/26/20 18:29 Room Air 08/26/20 15:47 36.5 91 20 128/80 (96) 98 Room Air 08/26/20 11:37 36.4 84 20 142/70 (94) 99 Room Air I & O 08/27/20 07:00 Intake Total 1360 ml Output Total 2700 ml Balance -1340 ml Capillary Refill : Less Than 3 Seconds General Appearance: No Apparent Distress HEENT: PERRL/EOMI Neck: Full Range of Motion Respiratory: Chest Non Tender, Lungs Clear Cardiovascular: Regular Rate, Rhythm Gastrointestinal: normal bowel sounds, non tender, soft Extremity: Normal Capillary Refill Neurologic/Psychiatric: Alert, Oriented x3 Skin: Normal Color Lymphatic: No Adenopathy Results Lab Laboratory Tests 08/26/20 11:19: Glucometer 84 08/26/20 15:21: Glucometer 151H 08/26/20 20:35: Glucometer 228H 08/27/20 04:55: Sodium Level 142, Potassium Level 3.8, Chloride Level 106, Carbon Dioxide Level 24, Anion Gap 12, Blood Urea Nitrogen 18, Creatinine 1.42H, Estimat Glomerular Filtration Rate 38, BUN/Creatinine Ratio 13, Glucose Level 105, Calcium Level 8.0L Microbiology 08/21/20 Gram Stain - Final, Complete 08/21/20 Anaerobic Culture - Final, Complete Mixed Anaerobic Valerie Parabacteroides distasonis Bacteroides goldsteinii 08/21/20 Surgical Culture - Final, Complete Escherichia coli Lactobacillus gasseri 08/21/20 Urine Culture - Final, Complete YEAST 08/20/20 Blood Culture - Final, Complete No growth Assessment/Plan Assessment/Plan Assess & Plan/Chief Complaint s/p I&D ischiorectal abscess. cont IV abx cont vac MOLLY RODRIGUEZ MD Aug 27, 2020 10:51
--- NOTE | 2020-08-27 16:50 | Progress Note ---
Subjective Subjective/Events-last exam Patient states pain is improving. Wound vac being replaced this AM. Review of Systems Pulmonary: No Dyspnea, No Cough Cardiovascular: No: Chest Pain, Palpitations Gastrointestinal: No: Nausea, Vomiting, Abdominal Pain, Diarrhea, Constipation Genitourinary: Other (laureano in place) Neurological: Weakness, Incoordination Objective Exam Last Set of Vital Signs Vital Signs Date Time Temp Pulse Resp B/P (MAP) Pulse Ox O2 Delivery O2 Flow Rate FiO2 08/27/20 15:36 35.5 68 18 139/63 (88) 98 Room Air 08/25/20 23:22 2.00 08/24/20 20:19 93 Capillary Refill : Less Than 3 Seconds I&O Intake and Output 08/27/20 00:00 Intake Total 1335 ml Output Total 2500 ml Balance -1165 ml Intake Oral 1335 ml Output Urine Total 2500 ml General: Alert, Oriented X3, No Acute Distress Lungs: Clear to Auscultation, Normal Air Movement Heart: Regular Rate, No Murmurs Abdomen: Normal Bowel Sounds, Soft, No Tenderness, No Masses Extremities: No Edema, No Tenderness/Swelling Skin: Other (Wound vac in place with good suction) Results/Procedures Lab Laboratory Tests 08/26/20 20:35: Glucometer 228H 08/27/20 04:55: Sodium Level 142, Potassium Level 3.8, Chloride Level 106, Carbon Dioxide Level 24, Anion Gap 12, Blood Urea Nitrogen 18, Creatinine 1.42H, Estimat Glomerular Filtration Rate 38, BUN/Creatinine Ratio 13, Glucose Level 105, Calcium Level 8.0L 08/27/20 11:40: Glucometer 141H 08/27/20 15:16: Glucometer 156H Microbiology 08/21/20 Gram Stain - Final, Complete 08/21/20 Anaerobic Culture - Final, Complete Mixed Anaerobic Valerie Parabacteroides distasonis Bacteroides goldsteinii 08/21/20 Surgical Culture - Final, Complete Escherichia coli Lactobacillus gasseri 08/21/20 Urine Culture - Final, Complete YEAST 08/20/20 Blood Culture - Final, Complete No growth Assessment/Plan Assessment/Plan (1) Ischiorectal abscess Status: Acute Assessment & Plan: 08/24: managed by Dr Martinez, patient states today that she would be willing to consider wound Vac 08/25: Wound Vac placed this AM, will adjust antibiotics, No MRSA in culture, D/c Vanc 08/26: Continue wound Vac 08/27: Wound Vac, encouraged patient to start getting up and sitting in chair (2) Acute kidney failure Status: Acute Assessment & Plan: 08/24: Cr trending up, likely 2/2 to medication, Continue with IVFs and daily BMPs 08/25: Cr trending down, D/c Vanc today, daily BMPs, push oral hydration, continue IV hydration 08/26: Cr trending down, Oral hydration and daily BMPs 08/27: Cr Stable, push oral hydration, daily BMPs until Cr w/n normal range (3) Uncontrolled diabetes mellitus Status: Acute Assessment & Plan: 08/24: A1c pending, previous to hospitalization she was not taking insulin, discussed with patient that she needs insulin and needs to improve her blood sugars to help with wound healing 08/25: A1c 15.2, will start Levemir at night, SSI 08/26: DM education, discussed the need for insulin and much better control of DM to help with wound healing potential 08/27: Increase levemir to 15 qhs, continue SSI Qualifiers: Qualified Codes: E11.65 - Type 2 diabetes mellitus with hyperglycemia (4) Hypertension Status: Chronic Qualifiers: Qualified Codes: I10 - Essential (primary) hypertension (5) Diabetic ketoacidosis Status: Resolved Qualifiers: Qualified Codes: E11.10 - Type 2 diabetes mellitus with ketoacidosis without coma (6) Urinary incontinence, mixed Status: Chronic Assessment & Plan: 08/26: Will start Oxybutinin, laureano in place due to wound (7) DVT prophylaxis Status: Acute Assessment & Plan: - JACKELINE Santana MD Aug 27, 2020 16:49
[2020-08-27] MEDS: SIMvastatin 40 MG (ZOCOR) TAB PO SCH (20:31)
[2020-08-28] MEDS: MEROPENEM 500 MG/SWFI 10 ML IV PUSH IV SCH ×2 (04:59)
[2020-08-28 05:22] LABS: ALBUMIN 2.4 GM/DL (3.2-4.5); POTASSIUM 3.8 MMOL/L (3.6-5.0)
[2020-08-28 05:24] LABS: TOTAL PROTEIN 5.6 GM/DL (6.4-8.2)
[2020-08-28 05:26] LABS: BILIRUBIN,TOTAL 0.2 MG/DL (0.1-1.0)
[2020-08-28 05:28] LABS: CREATININE SERUM 1.44 MG/DL (0.60-1.30)
[2020-08-28] MEDS: inSUlin ASPART (NovoLOG) 1 UNIT/0.01 ML (CHARGE PER UNIT) SQ SCH ×4 (05:38→21:04)
[2020-08-28 07:32] VITALS: BP 156/75
[2020-08-28] MEDS: SENNA W/DOCUSATE (SENOKOT S) TABLET PO SCH ×2 (09:07→21:03)
[2020-08-28] MEDS: meTOprolol TARTRATE 25 MG (LOPRESSOR) TABLET PO SCH ×2 (09:08→21:03)
[2020-08-28] MEDS: ENOXAPARIN 40 MG/0.4 ML (LOVENOX) SYR SC SCH ×2 (09:09→21:03)
[2020-08-28] MEDS: OXYBUTYNIN (DITROPAN) 5 MG TAB PO SCH (09:09)
[2020-08-28] MEDS: oxyCODONE/APAP 10/325MG (PERCOCET 10) TABLET PO PRN ×2 (09:10→17:03)
[2020-08-28] MEDS: MICONAZOLE 2% POWDER (DESENEX AF) 90 GM TOP SCH ×2 (09:10→21:05)
[2020-08-28] MEDS: ANIDULAFUNGIN 100 MG/NS 100 ML IV SCH ×2 (09:50)
[2020-08-28 11:00] VITALS: BP 123/56
--- NOTE | 2020-08-28 11:09 | Progress Note ---
Subjective Date Seen by a Provider: Aug 28, 2020 Time Seen by a Provider: 11:00 Subjective/Events-last exam doing better. pain improving. no fever/chills. tolerating diet. Objective Exam Vital Signs Date Time Temp Pulse Resp B/P (MAP) Pulse Ox O2 Delivery O2 Flow Rate FiO2 08/28/20 08:00 Nasal Cannula 2.00 08/28/20 07:32 36.5 79 16 156/75 (102) 96 Room Air 08/27/20 23:42 36.1 88 14 139/63 (88) 94 Nasal Cannula 2.00 08/27/20 20:30 Nasal Cannula 2.00 08/27/20 19:47 95 Room Air 08/27/20 19:26 37.1 89 18 148/68 (94) 95 Nasal Cannula 2.00 08/27/20 15:36 35.5 68 18 139/63 (88) 98 Room Air 08/27/20 11:40 35.8 79 18 125/60 (81) 95 Room Air I & O 08/28/20 07:00 Intake Total 2020 ml Output Total 2100 ml Balance -80 ml Capillary Refill : Less Than 3 Seconds General Appearance: No Apparent Distress HEENT: PERRL/EOMI Neck: Full Range of Motion Respiratory: Chest Non Tender, Lungs Clear Cardiovascular: Regular Rate, Rhythm Gastrointestinal: normal bowel sounds, non tender, soft Extremity: Normal Capillary Refill, Other (wound vac intact, no new areas redness/erythema) Neurologic/Psychiatric: Alert, Oriented x3 Skin: Normal Color Lymphatic: No Adenopathy Results Lab Laboratory Tests 08/27/20 11:40: Glucometer 141H 08/27/20 15:16: Glucometer 156H 08/27/20 20:12: Glucometer 266H 08/28/20 05:00: Sodium Level 143, Potassium Level 3.8, Chloride Level 103, Carbon Dioxide Level 26, Anion Gap 14, Blood Urea Nitrogen 18, Creatinine 1.44H, Estimat Glomerular Filtration Rate 38, BUN/Creatinine Ratio 13, Glucose Level 141H, Calcium Level 8.0L, Corrected Calcium 9.3, Total Bilirubin 0.2, Aspartate Amino Transf (AST/SGOT) 16, Alanine Aminotransferase (ALT/SGPT) 8, Alkaline Phosphatase 125, Total Protein 5.6L, Albumin 2.4L 08/28/20 11:02: Glucometer 143H Microbiology 08/21/20 Gram Stain - Final, Complete 08/21/20 Anaerobic Culture - Final, Complete Mixed Anaerobic Valerie Parabacteroides distasonis Bacteroides goldsteinii 08/21/20 Surgical Culture - Final, Complete Escherichia coli Lactobacillus gasseri 08/21/20 Urine Culture - Final, Complete YEAST 08/20/20 Blood Culture - Final, Complete No growth Assessment/Plan Assessment/Plan Assess & Plan/Chief Complaint s/p I&D ischiorectal abscess. cont IV abx cont vac MOLLY RODRIGUEZ MD Aug 28, 2020 11:09
[2020-08-28 15:57] VITALS: BP 153/67
--- NOTE | 2020-08-28 19:19 | Progress Note ---
Subjective Subjective/Events-last exam Patient feeling much better this AM. States that she would like to get up and walk around. Tolerating PO diet Review of Systems Pulmonary: No Dyspnea, No Cough Cardiovascular: No: Chest Pain, Palpitations Gastrointestinal: No: Nausea, Vomiting Neurological: Weakness, Incoordination Objective Exam Last Set of Vital Signs Vital Signs Date Time Temp Pulse Resp B/P (MAP) Pulse Ox O2 Delivery O2 Flow Rate FiO2 08/28/20 15:57 36.8 80 22 153/67 (95) 95 Room Air 08/28/20 08:00 2.00 08/24/20 20:19 93 Capillary Refill : Less Than 3 Seconds I&O Intake and Output 08/28/20 00:00 Intake Total 1995 ml Output Total 2050 ml Balance -55 ml Intake Oral 1995 ml Output Urine Total 2050 ml General: Alert, Oriented X3, Cooperative, No Acute Distress Lungs: Clear to Auscultation, Normal Air Movement Heart: Regular Rate, No Murmurs Abdomen: Normal Bowel Sounds, Soft, No Tenderness, No Masses Skin: Other (Wound vac in place with good seal) Results/Procedures Lab Laboratory Tests 08/27/20 20:12: Glucometer 266H 08/28/20 05:00: Sodium Level 143, Potassium Level 3.8, Chloride Level 103, Carbon Dioxide Level 26, Anion Gap 14, Blood Urea Nitrogen 18, Creatinine 1.44H, Estimat Glomerular Filtration Rate 38, BUN/Creatinine Ratio 13, Glucose Level 141H, Calcium Level 8.0L, Corrected Calcium 9.3, Total Bilirubin 0.2, Aspartate Amino Transf (AST/SGOT) 16, Alanine Aminotransferase (ALT/SGPT) 8, Alkaline Phosphatase 125, Total Protein 5.6L, Albumin 2.4L 08/28/20 11:02: Glucometer 143H 08/28/20 15:56: Glucometer 207H Microbiology 08/21/20 Gram Stain - Final, Complete 08/21/20 Anaerobic Culture - Final, Complete Mixed Anaerobic Valerie Parabacteroides distasonis Bacteroides goldsteinii 08/21/20 Surgical Culture - Final, Complete Escherichia coli Lactobacillus gasseri 08/21/20 Urine Culture - Final, Complete YEAST 08/20/20 Blood Culture - Final, Complete No growth Assessment/Plan Assessment/Plan (1) Ischiorectal abscess Status: Acute Assessment & Plan: 08/24: managed by Dr Martinez, patient states today that she would be willing to consider wound Vac 08/25: Wound Vac placed this AM, will adjust antibiotics, No MRSA in culture, D/c Vanc 08/26: Continue wound Vac 08/27: Wound Vac, encouraged patient to start getting up and sitting in chair 08/28: Wound Vac, will likely need HH with wound Vac when time for d/c (2) Acute kidney failure Status: Acute Assessment & Plan: 08/24: Cr trending up, likely 2/2 to medication, Continue with IVFs and daily BMPs 08/25: Cr trending down, D/c Vanc today, daily BMPs, push oral hydration, continue IV hydration 08/26: Cr trending down, Oral hydration and daily BMPs 08/27: Cr Stable, push oral hydration, daily BMPs until Cr w/n normal range (3) Uncontrolled diabetes mellitus Status: Acute Assessment & Plan: 08/24: A1c pending, previous to hospitalization she was not taking insulin, discussed with patient that she needs insulin and needs to improve her blood sugars to help with wound healing 08/25: A1c 15.2, will start Levemir at night, SSI 08/26: DM education, discussed the need for insulin and much better control of DM to help with wound healing potential 08/27: Increase levemir to 15 qhs, continue SSI Qualifiers: Qualified Codes: E11.65 - Type 2 diabetes mellitus with hyperglycemia (4) Hypertension Status: Chronic Qualifiers: Qualified Codes: I10 - Essential (primary) hypertension (5) Diabetic ketoacidosis Status: Resolved Qualifiers: Qualified Codes: E11.10 - Type 2 diabetes mellitus with ketoacidosis without coma (6) Urinary incontinence, mixed Status: Chronic Assessment & Plan: 08/26: Will start Oxybutinin, laureano in place due to wound (7) DVT prophylaxis Status: Acute Assessment & Plan: - JACKELINE Santana MD Aug 28, 2020 19:19
[2020-08-28] MEDS: SIMvastatin 40 MG (ZOCOR) TAB PO SCH (21:03)
[2020-08-29] VITALS: BP 136/66
[2020-08-29] MEDS: inSUlin ASPART (NovoLOG) 1 UNIT/0.01 ML (CHARGE PER UNIT) SQ SCH ×4 (06:08→20:42)
[2020-08-29 08:00] VITALS: BP 137/63
[2020-08-29] MEDS: ENOXAPARIN 40 MG/0.4 ML (LOVENOX) SYR SC SCH ×2 (08:29→19:56)
[2020-08-29] MEDS: OXYBUTYNIN (DITROPAN) 5 MG TAB PO SCH (08:30)
[2020-08-29] MEDS: SENNA W/DOCUSATE (SENOKOT S) TABLET PO SCH ×2 (08:30→19:56)
[2020-08-29] MEDS: meTOprolol TARTRATE 25 MG (LOPRESSOR) TABLET PO SCH ×2 (08:30→19:56)
[2020-08-29] MEDS: MICONAZOLE 2% POWDER (DESENEX AF) 90 GM TOP SCH ×2 (08:30→19:57)
--- NOTE | 2020-08-29 11:14 | Progress Note - Hospitalist ---
Subjective HPI/CC On Admission Date Seen by Provider: Aug 29, 2020 Time Seen by Provider: 08:30 CC: DKA with perineum abscess HPI: This is a 54yoWF known to me from prior COVID 03/2020 who presents to ER for thrid time due to buttock abscess. Dr Martinez has consulted me for DKA management. Insulin drip started. Pain is not controlled so ordered Dilaudid. Checked meds and labs. BP elevated so ordered meds. Subjective/Events-last exam Patient sleeping soundly in no acute distress no evidence for diaphoresis clinically appears to be depressed. Objective Exam Vital Signs Vital Signs Date Time Temp Pulse Resp B/P (MAP) Pulse Ox O2 Delivery O2 Flow Rate FiO2 08/29/20 08:00 96 Room Air 08/29/20 08:00 36.3 77 16 137/63 (87) 08/28/20 08:00 2.00 08/24/20 20:19 93 Capillary Refill : Less Than 3 Seconds General Appearance: No Apparent Distress, Chronically ill, Obese Respiratory: Chest Non Tender, Lungs Clear, Normal Breath Sounds, No Accessory Muscle Use, No Respiratory Distress Cardiovascular: Regular Rate, Rhythm, No Murmur Results/Procedures Lab Patient resulted labs reviewed. Assessment/Plan Assessment and Plan Assess & Plan/Chief Complaint Assessment & Plan: 08/24: managed by Dr Martinez, patient states today that she would be willing to consider wound Vac 08/25: Wound Vac placed this AM, will adjust antibiotics, No MRSA in culture, D/c Vanc 08/26: Continue wound Vac 08/27: Wound Vac, encouraged patient to start getting up and sitting in chair 08/28: Wound Vac, will likely need HH with wound Vac when time for d/c 08/29: Medical problems that are multiple appear to be stable except the patient did have asymptomatic hypoglycemia with a blood sugar of 58 this morning she was fed early and an hour later her blood sugar was 76 she had not received any bolus insulin and had only been on 15 units of Levemir last night which I will h old as her p.o. intake is been a little erratic. We will continue sliding scale bolus insulin in the form of NovoLog and continue to monitor blood sugars. (2) Acute kidney failure Status: Acute Assessment & Plan: 08/24: Cr trending up, likely 2/2 to medication, Continue with IVFs and daily BMPs 08/25: Cr trending down, D/c Vanc today, daily BMPs, push oral hydration, continue IV hydration 08/26: Cr trending down, Oral hydration and daily BMPs 08/27: Cr Stable, push oral hydration, daily BMPs until Cr w/n normal range (3) Uncontrolled diabetes mellitus Status: Acute Assessment & Plan: 08/24: A1c pending, previous to hospitalization she was not taking insulin, discussed with patient that she needs insulin and needs to improve her blood sugars to help with wound healing 08/25: A1c 15.2, will start Levemir at night, SSI 08/26: DM education, discussed the need for insulin and much better control of DM to help with wound healing potential 08/27: Increase levemir to 15 qhs, continue SSI Qualifiers: Qualified Codes: E11.65 - Type 2 diabetes mellitus with hyperglycemia (4) Hypertension Status: Chronic Qualifiers: Qualified Codes: I10 - Essential (primary) hypertension (5) Diabetic ketoacidosis Status: Resolved Qualifiers: Qualified Codes: E11.10 - Type 2 diabetes mellitus with ketoacidosis without coma (6) Urinary incontinence, mixed Status: Chronic Assessment & Plan: 08/26: Will start Oxybutinin, laureano in place due to wound (7) DVT prophylaxis Status: Acute Assessment & Plan: - MARIA ISABEL Sifuentes MD Aug 29, 2020 11:14
--- NOTE | 2020-08-29 12:15 | Progress Note ---
Subjective Date Seen by a Provider: Aug 29, 2020 Time Seen by a Provider: 11:00 Subjective/Events-last exam doing ok. wound improving significantly. no fever/chills. Objective Exam Vital Signs Date Time Temp Pulse Resp B/P (MAP) Pulse Ox O2 Delivery O2 Flow Rate FiO2 08/29/20 08:00 96 Room Air 08/29/20 08:00 36.3 77 16 137/63 (87) 96 Room Air 08/29/20 00:00 36.6 68 20 136/66 (89) 92 Room Air 08/28/20 20:00 Room Air 08/28/20 18:50 96 Room Air 08/28/20 15:57 36.8 80 22 153/67 (95) 95 Room Air I & O 08/29/20 07:00 Intake Total 2460 ml Output Total 2050 ml Balance 410 ml Capillary Refill : Less Than 3 Seconds General Appearance: No Apparent Distress HEENT: PERRL/EOMI Neck: Full Range of Motion Respiratory: Chest Non Tender, Lungs Clear Cardiovascular: Regular Rate, Rhythm Gastrointestinal: normal bowel sounds, non tender, soft Extremity: Normal Capillary Refill Neurologic/Psychiatric: Alert, Oriented x3 Skin: Normal Color Lymphatic: No Adenopathy Results Lab Laboratory Tests 08/28/20 15:56: Glucometer 207H 08/28/20 20:33: Glucometer 119H 08/29/20 05:38: Glucometer 51*L 08/29/20 06:12: Glucometer 74 08/29/20 07:23: Glucometer 117H 08/29/20 10:36: Glucometer 152H Microbiology 08/21/20 Gram Stain - Final, Complete 08/21/20 Anaerobic Culture - Final, Complete Mixed Anaerobic Valerie Parabacteroides distasonis Bacteroides goldsteinii 08/21/20 Surgical Culture - Final, Complete Escherichia coli Lactobacillus gasseri 08/21/20 Urine Culture - Final, Complete YEAST 08/20/20 Blood Culture - Final, Complete No growth Assessment/Plan Assessment/Plan Assess & Plan/Chief Complaint s/p I&D ischiorectal abscess. cont IV abx cont vac SS for home care options. MOLLY RODRIGUEZ MD Aug 29, 2020 12:15
[2020-08-29] MEDS: HYDROmorphone 2 MG/ML VIAL (DILAUDID) IV PRN ×2 (13:17→18:47)
[2020-08-29 16:03] VITALS: BP 151/70
[2020-08-29] MEDS: SIMvastatin 40 MG (ZOCOR) TAB PO SCH (19:56)
[2020-08-30] VITALS: BP 144/67
[2020-08-30] MEDS: ONDANSETRON 4 MG/2 ML (SDV) Z0FRAN IVP PRN ×2 (00:53→17:41)
[2020-08-30] MEDS: inSUlin ASPART (NovoLOG) 1 UNIT/0.01 ML (CHARGE PER UNIT) SQ SCH ×4 (05:59→21:50)
[2020-08-30 08:00] VITALS: BP 162/77
--- NOTE | 2020-08-30 10:15 | Progress Note - Hospitalist ---
Subjective HPI/CC On Admission Date Seen by Provider: Aug 30, 2020 Time Seen by Provider: 09:00 CC: DKA with perineum abscess HPI: This is a 54yoWF known to me from prior COVID 03/2020 who presents to ER for thrid time due to buttock abscess. Dr Martinez has consulted me for DKA management. Insulin drip started. Pain is not controlled so ordered Dilaudid. Checked meds and labs. BP elevated so ordered meds. Subjective/Events-last exam Patient denies buttock pain and voices no complaints. She is hoping to go home tomorrow. She does report that the wound VAC has been difficult to maintain and she does not feel that she is going to be able to comply with this at home. Per surgeon they may just try wet-to-dry dressings and delinquency prevention social worker is looking into whether or not she can get insurance coverage for any form of home care on discharge. Objective Exam Vital Signs Vital Signs Date Time Temp Pulse Resp B/P (MAP) Pulse Ox O2 Delivery O2 Flow Rate FiO2 08/30/20 08:00 96 Room Air 08/30/20 08:00 36.1 76 16 162/77 (105) 08/28/20 08:00 2.00 08/24/20 20:19 93 Capillary Refill : Less Than 3 Seconds General Appearance: No Apparent Distress Respiratory: Chest Non Tender, Lungs Clear, Normal Breath Sounds, No Accessory Muscle Use, No Respiratory Distress Cardiovascular: Regular Rate, Rhythm, No Edema, No Gallop, No JVD, No Murmur, Normal Peripheral Pulses Back: Other (Left buttock wound VAC on the intact no drainage at the wound sites noted. No erythema or induration visualized.) Results/Procedures Lab Patient resulted labs reviewed. Assessment/Plan Assessment and Plan Assess & Plan/Chief Complaint Assessment & Plan: 08/24: managed by Dr Martinez, patient states today that she wou ld be willing to consider wound Vac 08/25: Wound Vac placed this AM, will adjust antibiotics, No MRSA in culture, D/c Vanc 08/26: Continue wound Vac 08/27: Wound Vac, encouraged patient to start getting up and sitting in chair 08/28: Wound Vac, will likely need HH with wound Vac when time for d/c 08/29: Medical problems that are multiple appear to be stable except the patient did have asymptomatic hypoglycemia with a blood sugar of 58 this morning she was fed early and an hour later her blood sugar was 76 she had not received any bolus insulin and had only been on 15 units of Levemir last night which I will hold as her p.o. intake is been a little erratic. We will continue sliding scale bolus insulin in the form of NovoLog and continue to monitor blood sugars. 08/30: Doing well see HPI likely discharge in the morning insurance coverage for home care pending. Wound VAC versus wet-to-dry dressings per surgical recommendation post discussion with the patient.In regards to her diabetes off of Levemir due to a.m. hypoglycemia yesterday morning her fasting sugar this morning was 186 we will add back lower dose 10 units Levemir tonight. (2) Acute kidney failure Status: Acute Assessment & Plan: 08/24: Cr trending up, likely 2/2 to medication, Continue with IVFs and daily BMPs 08/25: Cr trending down, D/c Vanc today, daily BMPs, push oral hydration, continue IV hydration 08/26: Cr trending down, Oral hydration and daily BMPs 08/27: Cr Stable, push oral hydration, daily BMPs until Cr w/n normal range (3) Uncontrolled diabetes mellitus Status: Acute Assessment & Plan: 08/24: A1c pending, previous to hospitalization she was not taking insulin, discussed with patient that she needs insulin and needs to improve her blood sugars to help with wound healing 08/25: A1c 15.2, will start Levemir at night, SSI 08/26: DM education, discussed the need for insulin and much better control of DM to help with wound healing potential 08/27: Increase levemir to 15 qhs, continue SSI Qualifiers: Qualified Codes: E11.65 - Type 2 diabetes mellitus with hyperglycemia (4) Hypertension Status: Chronic Qualifiers: Qualified Codes: I10 - Essential (primary) hypertension (5) Diabetic ketoacidosis Status: Resolved Qualifiers: Qualified Codes: E11.10 - Type 2 diabetes mellitus with ketoacidosis without coma (6) Urinary incontinence, mixed Status: Chronic Assessment & Plan: 08/26: Will start Oxybutinin, laureano in place due to wound (7) DVT prophylaxis Status: Acute Assessment & Plan: - MARIA ISABEL Sifuenets MD Aug 30, 2020 10:15
--- NOTE | 2020-08-30 10:24 | Progress Note ---
Subjective Date Seen by a Provider: Aug 30, 2020 Time Seen by a Provider: 09:35 Subjective/Events-last exam Patient seen with Dr. Martinez. Patient reports doing well, but still having pain of the perineum region. Dyer in place and patient reports it is supposed to be removed today. Reports that she has been ambulating to the bathroom for BMs. Objective Exam Vital Signs Date Time Temp Pulse Resp B/P (MAP) Pulse Ox O2 Delivery O2 Flow Rate FiO2 08/30/20 08:00 96 Room Air 08/30/20 08:00 36.1 76 16 162/77 (105) 93 Room Air 08/30/20 00:00 36.4 75 18 144/67 (92) 95 Room Air 08/29/20 19:55 94 Room Air 08/29/20 16:03 36.6 66 18 151/70 (97) 95 Room Air I & O 08/30/20 07:00 Intake Total 1430 ml Output Total 2050 ml Balance -620 ml Capillary Refill : Less Than 3 Seconds General Appearance: No Apparent Distress, WD/WN Neck: Normal Inspection, Supple Respiratory: No Accessory Muscle Use, No Respiratory Distress Cardiovascular: Regular Rate, Rhythm, No Edema Gastrointestinal: normal bowel sounds, non tender, soft Extremity: Normal Inspection, Normal Range of Motion Neurologic/Psychiatric: Alert, Oriented x3 Skin: Other (There is a wound vac in place of the perineum and left buttock. There is some mild localized erythema around the wound, more towards the perineum.) Results Lab Laboratory Tests 08/29/20 10:36: Glucometer 152H 08/29/20 16:06: Glucometer 199H 08/29/20 20:36: Glucometer 203H 08/30/20 05:55: Glucometer 186H Microbiology 08/21/20 Gram Stain - Final, Complete 08/21/20 Anaerobic Culture - Final, Complete Mixed Anaerobic Valerie Parabacteroides distasonis Bacteroides goldsteinii 08/21/20 Surgical Culture - Final, Complete Escherichia coli Lactobacillus gasseri 08/21/20 Urine Culture - Final, Complete YEAST 08/20/20 Blood Culture - Final, Complete No growth Assessment/Plan Assessment/Plan Assess & Plan/Chief Complaint s/p I&D ischiorectal abscess. cont IV abx cont vac SS for home care options. ADONIS CHEEMA MANAGER OF BUSINESS Aug 30, 2020 10:24
[2020-08-30] MEDS: SENNA W/DOCUSATE (SENOKOT S) TABLET PO SCH ×2 (10:31→20:09)
[2020-08-30] MEDS: OXYBUTYNIN (DITROPAN) 5 MG TAB PO SCH (10:31)
[2020-08-30] MEDS: meTOprolol TARTRATE 25 MG (LOPRESSOR) TABLET PO SCH ×2 (10:32→20:07)
[2020-08-30] MEDS: ENOXAPARIN 40 MG/0.4 ML (LOVENOX) SYR SC SCH ×2 (10:32→20:09)
[2020-08-30] MEDS: MICONAZOLE 2% POWDER (DESENEX AF) 90 GM TOP SCH ×2 (10:32→20:07)
[2020-08-30 15:30] VITALS: BP 164/76
[2020-08-30] MEDS: SIMvastatin 40 MG (ZOCOR) TAB PO SCH (20:07)
[2020-08-30 23:52] VITALS: BP 153/68
[2020-08-31] MEDS: oxyCODONE/APAP 10/325MG (PERCOCET 10) TABLET PO PRN ×2 (01:35→20:28)
[2020-08-31] MEDS: inSUlin ASPART (NovoLOG) 1 UNIT/0.01 ML (CHARGE PER UNIT) SQ SCH ×4 (06:46→22:03)
[2020-08-31 06:53] LABS: BASOPHILS % (AUTO) 0 % (0-10); EOSINOPHILS # (AUTO) 0.1 10^3/uL (0.0-0.3); EOSINOPHILS % (AUTO) 2 % (0-10); HEMATOCRIT 31 % (35-52); HEMOGLOBIN 9.9 g/dL (11.5-16.0); LYMPHOCYTES # (AUTO) 1.7 10^3/uL (1.0-4.0); LYMPHOCYTES % (AUTO) 31 % (12-44); MEAN CORPUSCULAR HEMOGLOBIN 29 pg (25-34); MEAN CORPUSCULAR HGB CONC 32 g/dL (32-36); MEAN CORPUSCULAR VOLUME 92 fL (80-99); MEAN PLATELET VOLUME 9.7 fL (9.0-12.2); MONOCYTES # (AUTO) 0.5 10^3/uL (0.0-1.0); MONOCYTES % (AUTO) 8 % (0-12); NEUTROPHILS # (AUTO) 3.3 10^3/uL (1.8-7.8); NEUTROPHILS % (AUTO) 59 % (42-75); PLATELET COUNT 209 10^3/uL (130-400); WHITE BLOOD COUNT 5.6 10^3/uL (4.3-11.0)
[2020-08-31 07:11] LABS: ALBUMIN 2.4 GM/DL (3.2-4.5); CHLORIDE 100 MMOL/L (98-107); POTASSIUM 3.3 MMOL/L (3.6-5.0); SODIUM 141 MMOL/L (135-145)
[2020-08-31 07:13] LABS: CALCIUM 7.8 MG/DL (8.5-10.1)
[2020-08-31 07:14] LABS: GLUCOSE 151 MG/DL (70-105); TOTAL PROTEIN 5.3 GM/DL (6.4-8.2)
[2020-08-31 07:15] LABS: CARBON DIOXIDE 32 MMOL/L (21-32)
[2020-08-31 07:16] LABS: BILIRUBIN,TOTAL 0.3 MG/DL (0.1-1.0)
[2020-08-31 07:17] LABS: ALKALINE PHOSPHATASE 94 U/L (40-136); CREATININE SERUM 1.41 MG/DL (0.60-1.30); GFR ESTIMATED 38
[2020-08-31 07:18] LABS: BUN/CREATININE RATIO 10
[2020-08-31 07:20] LABS: ALANINE AMINOTRANSFERASE < 6 U/L (0-55)
[2020-08-31 08:00] VITALS: BP 145/83
[2020-08-31] MEDS: OXYBUTYNIN (DITROPAN) 5 MG TAB PO SCH (09:05)
[2020-08-31] MEDS: meTOprolol TARTRATE 25 MG (LOPRESSOR) TABLET PO SCH ×2 (09:05→20:28)
[2020-08-31] MEDS: ENOXAPARIN 40 MG/0.4 ML (LOVENOX) SYR SC SCH ×2 (09:05→20:25)
[2020-08-31] MEDS: SENNA W/DOCUSATE (SENOKOT S) TABLET PO SCH ×2 (09:05→20:25)
[2020-08-31] MEDS: MICONAZOLE 2% POWDER (DESENEX AF) 90 GM TOP SCH ×2 (09:06→20:26)
--- NOTE | 2020-08-31 11:45 | Progress Note - Hospitalist ---
PADMA FAN MED STUDENT 08/31/20 1145: Subjective HPI/CC On Admission Date Seen by Provider: Aug 31, 2020 Time Seen by Provider: 08:20 CC: DKA with perineum abscess HPI: This is a 54yoWF known to me from prior COVID 03/2020 who presents to ER for thrid time due to buttock abscess. Dr Martinez has consulted me for DKA management. Insulin drip started. Pain is not controlled so ordered Dilaudid. Checked meds and labs. BP elevated so ordered meds. Subjective/Events-last exam Pt experienced 2hrs of N/Ving yesterday - she believes 2/2 food poisoning, light abd pain from this, feeling better today. Pain at debridement site continues to improve - mainly only pain with changes in position today. Foly cath removed yesterday - pt urinating today without complaints. Review of Systems Pulmonary: No Dyspnea, No Cough Cardiovascular: No: Chest Pain, Palpitations Gastrointestinal: Nausea, Vomiting, Abdominal Pain; No: Diarrhea, Constipation Neurological: No: Weakness, Confusion Objective Exam Vital Signs Vital Signs Date Time Temp Pulse Resp B/P (MAP) Pulse Ox O2 Delivery O2 Flow Rate FiO2 08/31/20 08:00 36.2 74 20 145/83 (103) 97 Nasal Cannula 1.00 Capillary Refill : Less Than 3 Seconds General Appearance: No Apparent Distress, WD/WN Neck: Full Range of Motion, Normal Inspection Respiratory: Lungs Clear, Normal Breath Sounds, No Accessory Muscle Use, No Respiratory Distress Cardiovascular: Regular Rate, Rhythm, Normal Peripheral Pulses Gastrointestinal: Non Tender, Soft, Abnormal Bowel Sounds (hyperactive BS X4 quadrants ) Neurologic/Psychiatric: Alert, Oriented x3, No Motor/Sensory Deficits, Normal Mood/Affect Skin: Other (wound vac in place over R buttock debridement site. ) Results/Procedures Lab Laboratory Tests 08/31/20 06:45 Patient resulted labs reviewed. Assessment/Plan Assessment and Plan Assess & Plan/Chief Complaint s/p I&D for ichiorectal abscess. Start PT/OT to assess ambulation. Pt finished ABs. pain levels continue to improve. pt on percocet. Wound VAC in place. Surgery following (Dr. Connor). SILVINO - likely intrinsic injury. Possibly 2/2 vancomycin. creatinine slowly improving. s/p DKA - IDDM Detemir + SSI HTN HLP Continue home meds DVT prophylaxis lovenox. MONA GILMORE DO 09/01/20 0530: Subjective Subjective/Events-last exam Pt is doing a lot better Will order PT and OT Wound-vac was placed two days ago Discontinued laureano yesterday and voiding well Pain is much improved BP is a little bit elevated CBC reviewed and potassium is 3.3 Pt does have acute kidney injury, creatinine is 1.4 today but down from 1.8 Completed antibiotics yesterday Will monitor sugar closely since she presented with DKA Review of Systems General: Fatigue Objective Exam General Appearance: No Apparent Distress, WD/WN, Chronically ill Respiratory: Lungs Clear Cardiovascular: Regular Rate, Rhythm Neurologic/Psychiatric: Alert, Oriented x3 Assessment/Plan Assessment and Plan Assess & Plan/Chief Complaint Wound vac Supervisory-Addendum Brief Verification & Attestation Participated in pt care: history, MDM, physical Personally performed: exam, history, MDM, supervision of care Care discussed with: Medical Student Procedures: n/a Results interpretation: Verified all documentation Verification and Attestation of Medical Student E/M Service A medical student performed and documented this service in my presence. I reviewed and verified all information documented by the medical student and made modifications to such information, when appropriate. I personally performed the physical exam and medical decision making. Mona Gilmore, Sep 01, 2020,05:29 PADMA FAN MED STUDENT Aug 31, 2020 11:45 MONA GILMORE DO Sep 01, 2020 05:30
[2020-08-31] MEDS: ALPRAZolam 0.5 MG (XANAX) TAB PO PRN (14:11)
[2020-08-31 15:24] VITALS: BP 145/83
[2020-08-31 16:00] VITALS: BP 138/63
--- NOTE | 2020-08-31 17:12 | Progress Note ---
Subjective Date Seen by a Provider: Aug 31, 2020 Time Seen by a Provider: 16:40 Subjective/Events-last exam Patient seen with Dr. Martinez. Patient reports doing well. Does report some pain of the perineum. Denies any fever/chills. Tolerating diet. Objective Exam Vital Signs Date Time Temp Pulse Resp B/P (MAP) Pulse Ox O2 Delivery O2 Flow Rate FiO2 08/31/20 16:00 36.1 61 18 138/63 (88) 92 Nasal Cannula 1.00 08/31/20 15:24 36.2 74 97 24 08/31/20 08:00 36.2 74 20 145/83 (103) 97 Nasal Cannula 1.00 08/31/20 08:00 Room Air 08/30/20 23:52 36.2 66 20 153/68 (96) 95 Nasal Cannula 1.00 08/30/20 20:29 Nasal Cannula 1.00 I & O 08/31/20 06:59 Intake Total 2100 ml Output Total 1760 ml Balance 340 ml Capillary Refill : Less Than 3 Seconds General Appearance: No Apparent Distress, WD/WN Neck: Full Range of Motion, Supple Respiratory: No Accessory Muscle Use, No Respiratory Distress Cardiovascular: Regular Rate, Rhythm, No Edema Gastrointestinal: normal bowel sounds, non tender, soft Extremity: Normal Inspection, Normal Range of Motion Neurologic/Psychiatric: Alert, Oriented x3 Skin: Normal Color, Warm/Dry (Wound vac to left buttock and perineum with mild localized erythema of the perineum.) Results Lab Laboratory Tests 08/30/20 20:40: Glucometer 251H 08/31/20 01:39: Glucometer 139H 08/31/20 06:44: Glucometer 146H 08/31/20 06:45: White Blood Count 5.6, Red Blood Count 3.39L, Hemoglobin 9.9L, Hematocrit 31L, Mean Corpuscular Volume 92, Mean Corpuscular Hemoglobin 29, Mean Corpuscular Hemoglobin Concent 32, Red Cell Distribution Width 12.9, Platelet Count 209, Mean Platelet Volume 9.7, Immature Granulocyte % (Auto) 0, Neutrophils (%) (Auto) 59, Lymphocytes (%) (Auto) 31, Monocytes (%) (Auto) 8, Eosinophils (%) (Auto) 2, Basophils (%) (Auto) 0, Neutrophils # (Auto) 3.3, Lymphocytes # (Auto) 1.7, Monocytes # (Auto) 0.5, Eosinophils # (Auto) 0.1, Basophils # (Auto) 0.0, Immature Granulocyte # (Auto) 0.0, Sodium Level 141, Potassium Level 3.3L, Chloride Level 100, Carbon Dioxide Level 32, Anion Gap 9, Blood Urea Nitrogen 14, Creatinine 1.41H, Estimat Glomerular Filtration Rate 38, BUN/Creatinine Ratio 10, Glucose Level 151H, Calcium Level 7.8L, Corrected Calcium 9.1, Total Bilirubin 0.3, Aspartate Amino Transf (AST/SGOT) 12, Alanine Aminotransferase (ALT/SGPT) < 6, Alkaline Phosphatase 94, Total Protein 5.3L, Albumin 2.4L 08/31/20 16:33: Glucometer 146H Microbiology 08/21/20 Gram Stain - Final, Complete 08/21/20 Anaerobic Culture - Final, Complete Mixed Anaerobic Valerie Parabacteroides distasonis Bacteroides goldsteinii 08/21/20 Surgical Culture - Final, Complete Escherichia coli Lactobacillus gasseri 08/21/20 Urine Culture - Final, Complete YEAST 08/20/20 Blood Culture - Final, Complete No growth Assessment/Plan Assessment/Plan Assess & Plan/Chief Complaint s/p I&D ischiorectal abscess. cont IV abx cont vac SS for home care options. ADONIS CHEEMA [employer] Aug 31, 2020 17:12
[2020-08-31] MEDS: SIMvastatin 40 MG (ZOCOR) TAB PO SCH (20:25)
[2020-09-01 00:36] VITALS: BP 132/60
[2020-09-01] MEDS: inSUlin ASPART (NovoLOG) 1 UNIT/0.01 ML (CHARGE PER UNIT) SQ SCH ×4 (06:54→21:15)
[2020-09-01 06:58] LABS: BASOPHILS % (AUTO) 1 % (0-10); EOSINOPHILS # (AUTO) 0.1 10^3/uL (0.0-0.3); EOSINOPHILS % (AUTO) 2 % (0-10); HEMATOCRIT 34 % (35-52); HEMOGLOBIN 10.5 g/dL (11.5-16.0); LYMPHOCYTES # (AUTO) 1.5 10^3/uL (1.0-4.0); LYMPHOCYTES % (AUTO) 25 % (12-44); MEAN CORPUSCULAR HEMOGLOBIN 29 pg (25-34); MEAN CORPUSCULAR HGB CONC 31 g/dL (32-36); MEAN CORPUSCULAR VOLUME 93 fL (80-99); MEAN PLATELET VOLUME 9.7 fL (9.0-12.2); MONOCYTES # (AUTO) 0.5 10^3/uL (0.0-1.0); MONOCYTES % (AUTO) 9 % (0-12); NEUTROPHILS # (AUTO) 3.8 10^3/uL (1.8-7.8); NEUTROPHILS % (AUTO) 64 % (42-75); PLATELET COUNT 216 10^3/uL (130-400)
[2020-09-01 07:09] LABS: ALBUMIN 2.6 GM/DL (3.2-4.5)
[2020-09-01 07:10] LABS: POTASSIUM 3.4 MMOL/L (3.6-5.0)
[2020-09-01 07:12] LABS: TOTAL PROTEIN 5.8 GM/DL (6.4-8.2)
[2020-09-01 07:14] LABS: BILIRUBIN,TOTAL 0.3 MG/DL (0.1-1.0)
[2020-09-01 07:16] LABS: CREATININE SERUM 1.44 MG/DL (0.60-1.30)
[2020-09-01 07:41] VITALS: BP 174/78
[2020-09-01] MEDS: SENNA W/DOCUSATE (SENOKOT S) TABLET PO SCH ×2 (08:29→21:16)
[2020-09-01] MEDS: meTOprolol TARTRATE 25 MG (LOPRESSOR) TABLET PO SCH ×2 (08:30→21:16)
[2020-09-01] MEDS: OXYBUTYNIN (DITROPAN) 5 MG TAB PO SCH (08:30)
[2020-09-01] MEDS: MICONAZOLE 2% POWDER (DESENEX AF) 90 GM TOP SCH ×2 (08:31→21:17)
[2020-09-01] MEDS: ENOXAPARIN 40 MG/0.4 ML (LOVENOX) SYR SC SCH ×2 (08:31→21:15)
[2020-09-01 11:15] VITALS: BP 135/66
--- NOTE | 2020-09-01 12:00 | Physical Therapy Evaluation ---
PT Evaluation-General Medical Diagnosis Admission Date Aug 20, 2020 at 16:18 Medical Diagnosis: ischio/rectal abscess/DM Onset Date: Aug 20, 2020 Therapy Diagnosis Therapy Diagnosis: debility Height/Weight Height (Feet): 5 Height (Inches): 6.00 Weight (Pounds): 320 Weight (Ounces): 12.8 Precautions Precautions/Isolations: Standard Precautions Referral Physician: Nelida Reason for Referral: Evaluation/Treatment Medical History Pertinent Medical History: COPD, DM, HTN Additional Medical History Covid 03/2020 Current History ER secondary to abscess Reviewed History: Yes Social History Home: Single Level Current Living Status: Alone Prior Prior Level of Function SCALE: Activities may be completed with or without assistive devices. 5-Iisjeatelm-gpkgsfq completes the activity by him/herself with no assistance from a helper. 5-Set-up or Clean-up Assistance-helper sets up or cleans up; patient completes activity. Slater assists only prior to or following the activity. 4-Supervision or Touching Assistance-helper provides verbal cues and/or touching/steadying and/or contact guard assistance as patient completes activity. Assistance may be provided throughout the activity or intermittently. 3-Partial/Moderate Assistance-helper does LESS THAN HALF the effort. Slater lifts, holds or supports trunk or limbs, but provides less than half the effort. 2-Substantial/Maximal Assistance-helper does MORE THAN HALF the effort. Slater lifts or holds trunk or limbs and provides more than half the effort. 6-Pifkzuzyd-dwjrgu does ALL the effort. Patient does none of the effort to complete the activity. Or, the assistance of 2 or more helpers is required for the patient to complete the activity. If activity was not attempted, code reason: 7-Patient Refused. 9-Not Applicable-not attempted and the patient did not perform the activity before the current illness, exacerbation or injury. 10-Not Attempted due to Environmental Limitations-(lack of equipment, weather restraints, etc.). 88-Not Attempted due to Medical Conditions or Safety Concerns. Bed Mobility: 6 Transfers (B,C,W/C): 6 Gait: 6 Stairs: 6 Indoor Mobility (Ambulation): Independent Stairs: Independent Prior Devices Use: None PT Evaluation-Current Subjective Patient agrees to PT. She reports she doesn't need PT but will do it once. Objective Patient Orientation: Normal For Age wound vac ROM/Strength ROM Lower Extremities bilateral LE WFL Strength Lower Extremities 5/5 grossly bilateral LE Integumentary/Posture Integumentary refer to nursing notes Bowel Incontinence: No Bladder Incontinence: No Posture WFL Neuromuscular (Tone, Coordination, Reflexes) grossly intact Sensory Vision: Wears Glasses Hearing: Functional Transfers Roll Left to Right (QC): 6 Sit to Lying (QC): 6 Lying to Sitting/Side of Bed(Q: 6 Sit to Stand (QC): 6 Chair/Kaj-bg-Ltpdk Xfer(QC): 6 Toilet Transfer (QC): 6 Gait Does the Patient Walk?: Yes Mode of Locomotion: Walk Anticipated Mode of Locomotion: Walk Walk 10 feet (QC): 6 Walk 50 ft with 2 Turns(QC): 6 Walk 150 ft (QC): 6 Distance: 400' Gait Assistive Device: None Comments/Gait Description safe and functional with no deviation Balance Sitting Static: Normal Sitting Dynamic: Normal Standing Static: Normal Standing Dynamic: Normal Picking up an Object (QC): 6 Assessment/Needs 55 y.o. female, is currently at independent [facility] with all gross motor skills. No PT indicated. Nursing instructed to allow patient to ambulate PRN in hallway independently. Rehab Potential: Fair PT Plan Treatment/Plan Treatment Plan: Discontinue PT, goals met Treatment Duration: Sep 01, 2020 Frequency: 1 time per week Estimated Hrs Per Day: .25 hour per day Patient and/or Family Agrees t: Yes Time/GCodes Time In: 1135 Time Out: 1145 Total Billed Treatment Time: 10 Total Billed Treatment 1 visit EVLowC 10 min JENARO ARAYA PT Sep 01, 2020 12:00
--- NOTE | 2020-09-01 12:15 | Progress Note - Hospitalist ---
PADMA FAN MED STUDENT 09/01/20 1215: Subjective HPI/CC On Admission Date Seen by Provider: Sep 01, 2020 Time Seen by Provider: 08:20 CC: DKA with perineum abscess HPI: This is a 54yoWF known to me from prior COVID 03/2020 who presents to ER for thrid time due to buttock abscess. Dr Martinez has consulted me for DKA management. Insulin drip started. Pain is not controlled so ordered Dilaudid. Checked meds and labs. BP elevated so ordered meds. Subjective/Events-last exam Pts pain at debridement site continues to improve. Abd pain resolved. Pt eager to work with PT/OT. No other concerns today. CMP and CBC stable today. Review of Systems General: No Chills, No Night Sweats Pulmonary: No Dyspnea, No Cough Cardiovascular: No: Chest Pain, Palpitations Gastrointestinal: No: Nausea, Vomiting, Abdominal Pain Genitourinary: No Dysuria, No Incontinence Objective Exam Vital Signs Vital Signs Date Time Temp Pulse Resp B/P (MAP) Pulse Ox O2 Delivery O2 Flow Rate FiO2 09/01/20 10:39 Room Air 09/01/20 07:41 36.3 76 18 174/78 (110) 95 09/01/20 00:36 1.00 08/31/20 15:24 24 Capillary Refill : Less Than 3 Seconds General Appearance: No Apparent Distress, WD/WN Neck: Full Range of Motion, Normal Inspection Respiratory: Lungs Clear, Normal Breath Sounds, No Accessory Muscle Use, No Respiratory Distress Cardiovascular: Regular Rate, Rhythm, Normal Peripheral Pulses Gastrointestinal: Non Tender, Soft Rectal: Deferred Extremity: Normal Capillary Refill, Other (VAC in place over debridment site adjucent to pts gluteal cleft ) Neurologic/Psychiatric: Alert, Oriented x3, Normal Mood/Affect Results/Procedures Lab Laboratory Tests 09/01/20 06:51 Patient resulted labs reviewed. Assessment/Plan Assessment and Plan Assess & Plan/Chief Complaint s/p I&D for ichiorectal abscess. Start PT/OT to assess ambulation. Pt finished ABs. pain levels continue to improve. Wound VAC in place. Surgery following (Dr. Connor). SILVINO - probable ATN from vanc nephrotoxicity. finished AB course. creatinine stable. 1.44 from 1.41 yesterday. s/p DKA - IDDM Detemir + SSI HTN HLP Continue home meds DVT prophylaxis lovenox. MONA GILMORE DO 09/02/20 0622: Subjective Subjective/Events-last exam No major issues PT and and OT will be ordered Pain is about the same No major concerns Review of Systems General: Fatigue Objective Exam General Appearance: No Apparent Distress, WD/WN, Chronically ill Respiratory: Lungs Clear Cardiovascular: Regular Rate, Rhythm Assessment/Plan Assessment and Plan Assess & Plan/Chief Complaint DC planning Supervisory-Addendum Brief Verification & Attestation Participated in pt care: history, MDM, physical Personally performed: exam, history, MDM, supervision of care Care discussed with: Medical Student Procedures: n/a Results interpretation: Verified all documentation Verification and Attestation of Medical Student E/M Service A medical student performed and documented this service in my presence. I revie wed and verified all information documented by the medical student and made modifications to such information, when appropriate. I personally performed the physical exam and medical decision making. Mona Gilmore, Sep 02, 2020,06:21 PADMA FAN MED STUDENT Sep 01, 2020 12:15 MONA GILMORE DO Sep 02, 2020 06:22
[2020-09-01] MEDS: ALPRAZolam 0.5 MG (XANAX) TAB PO PRN (12:47)
[2020-09-01] MEDS: oxyCODONE/APAP 10/325MG (PERCOCET 10) TABLET PO PRN ×2 (14:01→23:19)
--- NOTE | 2020-09-01 15:39 | Occupational Therapy Eval ---
OT Evaluation-General/PLF Medical Diagnosis Admission Date Aug 20, 2020 at 16:18 Medical Diagnosis: ischio/rectal abscess/DM Onset Date: Aug 20, 2020 Therapy Diagnosis Therapy Diagnosis: Weakness Height/Weight Height (Feet): 5 Height (Inches): 6.00 Weight (Pounds): 320 Weight (Ounces): 12.8 Precautions Precautions/Isolations: Standard Precautions Weight Bear Status Weight Bearing Restriction: Weight Bearing/Tolerated Referral Physician: Nelida Referral Reason: Activity Tolerance, Self Care, Evaluation/Treatment, Strengthening/ROM Medical History Pertinent Medical History: COPD, DM, HTN Additional Medical History Debridement Current History Pt. in hospital with abscess in perineum. Pt. had on wound vac, but wound vac removed today. Wet to dry dressing placed today. Pt. states that her family will come in to be trained on how to change this. Reviewed History: Yes Social History Home: Single Level Current Living Status: Friend Entry Into Home: Stairs With Railing Steps Into Home: 3 ADL-Prior Level of Function SCALE: Activities may be completed with or without assistive devices. 5-Dokjvpxzqo-xvigjvt completes the activity by him/herself with no assistance from a helper. 5-Set-up or Clean-up Assistance-helper sets up or cleans up; patient completes activity. [place]well assists only prior to or following the activity. 4-Supervision or Touching Assistance-helper provides verbal cues and/or touching/steadying and/or contact guard assistance as patient completes activity. Assistance may be provided throughout the activity or intermittently. 3-Partial/Moderate Assistance-helper does LESS THAN HALF the effort. Stockwell lifts, holds or supports trunk or limbs, but provides less than half the effort. 2-Substantial/Maximal Assistance-helper does MORE THAN HALF the effort. Stockwell lifts or holds trunk or limbs and provides more than half the effort. 8-Rtjwtbsod-brgswq does ALL the effort. Patient does none of the effort to complete the activity. Or, the assistance of 2 or more helpers is required for the patient to complete the activity. If activity was not attempted, code reason: 7-Patient Refused. 9-Not Applicable-not attempted and the patient did not perform the activity before the current illness, exacerbation or injury. 10-Not Attempted due to Environmental Limitations-(lack of equipment, weather restraints, etc.). 88-Not Attempted due to Medical Conditions or Safety Concerns. ADL PLOF Comments Pt. reports that she is typically independent with daily tasks. She does not use an assistive device for ambulation. If she goes to her home, she will have 3 steps at entry. If she decides to stay with her daughter, she will have 7 steps at entry. Self Care: Independent Functional Cognition: Independent DME/Equipment: Shower OT Current Status Subjective Pt. reports some pain but does not report pain level. This is in abscess area. Pt. states that she just had a pain pill and that it is "kicking in." Appearance Pt. in bed. Alert and oriented. Pt. pleasant. Mental Status/Objective Patient Orientation: Person, Place, Time, Situation Current Glasses/Contacts: Yes Upper Extremity ROM WFL Upper Extremity Strength WFL ADL-Treatment Eating (QC): 6 (per pt.) Shower/Bathe Self (QC): 88 On/Off Footwear (QC): 6 Other Treatments OT talks with pt. in length about current situation. OT also explains purpose of OT goals. Pt. has a new dressing on her buttock area, and asks about being able to shower at some point. Nursing comes into room and states that he will check with physician on this. Pt. may be able to shower in between dressing changes but not today as she has new wet to dry dressing. Pt. okay with this. Pt. transfers supine-sit with independence. Pt. able to bring bilateral feet up to her to doff/don slipper socks with effort only due to discomfort in buttock area. Pt. agrees to ambulate with OT. Stands with independence, no walker, and ambulates approximately 100 feet. Pt. transfers back to bed independently. All needs met. Education OT Patient Education: Correct positioning, Modified ADL techniques, Progress toward Goal/Update tx plan, Purpose of tx/functional activities, Reviewed precautions, Rehab process, Transfer techniques Teaching Recipient: Patient Teaching Methods: Demonstration, Discussion Response to Teaching: Verbalize Understanding, Return Demonstration OT Pheresis Specialist Goals Retirement Goals Time Frame: Sep 08, 2020 Eating (QC): 6 Oral Hygiene (QC): 6 Toileting Hygiene (QC): 6 Shower/Bathe Self (QC): 6 Upper Body Dressing (QC): 6 Lower Body Dressing (QC): 6 On/Off Footwear (QC): 6 Additional Goals: 1-Demonstrate ADL Tasks, 2-Verbalize Understanding, 3- ImproveStrength/Demetrius 1=Demonstrate adherence to instructed precautions during ADL tasks. 2=Patient will verbalize/demonstrate understanding of assistive devices/modifications for ADL. 3=Patient will improve strength/tolerance for activity to enable patient to perform ADL's. OT Education/Plan Problem List/Assessment Assessment: Decreased Activ Tolerance Discharge Recommendations Plan/Recommendations: Continue POC Therapy Discharge Recommendati: Home & Family Treatment Plan/Plan of Care Treatment,Training & Education: Yes Patient would benefit from OT for education, treatment and training to promote independence in ADL's, mobility, safety and/or upper extremity function for ADL's. Plan of Care: ADL Retraining Treatment Duration: Sep 08, 2020 Frequency: 5 times per week Estimated Hrs Per Day: .25 hour per day Agreement: Yes Rehab Potential: Good Time/GCodes Start Time: 14:40 Stop Time: 15:10 Total Time Billed (hr/min): 30 Billed Treatment Time 1, EVL x 15minutes, FA x 15minutes RED DE OLIVEIRA OT Sep 01, 2020 15:39
[2020-09-01 16:00] VITALS: BP 133/68
[2020-09-01] MEDS ORDERED: SIMV40TA25 PO (20:28)
[2020-09-01] MEDS ORDERED: OXYB5TAB13 PO (20:28)
[2020-09-01] MEDS ORDERED: MICO90PO TOP (20:28)
[2020-09-01] MEDS ORDERED: OXYC1TAB12 PO (20:28)
[2020-09-01] MEDS ORDERED: METO-333 PO (20:28)
[2020-09-01] MEDS ORDERED: SENN1TAB76 PO (20:28)
--- NOTE | 2020-09-01 20:31 | D/C HH Face to Face Order ---
D/C Face to Face Orders Reconcile Patient Problems Problems Reviewed?: Yes Instructions for Patient Via [facility], Patient Instructions/FollowUp: [facility] 1 week Wet to dry dressing changes Physician to follow Patient: [facility] Discharge Diet for Home: ADA Diet Patient Problems: DM Buttock abscess Patient Data-Allergies,Ht & Wt Patient Allergies: Coded Allergies: Penicillins (Verified Allergy, Unknown, 05/09/17) aspirin (Verified Allergy, Unknown, 05/09/17) morphine (Verified Allergy, Unknown, 05/09/17) Height (Feet): 5 Height (Inches): 6.00 Weight (Pounds): 320 Weight (Ounces): 12.8 Home Health Need/Face to Face Date of Face to Face: Sep 01, 2020 Clinical Findings: Non-healing wound I have seen Pt ptdw-xb-hguo: Yes Discharged To: Home Diagnosis/Conditions: DM Wound Patient is Homebound due to: Muscle weakness Homebound Status Due to the above stated illness, injury or surgical procedure (medical condition or diagnosis) and associated clinical findings, the patient is homebound because of his/her inability to leave home except with aid of a supportive device and/or person AND leaving the home requires a considerable and taxing effort or is medically contraindicated. Pt req the following assistanc: Walker Home Health Nursing Orders Home Health Services Order: Nursing Services (wet to dry dressings) Home Health Infusion Therapy Line Start Date: Aug 24, 2020 Certify Stmt I certify that this patient is under my care and that I, a nurse practitioner or a physician; a billing and accounting staff assistant working with me, had a face to face encounter that - meets the physician face to face encounter requirements with this patient as dated. FEDERICA GILMORE DO Sep 01, 2020 20:31
[2020-09-01] MEDS ORDERED: PEN-53 MC (20:32)
[2020-09-01] MEDS ORDERED: INSU100I29 SQ (20:32)
[2020-09-01] MEDS: SIMvastatin 40 MG (ZOCOR) TAB PO SCH (21:15)
[2020-09-01 23:14] VITALS: BP 137/81
[2020-09-02 05:31] LABS: BASOPHILS % (AUTO) 0 % (0-10); EOSINOPHILS # (AUTO) 0.1 10^3/uL (0.0-0.3); EOSINOPHILS % (AUTO) 2 % (0-10); HEMATOCRIT 32 % (35-52); HEMOGLOBIN 10.3 g/dL (11.5-16.0); LYMPHOCYTES # (AUTO) 2.2 10^3/uL (1.0-4.0); LYMPHOCYTES % (AUTO) 32 % (12-44); MEAN CORPUSCULAR HEMOGLOBIN 29 pg (25-34); MEAN CORPUSCULAR HGB CONC 32 g/dL (32-36); MEAN CORPUSCULAR VOLUME 92 fL (80-99); MEAN PLATELET VOLUME 9.7 fL (9.0-12.2); MONOCYTES # (AUTO) 0.7 10^3/uL (0.0-1.0); MONOCYTES % (AUTO) 10 % (0-12); NEUTROPHILS # (AUTO) 3.8 10^3/uL (1.8-7.8); NEUTROPHILS % (AUTO) 56 % (42-75); PLATELET COUNT 247 10^3/uL (130-400); WHITE BLOOD COUNT 6.8 10^3/uL (4.3-11.0)
[2020-09-02 05:39] LABS: ALBUMIN 2.6 GM/DL (3.2-4.5); CHLORIDE 100 MMOL/L (98-107); SODIUM 144 MMOL/L (135-145)
[2020-09-02 05:40] LABS: CALCIUM 7.8 MG/DL (8.5-10.1)
[2020-09-02 05:42] LABS: TOTAL PROTEIN 5.7 GM/DL (6.4-8.2)
[2020-09-02 05:43] LABS: CARBON DIOXIDE 31 MMOL/L (21-32)
[2020-09-02 05:44] LABS: BILIRUBIN,TOTAL 0.3 MG/DL (0.1-1.0); GLUCOSE 60 MG/DL (70-105)
[2020-09-02 05:45] LABS: ALKALINE PHOSPHATASE 92 U/L (40-136); CREATININE SERUM 1.53 MG/DL (0.60-1.30); GFR ESTIMATED 35
[2020-09-02] MEDS: inSUlin ASPART (NovoLOG) 1 UNIT/0.01 ML (CHARGE PER UNIT) SQ SCH (05:45)
[2020-09-02 05:46] LABS: BUN/CREATININE RATIO 8
[2020-09-02 05:48] LABS: ALANINE AMINOTRANSFERASE < 6 U/L (0-55)
[2020-09-02] MEDS ORDERED: GLYB1.253 PO (05:50)
[2020-09-02 08:00] VITALS: BP 147/81
[2020-09-02] MEDS: oxyCODONE/APAP 10/325MG (PERCOCET 10) TABLET PO PRN (08:19)
[2020-09-02] MEDS: OXYBUTYNIN (DITROPAN) 5 MG TAB PO SCH (08:20)
[2020-09-02] MEDS: ENOXAPARIN 40 MG/0.4 ML (LOVENOX) SYR SC SCH (08:20)
[2020-09-02] MEDS: SENNA W/DOCUSATE (SENOKOT S) TABLET PO SCH (08:20)
[2020-09-02] MEDS: MICONAZOLE 2% POWDER (DESENEX AF) 90 GM TOP SCH (08:20)
[2020-09-02] MEDS: meTOprolol TARTRATE 25 MG (LOPRESSOR) TABLET PO SCH (08:20)
--- NOTE | 2020-09-02 08:54 | Occ Therapy Progress Note ---
Therapy Progress Note 1, visit and d/c. Pt seen in bed, states moderate pain though has had pain medication. Pt denies sponge bath, stating she would like to wait until after breakfast. Pt states d/c this date. Pt lives with boyfriend, states he works throughout the day. However, does not have any issues upon d/c. Expresses she is IND with ambulation/ monserrat ca re and is awaiting family for family education on wet to dry dressing. Pt educated on energy conservation within the home; denies UE ex, stating she feels strong enough. D/C as pt is IND with ADLs at this time and is awaiting d/c home. HITESH CRUZ OTR Sep 02, 2020 08:54
--- NOTE | 2020-09-02 11:21 | Discharge Summary ---
Discharge Summary Hospital Course Was the Problem List Reviewed?: Yes Problems/Dx: (1) Ischiorectal abscess Status: Acute (2) Cutaneous abscess of perineum Status: Acute (3) Uncontrolled diabetes mellitus Status: Acute Qualifiers: Qualified Codes: E11.65 - Type 2 diabetes mellitus with hyperglycemia (4) Hypertension Status: Chronic Qualifiers: Qualified Codes: I10 - Essential (primary) hypertension (5) Acute kidney failure Status: Acute (6) Diabetic ketoacidosis Status: Resolved Qualifiers: Qualified Codes: E11.10 - Type 2 diabetes mellitus with ketoacidosis without coma Hospital Course Date of Admission: Aug 20, 2020 at 16:18 Admission Diagnosis : Family Physician/Provider: No,Local Physician Date of Discharge: 09/02/20 Discharge Diagnosis: DKA, buttock abscess s/p I&D Hospital Course: Hospital course: Pt had a lengthy hospital course for 14 days after she was admitted for sepsis and DKA due to buttock abscess s/p I&D from Dr. Martinez, Pt was maintained on IV antibiotics, changed over to Augmentin, pain was well controlled, overall had a really good result, no evidence of any insulin-dependency so she was placed on the a low dose Glyburide of 1.25 BID and will have close [facility]. Labs and Pending Lab Test: Laboratory Tests 09/01/20 15:43: Glucometer 136H 09/01/20 20:05: Glucometer 187H 09/02/20 05:20: White Blood Count 6.8, Red Blood Count 3.54L, Hemoglobin 10.3L, Hematocrit 32L, Mean Corpuscular Volume 92, Mean Corpuscular Hemoglobin 29, Mean Corpuscular Hemoglobin Concent 32, Red Cell Distribution Width 12.8, Platelet Count 247, Mean Platelet Volume 9.7, Immature Granulocyte % (Auto) 0, Neutrophils (%) (Auto) 56, Lymphocytes (%) (Auto) 32, Monocytes (%) (Auto) 10, Eosinophils (%) (Auto) 2, Basophils (%) (Auto) 0, Neutrophils # (Auto) 3.8, Lymphocytes # (Auto) 2.2, Monocytes # (Auto) 0.7, Eosinophils # (Auto) 0.1, Basophils # (Auto) 0.0, Immature Granulocyte # (Auto) 0.0, Sodium Level 144, Potassium Level 3.0L, Chloride Level 100, Carbon Dioxide Level 31, Anion Gap 13, Blood Urea Nitrogen 13, Creatinine 1.53H, Estimat Glomerular Filtration Rate 35, BUN/Creatinine Ratio 8, Glucose Level 60*L, Calcium Level 7.8L, Corrected Calcium 8.9, Total Bilirubin 0.3, Aspartate Amino Transf (AST/SGOT) 15, Alanine Aminotransferase (ALT/SGPT) < 6, Alkaline Phosphatase 92, Total Protein 5.7L, Albumin 2.6L 09/02/20 06:39: Glucometer 123H 09/02/20 11:16: Glucometer 83 Microbiology 08/21/20 Gram Stain - Final, Complete 08/21/20 Anaerobic Culture - Final, Complete Mixed Anaerobic Valerie Parabacteroides distasonis Bacteroides goldsteinii 08/21/20 Surgical Culture - Final, Complete Escherichia coli Lactobacillus gasseri 08/21/20 Urine Culture - Final, Complete YEAST 08/20/20 Blood Culture - Final, Complete No growth Home Meds Active Glyburide 1.25 Mg Tablet 1.25 Mg PO DAILY Oxybutynin Chloride 5 Mg Tablet 5 Mg PO DAILY Lotrimin AF (Miconazole Nitrate) 90 Gm Powder 1 Gm TOP BID Stool Softener-Laxative Tablet (Sennosides/Docusate Sodium) 1 Each Tablet 2 Ea PO BID Percocet 10-325 mg Tablet (Oxycodone HCl/Acetaminophen) 1 Each Tablet 1 Tab PO Q4H PRN Metoprolol Tartrate 25 Mg Tablet 12.5 Mg PO BID Simvastatin 40 Mg Tablet 40 Mg PO HS Augmentin 875-125 Tablet (Amoxicillin/Potassium Clav) 1 Each Tablet 1 Each PO BID Reported Hydrocodone-Acetamin 5-325 mg (Hydrocodone/Acetaminophen) 1 Each Tablet 1 Tab PO Q4H PRN Clindamycin HCl 300 Mg Capsule 300 Mg PO TID LAST FILLED 08-17-2020 #21/ DAY SUPPLY Promethazine Tablet (Promethazine HCl) 25 Mg Tablet 12.5 Mg PO Q8H PRN Oxycodone-Acetaminophen 5-325 (Oxycodone HCl/Acetaminophen) 1 Each Tablet 1 Each PO Q4H PRN MDD 6 Bactrim Ds Tablet (Sulfamethoxazole/Trimethoprim) 1 Each Tablet 1 Each PO BID FILLED 08-14-2020 #14/7 DAY SUPPLY Assessment/Pt Instructions [facility] 1 week Discharge Planning: <30 minutes discharge planning Discharge Instructions Discharge Diet: ADA Diet Activity as Tolerated: Yes Discharge Physical Examination Vital Signs Vital Signs Date Time Temp Pulse Resp B/P (MAP) Pulse Ox O2 Delivery O2 Flow Rate FiO2 09/02/20 08:00 36.5 71 20 147/81 (103) 96 Room Air 09/01/20 00:36 1.00 08/31/20 15:24 24 General Appearance: No Apparent Distress, WD/WN, Chronically ill Respiratory: Lungs Clear Cardiovascular: Regular Rate, Rhythm Neurologic/Psychiatric: Alert, Oriented x3, No Motor/Sensory Deficits, Normal Mood/Affect Allergies: Coded Allergies: Penicillins (Verified Allergy, Unknown, 05/09/17) aspirin (Verified Allergy, Unknown, 05/09/17) morphine (Verified Allergy, Unknown, 05/09/17) Discharge Summary Date of Admission Aug 20, 2020 at 16:18 Date of Discharge Discharge Date: Sep 02, 2020 Discharge Diagnosis DC planning FEDERICA GILMORE DO Sep 02, 2020 11:21
[2020-09-02 12:00] VITALS: BP 147/87
[2020-09-02 13:10] VITALS: BP 147/87
--- NOTE | 2020-09-02 14:16 | Progress Note ---
PADMA FAN MED STUDENT 09/02/20 1416: Progress Note Discharge summary: Pt is a 55y/o F with PMH of s/p ischiorectal abscess I&D, COPD, NIDDM and HTN who presented to the ED 08/20/20 with a chief complaint of ischeorectal wound recheck. Patient had a abscess incision and drainage done on August 14 and has had multiple visits since that time for packing replacement and wound checks. Patient complained of significant pain to the area and continued drainage. No fevers were reported. Patient has no PCP. Patient had been taking pain medications without relief and rated her pain as "a 10". Vital signs in ED were 36.6 celcius, 93HR, 18RR, 154/90, and 93% O2 sat on room air. Subsequent workup on CBC found a WBC of 13.1 but otherwise unremarkable. CMP showed a glucose level of 408 with 18bicarb and anion gap of 23. BHB was subsequently ordered for DKA workup, the value was 5.09 confirming a diagnosis of DKA. ABG confirmed a uncompensated metabolic acidosis. Given 2 of 4 SIRS + criteria, sepsis workup and rule out was performed with u/a, pancultures, and CXR. The patient was started on broad spectrum ABs vancomycin and meropenam, fentanyl for abscess site pain, IV regular insulin, IV KCl, and 1L bolus of NS for DKA. Pt was admitted to ICU by general surgery (Dr. Connor) for anal exam under anesthesia and I&D of ischio rectal abscess. Medicine was consulted (Dr. Gilmore) to treat DKA. On 08/21/2020 incision and drainage and debridement of the left ischiorectal abscess was performed. That same day, anion gap and ketoacidosis resolved on DKA protocol. Patient was transfered to gen/surg floor 08/22/20. Wound care was con tinued and VAC placement occured 08/25/2020. Pain resolved with time with control through dilaudid and percocet. Patient finished course of IV ABs 08/29/20. PT/OT evaluation occured 09/01/20 and patient was found to be at prior level of functioning. [facility] accepted the patient for home care, where patient was discharged to 09/02/2020. Dr. Martinez will follow the wound [facility] orders. The following information is only a summary of the patients admission while at [facility] and is not all inclusive. Please review the entire chart for more information. MONA GILMORE DO 09/03/20 0546: Supervisory-Addendum Brief Verification & Attestation Participated in pt care: history, MDM, physical Personally performed: exam, history, MDM, supervision of care Care discussed with: Medical Student Procedures: n/a Results interpretation: Verified all documentation Verification and Attestation of Medical Student E/M Service A medical student performed and documented this service in my presence. I reviewed and verified all information documented by the medical student and made modifications to such information, when appropriate. I personally performed the physical exam and medical decision making. Moan Gilmore, Sep 03, 2020,05:46 PADMA FAN MED STUDENT Sep 02, 2020 14:16 MONA GILMORE DO Sep 03, 2020 05:46
== END 2020-09-02 13:10 | disposition home health service (06) | DRG 853 ==
LOC: EDUNIT# 15:03 → ER 15:05 → 4TH 16:18 → OBSVTOIN 16:18 → CSD 16:18 → UNDOADMOB 16:18 → ICU 18:39 → 4TH 08-22 17:45
PROVIDERS: ADMIT Surgery; ATTEND Internal Medicine
PROC: 0JBB0ZZ Excision of Perineum Subcutaneous Tissue and Fascia, Open Approach (ICD-10-PCS; 2020-08-21)
PROC: 0J9B0ZZ Drainage of Perineum Subcutaneous Tissue and Fascia, Open Approach (ICD-10-PCS; principal; 2020-08-21 10:19)
DX: A41.9 Sepsis, unspecified organism (principal); E11.10 Type 2 diabetes mellitus with ketoacidosis without coma; N17.0 Acute kidney failure with tubular necrosis; E87.1 Hypo-osmolality and hyponatremia; Z68.41 Body mass index [BMI] 40.0-44.9, adult; E87.2 Acidosis; K61.39 Other ischiorectal abscess; Z79.84 Long term (current) use of oral hypoglycemic drugs; J44.9 Chronic obstructive pulmonary disease, unspecified; E66.9 Obesity, unspecified; R31.9 Hematuria, unspecified; E11.649 Type 2 diabetes mellitus with hypoglycemia without coma; R15.9 Full incontinence of feces; N39.46 Mixed incontinence; F17.200 Nicotine dependence, unspecified, uncomplicated; F41.9 Anxiety disorder, unspecified; F32.9 Major depressive disorder, single episode, unspecified; I10 Essential (primary) hypertension; E78.5 Hyperlipidemia, unspecified; Z87.01 Personal history of pneumonia (recurrent); Z79.2 Long term (current) use of antibiotics; Z79.891 Long term (current) use of opiate analgesic; Z88.6 Allergy status to analgesic agent; Z88.0 Allergy status to penicillin; Z83.3 Family history of diabetes mellitus; Z82.49 Family history of ischemic heart disease and other diseases of the circulatory system; T36.8X5A Adverse effect of other systemic antibiotics, initial encounter
CPT/HCPCS: 36410; 36415; 71045; 76937; 80048; 80053; 80076; 80202; 81000; 82010; 82805; 82962; 83036; 83605; 83735; 84100; 85007; 85025; 85027; 87040; 87070; 87075; 87076; 87077; 87088; 87185; 87186; 87205; 88304; 94760; 96361; 96365; 96366; 96375; 96376

== ENCOUNTER 2020-09-14 12:22 | Inpatient (IN) | payer OTHER ==
[~2020-09-14] VITALS: Ht 167.6 cm; Wt 145.5 kg
[~2020-09-14 12:22] MED LIST changes: +AMOX-358 PO; +GLYB1.253 PO; +INSU100I29 SQ; +METO-333 PO; +MICO90PO TOP; +OXYB5TAB13 PO; +OXYC1TAB12 PO; +PEN-53 MC; +SENN1TAB76 PO
--- NOTE | 2020-09-14 13:27 | HISTORY AND PHYSICAL ---
DATE OF SERVICE: HISTORY OF PRESENT ILLNESS: The patient is a 55-year-old female who initially presented to the Emergency Department on 08/14/2020. She had redness and swelling as well as apparent left perineal and perirectal drainage and underwent an incision and drainage as well as a Holland drain placement. She then presented back to the Emergency Department and stated the drain had come out on its own after several days and that the region became red, swollen as well as more painful and continued to drain. She is also a diabetic and did have significantly elevated glucose. Upon examination, she was found to have recurrent ischiorectal abscess. On 08/21/2020, she underwent an anal and perineal exam under anesthesia with incision and drainage and debridement of the left ischiorectal abscess that was approximately 15 x 10 cm in size. Findings were no vaginal infectious source. No anorectal fistulas. There was a large abscess that was approximately 15 x 10 cm in size with majority viable tissue that was not consistent with necrotizing soft tissue infection. The patient tolerated the procedure well and was later discharged home. On today's visit, she was seen in the office for followup; however, once again had increasing redness, swelling as well as pain that started several days ago. She denied any drainage as well as no fever or chills. She reports that she was continuing to do wet to dry dressing changes to her previous incision and drainage site. Upon examination, she was found to have again a recurrent left ischiorectal abscess as well as the cellulitis. PAST MEDICAL HISTORY: Diabetes, COPD, hypertension, depression, and hypercholesterolemia. PAST SURGICAL HISTORY: Tubal ligation, hysterectomy, incision and drainage and debridement of left ischiorectal abscess on 08/21/2020. ALLERGIES: PENICILLIN, ASPIRIN, MORPHINE. MEDICATIONS: Albuterol two puffs q.4 hours p.r.n., budesonide/formoterol two puffs b.i.d., clindamycin 300 mg t.i.d., dexamethasone 6 mg daily, glimepiride 2 mg b.i.d., hydrocodone p.r.n., metformin 1000 mg b.i.d., oxycodone every 4 hours p.r.n., Pioglitazone 30 mg daily, Promethazine 12.5 mg q.8 hours p.r.n., Simvastatin 40 mg daily. Spironolactone 50 mg daily, Bactrim b.i.d., and venlafaxine 37.5 mg daily. SOCIAL HISTORY: Previous for smoke, quit in 2017, negative for alcohol. FAMILY HISTORY: Mother, breast cancer. Father, diabetes, myocardial infarction. REVIEW OF SYSTEMS: This is a well-nourished female currently guarded secondary to the pain. She is not experiencing any shortness of breath or difficulty breathing. No chest pain, palpitations or diaphoresis. No nausea, vomiting or abdominal pain. No diarrhea or constipation. No red blood per rectum. No dark tarry stools. No fever or chills. No recent overt weight loss. All other review of systems negative. PHYSICAL EXAMINATION: VITAL SIGNS: Stable. CHEST: Diminished breath sounds bilaterally with scattered wheezes. HEART: Regular, no murmurs. EXTREMITIES: 1+ bilateral lower extremity edema. Negative Homans sign. HEENT: No scleral icterus. ABDOMEN: Soft, nontender, and nondistended. SKIN: There is an area of the superior left thigh that is red and swollen as well as a palpable abscess with fluctuance. The redness and swelling do track anteriorly into the left perineum and groin region as well as the left labia. This does indicate a recurrent abscess. NEUROLOGIC: Awake, alert and oriented x3. ASSESSMENT AND PLAN: A 55-year-old female with recurrent left ischiorectal abscess. At this time, we will proceed with admitting her for IV antibiotics as well as a pain medication and schedule her for an incision and drainage with debridement of recurrent left ischiorectal abscess tomorrow. Job ID: [id number] DocumentID: [id number] Dictated Date: 09/14/2020 12:42:25 Quail Farmer Date: 09/14/2020 13:26:29 Dictated By: ADONIS CHEEMA APRN
[2020-09-14 13:32] LABS: BASOPHILS % (AUTO) 1 % (0-10); EOSINOPHILS # (AUTO) 0.4 10^3/uL (0.0-0.3); EOSINOPHILS % (AUTO) 5 % (0-10); HEMATOCRIT 33 % (35-52); HEMOGLOBIN 10.7 g/dL (11.5-16.0); LYMPHOCYTES # (AUTO) 1.5 10^3/uL (1.0-4.0); LYMPHOCYTES % (AUTO) 22 % (12-44); MEAN CORPUSCULAR HEMOGLOBIN 29 pg (25-34); MEAN CORPUSCULAR HGB CONC 32 g/dL (32-36); MEAN CORPUSCULAR VOLUME 89 fL (80-99); MONOCYTES # (AUTO) 0.5 10^3/uL (0.0-1.0); MONOCYTES % (AUTO) 7 % (0-12); NEUTROPHILS # (AUTO) 4.5 10^3/uL (1.8-7.8); NEUTROPHILS % (AUTO) 65 % (42-75); PLATELET COUNT 224 10^3/uL (130-400); WHITE BLOOD COUNT 6.9 10^3/uL (4.3-11.0)
[2020-09-14 13:36] VITALS: BP 135/67
[2020-09-14] MEDS ORDERED: ONDANSETRON 4 MG/2 ML (SDV) Z0FRAN IVP PRN (13:45)
[2020-09-14 13:55] LABS: ALBUMIN 3.2 GM/DL (3.2-4.5); BILIRUBIN,TOTAL 0.5 MG/DL (0.1-1.0); CREATININE SERUM 1.26 MG/DL (0.60-1.30); POTASSIUM 3.1 MMOL/L (3.6-5.0); TOTAL PROTEIN 6.5 GM/DL (6.4-8.2)
[2020-09-14] MEDS: HYDROcodone/APAP 7.5 MG/325 MG (LORTAB, LORCET PLUS) TABLET PO PRN ×3 (14:03→23:56)
[2020-09-14] MEDS ORDERED: AMOX1TAB12 PO (14:28)
[2020-09-14] MEDS ORDERED: HYDR-3817 PO (14:28)
[2020-09-14 16:00] VITALS: BP 135/67
[2020-09-14] MEDS: NS IV 1000 ML 1,000 ML IV SCH (16:19)
[2020-09-14] MEDS: inSUlin ASPART (NovoLOG) 1 UNIT/0.01 ML (CHARGE PER UNIT) SC SCH ×2 (16:32→21:22)
--- NOTE | 2020-09-14 18:53 | Progress Note-Pre Operative ---
Pre-Operative Progress Note H&P Reviewed The H&P was reviewed, patient examined and no changes noted. Date Seen by Provider: September 14, 2020 Time Seen by Provider: 19:00 Date H&P Reviewed: September 14, 2020 Time H&P Reviewed: 19:00 Pre-Operative Diagnosis: recurrent right perirectal/perineal abscess MOLLY RODRIGUEZ MD September 14, 2020 18:53
[2020-09-14 20:44] VITALS: BP 126/58
[2020-09-14] MEDS ORDERED: CIPROFLOXACIN 400 MG/D5W 200 ML (PRE-MIX) IV SCH (21:00)
[2020-09-14] MEDS: fentaNYL INJ 100 MCG/2 ML AMP IVP PRN (21:24)
[2020-09-14 23:56] VITALS: BP 137/63
[2020-09-15] VITALS (13 sets, daily range): BP systolic 94–156; BP diastolic 55–95
[2020-09-15] MEDS: fentaNYL INJ 100 MCG/2 ML AMP IVP PRN ×4 (02:52→20:37)
[2020-09-15] MEDS: NS IV 1000 ML 1,000 ML IV SCH ×3 (02:53→20:30)
[2020-09-15] MEDS: HYDROcodone/APAP 7.5 MG/325 MG (LORTAB, LORCET PLUS) TABLET PO PRN ×2 (04:17→19:51)
[2020-09-15 05:41] LABS: BASOPHILS % (AUTO) 1 % (0-10); EOSINOPHILS # (AUTO) 0.4 10^3/uL (0.0-0.3); EOSINOPHILS % (AUTO) 5 % (0-10); HEMATOCRIT 31 % (35-52); HEMOGLOBIN 10.2 g/dL (11.5-16.0); LYMPHOCYTES # (AUTO) 1.5 10^3/uL (1.0-4.0); LYMPHOCYTES % (AUTO) 20 % (12-44); MEAN CORPUSCULAR HEMOGLOBIN 29 pg (25-34); MEAN CORPUSCULAR HGB CONC 33 g/dL (32-36); MEAN CORPUSCULAR VOLUME 88 fL (80-99); MEAN PLATELET VOLUME 10.1 fL (9.0-12.2); MONOCYTES # (AUTO) 0.6 10^3/uL (0.0-1.0); MONOCYTES % (AUTO) 7 % (0-12); NEUTROPHILS % (AUTO) 66 % (42-75); PLATELET COUNT 200 10^3/uL (130-400); WHITE BLOOD COUNT 7.5 10^3/uL (4.3-11.0)
[2020-09-15 06:01] LABS: ALANINE AMINOTRANSFERASE 11 U/L (0-55); ALBUMIN 2.9 GM/DL (3.2-4.5); ALKALINE PHOSPHATASE 110 U/L (40-136); BILIRUBIN,TOTAL 0.5 MG/DL (0.1-1.0); BUN/CREATININE RATIO 14; CALCIUM 7.7 MG/DL (8.5-10.1); CARBON DIOXIDE 32 MMOL/L (21-32); CHLORIDE 97 MMOL/L (98-107); CREATININE SERUM 0.92 MG/DL (0.60-1.30); GFR ESTIMATED > 60; GLUCOSE 285 MG/DL (70-105); POTASSIUM 2.8 MMOL/L (3.6-5.0); SODIUM 137 MMOL/L (135-145); TOTAL PROTEIN 5.9 GM/DL (6.4-8.2)
[2020-09-15] MEDS: inSUlin ASPART (NovoLOG) 1 UNIT/0.01 ML (CHARGE PER UNIT) SC SCH ×4 (06:05→20:29)
--- NOTE | 2020-09-15 08:40 | Consultation - Hospitalist ---
HPI History of Present Illness: HPI/Chief Complaint CC: Buttock abscess recurrent in type HPI: This is a 55yoWF clinic pt of [facility] who was just discharged two weeks ago after a rectal abscess s/p debridement and wound vac recent DKA episode who presented to the hospital with pain in the same area found to have a new abscess in need of debridement. Bicarbonate is good, no acidosis noted but blood sugars in the 200-300 range so will initiate insulin. Source: patient, RN/MD, old records Exam Limitations: no limitations Date Seen 09/15/20 Attending Physician Abhijeet Martinez MD PCP No,Local Physician Referring Physician Date of Admission September 14, 2020 at 12:47 Home Medications & Allergies Home Medications Reviewed patient Home Medication Reconciliation performed by pharmacy medication reconciliations ophthalmology technician and/or nursing. Patients Allergies have been reviewed. Allergies Allergies Coded Allergies Penicillins (Verified Allergy, Unknown, 05/09/17) aspirin (Verified Allergy, Unknown, 05/09/17) morphine (Verified Allergy, Unknown, 05/09/17) Patient Social History Marrital Status: single Employed/Student: unemployed Tobacco Use?: No Smoking Status: Former Smoker Substance use?: No Alcohol Use?: No Pt stated abuse/neglect: No Immunizations Up To Date Influenza Vaccine Up-to-Date: No; Not Current Tetanus Booster (TDap): Less Than 5 Years Current Status status: No status: No Do you have an Advance Directi: No Communicates: Verbally Primary Language: Belizean Preferred Spoken Language: Belizean Is interpretation needed?: No Sensory deficits: Vision impairment Past Medical History PMHx: COPD DMII Anxiety Depression HLD SurgHx: Tubal ligation Cholecystectomy 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 Family Medical History Family Hx: NC Review of Systems Constitutional: see HPI Skin: see HPI Physical Exam Physical Exam Vital Signs Vital Signs - First Documented 09/14/20 13:36 Temp 36.6 Pulse 109 Resp 19 B/P (MAP) 135/67 (89) Pulse Ox 93 O2 Delivery Room Air Capillary Refill : Height, Weight, BMI Height: 5'6.00" Weight: 320lbs. 12.8oz. 145.921384vd; 38.13 BMI Method:Actual General Appearance: No Apparent Distress, WD/WN, Chronically ill, Obese Eyes: Bilateral Eye Normal Inspection, Bilateral Eye PERRL HEENT: PERRL/EOMI, Normal ENT Inspection, Pharynx Normal Neck: Full Range of Motion, Normal Inspection, Non Tender, Supple, Carotid Bruit Respiratory: Chest Non Tender, Lungs Clear, Normal Breath Sounds, No Accessory Muscle Use, No Respiratory Distress Cardiovascular: Regular Rate, Rhythm, No Edema, No Gallop, No JVD, No Murmur, Normal Peripheral Pulses Gastrointestinal: Normal Bowel Sounds, No Organomegaly, No Pulsatile Mass, Non Tender, Soft Back: Normal Inspection, No CVA Tenderness, No Vertebral Tenderness Extremity: Normal Capillary Refill, Normal Inspection, Normal Range of Motion, Non Tender, No Calf Tenderness, No Pedal Edema Neurologic/Psychiatric: Alert, Oriented x3, No Motor/Sensory Deficits, Normal Mood/Affect Skin: Normal Color, Warm/Dry, Rash (buttock redness and fluctuance) Lymphatic: No Adenopathy Results Results/Procedures Labs Laboratory Tests 09/14/20 13:24 09/15/20 05:31 09/16/20 04:15 Patient resulted labs reviewed. Assessment/Plan Assessment and Plan Assess & Plan/Chief Complaint Assessment: Recurrent buttock abscess set for debridement today Dr Martinez DM h/o DKA HTN HLP Hypokalemia Hypomagnesemia Plan: IV abx Insulin Debridement Potassium and mag supplement Lovenox Diagnosis/Problems Diagnosis/Problems (1) Ischiorectal abscess (2) Diabetes Status: Chronic (3) DVT prophylaxis Status: Acute (4) Hypertension Status: Chronic FEDERICA GILMORE DO September 15, 2020 08:40
[2020-09-15] MEDS ORDERED: MAGNESIUM 1 GM/100 ML IVPB 100 ML IV ONE (08:45)
[2020-09-15] MEDS: FAMOTIDINE 20MG/2ML IV (PEPCID) IVP SCH (09:26)
[2020-09-15] MEDS: cefTRIAXone 2,000 MG/SWFI 20 ML IV PUSH IV SCH ×2 (09:27)
[2020-09-15] MEDS: metroNIDAZOLE 500 MG/100 ML IVPB (PRE-MIX) IV SCH ×2 (09:28→20:28)
[2020-09-15] MEDS: POTASSIUM CL 10MEQ/50ML IVPB 50 ML IV SCH ×6 (09:29→21:15)
[2020-09-15] MEDS ORDERED: LIDOCAINE/EPI 1%-1:100,000 (XYLOCAINE) 20ML ONE (15:07)
[2020-09-15] MEDS ORDERED: fentaNYL INJ 100 MCG/2 ML AMP ONE ×2 (15:12→16:16)
[2020-09-15] MEDS ORDERED: proPOfol 200 MG/20 ML (DIPRIVAN) VIAL IV ONE (15:12)
[2020-09-15] MEDS ORDERED: LIDOCAINE PF 2% 5 ML (XYLOCAINE) VIAL ONE (15:12)
[2020-09-15] MEDS ORDERED: ONDANSETRON 4 MG/2 ML (SDV) Z0FRAN ONE (15:12)
[2020-09-15] MEDS ORDERED: SEVOFLURANE (ULTANE) 15 ML INHAL SOLN ONE ×2 (15:12→16:51)
[2020-09-15] MEDS ORDERED: MIDAZOLAM 2 MG/2 ML (VERSED) VIAL ONE (15:12)
[2020-09-15] MEDS: LACTATED RINGERS 1,000 ML IV PRN (16:06)
[2020-09-15] MEDS ORDERED: MEPERIDINE (DEMEROL) INJ 50 MG/ML IVP ONE (16:30)
[2020-09-15] MEDS ORDERED: ONDANSETRON 4 MG/2 ML (SDV) Z0FRAN IVP PRN (16:30)
[2020-09-15] MEDS ORDERED: fentaNYL INJ 100 MCG/2 ML AMP IVP ONE (16:30)
--- NOTE | 2020-09-15 17:03 | Progress Note-Post Operative ---
Post-Operative Progess Note Surgeon (s)/Rn Intake (s) Surgeon MOLLY RODRIGUEZ MD Rn Intake: none Pre-Operative Diagnosis recurrent left perirectal/perineal abscess Post-Operative Diagnosis same, involving skin, SQ, fascia and muscle 13x7cm. Procedure & Operative Findings Date of Procedure 09/15/20 Procedure Performed/Findings incision and drainage and debridement skin SQ, fascia, muscle 13x7cm of left perineum Anesthesia Type general LMA with local Estimated Blood Loss Estimated blood loss (mL): minimal Specimens/Packing Specimens Removed soft tissue left perineum. MOLLY RODRIGUEZ MD September 15, 2020 17:03
[2020-09-15] MEDS ORDERED: ACETAMINOPHEN 325 MG TABLET PO PRN (21:15)
--- NOTE | 2020-09-15 22:09 | OPERATIVE REPORT ---
DATE OF SERVICE: 09/15/2020 PREOPERATIVE DIAGNOSIS: Recurrent left perineal abscess and necrosis. POSTOPERATIVE DIAGNOSIS: Recurrent left perineal abscess and necrosis encompassing skin, subcutaneous tissue, fascia and muscle along the left anterior perineum, 13 x 7 cm in size. PROCEDURE: Debridement of skin, subcutaneous tissue, fascia, muscle, 13 x 7 cm in size of the left perineum. SURGEON: Molly Rodriguez MD. ANESTHESIA: General laryngeal mask airway with local. ESTIMATED BLOOD LOSS: Minimal. FINDINGS: Acute on chronic necrotic debris as well as abscess including skin, subcutaneous tissue, fascia and muscle of the left perineum extending anteriorly. DISPOSITION: The patient tolerated the procedure well. INDICATIONS: The patient is a 55-year-old female who initially presented to the Emergency Department 08/14/2020 for redness and swelling in the left perineal and perirectal region and underwent an incision and drainage as well as a Mario placement. She then presented back with increased redness and swelling and was found to have a deeper abscess as well as necrosis. On, 08/21/2020, she underwent an anal and perineal exam under anesthesia as well as incision and drainage and debridement of a left ischiorectal abscess that was 15 x 10 cm in size. There were no vaginal infectious source as well as no anorectal fistula. She again presented to the Emergency Department with recurrent redness and swelling. This started several days ago. She is extremely noncompliant and has a multitude of medical problems including diabetes and has had very high blood sugars; however, we will not see her primary care physician or take adequate medications. PAST MEDICAL HISTORY: Diabetes, COPD, hypertension, depression, hypercholesterolemia. PAST SURGERIES: Tubal ligation, and hysterectomy, incision and drainage and debridement, left ischiorectal abscess on 08/21/2020. ALLERGIES: PENICILLIN, ASPIRIN, MORPHINE. MEDICATIONS: Albuterol, budesonide/formoterol, clindamycin, dexamethasone, glimepiride, hydrocodone, metformin, oxycodone, promethazine, simvastatin, spironolactone, Bactrim, and venlafaxine. SOCIAL HISTORY: Previous smoker, quit 2017. Negative alcohol. FAMILY HISTORY: Mother, breast cancer. Father, diabetes and myocardial infarction. DESCRIPTION OF PROCEDURE: The patient was brought to the operating room, laid supine on the table. After adequate IV pain and sedative medications and general laryngeal mask airway intubation, the patient was placed in lithotomy position and the perineum prepped and draped in standard surgical fashion. A 0.5% Lidocaine with epinephrine was then used to anesthetize the overlying skin to this large abscess encompassing the left perineum tracking anteriorly. This was then opened using a 15 blade where there was a significant amount of purulence. We then dissected deeper where there was necrotic skin, subcutaneous tissue, fascia as well as muscle and an area encompassing 13 x 7 cm. This was widely debrided using electrocautery as well as Metzenbaum scissors with visualization of good hemostasis. The specimen was sent to pathology and the fluid was sent for culture and sensitivity. A new wound was then packed with a 1-inch iodoform gauze and the previous incision and drainage site looked good with good granulation bed. This was packed with Kerlix and then the entire region was covered with sterile gauze followed by ABD, followed by mesh shorts. The patient tolerated the procedure well. We will continue with antibiotics, pain control and also consult wound Care Nursing for possible wound VAC. Job ID: [id number] DocumentID: [id number] Dictated Date: 09/15/2020 17:17:25 Electrical Prospecting Engineer Date: 09/15/2020 22:09:21 Dictated By: MOLLY RODRIGUEZ MD [facility]
[2020-09-16 04:05] VITALS: BP 109/59
[2020-09-16 04:25] LABS: BASOPHILS % (AUTO) 0 % (0-10); EOSINOPHILS # (AUTO) 0.2 10^3/uL (0.0-0.3); EOSINOPHILS % (AUTO) 2 % (0-10); HEMATOCRIT 29 % (35-52); HEMOGLOBIN 9.4 g/dL (11.5-16.0); LYMPHOCYTES # (AUTO) 1.1 10^3/uL (1.0-4.0); LYMPHOCYTES % (AUTO) 11 % (12-44); MEAN CORPUSCULAR HEMOGLOBIN 29 pg (25-34); MEAN CORPUSCULAR HGB CONC 32 g/dL (32-36); MEAN CORPUSCULAR VOLUME 90 fL (80-99); MEAN PLATELET VOLUME 9.9 fL (9.0-12.2); MONOCYTES # (AUTO) 0.6 10^3/uL (0.0-1.0); MONOCYTES % (AUTO) 6 % (0-12); NEUTROPHILS # (AUTO) 8.3 10^3/uL (1.8-7.8); NEUTROPHILS % (AUTO) 81 % (42-75); PLATELET COUNT 192 10^3/uL (130-400); WHITE BLOOD COUNT 10.2 10^3/uL (4.3-11.0)
[2020-09-16 04:46] LABS: ALBUMIN 2.9 GM/DL (3.2-4.5); CHLORIDE 101 MMOL/L (98-107); POTASSIUM 3.1 MMOL/L (3.6-5.0); SODIUM 143 MMOL/L (135-145)
[2020-09-16 04:48] LABS: GLUCOSE 86 MG/DL (70-105); TOTAL PROTEIN 5.9 GM/DL (6.4-8.2)
[2020-09-16 04:49] LABS: CARBON DIOXIDE 32 MMOL/L (21-32)
[2020-09-16 04:50] LABS: BILIRUBIN,TOTAL 0.5 MG/DL (0.1-1.0)
[2020-09-16 04:51] LABS: ALKALINE PHOSPHATASE 126 U/L (40-136)
[2020-09-16 04:52] LABS: CREATININE SERUM 0.84 MG/DL (0.60-1.30); GFR ESTIMATED > 60
[2020-09-16 04:53] LABS: BUN/CREATININE RATIO 13
[2020-09-16 04:55] LABS: ALANINE AMINOTRANSFERASE 11 U/L (0-55)
[2020-09-16] MEDS: NS IV 1000 ML 1,000 ML IV SCH ×2 (05:14→12:15)
[2020-09-16] MEDS: HYDROcodone/APAP 7.5 MG/325 MG (LORTAB, LORCET PLUS) TABLET PO PRN ×4 (05:14→20:38)
[2020-09-16] MEDS ORDERED: POTASSIUM CL 10MEQ/50ML IVPB 400 ML IV ONE (05:29)
[2020-09-16] MEDS: fentaNYL INJ 100 MCG/2 ML AMP IVP PRN (05:30)
[2020-09-16] MEDS ORDERED: MAGNESIUM 1 GM/100 ML IVPB 100 ML IV ONE ×2 (05:30)
[2020-09-16] MEDS: inSUlin ASPART (NovoLOG) 1 UNIT/0.01 ML (CHARGE PER UNIT) SC SCH ×4 (05:40→20:23)
--- NOTE | 2020-09-16 06:05 | Progress Note - Hospitalist ---
Subjective HPI/CC On Admission Date Seen by Provider: September 16, 2020 Time Seen by Provider: 09:30 CC: Buttock abscess recurrent in type HPI: This is a 55yoWF clinic pt of [facility] who was just discharged two weeks ago after a rectal abscess s/p debridement and wound vac recent DKA episode who presented to the hospital with pain in the same area found to have a new abscess in need of debridement. Bicarbonate is good, no acidosis noted but blood sugars in the 200-300 range so will initiate insulin. Subjective/Events-last exam Pt doing pretty well Wound vac will be placed Blood sugars are much improved Potassium 3.1, magnesium 1.3 so giving supplement of both Review of Systems General: Fatigue, Malaise Objective Exam Vital Signs Vital Signs Date Time Temp Pulse Resp B/P (MAP) Pulse Ox O2 Delivery O2 Flow Rate FiO2 09/16/20 19:38 36.0 90 18 129/59 (82) 97 Nasal Cannula 3.00 Capillary Refill : General Appearance: No Apparent Distress, WD/WN, Chronically ill Respiratory: Lungs Clear Cardiovascular: Regular Rate, Rhythm Neurologic/Psychiatric: Alert, Oriented x3, No Motor/Sensory Deficits, Normal Mood/Affect Skin: Other (assessed wound during wound vac placement clean and healthy tissue) Results/Procedures Lab Laboratory Tests 09/16/20 04:15 Patient resulted labs reviewed. Assessment/Plan Assessment and Plan Assess & Plan/Chief Complaint Assessment: Recurrent buttock abscess set for debridement today Dr Martinez DM h/o DKA HTN HLP Hypokalemia Hypomagnesemia Plan: IV abx Insulin Debridement Potassium and mag supplement Lovenox 09/16/20: DC IVF IRF? Home meds Diagnosis/Problems Diagnosis/Problems (1) Ischiorectal abscess (2) Diabetes Status: Chronic (3) DVT prophylaxis Status: Acute (4) Hypertension Status: Chronic FEDERICA GILMORE DO September 16, 2020 06:05
[2020-09-16] MEDS: POTASSIUM CL 10MEQ/50ML IVPB 50 ML IV SCH ×8 (06:38→18:19)
[2020-09-16 07:44] VITALS: BP 107/55
--- NOTE | 2020-09-16 08:35 | Anesthesia-General Post-Op ---
General Patient Condition Mental Status/LOC: Same as Preop Cardiovascular: Satisfactory Nausea/Vomiting: Absent Respiratory: Satisfactory Pain: Controlled Complications: Absent Post Op Complications Complications None Follow Up Care/Instructions Patient Instructions None needed. Anesthesia/Patient Condition Patient Condition Patient is doing well, no complaints, stable vital signs, no apparent adverse anesthesia problems. No complications reported per nursing. OCTAVIANO WHITMORE CRNA September 16, 2020 08:35
[2020-09-16] MEDS: metroNIDAZOLE 500 MG/100 ML IVPB (PRE-MIX) IV SCH ×2 (08:53→20:38)
[2020-09-16] MEDS: cefTRIAXone 2,000 MG/SWFI 20 ML IV PUSH IV SCH ×2 (08:53)
[2020-09-16] MEDS: FAMOTIDINE 20MG/2ML IV (PEPCID) IVP SCH (11:06)
--- NOTE | 2020-09-16 12:24 | Progress Note ---
Subjective Date Seen by a Provider: September 16, 2020 Time Seen by a Provider: 12:00 Subjective/Events-last exam doing well. no fever/chills. wbc normal. wound vac placed. tolerating diet. Objective Exam Vital Signs Date Time Temp Pulse Resp B/P (MAP) Pulse Ox O2 Delivery O2 Flow Rate FiO2 09/16/20 09:28 Room Air 09/16/20 07:44 36.5 86 18 107/55 (72) 97 Room Air 09/16/20 04:05 36.6 90 20 109/59 (76) 97 Nasal Cannula 2.00 09/15/20 23:04 36.4 103 18 119/55 (76) 97 Nasal Cannula 2.00 09/15/20 22:33 Nasal Cannula 2.00 09/15/20 21:45 36.8 09/15/20 19:53 38.7 115 20 149/68 (95) 96 Nasal Cannula 2.00 09/15/20 19:50 Nasal Cannula 2.00 09/15/20 18:03 37.1 97 18 146/81 (102) 97 Nasal Cannula 2.00 09/15/20 18:00 36.4 18 138/85 (102) 95 Room Air 09/15/20 18:00 Nasal Cannula 2 09/15/20 17:50 18 137/74 (95) 95 Nasal Cannula 2 09/15/20 17:46 Nasal Cannula 2 09/15/20 17:40 18 133/95 (108) 93 Room Air 09/15/20 17:39 Room Air 09/15/20 17:30 18 121/74 (90) 98 OxyMask 4 09/15/20 17:29 OxyMask 6 09/15/20 17:25 OxyMask 6 09/15/20 17:20 18 99/63 (75) 98 OxyMask 6 09/15/20 17:12 36.2 16 94/60 (71) 99 OxyMask 6 09/15/20 17:12 OxyMask 6 09/15/20 16:00 36.6 96 18 156/71 (99) 93 Room Air I & O 09/16/20 07:00 Intake Total 400 ml Balance 400 ml Capillary Refill : General Appearance: No Apparent Distress HEENT: PERRL/EOMI Neck: Full Range of Motion Respiratory: Chest Non Tender, Lungs Clear, Normal Breath Sounds Cardiovascular: Regular Rate, Rhythm Gastrointestinal: normal bowel sounds, non tender, soft Extremity: Normal Capillary Refill Neurologic/Psychiatric: Alert, Oriented x3 Skin: Other (large wound lt perineum) Lymphatic: No Adenopathy Results Lab Laboratory Tests 09/15/20 15:48: Glucometer 157H 09/15/20 20:05: Glucometer 218H 09/16/20 04:15: White Blood Count 10.2, Red Blood Count 3.23L, Hemoglobin 9.4L, Hematocrit 29L, Mean Corpuscular Volume 90, Mean Corpuscular Hemoglobin 29, Mean Corpuscular Hemoglobin Concent 32, Red Cell Distribution Width 12.9, Platelet Count 192, Mean Platelet Volume 9.9, Immature Granulocyte % (Auto) 0, Neutrophils (%) (Auto) 81H, Lymphocytes (%) (Auto) 11L, Monocytes (%) (Auto) 6, Eosinophils (%) (Auto) 2, Basophils (%) (Auto) 0, Neutrophils # (Auto) 8.3H, Lymphocytes # (Auto) 1.1, Monocytes # (Auto) 0.6, Eosinophils # (Auto) 0.2, Basophils # (Auto) 0.0, Immature Granulocyte # (Auto) 0.0, Sodium Level 143, Potassium Level 3.1L, Chloride Level 101, Carbon Dioxide Level 32, Anion Gap 10, Blood Urea Nitrogen 11, Creatinine 0.84, Estimat Glomerular Filtration Rate > 60, BUN/Creatinine Ratio 13, Glucose Level 86, Calcium Level 8.0L, Corrected Calcium 8.9, Magnesium Level 1.3L, Total Bilirubin 0.5, Aspartate Amino Transf (AST/SGOT) 16, Alanine Aminotransferase (ALT/SGPT) 11, Alkaline Phosphatase 126, Total Protein 5.9L, Albumin 2.9L Microbiology 09/15/20 Gram Stain, Resulted Pending 09/15/20 Anaerobic Culture, Resulted Pending 09/15/20 Surgical Culture - Preliminary, Resulted Gram Negative Michael 09/14/20 MRSA Screen - Final, Complete MRSA not isolated Assessment/Plan Assessment/Plan Assess & Plan/Chief Complaint recurrent left perineal abscess and devere medical non-compliance,s/p debridement. 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 MOLLY RODRIGUEZ MD September 16, 2020 12:23
[2020-09-16 12:25] VITALS: BP 129/58
--- NOTE | 2020-09-16 15:27 | Physical Therapy Evaluation ---
PT Evaluation-General Medical Diagnosis Admission Date September 14, 2020 at 12:47 Medical Diagnosis: wound debridement Onset Date: September 15, 2020 Therapy Diagnosis Therapy Diagnosis: impaired mobility Height/Weight Height (Feet): 5 Height (Inches): 6.00 Weight (Pounds): 320 Weight (Ounces): 12.8 Precautions Precautions/Isolations: Standard Precautions Referral Physician: Nelida Reason for Referral: Evaluation/Treatment Medical History Pertinent Medical History: COPD, DM, HTN Additional Medical History Diabetes, COPD, hypertension, depression, and hypercholesterolemia. Reviewed History: Yes Social History Home: Single Level Current Living Status: Children Entry Into Home: Stairs With Railing PT Steps Into Home: 7 Prior Prior Level of Function SCALE: Activities may be completed with or without assistive devices. 2-Ybczfgswyz-ilelbri completes the activity by him/herself with no assistance from a helper. 5-Set-up or Clean-up Assistance-helper sets up or cleans up; patient completes activity. [place] assists only prior to or following the activity. 4-Supervision or Touching Assistance-helper provides verbal cues and/or touching/steadying and/or contact guard assistance as patient completes activity. Assistance may be provided throughout the activity or intermittently. 3-Partial/Moderate Assistance-helper does LESS THAN HALF the effort. [place] lifts, holds or supports trunk or limbs, but provides less than half the effort. 2-Substantial/Maximal Assistance-helper does MORE THAN HALF the effort. [place] lifts or holds trunk or limbs and provides more than half the effort. 2-Cisyzeslm-wirwai does ALL the effort. Patient does none of the effort to complete the activity. Or, the assistance of 2 or more helpers is required for the patient to complete the activity. If activity was not attempted, code reason: 7-Patient Refused. 9-Not Applicable-not attempted and the patient did not perform the activity before the current illness, exacerbation or injury. 10-Not Attempted due to Environmental Limitations-(lack of equipment, weather restraints, etc.). 88-Not Attempted due to Medical Conditions or Safety Concerns. Bed Mobility: 6 Transfers (B,C,W/C): 6 Gait: 6 Stairs: 6 Wheelchair Mobility: 6 Indoor Mobility (Ambulation): Independent Stairs: Independent Prior Devices Use: None PT Evaluation-Current Subjective Patient reports high, unrated pain in buttock area post sx. Patient had visitor in room, once PT entered room visitor commanded PT to "come back later, she had visitors," however patient consented to treatment. Pt/Family Goals Return home with PLOF Objective Patient Orientation: Person, Place, Time, Normal For Age Attachments: IV wound vac ROM/Strength ROM Lower Extremities WFL Strength Lower Extremities RLE (Hip flexion 3+/5, knee extension/flexion 3+/5, DF 4-/5) LLE (Hip flexion 3+/5, knee extension/flexion 3+/5, DF 4-/5) patient was guarding movement secondary to pain Integumentary/Posture Integumentary see nursing report Bowel Incontinence: No Bladder Incontinence: No Posture mild kyphosis Sensory Vision: Functional Hearing: Functional Sensation Right Lower Extremit: Impaired Sensation Left Lower Extremity: Impaired Transfers Roll Left to Right (QC): 6 Sit to Lying (QC): 6 Lying to Sitting/Side of Bed(Q: 6 Sit to Stand (QC): 4 CGA, patient was unsure about ability to stand up, was steady, but became tearful during transfer. Patient reported it felt good to stand up. Gait Does the Patient Walk?: No and Walking Goal IS indicated Comments/Gait Description Patient denied wanting to walk at this time secondary to buttock pain. Balance Sitting Static: Good Sitting Dynamic: Good Standing Static: Fair Standing Dynamic: Fair Treatment Instructed patient to perform heel slides and ankle pumps while in bed pain tolerating, as often as possible to prevent DVT. Assessment/Needs Decreased functional mobility, self-limiting secondary to pain Rehab Potential: Fair PT Receiving Manager Goals Mcfp Goals PT Mcfp Goals Time Frame: September 23, 2020 Roll Left & Right (QC): 6 Sit to Lying (QC): 6 Lying-Sitting on Side/Bed(QC): 6 Sit to Stand (QC): 6 Chair/Lyv-my-Rkmcw Xfer(QC): 6 Walk 10 feet (QC): 6 Walk 50ft with 2 Turns (QC): 6 Walk 150 ft (QC): 6 1 Step (curb) (QC): 6 PT Plan Problem List Problem List: Activity Tolerance, Functional Strength, Safety, Balance, Gait, Transfer, Bed Mobility, ROM Treatment/Plan Treatment Plan: Continue Plan of Care Treatment Plan: Bed Mobility, Education, Functional Activity Demetrius, Functional Strength, Gait, Safety, Therapeutic Exercise, Transfers Treatment Duration: September 23, 2020 Frequency: 6 times per week Estimated Hrs Per Day: .25 hour per day Patient and/or Family Agrees t: Yes Safety Risks/Education Patient Education: Transfer Techniques, Correct Positioning, Safety Issues Teaching Recipient: Patient Teaching Methods: Demonstration, Discussion Response to Teaching: Verbalize Understanding, Return Demonstration Discharge Recommendations Plan Plan to incorporate gait training, LE strengthening, and transfer to promote improved functional mobility to return home with PLOF. Therapy Discharge Recommendati: Home & Family, Post Acute PT Time/GCodes Time In: 1508 Time Out: 1518 Total Billed Treatment Time: 10 Total Billed Treatment 1 visit: EVM: MATTHEW ARNOLD PT September 16, 2020 15:27
[2020-09-16 15:43] VITALS: BP 139/60
--- NOTE | 2020-09-16 15:58 | Occ Therapy Progress Note ---
Therapy Progress Note OT order received, chart reviewed. Pt. in bed. OT came in and introduced self. Pt. upset and states that she is not "doing that good." Pt. has two visitors in room. One of them makes comments throughout attempted session. Pt. tearful, and before OT can assess pt's pain level, etc., the visitor states that she does not know why PT stood pt, and why she has to move already. OT attempted to educate that movement is necessary to encourage blood flow, prevent pneumonia. One visitor in the room was understanding. The other visitor states that pt. is upset, and that she has not had any time to rest. She states that nursing is going to give pt. xanax. Nurse aide comes in to take vitals, and visitor states that she is getting upset at "all these people coming in." The pt. tells her that they are just trying to get her vitals. OT offers a warm blanket, and anything that will make her feel better. Visitor states that pt. just needs to rest and be left alone. Evaluation not completed due to pt's tearful behavior and decline at OOB activity at this time, and visitor's agitation. All needs are met. Nurse unavailable, and so call put in to nurse harvesting manager to report visitor's behavior. 1, visit x 10minutes [id number] RED DE OLIVEIRA OT September 16, 2020 15:58
[2020-09-16] MEDS: ALPRAZolam 0.5 MG (XANAX) TAB PO PRN (16:22)
[2020-09-16 19:38] VITALS: BP 129/59
[2020-09-17] VITALS: BP 129/70
[2020-09-17] MEDS: HYDROcodone/APAP 7.5 MG/325 MG (LORTAB, LORCET PLUS) TABLET PO PRN ×4 (02:39→18:05)
[2020-09-17 03:50] VITALS: BP 123/58
[2020-09-17] MEDS: fentaNYL INJ 100 MCG/2 ML AMP IVP PRN (06:11)
[2020-09-17] MEDS: inSUlin ASPART (NovoLOG) 1 UNIT/0.01 ML (CHARGE PER UNIT) SC SCH ×4 (06:38→21:12)
[2020-09-17 06:51] LABS: BASOPHILS % (AUTO) 0 % (0-10); EOSINOPHILS # (AUTO) 0.3 10^3/uL (0.0-0.3); EOSINOPHILS % (AUTO) 6 % (0-10); HEMATOCRIT 28 % (35-52); LYMPHOCYTES # (AUTO) 1.4 10^3/uL (1.0-4.0); LYMPHOCYTES % (AUTO) 26 % (12-44); MEAN CORPUSCULAR HEMOGLOBIN 29 pg (25-34); MEAN CORPUSCULAR HGB CONC 32 g/dL (32-36); MEAN CORPUSCULAR VOLUME 91 fL (80-99); MEAN PLATELET VOLUME 10.4 fL (9.0-12.2); MONOCYTES # (AUTO) 0.5 10^3/uL (0.0-1.0); MONOCYTES % (AUTO) 10 % (0-12); NEUTROPHILS # (AUTO) 3.1 10^3/uL (1.8-7.8); NEUTROPHILS % (AUTO) 57 % (42-75); PLATELET COUNT 174 10^3/uL (130-400); WHITE BLOOD COUNT 5.4 10^3/uL (4.3-11.0)
[2020-09-17 07:11] LABS: ALBUMIN 2.9 GM/DL (3.2-4.5); CHLORIDE 100 MMOL/L (98-107); POTASSIUM 3.5 MMOL/L (3.6-5.0); SODIUM 138 MMOL/L (135-145)
[2020-09-17 07:12] LABS: CALCIUM 7.9 MG/DL (8.5-10.1)
[2020-09-17 07:13] LABS: GLUCOSE 252 MG/DL (70-105); TOTAL PROTEIN 5.8 GM/DL (6.4-8.2)
[2020-09-17 07:14] LABS: CARBON DIOXIDE 30 MMOL/L (21-32)
[2020-09-17 07:15] LABS: BILIRUBIN,TOTAL 0.3 MG/DL (0.1-1.0)
[2020-09-17 07:17] LABS: ALKALINE PHOSPHATASE 159 U/L (40-136); CREATININE SERUM 0.83 MG/DL (0.60-1.30); GFR ESTIMATED > 60
[2020-09-17 07:18] LABS: BUN/CREATININE RATIO 13
[2020-09-17 07:20] LABS: ALANINE AMINOTRANSFERASE 12 U/L (0-55); MAGNESIUM 1.6 MG/DL (1.6-2.4)
[2020-09-17 08:00] VITALS: BP 108/59
[2020-09-17] MEDS: FAMOTIDINE 20MG/2ML IV (PEPCID) IVP SCH (08:38)
[2020-09-17] MEDS: cefTRIAXone 2,000 MG/SWFI 20 ML IV PUSH IV SCH ×2 (08:39)
[2020-09-17] MEDS: metroNIDAZOLE 500 MG/100 ML IVPB (PRE-MIX) IV SCH ×2 (08:39→20:04)
--- NOTE | 2020-09-17 10:10 | Physical Therapy Daily Note ---
PT Daily Note-Current Subjective Patient agrees to PT. Request toilet use. Pain Numeric Pain Scale: 8 Location: Soft Tissue Location Body Site: Sacrum Pain Description: Chronic Mental Status Patient Orientation: Normal For Age Attachments: Central Line wound vac Transfers SCALE: Activities may be completed with or without assistive devices. 6-Zyhiojaihq-ynxsehq completes the activity by him/herself with no assistance from a helper. 5-Set-up or Clean-up Assistance-helper sets up or cleans up; patient completes activity. [place] assists only prior to or following the activity. 4-Supervision or Touching Assistance-helper provides verbal cues and/or touching/steadying and/or contact guard assistance as patient completes activity. Assistance may be provided throughout the activity or intermittently. 3-Partial/Moderate Assistance-helper does LESS THAN HALF the effort. [place] lifts, holds or supports trunk or limbs, but provides less than half the effort. 2-Substantial/Maximal Assistance-helper does MORE THAN HALF the effort. [place] lifts or holds trunk or limbs and provides more than half the effort. 2-Jbgebplqp-eiumsx does ALL the effort. Patient does none of the effort to complete the activity. Or, the assistance of 2 or more helpers is required for the patient to complete the activity. If activity was not attempted, code reason: 7-Patient Refused. 9-Not Applicable-not attempted and the patient did not perform the activity before the current illness, exacerbation or injury. 10-Not Attempted due to Environmental Limitations-(lack of equipment, weather restraints, etc.). 88-Not Attempted due to Medical Conditions or Safety Concerns. Roll Left & Right (QC): 6 Lying to Sitting/Side of Bed(Q: 6 Sit to Stand (QC): 6 Chair/Ywn-hz-Tqgbu Xfer(QC): 6 Toilet Transfer (QC): 6 patient toileted self after BM Gait Training Does the Patient Walk?: Yes Distance: 325' Walk 10 feet (QC): 4 Walk 50 ft with 2 Turns(QC): 4 Walk 150 ft (QC): 4 Gait Assistive Device: FWW slow, steady antalgic due to wound/SBA with ambulation Assessment Patient requires time to complete all functional tasks due to pain. Patient is up in recliner with needs met. Patient tolerated treatment well. PT Senior Care Goals Php Engineer Goals PT Senior Care Goals Time Frame: September 23, 2020 Roll Left & Right (QC): 6 Sit to Lying (QC): 6 Lying-Sitting on Side/Bed(QC): 6 Sit to Stand (QC): 6 Chair/Wxb-pm-Irzpc Xfer(QC): 6 Walk 10 feet (QC): 6 Walk 50ft with 2 Turns (QC): 6 Walk 150 ft (QC): 6 1 Step (curb) (QC): 6 PT Plan Treatment/Plan Treatment Plan: Continue Plan of Care Treatment Plan: Bed Mobility, Education, Functional Activity Demetrius, Functional Strength, Gait, Safety, Therapeutic Exercise, Transfers Treatment Duration: September 23, 2020 Frequency: 6 times per week Estimated Hrs Per Day: .25 hour per day Patient and/or Family Agrees t: Yes Time/GCodes Time In: 852 Time Out: 920 Total Billed Treatment Time: 28 Total Billed Treatment 1 visit FA x 2 28 min JENARO ARAYA PT September 17, 2020 10:10
--- NOTE | 2020-09-17 11:05 | Occupational Therapy Eval ---
OT Evaluation-General/PLF Medical Diagnosis Admission Date September 14, 2020 at 12:47 Medical Diagnosis: wound debridement Onset Date: September 15, 2020 Therapy Diagnosis Therapy Diagnosis: decreased ADL status Height/Weight Height (Feet): 5 Height (Inches): 6.00 Weight (Pounds): 320 Weight (Ounces): 12.8 Precautions Precautions/Isolations: Standard Precautions Referral Physician: Nelida Referral Reason: Evaluation/Treatment Medical History Pertinent Medical History: COPD, DM, HTN Additional Medical History depression Current History ED 08/14/20 with debridement of perineal area 08/21/20. 09/14/20 pt seen in office for follow up, found to have recurrent L ischiorectal abscess and cellulitis Social History Home: Single Level Current Living Status: Children Entry Into Home: Stairs With Railing Steps Into Home: 7 ADL-Prior Level of Function SCALE: Activities may be completed with or without assistive devices. 1-Mugyaspfpe-ypqlcrs completes the activity by him/herself with no assistance from a helper. 5-Set-up or Clean-up Assistance-helper sets up or cleans up; patient completes activity. [place] assists only prior to or following the activity. 4-Supervision or Touching Assistance-helper provides verbal cues and/or touching/steadying and/or contact guard assistance as patient completes activity. Assistance may be provided throughout the activity or intermittently. 3-Partial/Moderate Assistance-helper does LESS THAN HALF the effort. [place] lifts, holds or supports trunk or limbs, but provides less than half the effort. 2-Substantial/Maximal Assistance-helper does MORE THAN HALF the effort. [place] lifts or holds trunk or limbs and provides more than half the effort. 3-Nyqwojith-irqvqm does ALL the effort. Patient does none of the effort to complete the activity. Or, the assistance of 2 or more helpers is required for the patient to complete the activity. If activity was not attempted, code reason: 7-Patient Refused. 9-Not Applicable-not attempted and the patient did not perform the activity before the current illness, exacerbation or injury. 10-Not Attempted due to Environmental Limitations-(lack of equipment, weather restraints, etc.). 88-Not Attempted due to Medical Conditions or Safety Concerns. ADL PLOF Comments Pt indicates IND with daily tasks at [facility], currently living with her daughter. She has been able to complete showers independently, using surgical scrub, standing in shower. Self Care: Independent Functional Cognition: Independent DME/Equipment: Shower OT Current Status Subjective Pt seated in recliner, reports pain in area of wound, but did not verbalize pain rating. Mental Status/Objective Patient Orientation: Person, Place, Time, Situation Attachments: Drains (wound vac) Current Glasses/Contacts: Yes Upper Extremity ROM WFL Upper Extremity Coordination WFL Upper Extremity Strength WFL ADL-Treatment Eating (QC): 6 (Per pt report) Shower/Bathe Self (QC): 5 (set up with sponge bath, pt able to wash/dry all parts.) Upper Body Dressing (QC): 5 (set up with hospital gown) Lower Body Dressing (QC): 5 (set up, OT assisted with wound vac tubing, pt able to doff/don underwear) On/Off Footwear (QC): 6 (IND pt able to doff/don bilateral gripper socks.) Toileting Hygiene (QC): 6 (Pt indicates she toileted earlier, able to manage clothing and perform hygiene post BM) Increased time required with ADLs. Other Treatments OT evaluation complete, Pt provided information about PLOF and home set up, and participated in UE screen. Pt agreeable to OT Tx with focus on ADLs. Pt completed sponge bath and dressing as outlined above, requiring increased time with ADLs due to pain and slow movements. OT assisted with threading wound vac tubing in/out of LE clothing. Pt indicates she was unable to don socks earlier, but completed IND during tx. Pt indicates she feels better after getting clean. Post tx, pt seated in recliner, call light in reach and all needs met, 2 visitors just arriving. Education OT Patient Education: Correct positioning, Modified ADL techniques, Progress toward Goal/Update tx plan, Rehab process Teaching Recipient: Patient Teaching Methods: Discussion Response to Teaching: Verbalize Understanding OT [place] Performer Goals Senior Living Goals Time Frame: September 25, 2020 Oral Hygiene (QC): 6 Shower/Bathe Self (QC): 6 Upper Body Dressing (QC): 6 Lower Body Dressing (QC): 6 Additional Goals: 1-Demonstrate ADL Tasks, 2-Verbalize Understanding, 3-Impr oveStrength/Demetrius 1=Demonstrate adherence to instructed precautions during ADL tasks. 2=Patient will verbalize/demonstrate understanding of assistive devices/modifications for ADL. 3=Patient will improve strength/tolerance for activity to enable patient to perform ADL's. OT Education/Plan Problem List/Assessment Assessment: Decreased Activ Tolerance, Decreased UE Strength, Impaired I ADL's Pt would benefit from short term skilled OT services in order to increase independence with ADLs. Discharge Recommendations Plan/Recommendations: Continue POC Therapy Discharge Recommendati: Home & Family Treatment Plan/Plan of Care Patient would benefit from OT for education, treatment and training to promote independence in ADL's, mobility, safety and/or upper extremity function for ADL's. Plan of Care: ADL Retraining, Functional Mobility, UE Funct Exercise/Act Treatment Duration: September 25, 2020 Frequency: 5 times per week Estimated Hrs Per Day: .25 hour per day Rehab Potential: Fair Time/GCodes Start Time: 10:32 Stop Time: 10:58 Total Time Billed (hr/min): 26 Billed Treatment Time 1, EVL (10'), ADL (16') CHER BALDWIN OT September 17, 2020 11:05
--- NOTE | 2020-09-17 11:42 | Progress Note - Hospitalist ---
Subjective HPI/CC On Admission Date Seen by Provider: September 17, 2020 Time Seen by Provider: 11:45 CC: Buttock abscess recurrent in type HPI: This is a 55yoWF clinic pt of [facility] who was just discharged two weeks ago after a rectal abscess s/p debridement and wound vac recent DKA episode who presented to the hospital with pain in the same area found to have a new abscess in need of debridement. Bicarbonate is good, no acidosis noted but blood sugars in the 200-300 range so will initiate insulin. Subjective/Events-last exam Pt doing a lot better Pain is well controlled Walking with therapy pretty well Wound vac maintained Checked meds and labs Review of Systems Musculoskeletal: leg pain Objective Exam Vital Signs Vital Signs Date Time Temp Pulse Resp B/P (MAP) Pulse Ox O2 Delivery O2 Flow Rate FiO2 09/18/20 03:32 37.0 97 16 158/79 (105) 91 Room Air 09/17/20 16:08 Capillary Refill : General Appearance: No Apparent Distress, WD/WN, Chronically ill Respiratory: Lungs Clear Cardiovascular: Regular Rate, Rhythm Neurologic/Psychiatric: Alert, Oriented x3 Results/Procedures Lab Laboratory Tests 09/17/20 06:17 09/18/20 04:55 Patient resulted labs reviewed. Assessment/Plan Assessment and Plan Assess & Plan/Chief Complaint Assessment: Recurrent buttock abscess set for debridement today Dr Martinez DM h/o DKA HTN HLP Hypokalemia Hypomagnesemia Plan: IV abx Insulin Debridement Potassium and mag supplement Lovenox 09/16/20: DC IVF IRF? Home meds 09/17/20: Monitor potassium and mag Pain control Diagnosis/Problems Diagnosis/Problems (1) Ischiorectal abscess (2) Diabetes Status: Chronic (3) DVT prophylaxis Status: Acute (4) Hypertension Status: Chronic FEDERICA GILMORE DO September 17, 2020 11:42
[2020-09-17 12:00] VITALS: BP 132/71
--- NOTE | 2020-09-17 14:52 | Progress Note ---
Subjective Date Seen by a Provider: September 17, 2020 Time Seen by a Provider: 14:00 Subjective/Events-last exam doing well. no fever/chills. still has some pain however improved. Objective Exam Vital Signs Date Time Temp Pulse Resp B/P (MAP) Pulse Ox O2 Delivery O2 Flow Rate FiO2 09/17/20 12:00 35.9 95 18 132/71 (91) 91 Nasal Cannula 3.00 09/17/20 08:00 Room Air 09/17/20 08:00 35.8 93 16 108/59 (75) 98 Nasal Cannula 3.00 09/17/20 03:50 35.6 86 18 123/58 (79) 95 Nasal Cannula 3.00 09/17/20 00:00 36.5 89 18 129/70 (89) 91 Nasal Cannula 3.00 09/16/20 20:00 Room Air 09/16/20 19:38 36.0 90 18 129/59 (82) 97 Nasal Cannula 3.00 09/16/20 15:43 91 Nasal Cannula 3.00 09/16/20 15:43 36.1 106 18 139/60 (86) 91 Nasal Cannula 3.00 I & O 09/17/20 07:00 Intake Total 3600 ml Balance 3600 ml Capillary Refill : General Appearance: No Apparent Distress HEENT: PERRL/EOMI Neck: Full Range of Motion Respiratory: Chest Non Tender, Lungs Clear, Normal Breath Sounds Cardiovascular: Regular Rate, Rhythm Gastrointestinal: normal bowel sounds, non tender, soft Extremity: Normal Capillary Refill Neurologic/Psychiatric: Alert, Oriented x3 Skin: Normal Color Lymphatic: No Adenopathy Results Lab Laboratory Tests 09/16/20 15:28: Glucometer 203H 09/16/20 20:03: Glucometer 170H 09/17/20 06:17: White Blood Count 5.4, Red Blood Count 3.10L, Hemoglobin 9.0L, Hematocrit 28L, Mean Corpuscular Volume 91, Mean Corpuscular Hemoglobin 29, Mean Corpuscular Hemoglobin Concent 32, Red Cell Distribution Width 13.3, Platelet Count 174, Mean Platelet Volume 10.4, Immature Granulocyte % (Auto) 0, Neutrophils (%) (Auto) 57, Lymphocytes (%) (Auto) 26, Monocytes (%) (Auto) 10, Eosinophils (%) (Auto) 6, Basophils (%) (Auto) 0, Neutrophils # (Auto) 3.1, Lymphocytes # (Auto) 1.4, Monocytes # (Auto) 0.5, Eosinophils # (Auto) 0.3, Basophils # (Auto) 0.0, Immature Granulocyte # (Auto) 0.0, Sodium Level 138, Potassium Level 3.5L, Chloride Level 100, Carbon Dioxide Level 30, Anion Gap 8, Blood Urea Nitrogen 11, Creatinine 0.83, Estimat Glomerular Filtration Rate > 60, BUN/Creatinine Ratio 13, Glucose Level 252H, Calcium Level 7.9L, Corrected Calcium 8.8, Magnesium Level 1.6, Total Bilirubin 0.3, Aspartate Amino Transf (AST/SGOT) 23, Alanine Aminotransferase (ALT/SGPT) 12, Alkaline Phosphatase 159H, Total Protein 5.8L, Albumin 2.9L 09/17/20 06:30: Glucometer 241H 09/17/20 11:17: Glucometer 163H Microbiology 09/15/20 Gram Stain - Final, Resulted 09/15/20 Anaerobic Culture - Preliminary, Resulted Culture In Progress 09/15/20 Surgical Culture - Preliminary, Resulted Escherichia coli 09/14/20 MRSA Screen - Final, Complete MRSA not isolated Assessment/Plan Assessment/Plan Assess & Plan/Chief Complaint recurrent left perineal abscess and devere medical non-compliance,s/p debridement. cont abx ambulate cont wound care/VAC pt will need to proceed with medical compliance or prognosis [facility] poor. MOLLY RODRIGUEZ MD September 17, 2020 14:52
[2020-09-17 16:08] VITALS: BP 104/62
[2020-09-17 20:00] VITALS: BP 106/66
[2020-09-18] VITALS: BP 137/65
[2020-09-18] MEDS: fentaNYL INJ 100 MCG/2 ML AMP IVP PRN ×3 (03:01→19:30)
[2020-09-18 03:32] VITALS: BP 158/79
[2020-09-18 05:14] LABS: BASOPHILS % (AUTO) 0 % (0-10); EOSINOPHILS # (AUTO) 0.3 10^3/uL (0.0-0.3); EOSINOPHILS % (AUTO) 5 % (0-10); HEMATOCRIT 27 % (35-52); HEMOGLOBIN 8.7 g/dL (11.5-16.0); LYMPHOCYTES # (AUTO) 1.5 10^3/uL (1.0-4.0); LYMPHOCYTES % (AUTO) 24 % (12-44); MEAN CORPUSCULAR HEMOGLOBIN 29 pg (25-34); MEAN CORPUSCULAR HGB CONC 32 g/dL (32-36); MEAN CORPUSCULAR VOLUME 89 fL (80-99); MEAN PLATELET VOLUME 10.4 fL (9.0-12.2); MONOCYTES # (AUTO) 0.6 10^3/uL (0.0-1.0); MONOCYTES % (AUTO) 9 % (0-12); NEUTROPHILS # (AUTO) 3.9 10^3/uL (1.8-7.8); NEUTROPHILS % (AUTO) 61 % (42-75); PLATELET COUNT 204 10^3/uL (130-400); WHITE BLOOD COUNT 6.4 10^3/uL (4.3-11.0)
[2020-09-18 05:21] LABS: ALBUMIN 2.9 GM/DL (3.2-4.5)
[2020-09-18 05:22] LABS: CHLORIDE 102 MMOL/L (98-107); POTASSIUM 3.3 MMOL/L (3.6-5.0); SODIUM 142 MMOL/L (135-145)
[2020-09-18 05:23] LABS: CALCIUM 8.1 MG/DL (8.5-10.1)
[2020-09-18 05:24] LABS: GLUCOSE 182 MG/DL (70-105)
[2020-09-18 05:25] LABS: CARBON DIOXIDE 30 MMOL/L (21-32)
[2020-09-18 05:26] LABS: BILIRUBIN,TOTAL 0.2 MG/DL (0.1-1.0)
[2020-09-18 05:27] LABS: ALKALINE PHOSPHATASE 159 U/L (40-136)
[2020-09-18 05:28] LABS: CREATININE SERUM 0.77 MG/DL (0.60-1.30); GFR ESTIMATED > 60
[2020-09-18 05:29] LABS: BUN/CREATININE RATIO 12
[2020-09-18 05:30] LABS: ALANINE AMINOTRANSFERASE 13 U/L (0-55)
[2020-09-18] MEDS: inSUlin ASPART (NovoLOG) 1 UNIT/0.01 ML (CHARGE PER UNIT) SC SCH ×5 (06:03→21:03)
--- NOTE | 2020-09-18 06:13 | Progress Note - Hospitalist ---
Subjective HPI/CC On Admission Date Seen by Provider: September 18, 2020 Time Seen by Provider: 11:00 CC: Buttock abscess recurrent in type HPI: This is a 55yoWF clinic pt of [facility] who was just discharged two weeks ago after a rectal abscess s/p debridement and wound vac recent DKA episode who presented to the hospital with pain in the same area found to have a new abscess in need of debridement. Bicarbonate is good, no acidosis noted but blood sugars in the 200-300 range so will initiate insulin. Subjective/Events-last exam Patient is requiring 2 wound vacs at the same time Plan for discharge on Monday Patient denies any new issues Replace potassium by oral route now No new issues Reviewed sugar levels Review of Systems General: Fatigue Objective Exam Vital Signs Vital Signs Date Time Temp Pulse Resp B/P (MAP) Pulse Ox O2 Delivery O2 Flow Rate FiO2 09/18/20 15:58 36.7 91 18 179/90 (119) 94 Room Air 09/17/20 16:08 Capillary Refill : General Appearance: No Apparent Distress, WD/WN, Chronically ill Respiratory: Lungs Clear Cardiovascular: Regular Rate, Rhythm Neurologic/Psychiatric: Alert, Oriented x3, No Motor/Sensory Deficits, Normal Mood/Affect Results/Procedures Lab Laboratory Tests 09/18/20 04:55 Patient resulted labs reviewed. Assessment/Plan Assessment and Plan Assess & Plan/Chief Complaint Assessment: Recurrent buttock abscess set for debridement today Dr Martinez DM h/o DKA HTN HLP Hypokalemia Hypomagnesemia Plan: IV abx Insulin Debridement Potassium and mag supplement Lovenox 09/16/20: DC IVF IRF? Home meds 09/17/20: Monitor potassium and mag Pain control 09/18/2020: Replace potassium oral route Pain control Monitor bowels Insulin Diagnosis/Problems Diagnosis/Problems (1) Ischiorectal abscess (2) Diabetes Status: Chronic (3) DVT prophylaxis Status: Acute (4) Hypertension Status: Chronic FEDERICA GILMORE DO September 18, 2020 06:13
[2020-09-18 08:05] VITALS: BP 153/78
[2020-09-18] MEDS: FAMOTIDINE 20MG/2ML IV (PEPCID) IVP SCH (08:27)
[2020-09-18] MEDS: cefTRIAXone 2,000 MG/SWFI 20 ML IV PUSH IV SCH ×2 (08:27)
[2020-09-18] MEDS: metroNIDAZOLE 500 MG/100 ML IVPB (PRE-MIX) IV SCH ×2 (08:27→21:03)
--- NOTE | 2020-09-18 10:32 | Physical Therapy Daily Note ---
PT Daily Note-Current Subjective Patient agrees to PT. Mental Status Patient Orientation: Normal For Age wound vac Transfers SCALE: Activities may be completed with or without assistive devices. 2-Icnhpzxxtz-nzzabnw completes the activity by him/herself with no assistance from a helper. 5-Set-up or Clean-up Assistance-helper sets up or cleans up; patient completes activity. [place] assists only prior to or following the activity. 4-Supervision or Touching Assistance-helper provides verbal cues and/or touching/steadying and/or contact guard assistance as patient completes activity. Assistance may be provided throughout the activity or intermittently. 3-Partial/Moderate Assistance-helper does LESS THAN HALF the effort. [place] lifts, holds or supports trunk or limbs, but provides less than half the effort. 2-Substantial/Maximal Assistance-helper does MORE THAN HALF the effort. [place] lifts or holds trunk or limbs and provides more than half the effort. 5-Ycywacnvd-exnhqt does ALL the effort. Patient does none of the effort to complete the activity. Or, the assistance of 2 or more helpers is required for the patient to complete the activity. If activity was not attempted, code reason: 7-Patient Refused. 9-Not Applicable-not attempted and the patient did not perform the activity before the current illness, exacerbation or injury. 10-Not Attempted due to Environmental Limitations-(lack of equipment, weather restraints, etc.). 88-Not Attempted due to Medical Conditions or Safety Concerns. Roll Left & Right (QC): 6 Lying to Sitting/Side of Bed(Q: 6 Sit to Stand (QC): 6 Chair/Xbw-cg-Youra Xfer(QC): 6 Toilet Transfer (QC): 6 Gait Training Does the Patient Walk?: Yes Distance: 700' Walk 10 feet (QC): 6 Walk 50 ft with 2 Turns(QC): 6 Walk 150 ft (QC): 6 Gait Assistive Device: FWW safe and functional gait sequence with no deviation Assessment Patient is currently at independent PLOF with all gross motor skills. PT to dismiss patient from services at this time. RN notified to encourage patient to ambulate PRN in hallway independently. PT Nursing Home Goals Nursing Home Goals PT Nursing Home Goals Time Frame: September 23, 2020 Roll Left & Right (QC): 6 Sit to Lying (QC): 6 Lying-Sitting on Side/Bed(QC): 6 Sit to Stand (QC): 6 Chair/Lrx-vr-Gqaos Xfer(QC): 6 Walk 10 feet (QC): 6 Walk 50ft with 2 Turns (QC): 6 Walk 150 ft (QC): 6 1 Step (curb) (QC): 6 PT Plan Treatment/Plan Treatment Plan: Discontinue PT Treatment Plan: Bed Mobility, Education, Functional Activity Demetrius, Functional Strength, Gait, Safety, Therapeutic Exercise, Transfers Treatment Duration: September 23, 2020 Frequency: 6 times per week Estimated Hrs Per Day: .25 hour per day Patient and/or Family Agrees t: Yes Time/GCodes Time In: 955 Time Out: 1015 Total Billed Treatment Time: 20 Total Billed Treatment 1 visit FA 20 min JENARO ARAYA PT September 18, 2020 10:32
[2020-09-18] MEDS: KCL 20 MEQ TAB (K-DUR) PO SCH ×2 (11:41→17:48)
--- NOTE | 2020-09-18 12:02 | Progress Note ---
Subjective Date Seen by a Provider: September 18, 2020 Time Seen by a Provider: 11:30 Subjective/Events-last exam doing well. pain controlled. wound vacs changed today. granulating in well. no fever/chills. Objective Exam Vital Signs Date Time Temp Pulse Resp B/P (MAP) Pulse Ox O2 Delivery O2 Flow Rate FiO2 09/18/20 08:05 36.3 94 18 153/78 (103) 93 Room Air 09/18/20 08:00 93 Room Air 09/18/20 03:32 37.0 97 16 158/79 (105) 91 Room Air 09/18/20 00:00 36.3 96 17 137/65 (89) 91 Room Air 09/17/20 20:00 35.8 94 16 106/66 (79) 90 Room Air 09/17/20 20:00 Room Air 09/17/20 16:08 35.9 91 17 104/62 (76) 90 Room Air I & O 09/18/20 07:00 Intake Total 1600 ml Output Total 1250 ml Balance 350 ml Capillary Refill : General Appearance: No Apparent Distress HEENT: PERRL/EOMI Neck: Full Range of Motion Respiratory: Chest Non Tender, Lungs Clear, Normal Breath Sounds Cardiovascular: Regular Rate, Rhythm Gastrointestinal: normal bowel sounds, non tender, soft Extremity: Normal Capillary Refill Neurologic/Psychiatric: Alert, Oriented x3 Skin: Normal Color Lymphatic: No Adenopathy Results Lab Laboratory Tests 09/17/20 15:43: Glucometer 252H 09/17/20 20:33: Glucometer 282H 09/18/20 04:55: White Blood Count 6.4, Red Blood Count 3.02L, Hemoglobin 8.7L, Hematocrit 27L, Mean Corpuscular Volume 89, Mean Corpuscular Hemoglobin 29, Mean Corpuscular Hemoglobin Concent 32, Red Cell Distribution Width 13.2, Platelet Count 204, Mean Platelet Volume 10.4, Immature Granulocyte % (Auto) 0, Neutrophils (%) (Auto) 61, Lymphocytes (%) (Auto) 24, Monocytes (%) (Auto) 9, Eosinophils (%) (Auto) 5, Basophils (%) (Auto) 0, Neutrophils # (Auto) 3.9, Lymphocytes # (Auto) 1.5, Monocytes # (Auto) 0.6, Eosinophils # (Auto) 0.3, Basophils # (Auto) 0.0, Immature Granulocyte # (Auto) 0.0, Sodium Level 142, Potassium Level 3.3L, Chloride Level 102, Carbon Dioxide Level 30, Anion Gap 10, Blood Urea Nitrogen 9, Creatinine 0.77, Estimat Glomerular Filtration Rate > 60, BUN/Creatinine Ratio 12, Glucose Level 182H, Calcium Level 8.1L, Corrected Calcium 9.0, Total Bilirubin 0.2, Aspartate Amino Transf (AST/SGOT) 17, Alanine Aminotransferase (ALT/SGPT) 13, Alkaline Phosphatase 159H, Total Protein 6.0L, Albumin 2.9L 09/18/20 11:34: Glucometer 230H Microbiology 09/15/20 Gram Stain - Final, Resulted 09/15/20 Anaerobic Culture - Preliminary, Resulted Prevotella bivia 09/15/20 Surgical Culture - Preliminary, Resulted Escherichia coli 09/14/20 MRSA Screen - Final, Complete MRSA not isolated Assessment/Plan Assessment/Plan Assess & Plan/Chief Complaint recurrent left perineal abscess and devere medical non-compliance,s/p debridement. cont abx ambulate cont wound care/VAC pt will need to proceed with medical compliance or prognosis longterm poor. will continue wound vacs over the weekend then re-evaluate. MOLLY RODRIGUEZ MD September 18, 2020 12:02
[2020-09-18] MEDS ORDERED: fentaNYL INJ 100 MCG/2 ML AMP IVP PRN (12:30)
--- NOTE | 2020-09-18 13:31 | Occ Therapy Progress Note ---
Therapy Progress Note OT visited with pt, pt states no further concerns with ADLs. Her main concern was being unable to don socks, but she IND with footwear yesterday with this therapist. Pt states she feels like she is at her PLOF and does not wish to continue with OT. OT to d/c pt from services at this time due to pt being IND and at PLOF. 1, visit HCER BALDWIN OT September 18, 2020 13:31
[2020-09-18 15:58] VITALS: BP 179/90
[2020-09-18] MEDS: ALPRAZolam 0.5 MG (XANAX) TAB PO PRN (22:16)
[2020-09-19 00:05] VITALS: BP 163/67
[2020-09-19] MEDS: HYDROcodone/APAP 7.5 MG/325 MG (LORTAB, LORCET PLUS) TABLET PO PRN ×3 (02:32→21:04)
[2020-09-19] MEDS: fentaNYL INJ 100 MCG/2 ML AMP IVP PRN (02:33)
[2020-09-19 05:56] LABS: BASOPHILS % (AUTO) 1 % (0-10); EOSINOPHILS # (AUTO) 0.3 10^3/uL (0.0-0.3); EOSINOPHILS % (AUTO) 4 % (0-10); HEMATOCRIT 27 % (35-52); HEMOGLOBIN 8.6 g/dL (11.5-16.0); LYMPHOCYTES # (AUTO) 1.6 10^3/uL (1.0-4.0); LYMPHOCYTES % (AUTO) 28 % (12-44); MEAN CORPUSCULAR HEMOGLOBIN 29 pg (25-34); MEAN CORPUSCULAR HGB CONC 32 g/dL (32-36); MEAN CORPUSCULAR VOLUME 89 fL (80-99); MONOCYTES # (AUTO) 0.6 10^3/uL (0.0-1.0); MONOCYTES % (AUTO) 10 % (0-12); NEUTROPHILS # (AUTO) 3.4 10^3/uL (1.8-7.8); NEUTROPHILS % (AUTO) 58 % (42-75); PLATELET COUNT 208 10^3/uL (130-400); WHITE BLOOD COUNT 5.9 10^3/uL (4.3-11.0)
[2020-09-19 06:11] LABS: ALBUMIN 2.9 GM/DL (3.2-4.5)
[2020-09-19 06:12] LABS: CHLORIDE 102 MMOL/L (98-107); POTASSIUM 3.1 MMOL/L (3.6-5.0); SODIUM 145 MMOL/L (135-145)
[2020-09-19 06:13] LABS: CALCIUM 8.2 MG/DL (8.5-10.1)
[2020-09-19 06:14] LABS: GLUCOSE 93 MG/DL (70-105); TOTAL PROTEIN 5.8 GM/DL (6.4-8.2)
[2020-09-19 06:15] LABS: CARBON DIOXIDE 29 MMOL/L (21-32)
[2020-09-19 06:16] LABS: BILIRUBIN,TOTAL 0.3 MG/DL (0.1-1.0)
[2020-09-19 06:17] LABS: ALKALINE PHOSPHATASE 157 U/L (40-136)
[2020-09-19] MEDS: inSUlin ASPART (NovoLOG) 1 UNIT/0.01 ML (CHARGE PER UNIT) SC SCH ×4 (06:17→21:04)
[2020-09-19 06:18] LABS: CREATININE SERUM 0.64 MG/DL (0.60-1.30); GFR ESTIMATED > 60
[2020-09-19 06:19] LABS: BUN/CREATININE RATIO 9
[2020-09-19 06:20] LABS: ALANINE AMINOTRANSFERASE 11 U/L (0-55)
--- NOTE | 2020-09-19 07:41 | Progress Note - Hospitalist ---
Subjective HPI/CC On Admission Date Seen by Provider: September 19, 2020 Time Seen by Provider: 11:30 CC: Buttock abscess recurrent in type HPI: This is a 55yoWF clinic pt of [facility] who was just discharged two weeks ago after a rectal abscess s/p debridement and wound vac recent DKA episode who presented to the hospital with pain in the same area found to have a new abscess in need of debridement. Bicarbonate is good, no acidosis noted but blood sugars in the 200-300 range so will initiate insulin. Subjective/Events-last exam Patient was doing well until the IV potassium started burning her arm Patient was very tearful and has had difficulty coping with multiple issues in the past which I have noted personally Daughter caught me downstairs in the [place] and told me her mom was crying due to the arm pain so I had RN check on it and she was fine at that time it had resolved and no need to DC PICC line but then daughter was very hateful to RN and refused to wear her mask and fired th RN from her mother's care and cursed at her. Patient wound vac fell out last night so wet to dry dressings ordered by Dr Martinez but she refuses to shower and change the dressings today Very difficult to manage Review of Systems General: Fatigue, Malaise Musculoskeletal: arm pain Objective Exam Vital Signs Vital Signs Date Time Temp Pulse Resp B/P (MAP) Pulse Ox O2 Delivery O2 Flow Rate FiO2 09/19/20 14:24 Room Air 09/19/20 07:55 36.5 85 28 137/74 (95) 92 09/17/20 16:08 Capillary Refill : General Appearance: No Apparent Distress, WD/WN, Chronically ill Respiratory: Lungs Clear Cardiovascular: Regular Rate, Rhythm Neurologic/Psychiatric: Alert, Oriented x3 Results/Procedures Lab Laboratory Tests 09/19/20 05:25 Patient resulted labs reviewed. Assessment/Plan Assessment and Plan Assess & Plan/Chief Complaint Assessment: Recurrent buttock abscess set for debridement today Dr Martinez DM h/o DKA HTN HLP Hypokalemia Hypomagnesemia Plan: IV abx Insulin Debridement Potassium and mag supplement Lovenox 09/16/20: DC IVF IRF? Home meds 09/17/20: Monitor potassium and mag Pain control 09/18/2020: Replace potassium oral route Pain control Monitor bowels Insulin 5/8/21: DC potassium IV due to burning at the IV site PO supplement Shower and dressing changes indicated but she refuses Diagnosis/Problems Diagnosis/Problems (1) Ischiorectal abscess (2) Diabetes Status: Chronic (3) DVT prophylaxis Status: Acute (4) Hypertension Status: Chronic FEDERICA GILMORE DO September 19, 2020 07:41
[2020-09-19] MEDS ORDERED: KCL 20 MEQ TAB (K-DUR) PO SCH (07:45)
[2020-09-19 07:55] VITALS: BP 137/74
[2020-09-19] MEDS: POTASSIUM CL 10MEQ/50ML IVPB 50 ML IV SCH ×3 (09:24→11:30)
[2020-09-19] MEDS: FAMOTIDINE 20MG/2ML IV (PEPCID) IVP SCH (09:25)
[2020-09-19] MEDS: KCL 20 MEQ TAB (K-DUR) PO SCH ×3 (09:29→17:39)
[2020-09-19] MEDS: cefTRIAXone 2,000 MG/SWFI 20 ML IV PUSH IV SCH ×2 (09:30)
[2020-09-19] MEDS: metroNIDAZOLE 500 MG/100 ML IVPB (PRE-MIX) IV SCH ×2 (09:30→20:50)
--- NOTE | 2020-09-19 09:57 | Progress Note ---
Subjective Date Seen by a Provider: September 19, 2020 Time Seen by a Provider: 09:20 Subjective/Events-last exam Patient seen with Dr. Martinez. Patient reports doing ok but still having discomfort of the perineum wounds. Wound vac removed last night due to unable to keep a good seal and changed to wet to dry dressing changes BID. Tolerating diet. Objective Exam Vital Signs Date Time Temp Pulse Resp B/P (MAP) Pulse Ox O2 Delivery O2 Flow Rate FiO2 09/19/20 07:55 36.5 85 28 137/74 (95) 92 Room Air 09/19/20 00:05 36.2 85 18 163/67 (99) 94 Room Air 09/18/20 19:30 Room Air 09/18/20 15:58 36.7 91 18 179/90 (119) 94 Room Air I & O 09/19/20 07:00 Intake Total 1780 ml Output Total 3300 ml Balance -1520 ml Capillary Refill : General Appearance: No Apparent Distress, WD/WN Neck: Normal Inspection, Supple Respiratory: No Accessory Muscle Use, No Respiratory Distress Cardiovascular: Regular Rate, Rhythm, No Edema Gastrointestinal: normal bowel sounds, non tender, soft Extremity: Normal Inspection, Normal Range of Motion Neurologic/Psychiatric: Alert, Oriented x3 Skin: Other (Perineum wound C/D/I with some mild redness/erythema, no active drainage, tender with palpation) Results Lab Laboratory Tests 09/18/20 11:34: Glucometer 230H 09/18/20 15:33: Glucometer 134H 09/18/20 20:06: Glucometer 341H 09/19/20 05:25: White Blood Count 5.9, Red Blood Count 2.99L, Hemoglobin 8.6L, Hematocrit 27L, Mean Corpuscular Volume 89, Mean Corpuscular Hemoglobin 29, Mean Corpuscular Hemoglobin Concent 32, Red Cell Distribution Width 13.2, Platelet Count 208, Mean Platelet Volume 10.0, Immature Granulocyte % (Auto) 0, Neutrophils (%) (Auto) 58, Lymphocytes (%) (Auto) 28, Monocytes (%) (Auto) 10, Eosinophils (%) (Auto) 4, Basophils (%) (Auto) 1, Neutrophils # (Auto) 3.4, Lymphocytes # (Auto) 1.6, Monocytes # (Auto) 0.6, Eosinophils # (Auto) 0.3, Basophils # (Auto) 0.0, Immature Granulocyte # (Auto) 0.0, Sodium Level 145, Potassium Level 3.1L, Chloride Level 102, Carbon Dioxide Level 29, Anion Gap 14, Blood Urea Nitrogen 6L, Creatinine 0.64, Estimat Glomerular Filtration Rate > 60, BUN/Creatinine Ratio 9, Glucose Level 93, Calcium Level 8.2L, Corrected Calcium 9.1, Total Bilirubin 0.3, Aspartate Amino Transf (AST/SGOT) 12, Alanine Aminotransferase (ALT/SGPT) 11, Alkaline Phosphatase 157H, Total Protein 5.8L, Albumin 2.9L Microbiology 09/15/20 Gram Stain - Final, Complete 09/15/20 Anaerobic Culture - Final, Complete Prevotella bivia 09/15/20 Surgical Culture - Final, Complete Escherichia coli 09/14/20 MRSA Screen - Final, Complete MRSA not isolated Assessment/Plan Assessment/Plan Assess & Plan/Chief Complaint A 55 year old female with recurrent left perineal abscess and severe medical non-compliance,s/p debridement. cont abx ambulate cont wound care with wet to dry dressing changes pt will need to proceed with medical compliance or prognosis assisted poor. will continue wound wet to dry dressing changes over the weekend and then replace wound vac on monday ADONIS CHEEMA ARTIFICIAL BREAST FABRICATOR September 19, 2020 09:57
[2020-09-19] MEDS: LACTATED RINGERS 1,000 ML IV PRN (11:19)
[2020-09-19 16:00] VITALS: BP 145/94
[2020-09-19] MEDS: ALPRAZolam 0.5 MG (XANAX) TAB PO PRN (21:04)
[2020-09-20 00:28] VITALS: BP 103/66
[2020-09-20] MEDS: inSUlin ASPART (NovoLOG) 1 UNIT/0.01 ML (CHARGE PER UNIT) SC SCH ×4 (05:46→20:58)
[2020-09-20 05:57] LABS: BASOPHILS % (AUTO) 1 % (0-10); EOSINOPHILS # (AUTO) 0.3 10^3/uL (0.0-0.3); EOSINOPHILS % (AUTO) 5 % (0-10); HEMATOCRIT 31 % (35-52); HEMOGLOBIN 9.7 g/dL (11.5-16.0); LYMPHOCYTES # (AUTO) 2.3 10^3/uL (1.0-4.0); LYMPHOCYTES % (AUTO) 36 % (12-44); MEAN CORPUSCULAR HEMOGLOBIN 28 pg (25-34); MEAN CORPUSCULAR HGB CONC 32 g/dL (32-36); MEAN CORPUSCULAR VOLUME 90 fL (80-99); MEAN PLATELET VOLUME 9.7 fL (9.0-12.2); MONOCYTES # (AUTO) 0.5 10^3/uL (0.0-1.0); MONOCYTES % (AUTO) 7 % (0-12); NEUTROPHILS # (AUTO) 3.2 10^3/uL (1.8-7.8); NEUTROPHILS % (AUTO) 50 % (42-75); PLATELET COUNT 252 10^3/uL (130-400); WHITE BLOOD COUNT 6.3 10^3/uL (4.3-11.0)
[2020-09-20 06:05] LABS: ALBUMIN 3.1 GM/DL (3.2-4.5); CHLORIDE 103 MMOL/L (98-107); POTASSIUM 3.9 MMOL/L (3.6-5.0); SODIUM 144 MMOL/L (135-145)
[2020-09-20 06:07] LABS: CALCIUM 8.5 MG/DL (8.5-10.1)
[2020-09-20 06:08] LABS: GLUCOSE 158 MG/DL (70-105); TOTAL PROTEIN 6.2 GM/DL (6.4-8.2)
[2020-09-20 06:09] LABS: BILIRUBIN,TOTAL 0.3 MG/DL (0.1-1.0); CARBON DIOXIDE 27 MMOL/L (21-32)
[2020-09-20 06:11] LABS: ALKALINE PHOSPHATASE 157 U/L (40-136); CREATININE SERUM 0.73 MG/DL (0.60-1.30); GFR ESTIMATED > 60
[2020-09-20 06:12] LABS: BUN/CREATININE RATIO 11
[2020-09-20 06:14] LABS: ALANINE AMINOTRANSFERASE 11 U/L (0-55)
--- NOTE | 2020-09-20 07:05 | Progress Note - Hospitalist ---
Subjective HPI/CC On Admission Date Seen by Provider: September 20, 2020 Time Seen by Provider: 11:00 CC: Buttock abscess recurrent in type HPI: This is a 55yoWF clinic pt of [facility] who was just discharged two weeks ago after a rectal abscess s/p debridement and wound vac recent DKA episode who presented to the hospital with pain in the same area found to have a new abscess in need of debridement. Bicarbonate is good, no acidosis noted but blood sugars in the 200-300 range so will initiate insulin. Subjective/Events-last exam Patient doing well Potassium 3.9 Wound vac will be replaced today Review of Systems General: Fatigue Objective Exam Vital Signs Vital Signs Date Time Temp Pulse Resp B/P (MAP) Pulse Ox O2 Delivery O2 Flow Rate FiO2 09/20/20 16:25 36.8 100 18 128/76 (93) 93 Room Air 09/17/20 16:08 Capillary Refill : General Appearance: No Apparent Distress, WD/WN, Chronically ill Respiratory: Lungs Clear Cardiovascular: Regular Rate, Rhythm Neurologic/Psychiatric: Alert, Oriented x3, No Motor/Sensory Deficits, Normal Mood/Affect Results/Procedures Lab Laboratory Tests 09/20/20 05:40 Patient resulted labs reviewed. Assessment/Plan Assessment and Plan Assess & Plan/Chief Complaint Assessment: Recurrent buttock abscess set for debridement today Dr Martinez DM h/o DKA HTN HLP Hypokalemia Hypomagnesemia Plan: IV abx Insulin Debridement Potassium and mag supplement Lovenox 09/16/20: DC IVF IRF? Home meds 09/17/20: Monitor potassium and mag Pain control 09/18/2020: Replace potassium oral route Pain control Monitor bowels Insulin 09/19/20: DC potassium IV due to burning at the IV site PO supplement Shower and dressing changes indicated but she refuses 09/20/20: Wound vac Potassium supplement Diagnosis/Problems Diagnosis/Problems (1) Ischiorectal abscess (2) Diabetes Status: Chronic (3) DVT prophylaxis Status: Acute (4) Hypertension Status: Chronic FEDERICA GILMORE DO September 20, 2020 07:05
[2020-09-20 08:00] VITALS: BP 130/76
[2020-09-20] MEDS: metroNIDAZOLE 500 MG/100 ML IVPB (PRE-MIX) IV SCH ×2 (08:43→20:57)
[2020-09-20] MEDS: KCL 20 MEQ TAB (K-DUR) PO SCH ×3 (08:43→16:11)
[2020-09-20] MEDS: cefTRIAXone 2,000 MG/SWFI 20 ML IV PUSH IV SCH ×2 (08:43)
[2020-09-20] MEDS: FAMOTIDINE 20MG/2ML IV (PEPCID) IVP SCH (08:53)
--- NOTE | 2020-09-20 10:02 | Progress Note ---
Subjective Date Seen by a Provider: September 20, 2020 Time Seen by a Provider: 09:35 Subjective/Events-last exam Patient seen with Dr. Martinez. Patient reports doing ok but still having some discomfort. Reports that they keep having to change the dressing when she goes to the bathroom and the she did not have that issue with the wound vac and felt that she did better with it. Tolerating diet and ambulating. Objective Exam Vital Signs Date Time Temp Pulse Resp B/P (MAP) Pulse Ox O2 Delivery O2 Flow Rate FiO2 09/20/20 08:00 36.3 82 18 130/76 (94) 93 Room Air 09/20/20 00:28 35.9 90 18 103/66 (78) 92 Room Air 09/19/20 20:50 95 Room Air 09/19/20 16:00 35.4 90 22 145/94 (111) 95 Room Air 09/19/20 14:24 Room Air I & O 09/20/20 07:00 Intake Total 2220 ml Output Total 500 ml Balance 1720 ml Capillary Refill : General Appearance: No Apparent Distress, WD/WN Neck: Normal Inspection, Supple Respiratory: No Accessory Muscle Use, No Respiratory Distress Cardiovascular: Regular Rate, Rhythm, No Edema Gastrointestinal: normal bowel sounds, non tender, soft Extremity: Normal Inspection, Normal Range of Motion Neurologic/Psychiatric: Alert, Oriented x3 Skin: Normal Color, Other (Left perineum wound with dressing in place. No active drainage. Mild localized erythema. Tender to palpation.) Results Lab Laboratory Tests 09/19/20 15:22: Glucometer 284H 09/19/20 16:42: Glucometer 247H 09/19/20 20:09: Glucometer 286H 09/20/20 05:12: Glucometer 160H 09/20/20 05:40: White Blood Count 6.3, Red Blood Count 3.41L, Hemoglobin 9.7L, Hematocrit 31L, Mean Corpuscular Volume 90, Mean Corpuscular Hemoglobin 28, Mean Corpuscular Hemoglobin Concent 32, Red Cell Distribution Width 13.2, Platelet Count 252, Mean Platelet Volume 9.7, Immature Granulocyte % (Auto) 1, Neutrophils (%) (Auto) 50, Lymphocytes (%) (Auto) 36, Monocytes (%) (Auto) 7, Eosinophils (%) (Auto) 5, Basophils (%) (Auto) 1, Neutrophils # (Auto) 3.2, Lymphocytes # (Auto) 2.3, Monocytes # (Auto) 0.5, Eosinophils # (Auto) 0.3, Basophils # (Auto) 0.0, Immature Granulocyte # (Auto) 0.0, Sodium Level 144, Potassium Level 3.9, Chlor yris Level 103, Carbon Dioxide Level 27, Anion Gap 14, Blood Urea Nitrogen 8, Creatinine 0.73, Estimat Glomerular Filtration Rate > 60, BUN/Creatinine Ratio 11, Glucose Level 158H, Calcium Level 8.5, Corrected Calcium 9.2, Total Bilirub in 0.3, Aspartate Amino Transf (AST/SGOT) 13, Alanine Aminotransferase (ALT/SGPT) 11, Alkaline Phosphatase 157H, Total Protein 6.2L, Albumin 3.1L Microbiology 09/15/20 Gram Stain - Final, Complete 09/15/20 Anaerobic Culture - Final, Complete Prevotella bivia 09/15/20 Surgical Culture - Final, Complete Escherichia coli 09/14/20 MRSA Screen - Final, Complete MRSA not isolated Assessment/Plan Assessment/Plan Assess & Plan/Chief Complaint A 55 year old female with recurrent left perineal abscess and severe medical non-compliance,s/p debridement. 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 will continue wound wet to dry dressing changes until wound vac can be replaced ADONIS CHEEMA INTERIOR HORTICULTURIST September 20, 2020 10:01
[2020-09-20] MEDS: HYDROcodone/APAP 7.5 MG/325 MG (LORTAB, LORCET PLUS) TABLET PO PRN ×2 (14:12→20:58)
[2020-09-20 16:25] VITALS: BP 128/76
[2020-09-20] MEDS: ALPRAZolam 0.5 MG (XANAX) TAB PO PRN (20:58)
[2020-09-20 23:57] VITALS: BP 133/79
[2020-09-21] MEDS: inSUlin ASPART (NovoLOG) 1 UNIT/0.01 ML (CHARGE PER UNIT) SC SCH ×4 (05:39→20:53)
[2020-09-21 06:04] LABS: BASOPHILS % (AUTO) 1 % (0-10); EOSINOPHILS # (AUTO) 0.3 10^3/uL (0.0-0.3); EOSINOPHILS % (AUTO) 4 % (0-10); HEMATOCRIT 31 % (35-52); HEMOGLOBIN 9.6 g/dL (11.5-16.0); LYMPHOCYTES # (AUTO) 2.5 10^3/uL (1.0-4.0); LYMPHOCYTES % (AUTO) 38 % (12-44); MEAN CORPUSCULAR HEMOGLOBIN 29 pg (25-34); MEAN CORPUSCULAR HGB CONC 31 g/dL (32-36); MEAN CORPUSCULAR VOLUME 93 fL (80-99); MEAN PLATELET VOLUME 10.2 fL (9.0-12.2); MONOCYTES # (AUTO) 0.5 10^3/uL (0.0-1.0); MONOCYTES % (AUTO) 8 % (0-12); NEUTROPHILS # (AUTO) 3.1 10^3/uL (1.8-7.8); NEUTROPHILS % (AUTO) 48 % (42-75); PLATELET COUNT 300 10^3/uL (130-400); WHITE BLOOD COUNT 6.4 10^3/uL (4.3-11.0)
[2020-09-21 06:24] LABS: ALBUMIN 3.1 GM/DL (3.2-4.5); CHLORIDE 103 MMOL/L (98-107); POTASSIUM 4.6 MMOL/L (3.6-5.0); SODIUM 144 MMOL/L (135-145)
[2020-09-21 06:25] LABS: CALCIUM 8.7 MG/DL (8.5-10.1)
[2020-09-21 06:26] LABS: GLUCOSE 123 MG/DL (70-105); TOTAL PROTEIN 6.2 GM/DL (6.4-8.2)
[2020-09-21 06:28] LABS: BILIRUBIN,TOTAL 0.3 MG/DL (0.1-1.0); CARBON DIOXIDE 29 MMOL/L (21-32)
[2020-09-21 06:30] LABS: ALKALINE PHOSPHATASE 153 U/L (40-136); CREATININE SERUM 0.73 MG/DL (0.60-1.30); GFR ESTIMATED > 60
[2020-09-21 06:31] LABS: BUN/CREATININE RATIO 14
[2020-09-21 06:33] LABS: ALANINE AMINOTRANSFERASE 12 U/L (0-55)
[2020-09-21 07:53] VITALS: BP 125/73
[2020-09-21] MEDS: KCL 20 MEQ TAB (K-DUR) PO SCH (08:29)
[2020-09-21] MEDS: metroNIDAZOLE 500 MG/100 ML IVPB (PRE-MIX) IV SCH ×2 (08:35→21:04)
[2020-09-21] MEDS: FAMOTIDINE 20 MG (PEPCID) TABLET PO SCH (08:36)
[2020-09-21] MEDS: cefTRIAXone 2,000 MG/SWFI 20 ML IV PUSH IV SCH ×2 (08:36)
--- NOTE | 2020-09-21 12:34 | Progress Note ---
Subjective Subjective/Events-last exam Patient states that she is ready to go home. Plan to change Wound vac in AM and then ok to d/c with HH. Tolerating PO diet and ambulation Review of Systems Pulmonary: No Dyspnea, No Cough Cardiovascular: No: Chest Pain, Palpitations, Edema Gastrointestinal: No: Nausea, Vomiting, Abdominal Pain, Diarrhea Genitourinary: No Dysuria, No Frequency, No Incontinence Neurological: Weakness, Incoordination Objective Exam Last Set of Vital Signs Vital Signs Date Time Temp Pulse Resp B/P (MAP) Pulse Ox O2 Delivery O2 Flow Rate FiO2 09/21/20 08:00 94 Room Air 09/21/20 07:53 36.1 81 17 125/73 (90) 09/17/20 16:08 Capillary Refill : I&O Intake and Output 09/21/20 00:00 Intake Total 2600 ml Output Total 2000 ml Balance 600 ml Intake Oral 2500 ml IV Total 100 ml Output Urine Total 2000 ml # Voids 4 # Bowel Movements 2 General: Alert, Oriented X3, Cooperative, No Acute Distress HEENT: Mucous Memb Moist/[place] Lungs: Clear to Auscultation, Normal Air Movement Heart: Regular Rate, No Murmurs Abdomen: Normal Bowel Sounds, Soft, No Tenderness, No Masses Extremities: No Edema, No Tenderness/Swelling Skin: Other (Wound Vac in place with good seal, minimal drainage) Neuro: Normal Speech, Sensation Intact, Cranial Nerves 3-12 NL Results/Procedures Lab Laboratory Tests 09/20/20 15:38: Glucometer 226H 09/20/20 20:27: Glucometer 235H 09/21/20 05:19: Glucometer 115H, White Blood Count 6.4, Red Blood Count 3.34L, Hemoglobin 9.6L, Hematocrit 31L, Mean Corpuscular Volume 93, Mean Corpuscular Hemoglobin 29, Mean Corpuscular Hemoglobin Concent 31L, Red Cell Distribution Width 13.4, Platelet Count 300, Mean Platelet Volume 10.2, Immature Granulocyte % (Auto) 0, Neutrophils (%) (Auto) 48, Lymphocytes (%) (Auto) 38, Monocytes (%) (Auto) 8, Eosinophils (%) (Auto) 4, Basophils (%) (Auto) 1, Neutrophils # (Auto) 3.1, Lymphocytes # (Auto) 2.5, Monocytes # (Auto) 0.5, Eosinophils # (Auto) 0.3, Basophils # (Auto) 0.0, Immature Granulocyte # (Auto) 0.0, Sodium Level 144, Potassium Level 4.6, Chloride Level 103, Carbon Dioxide Level 29, Anion Gap 12, Blood Urea Nitrogen 10, Creatinine 0.73, Estimat Glomerular Filtration Rate > 60, BUN/Creatinine Ratio 14, Glucose Level 123H, Calcium Level 8.7, Corrected Calcium 9.4, Total Bilirubin 0.3, Aspartate Amino Transf (AST/SGOT) 14, Alanine Aminotransferase (ALT/SGPT) 12, Alkaline Phosphatase 153H, Total Protein 6.2L, Albumin 3.1L 09/21/20 10:30: Glucometer 178H Microbiology 09/15/20 Gram Stain - Final, Complete 09/15/20 Anaerobic Culture - Final, Complete Prevotella bivia 09/15/20 Surgical Culture - Final, Complete Escherichia coli 09/14/20 MRSA Screen - Final, Complete MRSA not isolated Assessment/Plan Assessment/Plan (1) Ischiorectal abscess Status: Chronic Assessment & Plan: 09/21: Dr Martinez managing wound, Wound Vac in place, plan to change tomorrow and ok to d/c with home health (2) Uncontrolled diabetes mellitus Status: Acute Assessment & Plan: 09/21: Discussed the importance of getting blood sugars under control to help with wound healing, 08/24/20 A1c 15.2 Qualifiers: Qualified Codes: E11.65 - Type 2 diabetes mellitus with hyperglycemia (3) Hypertension Status: Chronic Assessment & Plan: 09/21: Continue home meds Qualifiers: Qualified Codes: I10 - Essential (primary) hypertension (4) DVT prophylaxis Status: Acute Assessment & Plan: - JACKELINE Santana MD September 21, 2020 12:34
[2020-09-21 15:31] VITALS: BP 125/76
--- NOTE | 2020-09-21 16:28 | Progress Note ---
Subjective Date Seen by a Provider: September 21, 2020 Time Seen by a Provider: 16:00 Subjective/Events-last exam doing well. no fever/chills. pain controlled. Objective Exam Vital Signs Date Time Temp Pulse Resp B/P (MAP) Pulse Ox O2 Delivery O2 Flow Rate FiO2 09/21/20 15:31 36.0 82 18 125/76 (92) 93 Room Air 09/21/20 08:00 94 Room Air 09/21/20 07:53 36.1 81 17 125/73 (90) 94 Room Air 09/20/20 23:57 35.9 80 18 133/79 (97) 95 Room Air 09/20/20 20:50 Room Air I & O0 09/21/20 07:00 Intake Total 1950 ml Output Total 1800 ml Balance 150 ml Capillary Refill : General Appearance: No Apparent Distress HEENT: PERRL/EOMI Neck: Full Range of Motion Respiratory: Chest Non Tender, Lungs Clear, Normal Breath Sounds Cardiovascular: Regular Rate, Rhythm Gastrointestinal: normal bowel sounds, non tender, soft Extremity: Normal Capillary Refill Neurologic/Psychiatric: Alert, Oriented x3 Skin: Normal Color Lymphatic: No Adenopathy Results Lab Laboratory Tests 09/20/20 20:27: Glucometer 235H 09/21/20 05:19: Glucometer 115H, White Blood Count 6.4, Red Blood Count 3.34L, Hemoglobin 9.6L, Hematocrit 31L, Mean Corpuscular Volume 93, Mean Corpuscular Hemoglobin 29, Mean Corpuscular Hemoglobin Concent 31L, Red Cell Distribution Width 13.4, Platelet Count 300, Mean Platelet Volume 10.2, Immature Granulocyte % (Auto) 0, Neutrophils (%) (Auto) 48, Lymphocytes (%) (Auto) 38, Monocytes (%) (Auto) 8, Eosinophils (%) (Auto) 4, Basophils (%) (Auto) 1, Neutrophils # (Auto) 3.1, Lymphocytes # (Auto) 2.5, Monocytes # (Auto) 0.5, Eosinophils # (Auto) 0.3, Basophils # (Auto) 0.0, Immature Granulocyte # (Auto) 0.0, Sodium Level 144, Potassium Level 4.6, Chloride Level 103, Carbon Dioxide Level 29, Anion Gap 12, Blood Urea Nitrogen 10, Creatinine 0.73, Estimat Glomerular Filtration Rate > 60, BUN/Creatinine Ratio 14, Glucose Level 123H, Calcium Level 8.7, Corrected Calcium 9.4, Total Bilirubin 0.3, Aspartate Amino Transf (AST/SGOT) 14, Alanine Aminotransferase (ALT/SGPT) 12, Alkaline Phosphatase 153H, Total Protein 6.2L, Albumin 3.1L 09/21/20 10:30: Glucometer 178H 09/21/20 16:00: Glucometer 191H Microbiology 09/15/20 Gram Stain - Final, Complete 09/15/20 Anaerobic Culture - Final, Complete Prevotella bivia 09/15/20 Surgical Culture - Final, Complete Escherichia coli 09/14/20 MRSA Screen - Final, Complete MRSA not isolated Assessment/Plan Assessment/Plan Assess & Plan/Chief Complaint recurrent left perineal abscess and devere medical non-compliance,s/p debridement. cont abx ambulate cont wound care/VAC pt will need to proceed with medical compliance or prognosis shelter poor. will continue wound vacs over the weekend then re-evaluate. possible home tomorrow with MOLLY GOODE MD September 21, 2020 16:28
[2020-09-21] MEDS: HYDROcodone/APAP 7.5 MG/325 MG (LORTAB, LORCET PLUS) TABLET PO PRN (17:14)
[2020-09-22 00:04] VITALS: BP 136/76
[2020-09-22] MEDS: HYDROcodone/APAP 7.5 MG/325 MG (LORTAB, LORCET PLUS) TABLET PO PRN ×3 (01:19→16:03)
[2020-09-22 03:54] VITALS: BP 152/84
[2020-09-22 06:04] LABS: BASOPHILS % (AUTO) 1 % (0-10); EOSINOPHILS # (AUTO) 0.3 10^3/uL (0.0-0.3); EOSINOPHILS % (AUTO) 5 % (0-10); HEMATOCRIT 33 % (35-52); HEMOGLOBIN 10.2 g/dL (11.5-16.0); LYMPHOCYTES # (AUTO) 2.1 10^3/uL (1.0-4.0); LYMPHOCYTES % (AUTO) 34 % (12-44); MEAN CORPUSCULAR HEMOGLOBIN 28 pg (25-34); MEAN CORPUSCULAR HGB CONC 31 g/dL (32-36); MEAN CORPUSCULAR VOLUME 90 fL (80-99); MEAN PLATELET VOLUME 9.9 fL (9.0-12.2); MONOCYTES # (AUTO) 0.4 10^3/uL (0.0-1.0); MONOCYTES % (AUTO) 7 % (0-12); NEUTROPHILS # (AUTO) 3.3 10^3/uL (1.8-7.8); NEUTROPHILS % (AUTO) 54 % (42-75); PLATELET COUNT 339 10^3/uL (130-400); WHITE BLOOD COUNT 6.1 10^3/uL (4.3-11.0)
[2020-09-22] MEDS: inSUlin ASPART (NovoLOG) 1 UNIT/0.01 ML (CHARGE PER UNIT) SC SCH ×3 (06:07→16:04)
[2020-09-22 06:21] LABS: CHLORIDE 101 MMOL/L (98-107); POTASSIUM 4.2 MMOL/L (3.6-5.0); SODIUM 141 MMOL/L (135-145)
[2020-09-22 06:22] LABS: CALCIUM 9.1 MG/DL (8.5-10.1)
[2020-09-22 06:23] LABS: GLUCOSE 202 MG/DL (70-105); TOTAL PROTEIN 6.5 GM/DL (6.4-8.2)
[2020-09-22 06:25] LABS: BILIRUBIN,TOTAL 0.3 MG/DL (0.1-1.0); CARBON DIOXIDE 27 MMOL/L (21-32)
[2020-09-22 06:27] LABS: ALKALINE PHOSPHATASE 143 U/L (40-136); GFR ESTIMATED > 60
[2020-09-22 06:28] LABS: BUN/CREATININE RATIO 11
[2020-09-22 06:30] LABS: ALANINE AMINOTRANSFERASE 12 U/L (0-55)
[2020-09-22 07:02] LABS: ALBUMIN 3.2 GM/DL (3.2-4.5)
[2020-09-22 08:00] VITALS: BP 157/84
[2020-09-22] MEDS: FAMOTIDINE 20 MG (PEPCID) TABLET PO SCH (09:10)
--- NOTE | 2020-09-22 11:52 | Discharge Summary ---
Diagnosis/Chief Complaint Date of Admission September 14, 2020 at 12:47 Date of Discharge Discharge Diagnosis Problems/Diagnosis: (1) Ischiorectal abscess Assessment & Plan: 09/21: Dr Martinez managing wound, Wound Vac in place, plan to change tomorrow and ok to d/c with home health Status: Chronic (2) Uncontrolled diabetes mellitus Assessment & Plan: 09/21: Discussed the importance of getting blood sugars under control to help with wound healing, 08/24/20 A1c 15.2 Qualifiers: Qualified Codes: E11.65 - Type 2 diabetes mellitus with hyperglycemia Status: Acute (3) Hypertension Assessment & Plan: 09/21: Continue home meds Qualifiers: Qualified Codes: I10 - Essential (primary) hypertension Status: Chronic (4) DVT prophylaxis Assessment & Plan: - Lovenox Status: Acute Discharge Summary-Simple/Stand Consultations Discharge Physical Examination Allergies: Coded Allergies: Penicillins (Verified Allergy, Unknown, 05/09/17) aspirin (Verified Allergy, Unknown, 05/09/17) ibuprofen (Verified Allergy, Unknown, 09/19/20) morphine (Verified Allergy, Unknown, 05/09/17) Vitals & I&Os Vital Sign - Last 12Hours Date Time Temp Pulse Resp B/P (MAP) Pulse Ox O2 Delivery O2 Flow Rate FiO2 09/22/20 08:00 Room Air 09/22/20 08:00 35.8 79 18 157/84 (108) 95 09/17/20 16:08 Intake and Output 09/22/20 00:00 Intake Total 920 ml Output Total 550 ml Balance 370 ml Hospital Course See final discharge diagnosis. Discharge Instructions to patient/family Please see electronic discharge instructions given to patient. Discharge Medications Reviewed and agree with Discharge Medication list on patient's Discharge Instruction sheet JACKELINE SALEH MD September 22, 2020 11:52
[2020-09-22] MEDS ORDERED: FAMO20TA5 PO (11:55)
[2020-09-22] MEDS ORDERED: INSU100V5 SQ (11:55)
[2020-09-22] MEDS ORDERED: METF-845 PO (11:55)
[2020-09-22] MEDS ORDERED: INSU100V16 SC (11:55)
--- NOTE | 2020-09-22 12:03 | Discharge Summary ---
Discharge Summary Reconcile Patient Problems Problems Reviewed?: Yes Instructions for Patient Via achvr, Assessment/Instructions Rectal Abscess IDDM: Uncontrolled Physician to follow Patient: Andra Discharge Diet for Home: ADA Diet Hospital Course Date of Admission: September 14, 2020 at 12:47 Admission Diagnosis : Family Physician/Provider: No,Local Physician Date of Discharge: 09/22/20 Discharge Diagnosis: Rectal Abscess Uncontrolled IDDM Hospital Course: 55 yo F with recent hospitalization after debridement of rectal abscess that returns with increasing pain and drainage. Patient required further debridement of wound. Wound Vac was placed during this hospitalization. Previous A1c in August was 15. Discussed with patient the importance of getting diabetes under control and its role in wound healing. Plan to d/c home with for wound vac assistance and f.u with Dr Silverman and/or Dr Martinez with general surgery. Labs and Pending Lab Test: Laboratory Tests 09/21/20 16:00: Glucometer 191H 09/21/20 20:51: Glucometer 164H 09/22/20 05:40: White Blood Count 6.1, Red Blood Count 3.60L, Hemoglobin 10.2L, Hematocrit 33L, Mean Corpuscular Volume 90, Mean Corpuscular Hemoglobin 28, Mean Corpuscular Hemoglobin Concent 31L, Red Cell Distribution Width 13.2, Platelet Count 339, Mean Platelet Volume 9.9, Immature Granulocyte % (Auto) 1, Neutrophils (%) (Auto) 54, Lymphocytes (%) (Auto) 34, Monocytes (%) (Auto) 7, Eosinophils (%) (Auto) 5, Basophils (%) (Auto) 1, Neutrophils # (Auto) 3.3, Lymphocytes # (Auto) 2.1, Monocytes # (Auto) 0.4, Eosinophils # (Auto) 0.3, Basophils # (Auto) 0.0, Immature Granulocyte # (Auto) 0.0, Sodium Level 141, Potassium Level 4.2, Chloride Level 101, Carbon Dioxide Level 27, Anion Gap 13, Blood Urea Nitrogen 9, Creatinine 0.80, Estimat Glomerular Filtration Rate > 60, BUN/Creatinine Rati o 11, Glucose Level 202H, Calcium Level 9.1, Corrected Calcium 9.7, Total Bilirubin 0.3, Aspartate Amino Transf (AST/SGOT) 16, Alanine Aminotransferase (ALT/SGPT) 12, Alkaline Phosphatase 143H, Total Protein 6.5, Albumin 3.2 09/22/20 06:06: Glucometer 176H 09/22/20 10:42: Glucometer 189H Microbiology 09/15/20 Gram Stain - Final, Complete 09/15/20 Anaerobic Culture - Final, Complete Prevotella bivia 09/15/20 Surgical Culture - Final, Complete Escherichia coli 09/14/20 MRSA Screen - Final, Complete MRSA not isolated Home Meds Active Reported Hydrocodone-Acetamin 7.5-325 (Hydrocodone/Acetaminophen) 1 Each Tablet 1 Ea PO Q4H PRN Amox Tr-K Clv 875-125 mg Tab (Amoxicillin/Potassium Clav) 1 Each Tablet 1 Ea PO BID FILLED 09-02-2020 #20/[address] Martinez: General Surgery Patient Allergies: Coded Allergies: Penicillins (Verified Allergy, Unknown, 05/09/17) aspirin (Verified Allergy, Unknown, 05/09/17) ibuprofen (Verified Allergy, Unknown, 09/19/20) morphine (Verified Allergy, Unknown, 05/09/17) Height (Feet): 5 Height (Inches): 6.00 Weight (Pounds): 320 Weight (Ounces): 12.8 New Medications: Metformin HCl (Metformin HCl ER) 500 Mg [id number] 500 MG PO BID, #60 Famotidine (Famotidine) 20 Mg Tablet 20 MG PO DAILY, #30 TAB Insulin Aspart (Novolog) 100 Unit/1 Ml Susp 5 UNIT SC AC for 30 Days, ML Insulin Determir (Levemir) 1,000 Units/10 Ml Soln 15 UNIT SQ HS for 30 Days, EA Continued Medications: Hydrocodone/Acetaminophen (Hydrocodone-Acetamin 7.5-325) 1 Each Tablet 1 EA PO Q4H PRN for PAIN-MODERATE (5-7), TAB Discontinued Medications: Amoxicillin/Potassium Clav (Amox Tr-K Clv 875-125 mg Tab) 1 Each Tablet 1 EA PO BID, TAB FILLED 09-02-2020 #20/10 DAY SUPPLY Home Health Need/Face to Face Date of Face to Face: September 22, 2020 Clinical Findings: Pain with ambulation, Unsteady gait, Non-healing wound I have seen Pt [id number]: Yes Discharged To: Home Diagnosis/Conditions: See Above Patient is Homebound due to: Nichole fall risk due to instabilty, Muscle weakness, Pain w/ambulation Homebound Status Due to the above stated illness, injury or surgical procedure (medical condition or diagnosis) and associated clinical findings, the patient is homebound because of his/her inability to leave home except with aid of a supportive device and/or person AND leaving the home requires a considerable and taxing effort or is medically contraindicated. Pt req the following assistanc: Aid of another person Home Health Nursing Orders Home Health Services Order: Nursing Services, Wound Care-Eval/Treat Patient needs wound vac changes 2x per week, next wound vac change needs to be done and next monday, patient has appt next week to see wound care. Home Health Infusion Therapy Line Start Date: September 15, 2020 Certify Stmt I certify that this patient is under my care and that I, a nurse practitioner or a physician; a materials assistant working with me, had a face to face encounter that - meets the physician face to face encounter requirements with this patient as dated. Discharge Physical Exam General: Alert, Oriented X3, Cooperative, No Acute Distress HEENT: Mucous Memb Moist/[place] Lungs: Clear to Auscultation, Normal Air Movement Heart: Regular Rate, No Murmurs Abdomen: Normal Bowel Sounds, Soft, No Tenderness, No Masses Extremities: No Edema, No Tenderness/Swelling Skin: Other (Perineal wound vac in place with good seal) Neuro: Normal Speech, Sensation Intact, Cranial Nerves 3-12 NL Psych/Mental Status: Mental Status NL, Mood NL JACKELINE SALEH MD September 22, 2020 12:00
[2020-09-22 15:38] VITALS: BP 142/61
[2020-09-22 17:45] VITALS: BP 142/61
== END 2020-09-22 17:45 | disposition home health service (06) | DRG 982 ==
LOC: 4TH 12:47
PROVIDERS: ADMIT Surgery; ATTEND Surgery
PROC: 0KBM0ZZ Excision of Perineum Muscle, Open Approach (ICD-10-PCS; principal; 2020-09-15 16:11)
DX: K61.39 Other ischiorectal abscess (principal); L03.315 Cellulitis of perineum; L03.116 Cellulitis of left lower limb; L03.314 Cellulitis of groin; E11.65 Type 2 diabetes mellitus with hyperglycemia; Z79.84 Long term (current) use of oral hypoglycemic drugs; Z91.19 Patient's noncompliance with other medical treatment and regimen; J44.9 Chronic obstructive pulmonary disease, unspecified; I10 Essential (primary) hypertension; F32.9 Major depressive disorder, single episode, unspecified; E78.00 Pure hypercholesterolemia, unspecified; E78.5 Hyperlipidemia, unspecified; F41.9 Anxiety disorder, unspecified; E87.6 Hypokalemia; E83.42 Hypomagnesemia; Z87.891 Personal history of nicotine dependence; Z79.891 Long term (current) use of opiate analgesic; Z88.6 Allergy status to analgesic agent; Z88.0 Allergy status to penicillin; N76.2 Acute vulvitis
CPT/HCPCS: 36410; 36415; 76937; 80053; 82947; 83735; 85025; 87070; 87075; 87076; 87077; 87081; 87185; 87186; 87205

== ENCOUNTER → 2020-09-30 | Outpatient (CLI) | payer OTHER ==
[~2020-09-30] MED LIST changes: +AMOX1TAB12 PO; +FAMO20TA5 PO; +HYDR-3817 PO; +INSU100V16 SC; +INSU100V5 SQ; +METF-845 PO
== END ==
LOC: WOUNDCARE 09:06
PROVIDERS: ATTEND Surgery
DX: E11.622 Type 2 diabetes mellitus with other skin ulcer (principal); E11.65 Type 2 diabetes mellitus with hyperglycemia; L02.31 Cutaneous abscess of buttock; L02.214 Cutaneous abscess of groin; L98.493 Non-pressure chronic ulcer of skin of other sites with necrosis of muscle; L98.492 Non-pressure chronic ulcer of skin of other sites with fat layer exposed
CPT/HCPCS: 11043; 11046; 97605; G0463

== ENCOUNTER → 2020-10-05 | Outpatient (CLI) | payer OTHER | LOC: WOUNDCARE 15:18 | PROVIDERS: ATTEND Surgery | DX: E11.622 Type 2 diabetes mellitus with other skin ulcer (principal); I96 Gangrene, not elsewhere classified; E11.65 Type 2 diabetes mellitus with hyperglycemia; L02.31 Cutaneous abscess of buttock; L02.214 Cutaneous abscess of groin; L98.492 Non-pressure chronic ulcer of skin of other sites with fat layer exposed | CPT/HCPCS: 11042; 11045; 97605; G0463 ==

== ENCOUNTER → 2020-10-16 | Outpatient (CLI) | payer OTHER | LOC: WOUNDCARE 11:25 | PROVIDERS: ATTEND Orthopaedic Surgery Hand Surgery | DX: E11.622 Type 2 diabetes mellitus with other skin ulcer (principal); I96 Gangrene, not elsewhere classified; E11.65 Type 2 diabetes mellitus with hyperglycemia; L02.31 Cutaneous abscess of buttock; L02.214 Cutaneous abscess of groin; L98.492 Non-pressure chronic ulcer of skin of other sites with fat layer exposed; L30.4 Erythema intertrigo; R21 Rash and other nonspecific skin eruption | CPT/HCPCS: 11042; 11045; G0463 ==

== ENCOUNTER → 2020-10-23 | Outpatient (CLI) | payer OTHER | LOC: WOUNDCARE 10:19 | PROVIDERS: ATTEND Orthopaedic Surgery Hand Surgery | DX: E11.622 Type 2 diabetes mellitus with other skin ulcer (principal); I96 Gangrene, not elsewhere classified; E11.65 Type 2 diabetes mellitus with hyperglycemia; L02.31 Cutaneous abscess of buttock; L02.214 Cutaneous abscess of groin; L98.492 Non-pressure chronic ulcer of skin of other sites with fat layer exposed; L30.4 Erythema intertrigo; R21 Rash and other nonspecific skin eruption | CPT/HCPCS: 11042; G0463 ==

== ENCOUNTER → 2020-10-29 | Outpatient (CLI) | payer OTHER | LOC: WOUNDCARE 09:39 | PROVIDERS: ATTEND Surgery | DX: I96 Gangrene, not elsewhere classified (principal); B35.6 Tinea cruris; L92.8 Other granulomatous disorders of the skin and subcutaneous tissue; E11.622 Type 2 diabetes mellitus with other skin ulcer; E11.65 Type 2 diabetes mellitus with hyperglycemia; L02.31 Cutaneous abscess of buttock; L02.214 Cutaneous abscess of groin; L98.492 Non-pressure chronic ulcer of skin of other sites with fat layer exposed; L30.4 Erythema intertrigo | CPT/HCPCS: 11042; 17250; A6197; G0463 ==

== ENCOUNTER → 2020-11-05 | Outpatient (CLI) | payer OTHER | LOC: WOUNDCARE 11:22 | PROVIDERS: ATTEND Surgery | DX: L92.8 Other granulomatous disorders of the skin and subcutaneous tissue (principal); E11.622 Type 2 diabetes mellitus with other skin ulcer; E11.65 Type 2 diabetes mellitus with hyperglycemia; L02.31 Cutaneous abscess of buttock; L02.214 Cutaneous abscess of groin; L98.492 Non-pressure chronic ulcer of skin of other sites with fat layer exposed; E11.52 Type 2 diabetes mellitus with diabetic peripheral angiopathy with gangrene | CPT/HCPCS: 17250; G0463 ==

== ENCOUNTER → 2020-11-19 | Outpatient (CLI) | payer OTHER | LOC: WOUNDCARE 10:03 | PROVIDERS: ATTEND Surgery | DX: L92.8 Other granulomatous disorders of the skin and subcutaneous tissue (principal); I96 Gangrene, not elsewhere classified; E11.622 Type 2 diabetes mellitus with other skin ulcer; E11.65 Type 2 diabetes mellitus with hyperglycemia; L02.31 Cutaneous abscess of buttock; L02.214 Cutaneous abscess of groin; L98.492 Non-pressure chronic ulcer of skin of other sites with fat layer exposed | CPT/HCPCS: 17250; G0463 ==

== ENCOUNTER → 2020-11-27 | Outpatient (CLI) | payer OTHER ==
[~2020-11-27] MED LIST changes: -SULF1TAB35 PO; +SULF1TAB38 PO
== END ==
LOC: WOUNDCARE 09:06
PROVIDERS: ATTEND Surgery
DX: L92.8 Other granulomatous disorders of the skin and subcutaneous tissue (principal); E11.622 Type 2 diabetes mellitus with other skin ulcer; E11.65 Type 2 diabetes mellitus with hyperglycemia; L02.214 Cutaneous abscess of groin; L98.492 Non-pressure chronic ulcer of skin of other sites with fat layer exposed; E11.52 Type 2 diabetes mellitus with diabetic peripheral angiopathy with gangrene
CPT/HCPCS: 17250; G0463

== ENCOUNTER → 2020-12-03 | Outpatient (CLI) | payer OTHER | LOC: WOUNDCARE 09:53 | PROVIDERS: ATTEND Surgery | DX: L92.8 Other granulomatous disorders of the skin and subcutaneous tissue (principal); E11.622 Type 2 diabetes mellitus with other skin ulcer; E11.65 Type 2 diabetes mellitus with hyperglycemia; L02.214 Cutaneous abscess of groin; L98.492 Non-pressure chronic ulcer of skin of other sites with fat layer exposed; E11.52 Type 2 diabetes mellitus with diabetic peripheral angiopathy with gangrene | CPT/HCPCS: 17250; G0463 ==

== ENCOUNTER → 2020-12-10 | Outpatient (CLI) | payer SELFPAY | LOC: WOUNDCARE 15:18 | PROVIDERS: ATTEND Surgery | DX: L92.8 Other granulomatous disorders of the skin and subcutaneous tissue (principal); E11.622 Type 2 diabetes mellitus with other skin ulcer; E11.65 Type 2 diabetes mellitus with hyperglycemia; L98.492 Non-pressure chronic ulcer of skin of other sites with fat layer exposed; E11.52 Type 2 diabetes mellitus with diabetic peripheral angiopathy with gangrene; L02.214 Cutaneous abscess of groin | CPT/HCPCS: 17250; G0463 ==

== ENCOUNTER → 2020-12-18 | Outpatient (CLI) | payer OTHER | LOC: WOUNDCARE 11:00 | PROVIDERS: ATTEND Orthopaedic Surgery Hand Surgery | DX: L92.8 Other granulomatous disorders of the skin and subcutaneous tissue (principal); E11.622 Type 2 diabetes mellitus with other skin ulcer; E11.65 Type 2 diabetes mellitus with hyperglycemia; L02.214 Cutaneous abscess of groin | CPT/HCPCS: 99212 ==

== ENCOUNTER 2021-09-25 10:25 | Inpatient (IN) | payer SELFPAY ==
[~2021-09-25] VITALS: Ht 168.9 cm; Wt 115.9 kg
[~2021-09-25 10:25] MED LIST changes: +CLIN-144 PO; -CLIN300C12 PO; -LISI-729 PO; +LISI5TAB20 PO
[2021-09-25] MEDS ORDERED: MILK OF MAGNESIA 400 MG/5 ML 30 ML UDC PO PRN (11:45)
[2021-09-25] MEDS ORDERED: ONDANSETRON 4 MG (ZOFRAN) ORAL DISSOLVE TAB PO PRN (11:45)
[2021-09-25] MEDS ORDERED: CALCIUM CARBONATE 500 MG (TUMS) TAB.CHEW PO PRN (11:45)
[2021-09-25] MEDS ORDERED: ALPRAZolam 0.25 MG (XANAX) TAB PO PRN (11:45)
[2021-09-25] MEDS ORDERED: ANTACID SUSP 30 ML UDC (MYLANTA) PO PRN (11:45)
[2021-09-25] MEDS ORDERED: diphenhydrAMINE 50 MG/ML INJ (BENADRYL) IVP PRN (11:45)
[2021-09-25] MEDS ORDERED: polyethylene glycoL POWDER 17 GM (MIRALAX) PACK PO PRN (11:45)
[2021-09-25] MEDS ORDERED: MELATONIN 3 MG TABLET PO PRN (11:45)
[2021-09-25] MEDS ORDERED: BISACODYL 10 MG SUPP (DULCOLAX) PR PRN (11:45)
[2021-09-25] MEDS ORDERED: diphenhydrAMINE 25 MG TAB (BENADRYL) PO PRN (11:45)
[2021-09-25] MEDS ORDERED: LACTULOSE SYRUP 10GM/15ML (ENULOSE) 30ML UDC PO PRN (11:45)
[2021-09-25] MEDS: RT-ALBUTEROL/IPRATROPIUM 3 ML (DUONEB) VIAL INH SCH ×3 (12:00→19:51)
[2021-09-25] MEDS: NS IV 1000 ML 1,000 ML IV SCH (12:05)
[2021-09-25] MEDS: methylPREDNISolone 125 MG (Solu-MEDROL) VIAL IVP SCH ×3 (12:05→23:33)
[2021-09-25 12:22] VITALS: BP 152/86
[2021-09-25] MEDS: ENOXAPARIN 40 MG/0.4 ML (LOVENOX) SYR SC SCH (12:55)
[2021-09-25] MEDS: CEFEPIME INJECTION 1,000 MG in NS (IVPB) 50 ML IV SCH ×2 (12:55→21:26)
[2021-09-25 13:22] LABS: ABG OXYGEN SATURATION 99 % (94-100); ABG PCO2 42 MMHG (35-45); ABG PH 7.38 (7.37-7.43); ABG PO2 134 MMHG (79-93); ABG TCO2 25.9 MMOL/L (21.0-31.0)
[2021-09-25 13:24] LABS: PATIENT TEMP 36.1
[2021-09-25 15:20] VITALS: BP 121/74
--- NOTE | 2021-09-25 16:08 | History & Physical-Hospitalist ---
ROCKY BARRON 09/25/21 1608: History of Present Illness HPI/Chief Complaint The patient is a 56 YO female with a PMH of COPD, insulin dependent DM, ciga rette smoking Hx, and 3 separate COVID 19 infections, who is in the ICU for a COPD exacerbation. The patient reports that she was mowing her lawn yesterday, which resulted in difficulty breathing. She reports that after mowing her lawn her breathing difficulties worsened. Last night she also had chest pains. She called EMS this morning, and was brought to [facility], and then transferred to [facility] in [place]. She did report having some trouble breathing leading up to yesterday's events. The patient reports that she was Dx with COPD after her first COVID infection. All 3 of her COVID infections required hospitalization she reports. She was never intubated she reports. She did not receive the COVID vaccine due to an allergy to an ingredient in the COVID vaccine. She smoked less than 1 pack per day for 30 years before quitting 6 years ago. She takes insulin and Metformin for her DM. Date Seen 09/25/21 Time Seen by a Provider: 15:30 Attending Physician Mona Krause DO PCP No,Local Physician Referring Physician Date of Admission September 25, 2021 at 11:39 Home Medications & Allergies Home Medications Reviewed patient Home Medication Reconciliation performed by pharmacy medication reconciliations dialysis chief equipment technician and/or nursing. Patients Allergies have been reviewed. Allergies Allergies Coded Allergies Penicillins (Verified Allergy, Unknown, 05/09/17) aspirin (Verified Allergy, Unknown, 05/09/17) ibuprofen (Verified Allergy, Unknown, 09/19/20) morphine (Verified Allergy, Unknown, 05/09/17) Past Ewuokso-Vesdwj-Ozcumz Hx Patient Social History Tobacco Use?: Yes Smoking Status: Former Smoker Substance use?: No Alcohol Use?: No Pt feels they are or have been: No Immunizations Up To Date Tetanus Booster (TDap): Less Than 5 Years Seasonal Allergies Seasonal Allergies: No Current Status Advance Directives: No Communicates: Verbally Primary Language: Colombian Preferred Spoken Language: Colombian Is interpretation needed?: No Implanted or Applied Medical D: None Past Medical History Surgeries: Gallbladder, 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, Tubal Ligation Pneumonia, COPD Currently Using CPAP: Yes Currently Using BIPAP: No Hypertension [employer] History: 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, Menopausal Diabetes, Non-Insulin dep Anxiety, Depression Blood Disorders: No PMHx: COPD DMII Anxiety Depression HLD SurgHx: Tubal ligation Cholecystectomy 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 Family Medical History Diabetes mellitus 19 FATHER FH: breast cancer 19 MOTHER Myocardial infarction 19 FATHER Thyroid disease G8 SISTER [place] Review of Systems Constitutional: No chills, No fever EENTM: No hearing loss Respiratory: dyspnea on exertion, short of breath, wheezing Cardiovascular: chest pain (last night ); No edema Gastrointestinal: nausea ("some"); No vomiting Skin: No change in color, No change in hair/nails Psychiatric/Neurological: Denies Anxiety, Denies Depressed, Denies Emotional Problems Physical Exam Physical Exam Vital Signs Vital Signs - First Documented 09/25/21 09/25/21 11:30 11:45 Temp 36.5 Pulse 106 Resp 25 B/P (MAP) 133/94 Pulse Ox 97 O2 Delivery NIV Bilevel O2 Flow Rate 45.00 FiO2 45 Capillary Refill : Height, Weight, BMI Height: 5'6.00" Weight: 320lbs. 12.8oz. 145.703520pv; 34.98 BMI Method:Actual General Appearance: Mild Distress, Obese Eyes: Bilateral Eye Normal Inspection, Bilateral Eye PERRL, Bilateral Eye EOMI HEENT: PERRL/EOMI Neck: Full Range of Motion, Normal Inspection Respiratory: Chest Non Tender, Respiratory Distress (on BIPAP), Wheezing (diffuse on inspiration and expiration ) Cardiovascular: No Edema, No Murmur, Normal Peripheral Pulses, Tachycardia Gastrointestinal: Normal Bowel Sounds, No Organomegaly, No Pulsatile Mass, Non Tender, Soft Extremity: Normal Inspection, Normal Range of Motion, Non Tender, No Calf Tenderness, No Pedal Edema Neurologic/Psychiatric: Alert, Oriented x3, No Motor/Sensory Deficits, Normal Mood/Affect Skin: Normal Color, Warm/Dry Results Results/Procedures Labs Patient resulted labs reviewed. Assessment/Plan Admission Diagnosis COPD Exacerbation Acute respiratory failure Assessment and Plan Assessment: COPD exacerbation requiring BIPAP Acute respiratory failure Tachycardia COPD Insulin dependent DM Hx of Tobacco use 3 Past COVID 19 infections requiring hospitalization Obesity DVT prophylaxis Plan: COPD exacerbation requiring BIPAP Acute respiratory failure COPD PT start Singulair 10mg HS and Fluticasone/ Salmeterol therapy. Continue on Douneb and Solu-medrol therapy. Monitor oxygen SATS. Continue on BIPAP. Continue on Cefepime for pneumonia coverage. CBC and CMP. Tachycardia Monitor rate and rhythm. Insulin dependent DM Sliding scale insulin. Monitor blood glucose. ABG pH was 7.38, however I would like to hold Metformin at this time until blood lactate levels return and the PT's respiratory distress improves. Hx of Tobacco use Likely resulted in her COPD. No acute management for Tobacco use disorder at this time. 3 Past COVID 19 infections requiring hospitalization No acute managment at this time. Obesity Encourage weight loss. DVT prophylaxis Lovenox 40mg MONA KRAUSE DO 09/25/21 5736: History of Present Illness HPI/Chief Complaint Chief Complaint: Acute Respiratory Failure HPI: This is a 56 year old white female known to me from [facility] who presented to [facility] with SOB. She was found to have acute exacerbation of COPD in need of BiPAP. ABG was evaluated and antibiotics started for Atypical Pneumonia. CXR ordered and patient was placed in ICU for further management. She denies any significant new issues. I did review her labs from [facility] Source: patient Exam Limitations: no limitations Past Jujnras-Bsvkfv-Qxlbwl Hx Patient Social History Marrital Status: single Tobacco Use?: Yes Smoking Status: Former Smoker Past Medical History Surgeries: Gallbladder, 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, Tubal Ligation Pneumonia, COPD Hypertension Diabetes, Non-Insulin dep Anxiety, Depression Family Medical History Diabetes mellitus 19 FATHER FH: breast cancer 19 MOTHER Myocardial infarction 19 FATHER Thyroid disease G8 SISTER Review of Systems Constitutional: see HPI, malaise, weakness EENTM: no symptoms reported Respiratory: dyspnea on exertion, short of breath, wheezing Cardiovascular: chest pain (last night ) Gastrointestinal: no symptoms reported Genitourinary: no symptoms reported : Yes Physical Exam Physical Exam General Appearance: Anxious, Chronically ill, Mild Distress, Obese Eyes: Right Eye Normal Inspection, Right Eye PERRL HEENT: PERRL/EOMI, Normal ENT Inspection, Pharynx Normal, Moist Mucous Membranes Neck: Full Range of Motion, Normal Inspection, Non Tender Respiratory: Chest Non Tender, No Respiratory Distress, Accessory Muscle Use, Decreased Breath Sounds, Respiratory Distress (on BIPAP), Wheezing (diffuse on inspiration and expiration ) Cardiovascular: Regular Rate, Rhythm, No Edema, No Gallop, No JVD, No Murmur, Normal Peripheral Pulses Gastrointestinal: Normal Bowel Sounds, No Organomegaly, No Pulsatile Mass, Non Tender, Soft Back: Normal Inspection, No CVA Tenderness, No Vertebral Tenderness Extremity: Normal Capillary Refill, Normal Inspection, Normal Range of Motion, Non Tender, No Calf Tenderness, No Pedal Edema Neurologic/Psychiatric: Alert, Oriented x3, No Motor/Sensory Deficits, Normal Mood/Affect Skin: Normal Color, Warm/Dry Lymphatic: No Adenopathy Results Results/Procedures Labs Laboratory Tests 09/25/21 20:27 09/26/21 04:30 Assessment/Plan Admission Diagnosis Assessment: Acute hypoxic hypercapneic respiratory failure AECOPD PNA DM Former smoker Plan: ICU BIPAP eICU consult Lovenox Admission Status: Inpatient Order (span 2 midnights) Reason for Inpatient Admission: resp failure Supervisory-Addendum Brief Verification & Attestation Participated in pt care: history, MDM, physical Personally performed: exam, history, MDM, supervision of care Care discussed with: Medical Student Procedures: n/a Results interpretation: Verified all documentation Verification and Attestation of Medical Student E/M Service A medical student performed and documented this service in my presence. I reviewed and verified all information documented by the medical student and made modifications to such information, when appropriate. I personally performed the physical exam and medical decision making. Mona Krause, September 26, 2021,14:34 ROCKY BARRON September 25, 2021 16:08 MONA KRAUSE DO September 25, 2021 17:56
[2021-09-25] MEDS: inSUlin ASPART (NovoLOG) 1 UNIT/0.01 ML (CHARGE PER UNIT) SC SCH ×2 (16:57→21:26)
[2021-09-25] MEDS: RT--FLUTICASONE/SALMETEROL 113-14 (AIRDUO RespiCLICK) IH SCH (18:45)
--- NOTE | 2021-09-25 18:49 | Tele-ICU Progress Note ---
Subjective Date Seen by a Provider: September 25, 2021 Time Seen by a Provider: 18:49 Subjective/Events-last exam She is a 56-year-old female with past medical history of COVID19 infection x3, cigarette smoking COPD, insulin requiring diabetes mellitus presented to the [facility] ER with a complaint of shortness of breath and she is found to be in respiratory distress initially placed on nonrebreather mask and subsequently transferred to [facility] ICU for higher level of care. She is placed on BiPAP ventilation with a DuoNeb nebulizer treatment. She is given IV Solu-Medrol. I made a video visit and discussed with the patient. I reviewed with RN. At the time of this note patient removed the BiPAP and port on high flow nasal cannula and she is resting comfortably and right lateral position. Denied any chest pain Review of Systems ros per rn Sepsis Event Evaluation Height, Weight, BMI Height: 5'6.00" Weight: 320lbs. 12.8oz. 145.888231am; 34.98 BMI Method:Actual Exam Exam Patient acknowledged, consented, and participated in this virtual visit which was conducted using real time audio/video Vital Signs Date Time Temp Pulse Resp B/P (MAP) Pulse Ox O2 Delivery O2 Flow Rate FiO2 09/25/21 18:00 104 23 127/63 95 NIV Bilevel 45.00 09/25/21 17:00 100 24 136/88 95 NIV Bilevel 45.00 09/25/21 16:00 96 High Flow N/C 5.00 09/25/21 16:00 110 28 152/92 99 NIV Bilevel 45.00 09/25/21 15:20 102 29 45.00 09/25/21 15:00 96 18 110/67 97 NIV Bilevel 45.00 09/25/21 14:00 100 23 118/63 95 NIV Bilevel 45.00 09/25/21 13:00 110 14 132/88 98 NIV Bilevel 45.00 09/25/21 12:48 116 09/25/21 12:22 109 30 45.00 09/25/21 12:19 98 NIV Bilevel 45 09/25/21 12:00 105 25 152/86 97 NIV Bilevel 45.00 09/25/21 11:54 107 09/25/21 11:45 NIV Bilevel 45 09/25/21 11:45 36.5 108 30 146/90 98 NIV Bilevel 45.00 09/25/21 11:30 106 25 133/94 97 NIV Bilevel 45.00 Height & Weight Height: 5'6.00" Weight: 320lbs. 12.8oz. 145.266521uh; 34.98 BMI Method:Actual General Appearance: Anxious, Mild Distress, Obese HEENT: PERRL/EOMI Neck: Full Range of Motion, Normal Inspection Respiratory: Chest Non Tender, Respiratory Distress (on BIPAP), Wheezing (diffuse on inspiration and expiration ) Cardiovascular: No Edema, No Murmur, Normal Peripheral Pulses, Tachycardia Extremity: Normal Inspection, Normal Range of Motion, Non Tender, No Calf Tenderness, No Pedal Edema Neurologic/Psychiatric: Alert, Oriented x3, No Motor/Sensory Deficits, Normal Mood/Affect Skin: Normal Color, Warm/Dry Other comments pe per immigration attorney/Plan Assessment/Plan 1. Acute exacerbation of COPD. 2. Acute and chronic respiratory failure 3. Insulin requiring diabetes mellitus poorly controlled 4. Previous history of perirectal abscess which was drained. 5. History of for AV tobacco abuse and quit in 2017. Recommendations 1. Continue oxygenation with nasal cannula and a as needed BiPAP ventilation 2. IV Solu-Medrol 3. Sliding scale with coverage per primary care. 4. We will check ketones to see whether she has any DKA. 5. DVT prophylaxis and ulcer prophylaxis Critical Care: Critically Ill Patient Time spent with patient (mins): 25 MICHELLE LICEA MD September 25, 2021 18:49
[2021-09-25] MEDS: ONDANSETRON 4 MG/2 ML (SDV) Z0FRAN IV PRN ×2 (18:56→22:51)
[2021-09-25] MEDS: ACETAMINOPHEN 325 MG TABLET PO PRN (19:16)
[2021-09-25] MEDS: SENNOSIDES 8.6 MG (SENOKOT) TAB PO SCH (19:59)
[2021-09-25] MEDS: DOCUSATE SODIUM 100 MG (COLACE) CAP PO SCH (19:59)
--- NOTE | 2021-09-25 20:33 | Tele-ICU Progress Note ---
Progress Note 56F with COPD, IDDM, COVID19 x3 admitted for COPD exacerbation. Was mowing her lawn yesterday when dyspnea started. Became progressively worse after. Had chest pain overnight. Called EMS this AM, on EMS arrival 85% RA. Duoneb & 15L O2 initiated and patient transported to [facility]. On arrival was tachypneic, wheezing, diminished. Had increased work of breathing and accessory muscle use. BiPap 15/8/45% initiated with inline duoneb, solumedrol 125 mg, 1L LR bolus. Transferred for ICU level care. Prior smoker of 1-2 ppd x 30 years, quit 2017 years ago. States she wasn't diagnosed with COPD until after COVID, howeveralready had COPD history documented on initial note in this EMR 04/2017 . Required hospitalization for all 3 COVID infections. Received remdesivir and convalescent plasma at least once (only 1 hospitalization in this EMR). Not vaccinated secondary to allergy to vaccine component. [facility] Chart Reviewed: CXR: No acute appearing cariopulmonary findings. EKG: sinus tachy, rate 122 wbc 10.5, Hg 14.9, Hct 44.9, Plt 194 Na 138, K 4.3, Cl 98, CO2 26, BUN 11, Creat 0.67, gap 18, glucose 250 Trop <0.020 pH 7.36, CO2 54, O2 169, HCO3 30 flu negative, rapid covid negative - COPD: with exaceration. Given break from BiPap, maintaining SpO2 around 90-91, but dypneic and with accessory muscle use. Continue nebs, solumedrol. Empiric pna coverage with cefepime, add azithro. Check PCT. - IDDM: Noted to have anion gap of 18 at OSH ER, prior to receiving solumdrol. Bicarb 26, but she is a chronic retainer with chronically elevated bicarb and this is a relative low for her. Will repeat BMP, ketones, lactic. Currently levemir and sliding scale writted, If ketones positive, will switch to insulin gtt. Either way, hold metformin. - chest pain: appears respiratory in nature. EKG with questionable old anterior infarct, but may have been positional changes. Troponin negative. Will repeat. d/w bedside RN Focused Exam Height, Weight, BMI Height: 5'6.00" Weight: 320lbs. 12.8oz. [id number]; 34.98 BMI Method:Actual JORGE DANIELLE MD September 25, 2021 20:33
[2021-09-25 20:56] LABS: BUN/CREATININE RATIO 24; CALCIUM 8.7 MG/DL (8.5-10.1); CARBON DIOXIDE 19 MMOL/L (21-32); CHLORIDE 99 MMOL/L (98-107); GFR ESTIMATED 85; GLUCOSE 326 MG/DL (70-105); MAGNESIUM 1.8 MG/DL (1.6-2.4); PHOSPHORUS 2.9 MG/DL (2.3-4.7); SODIUM 135 MMOL/L (135-145)
[2021-09-25] MEDS ORDERED: ADVAIR HFA 115/21 MCG INHALER 8 GM IH SCH (21:00)
[2021-09-25] MEDS: AZITHROMYCIN INJECTION 500 MG in NS (IVPB) 250 ML IV SCH (21:26)
[2021-09-25] MEDS: FAMOTIDINE 20 MG (PEPCID) TABLET PO SCH (21:42)
[2021-09-25] MEDS: MONTELUKAST 10 MG (SINGULAIR) TAB PO SCH (21:42)
[2021-09-25] MEDS: guaiFENesin/CODEINE (ROBITUSSIN AC) 10ML UDC PO PRN (23:33)
[2021-09-25 23:43] VITALS: BP 101/60
[2021-09-26 02:38] VITALS: BP 128/67
[2021-09-26] MEDS: RT-ALBUTEROL/IPRATROPIUM 3 ML (DUONEB) VIAL INH SCH ×6 (02:40→21:36)
[2021-09-26] MEDS: NS IV 1000 ML 1,000 ML IV SCH (04:55)
--- NOTE | 2021-09-26 05:05 | Progress Note - Hospitalist ---
Subjective HPI/CC On Admission Date Seen by Provider: September 26, 2021 Time Seen by Provider: 05:00 The patient is a 56 YO female with a PMH of COPD, insulin dependent DM, cigarette smoking Hx, and 3 separate COVID 19 infections, who is in the ICU for a COPD exacerbation. The patient reports that she was mowing her lawn yesterday, which resulted in difficulty breathing. She reports that after mowing her lawn her breathing difficulties worsened. Last night she also had chest pains. She called EMS this morning, and was brought to [facility], and then transferred to [facility] in [place]. She did report having some trouble breathing leading up to yesterday's events. The patient reports that she was Dx with COPD after her first COVID infection. All 3 of her COVID infections required hospitalization she reports. She was never intubated she reports. She did not receive the COVID vaccine due to an allergy to an ingredient in the COVID vaccine. She smoked less than 1 pack per day for 30 years before quitting 6 years ago. She takes insulin and Metformin for her DM. Subjective/Events-last exam Pt doing a lot better today. Tolerating BiPAP Will d/c Catheter and move her to 4th floor Reviewed meds and labs Azithromycin made her nauseated a few minutes after infusing so we will need to evaluate that Review of Systems General: Fatigue, Malaise Pulmonary: Dyspnea Focused Exam Lactate Level 09/25/21 20:27: Lactic Acid Level 2.22*H 09/25/21 22:40: Lactic Acid Level 1.23 Objective Exam Vital Signs Vital Signs Date Time Temp Pulse Resp B/P (MAP) Pulse Ox O2 Delivery O2 Flow Rate FiO2 09/26/21 16:00 35.3 83 22 140/67 98 High Flow N/C 5.00 09/26/21 04:00 45 Capillary Refill : General Appearance: No Apparent Distress, WD/WN, Chronically ill Respiratory: No Accessory Muscle Use, No Respiratory Distress, Decreased Breath Sounds Cardiovascular: Regular Rate, Rhythm Neurologic/Psychiatric: Alert, Oriented x3, No Motor/Sensory Deficits, Normal Mood/Affect Results/Procedures Lab Laboratory Tests 09/25/21 20:27 09/26/21 04:30 Patient resulted labs reviewed. Assessment/Plan Assessment and Plan Assess & Plan/Chief Complaint Assessment: COPD exacerbation requiring BIPAP Acute respiratory failure Tachycardia COPD Insulin dependent DM Hx of Tobacco use 3 Past COVID 19 infections requiring hospitalization Obesity DVT prophylaxis Plan: Supportive care Oxygen BiPAP Insulin IV antibiotics FEDERICA GILMORE DO September 26, 2021 05:05
[2021-09-26 05:08] LABS: BASOPHILS % (AUTO) 0 % (0-10); EOSINOPHILS % (AUTO) 0 % (0-10); HEMATOCRIT 41 % (35-52); HEMOGLOBIN 13.5 g/dL (11.5-16.0); LYMPHOCYTES # (AUTO) 0.5 10^3/uL (1.0-4.0); LYMPHOCYTES % (AUTO) 5 % (12-44); MEAN CORPUSCULAR HEMOGLOBIN 30 pg (25-34); MEAN CORPUSCULAR HGB CONC 33 g/dL (32-36); MEAN CORPUSCULAR VOLUME 90 fL (80-99); MEAN PLATELET VOLUME 9.9 fL (9.0-12.2); MONOCYTES # (AUTO) 0.3 10^3/uL (0.0-1.0); MONOCYTES % (AUTO) 3 % (0-12); NEUTROPHILS # (AUTO) 9.3 10^3/uL (1.8-7.8); NEUTROPHILS % (AUTO) 92 % (42-75); PLATELET COUNT 186 10^3/uL (130-400); WHITE BLOOD COUNT 10.1 10^3/uL (4.3-11.0)
[2021-09-26 05:18] LABS: ALBUMIN 3.7 GM/DL (3.2-4.5)
[2021-09-26 05:19] LABS: POTASSIUM 4.5 MMOL/L (3.6-5.0)
[2021-09-26 05:20] LABS: CALCIUM 8.6 MG/DL (8.5-10.1)
[2021-09-26 05:21] LABS: TOTAL PROTEIN 6.9 GM/DL (6.4-8.2)
[2021-09-26 05:23] LABS: BILIRUBIN,TOTAL 0.5 MG/DL (0.1-1.0)
[2021-09-26 05:25] LABS: CREATININE SERUM 0.81 MG/DL (0.60-1.30)
[2021-09-26 05:38] LABS: LYMPHOCYTES % (MANUAL) 5 %; MONOCYTES % (MANUAL) 3 %; NEUTROPHILS % (MANUAL) 92 %
[2021-09-26 05:39] LABS: RBC MORPH NORMAL
[2021-09-26] MEDS: inSUlin ASPART (NovoLOG) 1 UNIT/0.01 ML (CHARGE PER UNIT) SC SCH ×4 (05:52→20:20)
[2021-09-26] MEDS: methylPREDNISolone 125 MG (Solu-MEDROL) VIAL IVP SCH ×3 (05:52→20:18)
[2021-09-26] MEDS: ONDANSETRON 4 MG/2 ML (SDV) Z0FRAN IV PRN ×2 (05:56→22:00)
[2021-09-26] MEDS ORDERED: KCL 20 MEQ TAB (K-DUR) PO SCH (06:00)
[2021-09-26] MEDS ORDERED: POTASSIUM CL 10MEQ/50ML IVPB 50 ML IV SCH (06:00)
[2021-09-26] MEDS ORDERED: MAGNESIUM 1 GM/100 ML IVPB 100 ML IV SCH (06:00)
[2021-09-26] MEDS: RT--FLUTICASONE/SALMETEROL 113-14 (AIRDUO RespiCLICK) IH SCH ×2 (07:08→21:36)
[2021-09-26] MEDS: ACETAMINOPHEN 325 MG TABLET PO PRN ×2 (08:43→15:24)
[2021-09-26] MEDS: FAMOTIDINE 20 MG (PEPCID) TABLET PO SCH ×2 (08:43→20:17)
[2021-09-26] MEDS: LORATADINE (CLARITIN) 10 MG TAB PO SCH (08:43)
[2021-09-26] MEDS: CEFEPIME INJECTION 1,000 MG in NS (IVPB) 50 ML IV SCH ×2 (08:44→20:19)
[2021-09-26] MEDS: DOCUSATE SODIUM 100 MG (COLACE) CAP PO SCH ×2 (08:48→22:11)
[2021-09-26] MEDS: SENNOSIDES 8.6 MG (SENOKOT) TAB PO SCH ×2 (08:48→22:11)
[2021-09-26] MEDS: ENOXAPARIN 40 MG/0.4 ML (LOVENOX) SYR SC SCH (12:11)
[2021-09-26] MEDS: MONTELUKAST 10 MG (SINGULAIR) TAB PO SCH (20:18)
[2021-09-26] MEDS: AZITHROMYCIN INJECTION 500 MG in NS (IVPB) 250 ML IV SCH (22:00)
[2021-09-27] MEDS: RT-ALBUTEROL/IPRATROPIUM 3 ML (DUONEB) VIAL INH SCH ×4 (02:15→14:56)
--- NOTE | 2021-09-27 05:43 | Progress Note - Hospitalist ---
Subjective HPI/CC On Admission Date Seen by Provider: September 27, 2021 Time Seen by Provider: 09:30 Chief Complaint: Acute Respiratory Failure HPI: This is a 56 year old white female known to me from [facility] who presented to [facility] with SOB. She was found to have acute exacerbation of COPD in need of BiPAP. ABG was evaluated and antibiotics started for Atypical Pneumonia. CXR ordered and patient was placed in ICU for further management. She denies any significant new issues. I did review her labs from [facility] Focused Exam Lactate Level 09/25/21 20:27: Lactic Acid Level 2.22*H 09/25/21 22:40: Lactic Acid Level 1.23 Objective Exam Vital Signs Vital Signs Date Time Temp Pulse Resp B/P (MAP) Pulse Ox O2 Delivery O2 Flow Rate FiO2 09/27/21 08:00 36.2 80 20 122/68 98 High Flow N/C 5.00 09/26/21 04:00 45 Capillary Refill : Results/Procedures Lab Laboratory Tests 09/27/21 06:08 Patient resulted labs reviewed. Assessment/Plan Assessment and Plan Assess & Plan/Chief Complaint Assessment: COPD exacerbation requiring BIPAP Acute respiratory failure Tachycardia COPD Insulin dependent DM Hx of Tobacco use 3 Past COVID 19 infections requiring hospitalization Obesity DVT prophylaxis Plan: Supportive care Oxygen BiPAP Insulin IV antibiotics Critical Care Critically Ill Patient FEDERICA GILMORE DO September 27, 2021 05:43
[2021-09-27 06:22] LABS: BASOPHILS % (AUTO) 0 % (0-10); EOSINOPHILS % (AUTO) 0 % (0-10); HEMATOCRIT 40 % (35-52); HEMOGLOBIN 12.7 g/dL (11.5-16.0); LYMPHOCYTES # (AUTO) 0.8 10^3/uL (1.0-4.0); LYMPHOCYTES % (AUTO) 7 % (12-44); MEAN CORPUSCULAR HEMOGLOBIN 29 pg (25-34); MEAN CORPUSCULAR HGB CONC 32 g/dL (32-36); MEAN CORPUSCULAR VOLUME 92 fL (80-99); MEAN PLATELET VOLUME 10.1 fL (9.0-12.2); MONOCYTES # (AUTO) 0.5 10^3/uL (0.0-1.0); MONOCYTES % (AUTO) 4 % (0-12); NEUTROPHILS # (AUTO) 10.4 10^3/uL (1.8-7.8); NEUTROPHILS % (AUTO) 89 % (42-75); PLATELET COUNT 201 10^3/uL (130-400); WHITE BLOOD COUNT 11.8 10^3/uL (4.3-11.0)
[2021-09-27 06:37] LABS: ALBUMIN 3.7 GM/DL (3.2-4.5)
[2021-09-27 06:38] LABS: POTASSIUM 4.5 MMOL/L (3.6-5.0)
[2021-09-27 06:39] LABS: CALCIUM 8.9 MG/DL (8.5-10.1)
[2021-09-27 06:40] LABS: TOTAL PROTEIN 6.8 GM/DL (6.4-8.2)
[2021-09-27 06:42] LABS: BILIRUBIN,TOTAL 0.3 MG/DL (0.1-1.0)
[2021-09-27] MEDS: inSUlin ASPART (NovoLOG) 1 UNIT/0.01 ML (CHARGE PER UNIT) SC SCH ×2 (06:42→10:40)
[2021-09-27 06:44] LABS: CREATININE SERUM 0.8 MG/DL (0.60-1.30)
[2021-09-27] MEDS: RT--FLUTICASONE/SALMETEROL 113-14 (AIRDUO RespiCLICK) IH SCH (07:09)
[2021-09-27] MEDS: SENNOSIDES 8.6 MG (SENOKOT) TAB PO SCH (09:30)
[2021-09-27] MEDS: LORATADINE (CLARITIN) 10 MG TAB PO SCH (09:31)
[2021-09-27] MEDS: methylPREDNISolone 125 MG (Solu-MEDROL) VIAL IVP SCH (09:31)
[2021-09-27] MEDS: DOCUSATE SODIUM 100 MG (COLACE) CAP PO SCH (09:31)
[2021-09-27] MEDS: CEFEPIME INJECTION 1,000 MG in NS (IVPB) 50 ML IV SCH (09:31)
[2021-09-27] MEDS: FAMOTIDINE 20 MG (PEPCID) TABLET PO SCH (09:31)
[2021-09-27] MEDS ORDERED: CETI10TA17 PO (09:51)
[2021-09-27] MEDS ORDERED: METF-478 PO (09:52)
[2021-09-27] MEDS: guaiFENesin/CODEINE (ROBITUSSIN AC) 10ML UDC PO PRN (09:53)
[2021-09-27] MEDS ORDERED: FLUT9.9S NS (09:56)
[2021-09-27] MEDS ORDERED: BUDE10.22 IH (09:57)
[2021-09-27] MEDS ORDERED: NF-XOP-HFA INH (09:59)
[2021-09-27] MEDS ORDERED: LIRA0.6P3 SQ (10:00)
[2021-09-27] MEDS ORDERED: ACET-2267 PO (10:02)
[2021-09-27] MEDS ORDERED: IBUP-2473 PO (10:04)
[2021-09-27] MEDS ORDERED: CEFD300C3 PO (10:21)
[2021-09-27] MEDS ORDERED: MONT-40 PO (10:21)
[2021-09-27] MEDS ORDERED: PRED10TA22 PO (10:21)
--- NOTE | 2021-09-27 10:22 | Discharge Summary ---
Discharge Summary Hospital Course Was the Problem List Reviewed?: Yes Problems/Dx: (1) COPD exacerbation (2) Uncontrolled diabetes mellitus Status: Acute (3) Hypertension Status: Chronic (4) Diabetes Status: Chronic Hospital Course Date of Admission: September 25, 2021 at 11:39 Admission Diagnosis : Family Physician/Provider: No,Local Physician Date of Discharge: 09/27/21 Discharge Diagnosis: Acute on chronic respiratory failure, exacerbation of COPD, diabetes, hypertension Hospital Course: Pt had a brief hospital course after she was admitted for acute respiratory failure transferred from [place]. Pt was maintained on BiPAP and required close monitoring. Pt ultimately resolved with resolution with a taper dose of steroids. She was discharged in improved condition with the addition of Singulair. Home O2 required 1L continuous. Labs and Pending Lab Test: Laboratory Tests 09/26/21 11:30: Glucometer 254H 09/26/21 15:35: Glucometer 283H 09/26/21 19:59: Glucometer 337H 09/27/21 05:19: Glucometer 260H 09/27/21 06:08: White Blood Count 11.8H, Red Blood Count 4.35, Hemoglobin 12.7, Hematocrit 40, Mean Corpuscular Volume 92, Mean Corpuscular Hemoglobin 29, Mean Corpuscular Hemoglobin Concent 32, Red Cell Distribution Width 13.2, Platelet Count 201, Mean Platelet Volume 10.1, Immature Granulocyte % (Auto) 0, Neutrophils (%) (Auto) 89H, Lymphocytes (%) (Auto) 7L, Monocytes (%) (Auto) 4, Eosinophils (%) (Auto) 0, Basophils (%) (Auto) 0, Neutrophils # (Auto) 10.4H, Lymphocytes # (Auto) 0.8L, Monocytes # (Auto) 0.5, Eosinophils # (Auto) 0.0, Basophils # (Auto) 0.0, Immature Granulocyte # (Auto) 0.1, Sodium Level 138, Potassium Level 4.5, Chloride Level 102, Carbon Dioxide Level 26, Anion Gap 10, Blood Urea Nitrogen 33H, Creatinine 0.80, Estimat Glomerular Filtration Rate 85, BUN/Creatinine Ratio 41, Glucose Level 304H, Calcium Level 8.9, Corrected Calcium 9.1, Total Bilirubin 0.3, Aspartate Amino Transf (AST/SGOT) 15, Alanine Aminotransferase (ALT/SGPT) 19, Alkaline Phosphatase 78, Total Protein 6.8, [place] min 3.7 Microbiology 09/25/21 MRSA Screen - Final, Complete MRSA not isolated Home Meds Active Prednisone 10 Mg Tab.ds.pk 10 Mg PO DAILY Take 4 tabs(40mg)daily,decrease by 1 tab(10MG)daily. Cefdinir 300 Mg Capsule 300 Mg PO BID Montelukast Sodium 10 Mg Tablet 10 Mg PO HS Reported Ibuprofen 200 Mg Tablet 400 Mg PO Q8H PRN TAKES 2 (200MG) TAB Tylenol Extra Strength (Acetaminophen) 500 Mg Tablet 1,000 Mg PO Q4H PRN TAKES 2 (500MG) TAB Victoza 3-Chandrakant (Liraglutide) 0.6 Mg/0.1 Ml (18 Mg/3 Ml) Pen.injctr 2.4 Mg SQ DAILY Xopenex Hfa (Levalbuterol Tartrate) 45 Mcg/Actuation Hfa.aer.ad 1 Puff INH Q4H PRN Symbicort 80-4.5 Mcg Inhaler (Budesonide/Formoterol Fumarate) 80 Mcg-4.5 Mcg/Actuation Hfa.aer.ad 2 Puff IH BID Flonase Allergy Relief (Fluticasone Propionate) 50 Mcg/Actuation [place].susp 1 [place] NS DAILY PRN 1 SPRAY EACH NARE DAILY Metformin HCl ER (Metformin HCl) 500 Mg Tab.er.24 1,000 Mg PO BID TAKES 2 (500MG) TABS Cetirizine HCl 10 Mg Tablet 10 Mg PO DAILY Assessment/Pt Instructions PCP in 1 week Discharge Planning: <30 minutes discharge planning Discharge Instructions Discharge Diet: No Restrictions Discharge Physical Examination Vital Signs Vital Signs Date Time Temp Pulse Resp B/P (MAP) Pulse Ox O2 Delivery O2 Flow Rate FiO2 09/27/21 08:00 36.2 80 20 122/68 98 High Flow N/C 5.00 09/26/21 04:00 45 General Appearance: No Apparent Distress, WD/WN Respiratory: Lungs Clear, Normal Breath Sounds Cardiovascular: Regular Rate, Rhythm Neurologic/Psychiatric: Alert, Oriented x3 Allergies: Coded Allergies: Penicillins (Verified Allergy, Unknown, 05/09/17) aspirin (Verified Allergy, Unknown, 05/09/17) ibuprofen (Verified Allergy, Unknown, 09/19/20) morphine (Verified Allergy, Unknown, 05/09/17) Discharge Summary Date of Admission September 25, 2021 at 11:39 Date of Discharge Discharge Date: September 27, 2021 Admission Diagnosis Assessment: Acute hypoxic hypercapneic respiratory failure AECOPD PNA DM Former smoker Plan: ICU BIPAP eICU consult Lovenox Discharge Diagnosis Assessment: COPD exacerbation requiring BIPAP Acute respiratory failure Tachycardia COPD Insulin dependent DM Hx of Tobacco use 3 Past COVID 19 infections requiring hospitalization Obesity DVT prophylaxis Plan: Supportive care Oxygen BiPAP Insulin IV antibiotics FEDERICA GILMORE DO September 27, 2021 10:22
[2021-09-27] MEDS: ENOXAPARIN 40 MG/0.4 ML (LOVENOX) SYR SC SCH (10:40)
[2021-09-27 12:00] VITALS: BP 133/72
[2021-09-27] MEDS ORDERED: CEFEPIME INJECTION 1,000 MG in NS (IVPB) 50 ML IV SCH (12:00)
[2021-09-27] MEDS ORDERED: AZITHROMYCIN 250 MG TAB (ZITHROMAX) PO SCH (21:00)
== END 2021-09-27 16:18 | disposition home or self-care (01) | DRG 193 ==
LOC: ICU 11:39 → 4TH 09-26 09:30
PROVIDERS: ADMIT Internal Medicine; ATTEND Internal Medicine
PROC: 5A09357 Assistance with Respiratory Ventilation, Less than 24 Consecutive Hours, Continuous Positive Airway Pressure (ICD-10-PCS; principal; 2021-09-25)
PROC: 5A0935A Assistance with Respiratory Ventilation, Less than 24 Consecutive Hours, High Flow/Velocity Cannula (ICD-10-PCS; 2021-09-25)
DX: J18.9 Pneumonia, unspecified organism (principal); J96.21 Acute and chronic respiratory failure with hypoxia; J96.22 Acute and chronic respiratory failure with hypercapnia; J44.1 Chronic obstructive pulmonary disease with (acute) exacerbation; J44.0 Chronic obstructive pulmonary disease with (acute) lower respiratory infection; Z68.41 Body mass index [BMI] 40.0-44.9, adult; E11.65 Type 2 diabetes mellitus with hyperglycemia; Z86.16 Personal history of COVID-19; Z79.4 Long term (current) use of insulin; Z79.84 Long term (current) use of oral hypoglycemic drugs; Z87.891 Personal history of nicotine dependence; I10 Essential (primary) hypertension; F41.9 Anxiety disorder, unspecified; F32.A Depression, unspecified; R00.0 Tachycardia, unspecified; E66.9 Obesity, unspecified; Z88.7 Allergy status to serum and vaccine; Z20.822 Contact with and (suspected) exposure to COVID-19
CPT/HCPCS: 36415; 80048; 80053; 82010; 82805; 82947; 83036; 83605; 83735; 84100; 84145; 84484; 85007; 85025; 85027; 87081; 94640; 94660; 94760; 94761

== ENCOUNTER 2021-12-24 05:04 | Inpatient (IN) | payer SELFPAY ==
[~2021-12-24] VITALS: Ht 167.7 cm; Wt 115.4 kg
[~2021-12-24 05:04] MED LIST changes: +ACET-2267 PO; +CEFD300C3 PO; +CETI10TA17 PO; +FLUT9.9S NS; +IBUP-2473 PO; +LIRA0.6P3 SQ; +MONT-40 PO; +NF-XOP-HFA INH; +PRED10TA22 PO
[2021-12-24 05:36] LABS: BASOPHILS % (AUTO) 0 % (0-10); EOSINOPHILS # (AUTO) 0.1 10^3/uL (0.0-0.3); EOSINOPHILS % (AUTO) 1 % (0-10); HEMATOCRIT 41 % (35-52); HEMOGLOBIN 13.8 g/dL (11.5-16.0); LYMPHOCYTES # (AUTO) 1.6 10^3/uL (1.0-4.0); LYMPHOCYTES % (AUTO) 11 % (12-44); MEAN CORPUSCULAR HEMOGLOBIN 30 pg (25-34); MEAN CORPUSCULAR HGB CONC 34 g/dL (32-36); MEAN CORPUSCULAR VOLUME 89 fL (80-99); MONOCYTES # (AUTO) 0.9 10^3/uL (0.0-1.0); MONOCYTES % (AUTO) 6 % (0-12); NEUTROPHILS # (AUTO) 11.7 10^3/uL (1.8-7.8); NEUTROPHILS % (AUTO) 81 % (42-75); PLATELET COUNT 234 10^3/uL (130-400); WHITE BLOOD COUNT 14.3 10^3/uL (4.3-11.0)
--- NOTE | 2021-12-24 05:42 | ED Respiratory ---
General Chief Complaint: Respiratory Problems Stated Complaint: SOB Source: patient (ELANA LENZ DO) History of Present Illness Date Seen by Provider: Dec 24, 2021 Time Seen by Provider: 05:20 Initial Comments PT ARRIVES VIA POV FROM HOME IN [place] C/O SHORTNESS OF BREATH SINCE YESTERDAY WAS AT WORK WITH HOME HEALTH, WHEN SYMPTOMS BEGAN C/O NON-PRODUCTIVE COUGH NO KNOWN FEVER BUT HAS HAD CHILLS--HAS NOT TAKEN TEMP C/O HEADACHE NO BODY ACHES C/O NAUSEA, NO VOMITING. NO DIARRHEA. NO SWELLING IN LEGS/FEET OR PAIN IN CALVES NO CHEST PAIN PT HAS COPD AND WEARS O2 AT 1L/NC AT NIGHT ONLY--HAS NOT USED IT DURING THE DAY PT TAKES XOPENEX BUT SHE RAN OUT YESTERDAY MORNING PT ALSO USES SYMBICORT--USED JUST PRIOR TO ARRIVAL PT HAS NOT HAD COVID OR FLU VACCINES PCP: AMANDA FRAIRE AT [facility] (ELANA LENZ DO) Allergies and Home Medications Allergies Coded Allergies: Penicillins (Verified Allergy, Unknown, 05/09/17) aspirin (Verified Allergy, Unknown, 05/09/17) ibuprofen (Verified Allergy, Unknown, 09/19/20) morphine (Verified Allergy, Unknown, 05/09/17) Patient Home Medication List Home Medication List Reviewed: Yes (KRISTOPHER RAUSCH MD) Acetaminophen (Tylenol Extra Strength) 500 Mg Tablet, 1,000 MG PO Q4H PRN for PAIN-MILD (1-4), (Reported) Entered as Reported by: RAMON MIGUEL on 09/27/21 1002 Budesonide/Formoterol Fumarate (Symbicort 80-4.5 Mcg Inhaler) 80 Mcg-4.5 Mcg/Actuation Hfa.aer.ad, 2 PUFF IH BID, (Reported) Entered as Reported by: RAMON MIGUEL on 09/27/21 0957 Cefdinir (Cefdinir) 300 Mg Capsule, 300 MG PO BID Prescribed by: FEDERICA GILMORE on 09/27/21 1021 Cetirizine HCl (Cetirizine HCl) 10 Mg Tablet, 10 MG PO DAILY, (Reported) Entered as Reported by: RAMON MIGUEL on 09/27/21 0951 Fluticasone Propionate (Flonase Allergy Relief) 50 Mcg/Actuation [place].susp, 1 SPRAY NS DAILY PRN for CONGESTION, (Reported) Entered as Reported by: RAMON MIGUEL on 09/27/21 0956 Ibuprofen (Ibuprofen) 200 Mg Tablet, 400 MG PO Q8H PRN for PAIN-MILD (1-4), (Reported) Entered as Reported by: RAMON MIGUEL on 09/27/21 1004 Levalbuterol Tartrate (Xopenex Hfa) 45 Mcg/Actuation Hfa.aer.ad, 1 PUFF INH Q4H PRN for SHORTNESS OF BREATH, (Reported) Entered as Reported by: RAMON MIGUEL on 09/27/21 0959 Liraglutide (Victoza 3-Chandrakant) 0.6 Mg/0.1 Ml (18 Mg/3 Ml) Pen.injctr, 2.4 MG SQ DAILY, (Reported) Entered as Reported by: RAMON MIGUEL on 09/27/21 1000 Metformin HCl (Metformin HCl ER) 500 Mg Tab.er.24, 1,000 MG PO BID, (Reported) Entered as Reported by: RAMON MIGUEL on 09/27/21 0952 Montelukast Sodium (Montelukast Sodium) 10 Mg Tablet, 10 MG PO HS Prescribed by: FEDERICA GILMORE on 09/27/21 1021 Prednisone (Prednisone) 10 Mg Tab.ds.pk, 10 MG PO DAILY Prescribed by: FEDERICA GILMORE on 09/27/21 1021 Review of Systems Review of Systems Constitutional: see HPI, chills; No diaphoresis EENTM: no symptoms reported Respiratory: see HPI, cough, dyspnea on exertion, orthopnea, short of breath Cardiovascular: no symptoms reported; No chest pain, No edema, No palpitations, No syncope Gastrointestinal: no symptoms reported Genitourinary: no symptoms reported Musculoskeletal: no symptoms reported Skin: no symptoms reported Psychiatric/Neurological: See HPI, Headache Hematologic/Lymphatic: No Symptoms Reported Immunological/Allergic: no symptoms reported (ELANA LENZ DO) Past Zzjizjc-Ukwljb-Ltiwop Hx Patient Social History Tobacco Use?: Yes Tobacco type used: Cigarettes Smoking Status: Former Smoker (ELANA LENZ DO) Immunizations Up To Date Tetanus Booster (TDap): Unknown (ELANA LENZ DO) Seasonal Allergies Seasonal Allergies: No (ELANA LENZ DO) Past Medical History Surgeries: Yes Gallbladder, 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, Tubal Ligation Respiratory: Yes Pneumonia, COPD Currently Using CPAP: Yes Currently Using BIPAP: No Cardiac: Yes Hypertension Neurological: No 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 Disorders: Yes Female 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 Disorders: Menstrual Problems [employer]TS [employer] History: 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, Menopausal Genitourinary: No Gastrointestinal: No Musculoskeletal: No Endocrine: Yes Diabetes, Insulin dep HEENT: No Cancer: No Psychosocial: Yes Anxiety, Depression Integumentary: No Blood Disorders: No (ELANA LENZ DO) Family Medical History Diabetes mellitus 19 FATHER FH: breast cancer 19 MOTHER Myocardial infarction 19 FATHER Thyroid disease G8 SISTER SOCIAL HISTORY: -SMOKED <1 PPD, QUIT -DENIES ETOH -DENIES DRUG USE (ELANA LENZ DO) Physical Exam Vital Signs - First Documented 12/24/21 05:14 Temp 36.0 Pulse 124 Resp 30 B/P (MAP) 156/95 (115) Pulse Ox 81 O2 Delivery Nasal Cannula O2 Flow Rate 1.00 (KRISTOPHER RAUSCH MD) Capillary Refill : (ELANA LENZ DO) Height: 5'6.00" Weight: 320lbs. 12.8oz. 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, no motor/sensory deficits, alert, oriented x 3 Skin: normal color, cool (DRY) (ELANA LENZ DO) Focused Exam Sepsis Stage: Sepsis Possible Source: Pulmonary Lactate Level 12/24/21 05:55: Lactic Acid Level 0.85 (KRISTOPHER RAUSCH MD) Time of Focused Exam: 07:41 Respiratory: Decreased Breath Sounds, Wheezing Cardiovascular: No Edema, No Murmur, Tachycardia Skin: normal color, warm/dry Lactic Acid Level Laboratory Tests Test 12/24/21 05:55 Lactic Acid Level 0.85 MMOL/L (0.50-2.00) (KRISTOPHER RAUSCH MD) Within 3hrs of presentation: Admin fluids, Admin ABX, Blood cultures prior to ABX's, Focus exam, Lactate level (KRISTOPHER RAUSCH MD) Progress/Results/Core Measures Suspected Sepsis SIRS Temperature: Pulse: Respiratory Rate: Laboratory Tests 12/24/21 05:28: White Blood Count 14.3H Blood Pressure / Mean: 12/24/21 05:55: Lactic Acid Level 0.85 Laboratory Tests 12/24/21 05:28: Creatinine 0.69, INR Comment 1.0, Platelet Count 234, Total Bilirubin 0.9 (ELANA LENZ DO) Results/Orders Lab Results Laboratory Tests Test 12/24/21 05:28 12/24/21 05:55 12/24/21 06:35 12/24/21 07:50 Range/Units White Blood Count 14.3 H 4.3-11.0 10^3/uL Red Blood Count 4.58 3.80-5.11 10^6/uL Hemoglobin 13.8 11.5-16.0 g/dL Hematocrit 41 35-52 % Mean Corpuscular Volume 89 80-99 fL Mean Corpuscular Hemoglobin 30 25-34 pg Mean Corpuscular Hemoglobin Concent 34 32-36 g/dL Red Cell Distribution Width 13.3 10.0-14.5 % Platelet Count 234 130-400 10^3/uL Mean Platelet Volume 10.0 9.0-12.2 fL Immature Granulocyte % (Auto) 0 % Neutrophils (%) (Auto) 81 H 42-75 % Lymphocytes (%) (Auto) 11 L 12-44 % Monocytes (%) (Auto) 6 0-12 % Eosinophils (%) (Auto) 1 0-10 % Basophils (%) (Auto) 0 0-10 % Neutrophils # (Auto) 11.7 H 1.8-7.8 10^3/uL Lymphocytes # (Auto) 1.6 1.0-4.0 10^3/uL Monocytes # (Auto) 0.9 0.0-1.0 10^3/uL Eosinophils # (Auto) 0.1 0.0-0.3 10^3/uL Basophils # (Auto) 0.0 0.0-0.1 10^3/uL Immature Granulocyte # (Auto) 0.0 0.0-0.1 10^3/uL Neutrophils % (Manual) 87 % Lymphocytes % (Manual) 9 % Monocytes % (Manual) 3 % Eosinophils % (Manual) 1 % Blood Morphology Comment NORMAL Erythrocyte Sedimentation Rate 46 H 0-30 MM/HR Prothrombin Time 13.4 12.2-14.7 SEC INR Comment 1.0 0.8-1.4 Activated Partial Thromboplast Time 33 24-35 SEC D-Dimer 0.70 H 0.00-0.49 UG/ML Sodium Level 139 135-145 MMOL/L Potassium Level 3.8 3.6-5.0 MMOL/L Chloride Level 101 98-107 MMOL/L Carbon Dioxide Level 25 21-32 MMOL/L Anion Gap 13 5-14 MMOL/L Blood Urea Nitrogen 9 7-18 MG/DL Creatinine 0.69 0.60-1.30 MG/DL Estimat Glomerular Filtration Rate 101 BUN/Creatinine Ratio 13 Glucose Level 179 H 70-105 MG/DL Calcium Level 9.7 8.5-10.1 MG/DL Corrected Calcium 9.7 8.5-10.1 MG/DL Magnesium Level 1.7 1.6-2.4 MG/DL Total Bilirubin 0.9 0.1-1.0 MG/DL Aspartate Amino Transf (AST/SGOT) 11 5-34 U/L Alanine Aminotransferase (ALT/SGPT) 16 0-55 U/L Alkaline Phosphatase 91 40-136 U/L Total Creatine Kinase 81 29-168 U/L Creatine Kinase MB 2.1 <6.6 NG/ML Myoglobin 55.3 10.0-92.0 NG/ML Troponin I < 0.028 <0.028 NG/ML C-Reactive Protein High Sensitivity 14.61 H 0.00-0.50 MG/DL B-Type Natriuretic Peptide < 10.0 <100.0 PG/ML Total Protein 7.4 6.4-8.2 GM/DL Albumin 4.0 3.2-4.5 GM/DL Amylase Level 26 25-125 U/L Lipase 17 8-78 U/L Procalcitonin 0.10 H <0.10 NG/ML Influenza Type A (RT-PCR) Not Detected Not Detecte Influenza Type B (RT-PCR) Not Detected Not Detecte SARS-CoV-2 RNA (RT-PCR) Not Detected Not Detecte Lactic Acid Level 0.85 0.50-2.00 MMOL/L Bedside Blood Gas pH (LAB) 7.370 7.310-7.410 Bedside Blood Gas pCO2 (LAB) 51.2 H 41.0-51.0 mmHg Bedside Blood Gas pO2 (LAB) 87 80-105 mmHg Bedside Blood Gas HCO3 (LAB) 29.6 H 23.0-28.0 mmol/L POC Blood Gas Total CO2 Calc 31 H 24-29 mmol/L Bedside Bl Gas O2 Saturation (Calc) 96 95-98 % Bedside Arterial Blood Base Excess 4 H -2-3 mmol/L Urine Color YELLOW Urine Clarity CLEAR Urine pH 5.5 5-9 Urine Specific [place] >=1.030 1.016-1.022 Urine Protein TRACE H NEGATIVE Urine Glucose (UA) NEGATIVE NEGATIVE Urine Ketones NEGATIVE NEGATIVE Urine Nitrite NEGATIVE NEGATIVE Urine Bilirubin 1+ H NEGATIVE Urine Urobilinogen 0.2 < = 1.0 MG/DL Urine Leukocyte Esterase NEGATIVE NEGATIVE Urine RBC (Auto) NEGATIVE NEGATIVE Urine RBC RARE /HPF Urine WBC 0-2 /HPF Urine Squamous Epithelial Cells 0-2 /HPF Urine Crystals PRESENT H /LPF Urine Amorphous Sediment RARE PRATIBHA URATES H /LPF Urine Bacteria FEW H /HPF Urine Casts NONE /LPF Urine Mucus SMALL H /LPF Urine Culture Indicated CULTURE PENDING Test 12/24/21 08:04 Range/Units Glucometer 203 H 70-110 MG/DL (KRISTOPHER RAUSCH MD) My Orders Orders - KRISTOPHER RAUSCH MD Lorazepam Injection (Ativan Injection) (12/24/21 07:00) Bnp [place]on (12/24/21 07:24) Ct Angio Chest W (12/24/21 07:24) Albuterol Pre-Mix Nebs (Rt) (Proventil (12/24/21 07:29) Albuterol/Ipra Inhalation Soln (Duoneb I (12/24/21 07:30) Svn Small Volume Nebulizer (12/24/21 07:29) Svn Small Volume Nebulizer (12/24/21 07:29) Iohexol Injection (Omnipaque 350 Mg/Ml 1 (12/24/21 07:45) Received Contrast (Hold Metformin- Contr (12/24/21 07:45) Sodium Chloride Flush (Catheter Flush Sy (12/24/21 07:45) Ns (Ivpb) (Sodium Chloride 0.9% Ivpb Bag (12/24/21 07:45) Levalbuterol (Non-Formulary) (Xopenex (N (12/24/21 07:45) Arterial Blood Draw - Obtain (12/24/21 06:00) (KRISTOPHER RAUSCH MD) Medications Given in ED Current Medications Medications Dose Ordered Sig/Cait Route Start Time Stop Time Status Last Admin Dose Admin Albuterol/ Ipratropium 3 ml ONCE ONCE INH 12/24/21 06:30 12/24/21 06:31 DC 12/24/21 06:34 3 ML Azithromycin 500 mg/Sodium Chloride 255 ml @ 250 mls/hr ONCE ONCE IV 12/24/21 06:00 12/24/21 07:01 DC 12/24/21 06:55 250 MLS/HR Ceftriaxone Sodium/Dextrose 50 ml @ 100 mls/hr ONCE ONCE IV 12/24/21 06:00 12/24/21 06:29 DC 12/24/21 06:18 100 MLS/HR Dexamethasone Sodium Phosphate 10 mg ONCE ONCE IV 12/24/21 05:45 12/24/21 05:46 DC 12/24/21 05:51 10 MG Dexamethasone Sodium Phosphate 20 mg ONCE ONCE IH 12/24/21 06:30 12/24/21 06:31 DC 12/24/21 06:35 20 MG Iohexol 100 ml ONCE ONCE IV 12/24/21 07:45 12/24/21 07:46 DC 12/24/21 08:24 76 ML Levalbuterol HCl 1.25 mg ONCE ONCE INH 12/24/21 07:45 12/24/21 07:46 DC 12/24/21 07:53 1.25 MG Lorazepam 0.5 mg ONCE ONCE IVP 12/24/21 07:00 12/24/21 07:01 DC 12/24/21 06:53 0.5 MG Ondansetron HCl 8 mg ONCE ONCE IVP 12/24/21 06:00 12/24/21 06:01 DC 12/24/21 06:04 8 MG Sodium Chloride 10 ml NEEDED PRN IV 12/24/21 07:45 12/24/21 08:25 10 ML Sodium Chloride 100 ml ONCE ONCE IV 12/24/21 07:45 12/24/21 07:46 DC 12/24/21 08:24 80 ML (KRISTOPHER RAUSCH MD) Vital Signs/I&O 12/24/21 12/24/21 12/24/21 12/24/21 05:14 05:14 05:15 06:33 Temp 36.0 Pulse 124 Resp 30 B/P (MAP) 156/95 (115) Pulse Ox 81 81 97 O2 Delivery Nasal Cannula Room Air Nasal Cannula Nasal Cannula O2 Flow Rate 1.00 4.00 4.00 12/24/21 12/24/21 07:06 07:53 Pulse 123 114 Resp 29 32 Pulse Ox 99 99 O2 Flow Rate 80.00 80.00 (KRISTOPHER RAUSCH MD) Vital Signs/I&O Capillary Refill : (ELANA LENZ DO) Progress Note : Progress Note PLACED IN ISOLATION ROOM PPE WORN AT ALL TIMES COVID AND FLU TESTING DONE O2 SAT 81% ON ROOM AIR ON ARRIVAL--UP TO UPPER 90'S ON O2 AT 4L/NC GIVEN: -DECADRON IV -DUONEB + DECADRON NEB TREATMENTS -ZOFRAN -ROCEPHIN + ZITHROMAX CARE TURNED OVER TO DR. RAUSCH AT SHIFT CHANGE, TEST RESULTS PENDING. (ELANA LENZ DO) Progress Note #1: Time: 07:31 Progress Note Care of this patient was assumed from Dr. Lenz at shift change. She was not maintaining her oxygen saturations on room air. BiPAP was initiated. She required Ativan to relax her for BiPAP use. Patient was reassessed and found to have extremely tight wheezing despite the steroids and inhaler medications used previously. I have requested an hour-long nebulizer treatment by respiratory therapy. Her D-dimer was also elevated prompting CT angiogram. Angiogram is pending at this time. Progress Note #2: Time: 07:41 Progress Note I discussed the nebulizer treatments with respiratory therapy. They have concerned about her tachycardia and her response to the prior DuoNeb treatment. As an alternative, we will try a Xopenex nebulized treatment first and will reassess. This may be more effective than the prior DuoNeb treatment now that she is on BiPAP. Progress Note #3: Time: 09:00 Progress Note Wheezing and air movement much improved after Xopenex treatment. Hour-long treatment was not necessary. Patient is resting comfortably at this time. She easily wakes with tactile stimulation. She reports feeling much more comfortable. She will be admitted to the ICU for the time being. (KRISTOPHER RAUSCH MD) ECG Initial ECG Impression Date: Dec 24, 2021 Initial ECG Impression Time: 05:35 Initial ECG Rate: 120 Initial ECG Rhythm: S.Tach (ELANA LENZ DO) Diagnostic Imaging Comments CXR--LLL INFILTRATE, PENDING RADIOLOGIST REVIEW Reviewed: Reviewed by Me (ELANA LENZ DO) Diagonstic Imaging: CT Plain Films/CT/US/NM/MRI: chest Comments CT angiogram chest viewed by me and report reviewed. See report below: NAME: [facility] REC#: [id number] PT STATUS: REG ER : 1965 PHYSICIAN: KRISTOPHER RAUSCH MD ADMIT DATE: 12/24/21/ER Draft Date of Exam:12/24/21 CT ANGIO CHEST W PROCEDURE: CT angiography of the chest with contrast. TECHNIQUE: Multiple contiguous axial images were obtained through the chest after uneventful bolus administration of intravenous contrast. 3D reconstructed CTA MIP acquisitions were also performed. Auto Exposure Controls were utilized during the CT exam to meet ALARA standards for radiation dose reduction. INDICATION: Shortness of air. Comparison is made prior chest CT from 03/25/2020. FINDINGS: Evaluation of pulmonary arterial system is without evidence of thromboembolism. No filling defects are seen within central, lobar segmental branches. Thoracic aorta is normal caliber. There is no dissection. No pericardial or pleural fluid is identified. No axillary lymphadenopathy is detected. There are mildly prominent lymph nodes in the nithya bilaterally as well as mediastinum, nonspecific. There is some minimal patchy infiltrate in the medial aspect of the left upper lobe as well as the posterior right upper lobe. There appear to be some tree-in-bud opacities in the upper lobes bilaterally. No mass is detected. Upper abdomen is unremarkable. IMPRESSION: 1. No evidence of pulmonary embolism or acute aortic disease. 2. Nonspecific upper lobe infiltrates and tree-in-bud opacities, likely on infectious/inflammatory basis. There are some prominent lymph nodes in the mediastinum and nithya which may be reactive. No other significant abnormality is seen. Dictated on workstation # [id number] Dict: 12/24/2129 Trans: 12/24/21 [id number] [id number] Interpreted by: GUICHO BEAVERS MD (KRISTOPHER RAUSCH MD) Departure Communication (Admissions) Time/Spoke to Admitting Phy: 09:01 Dr. Gilmore (KRISTOPHER RAUSCH MD) Impression Primary Impression: Acute respiratory failure with hypoxia Additional Impressions: COPD exacerbation LLL pneumonia Qualified Codes: J18.9 - Pneumonia, unspecified organism Sepsis Qualified Codes: A41.9 - Sepsis, unspecified organism Anxiety Disposition: ADMITTED INPATIENT Condition: Improved Admissions Decision to Admit Reason: Admit from ER (General) Decision to Admit/Date: Dec 24, 2021 Time/Decision to Admit Time: 09:01 (KRISTOPHER RAUSCH MD) Departure-Patient Inst. Referrals: LEESA FRAIRE APRN (PCP/Family) Primary Care Physician ELANA LENZ DO Dec 24, 2021 05:41 KRISTOPHER RAUSCH MD Dec 24, 2021 07:34
[2021-12-24 05:53] LABS: FIBRIN DEGRADATION PRODUCTS 0.7 UG/ML (0.00-0.49); PROTHROMBIN TIME PATIENT 13.4 SEC (12.2-14.7)
[2021-12-24] MEDS ORDERED: cefTRIAXone 1 GM PRE-MIX 50 ML IV ONE (06:00)
[2021-12-24] MEDS ORDERED: ONDANSETRON 4 MG/2 ML (SDV) Z0FRAN ONE (06:00)
[2021-12-24] MEDS ORDERED: AZITHROMYCIN INJECTION 500 MG in NS (IVPB) 250 ML IV ONE (06:00)
[2021-12-24] MEDS ORDERED: ONDANSETRON 4 MG/2 ML (SDV) Z0FRAN IVP ONE (06:00)
[2021-12-24 06:01] LABS: ALANINE AMINOTRANSFERASE 16 U/L (0-55); ALKALINE PHOSPHATASE 91 U/L (40-136); AMYLASE 26 U/L (25-125); BILIRUBIN,TOTAL 0.9 MG/DL (0.1-1.0); BUN/CREATININE RATIO 13; CALCIUM 9.7 MG/DL (8.5-10.1); CARBON DIOXIDE 25 MMOL/L (21-32); CHLORIDE 101 MMOL/L (98-107); CREATINE KINASE 81 U/L (29-168); CREATININE SERUM 0.69 MG/DL (0.60-1.30); GFR ESTIMATED 101; GLUCOSE 179 MG/DL (70-105); LIPASE 17 U/L (8-78); MAGNESIUM 1.7 MG/DL (1.6-2.4); POTASSIUM 3.8 MMOL/L (3.6-5.0); SODIUM 139 MMOL/L (135-145); TOTAL PROTEIN 7.4 GM/DL (6.4-8.2)
[2021-12-24 06:10] LABS: ERYTHROCYTE SEDIMENTATION RATE 46 MM/HR (0-30)
[2021-12-24 06:15] LABS: EOSINOPHILS % (MANUAL) 1 %; LYMPHOCYTES % (MANUAL) 9 %; MONOCYTES % (MANUAL) 3 %; NEUTROPHILS % (MANUAL) 87 %
[2021-12-24 06:16] LABS: RBC MORPH NORMAL
[2021-12-24 06:21] LABS: CREATINE KINASE MB 2.1 NG/ML (<6.6)
[2021-12-24] MEDS ORDERED: RT-ALBUTEROL/IPRATROPIUM 3 ML (DUONEB) VIAL INH ONE ×2 (06:30→07:30)
[2021-12-24] MEDS ORDERED: LORazepam INJ 2 MG/ML (ATIVAN) VIAL ONE (06:50)
[2021-12-24] MEDS ORDERED: IPRATROPIUM INHALER (ATROVENT) 12.9 GM INH SCH (07:00)
[2021-12-24] MEDS ORDERED: LORazepam INJ 2 MG/ML (ATIVAN) VIAL IVP ONE (07:00)
[2021-12-24] MEDS ORDERED: RT-ALBUTEROL SULF 2.5 MG/3 ML PRE-MIX VIAL INH STA (07:29)
[2021-12-24] MEDS ORDERED: IOHEXOL 350 MG/ML 100 ML (OMNIPAQUE 350) VIAL IV ONE (07:45)
[2021-12-24] MEDS ORDERED: HOLD METFORMIN - RECEIVED CONTRAST 20 ML VIAL IV SCH (07:45)
[2021-12-24] MEDS ORDERED: RT-LEVALBUTEROL (XOPENEX) 1.25 MG/3 ML NEB NON-FORMULARY INH ONE (07:45)
[2021-12-24] MEDS ORDERED: NS 100 ML (IVPB) BAG IV ONE (07:45)
[2021-12-24 07:56] LABS: CLARITY,URINE CLEAR; COLOR,URINE YELLOW; GLUCOSE, URINE (UA) NEGATIVE (NEGATIVE); KETONES,URINE NEGATIVE (NEGATIVE); LEUKOCYTE ESTERASE ,URINE NEGATIVE (NEGATIVE); NITRITE,URINE NEGATIVE (NEGATIVE); PH,URINE 5.5 (5-9); PROTEIN,URINE TRACE (NEGATIVE)
[2021-12-24] MEDS ORDERED: RT--FLUTICASONE/SALMETEROL 232-14 (AIRDUO RespiCLICK) IH SCH (08:00)
--- NOTE | 2021-12-24 08:11 | Diagnostic Imaging Report ---
INDICATION: Dyspnea, shortness of air. TECHNIQUE: Single view chest 5:36 AM. CORRELATION STUDY: 08/22/2020 FINDINGS: The heart size, mediastinal configuration and pulmonary vascularity are within normal limits. Minimal infiltrate left lung base. May be very minimal atelectasis or infiltrate of the right lung base. The mid and upper lung cha are clear. IMPRESSION: 1. Left basilar infiltrate with questionable minimal atelectasis or infiltrate right lung base. Dictated by: Dictated on workstation # [id number]
[2021-12-24 08:14] LABS: AMORPHOUS SEDIMENT,UR RARE AMOR URATES /LPF; BACTERIA,URINE FEW /HPF; BILIRUBIN,URINE 1+ (NEGATIVE); RBC,URINE RARE /HPF; SQUAMOUS EPITHELIAL CELL,UR 0-2 /HPF; WBC,URINE 0-2 /HPF
[2021-12-24] MEDS: CATHETER FLUSH 10 ML SYR IV PRN (08:25)
--- NOTE | 2021-12-24 08:36 | Diagnostic Imaging Report ---
PROCEDURE: CT angiography of the chest with contrast. TECHNIQUE: Multiple contiguous axial images were obtained through the chest after uneventful bolus administration of intravenous contrast. 3D reconstructed CTA MIP acquisitions were also performed. Auto Exposure Controls were utilized during the CT exam to meet ALARA standards for radiation dose reduction. INDICATION: Shortness of air. Comparison is made prior chest CT from 03/25/2020. FINDINGS: Evaluation of pulmonary arterial system is without evidence of thromboembolism. No filling defects are seen within central, lobar segmental branches. Thoracic aorta is normal caliber. There is no dissection. No pericardial or pleural fluid is identified. No axillary lymphadenopathy is detected. There are mildly prominent lymph nodes in the nithya bilaterally as well as mediastinum, nonspecific. There is some minimal patchy infiltrate in the medial aspect of the left upper lobe as well as the posterior right upper lobe. There appear to be some tree-in-bud opacities in the upper lobes bilaterally. No mass is detected. Upper abdomen is unremarkable. IMPRESSION: 1. No evidence of pulmonary embolism or acute aortic disease. 2. Nonspecific upper lobe infiltrates and tree-in-bud opacities, likely on infectious/inflammatory basis. There are some prominent lymph nodes in the mediastinum and nithya which may be reactive. No other significant abnormality is seen. Dictated by: Dictated on workstation # [id number]
[2021-12-24] MEDS ORDERED: ONDANSETRON 4 MG (ZOFRAN) ORAL DISSOLVE TAB PO PRN (10:00)
[2021-12-24] MEDS ORDERED: NS IV 500 ML 500 ML IV PRN (10:00)
[2021-12-24] MEDS ORDERED: MILK OF MAGNESIA 400 MG/5 ML 30 ML UDC PO PRN (10:00)
[2021-12-24] MEDS ORDERED: HYDROmorphone 2 MG/ML VIAL (DILAUDID) IV PRN (10:00)
[2021-12-24] MEDS ORDERED: ACETAMINOPHEN 325 MG TABLET PO PRN (10:00)
[2021-12-24] MEDS ORDERED: diphenhydrAMINE 50 MG/ML INJ (BENADRYL) IVP PRN (10:00)
[2021-12-24] MEDS ORDERED: BISACODYL 10 MG SUPP (DULCOLAX) PR PRN (10:00)
[2021-12-24] MEDS ORDERED: ANTACID SUSP 30 ML UDC (MYLANTA) PO PRN (10:00)
[2021-12-24] MEDS ORDERED: MELATONIN 3 MG TABLET PO PRN (10:00)
[2021-12-24] MEDS ORDERED: polyethylene glycoL POWDER 17 GM (MIRALAX) PACK PO PRN (10:00)
[2021-12-24] MEDS ORDERED: diphenhydrAMINE 25 MG TAB (BENADRYL) PO PRN (10:00)
[2021-12-24] MEDS ORDERED: LACTULOSE SYRUP 10GM/15ML (ENULOSE) 30ML UDC PO PRN (10:00)
[2021-12-24] MEDS ORDERED: NALOXONE 0.4 MG/ML 1 ML (NARCAN) VIAL IV PRN (10:00)
[2021-12-24] MEDS ORDERED: CALCIUM CARBONATE 500 MG (TUMS) TAB.CHEW PO PRN (10:00)
[2021-12-24] MEDS ORDERED: LIDOCAINE UROJET 2% GEL 10 ML PKG TOP ONE (10:15)
[2021-12-24 11:00] VITALS: BP 120/54
--- NOTE | 2021-12-24 11:00 | History & Physical-Hospitalist ---
History of Present Illness HPI/Chief Complaint CC: SOB HPI: This is a [facility] female pt with a history of COPD. She presented with SOB. D- Dimer was elevated. CT angiogram showed no evidence of any PE. She was placed on IV steroids and BiPAP. She is doing much better now. Source: patient Date Seen 12/24/21 Time Seen by a Provider: 13:00 Attending Physician Dinora Morales Aprn PCP Admitting Physician: Mona Krause DO Attending Physician: Mona Krause DO Referring Physician Date of Admission Dec 24, 2021 at 09:07 Home Medications & Allergies Home Medications Reviewed patient Home Medication Reconciliation performed by pharmacy medication reconciliations science technicians and/or nursing. Patients Allergies have been reviewed. Allergies Allergies Coded Allergies Penicillins (Verified Allergy, Unknown, 05/09/17) aspirin (Verified Allergy, Unknown, 05/09/17) ibuprofen (Verified Allergy, Unknown, 09/19/20) morphine (Verified Allergy, Unknown, 05/09/17) Past Lpdlbdd-[id number]-Vihfcx Hx Patient Social History Marrital Status: single Employed/Student: unemployed Tobacco Use?: Yes Tobacco type used: Cigarettes Smoking Status: Former Smoker Substance use?: No Alcohol Use?: No Immunizations Up To Date Tetanus Booster (TDap): Less Than 5 Years Seasonal Allergies Seasonal Allergies: No Current Status Advance Directives: No Communicates: Verbally Primary Language: Egyptian Preferred Spoken Language: Egyptian Is interpretation needed?: No Past Medical History Surgeries: Gallbladder, 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, Tubal Ligation Pneumonia, COPD Currently Using CPAP: Yes Currently Using BIPAP: No Hypertension 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: 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, Menopausal Diabetes, Insulin dep Anxiety, Depression Blood Disorders: No PMHx: COPD DMII Anxiety Depression HLD SurgHx: Tubal ligation Cholecystectomy 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 Family Medical History Diabetes mellitus 19 FATHER FH: breast cancer 19 MOTHER Myocardial infarction 19 FATHER Thyroid disease G8 SISTER SOCIAL HISTORY: -SMOKED <1 PPD, QUIT -DENIES ETOH -DENIES DRUG USE Review of Systems Constitutional: see HPI, malaise, weakness EENTM: no symptoms reported Respiratory: dyspnea on exertion Cardiovascular: no symptoms reported Gastrointestinal: no symptoms reported Genitourinary: no symptoms reported Musculoskeletal: no symptoms reported Skin: no symptoms reported Psychiatric/Neurological: No Symptoms Reported All Other Systems Reviewed Negative Unless Noted: Yes Physical Exam Physical Exam Vital Signs Vital Signs - First Documented 12/24/21 12/24/21 05:14 11:00 Temp 36.0 Pulse 124 Resp 30 B/P (MAP) 156/95 (115) Pulse Ox 81 O2 Delivery Nasal Cannula O2 Flow Rate 1.00 FiO2 50 Capillary Refill : Less Than 3 Seconds Height, Weight, BMI Height: 5'6.00" Weight: 320lbs. 12.8oz. 145.535183ad; 32.00 BMI Method:Actual General Appearance: Anxious, Chronically ill, Mild Distress Eyes: Right Eye Normal Inspection, Right Eye PERRL HEENT: PERRL/EOMI, Normal ENT Inspection, Pharynx Normal, Moist Mucous Membranes Neck: Full Range of Motion, Normal Inspection, Non Tender Respiratory: Chest Non Tender, Lungs Clear, Normal Breath Sounds, No Respiratory Distress, Accessory Muscle Use, Decreased Breath Sounds, Wheezing Cardiovascular: Regular Rate, Rhythm, No Edema, No Gallop, No JVD, No Murmur, Normal Peripheral Pulses Gastrointestinal: Normal Bowel Sounds, No Organomegaly, No Pulsatile Mass, Non Tender, Soft Back: Normal Inspection, No CVA Tenderness, No Vertebral Tenderness Extremity: Normal Capillary Refill, Normal Inspection, Normal Range of Motion, Non Tender, No Calf Tenderness, No Pedal Edema Neurologic/Psychiatric: Alert, Oriented x3, No Motor/Sensory Deficits, Normal Mood/Affect Skin: Normal Color, Warm/Dry Lymphatic: No Adenopathy Results Results/Procedures Labs Laboratory Tests 12/24/21 05:28 Patient resulted labs reviewed. Assessment/Plan Admission Diagnosis Assessment: Acute respiratory failure LLL PNA AECOPD BIPAP dependency Smoker Plan: IV steroids Ativan BIPAP IV abx Admission Status: Inpatient Order (span 2 midnights) Reason for Inpatient Admission: resp failure Diagnosis/Problems Diagnosis/Problems (1) COPD exacerbation (2) LLL pneumonia Status: Acute Qualifiers: Pneumonia type: due to unspecified organism Qualified Codes: J18.9 - Pneumonia, unspecified organism (3) Acute respiratory failure with hypoxia Status: Acute MONA KRAUSE DO Dec 24, 2021 11:00
[2021-12-24] MEDS: NS IV 1000 ML 1,000 ML IV SCH (11:01)
[2021-12-24] MEDS: CEFEPIME INJECTION 1,000 MG in NS (IVPB) 50 ML IV SCH ×2 (11:01→18:18)
[2021-12-24] MEDS: ENOXAPARIN 40 MG/0.4 ML (LOVENOX) SYR SC SCH (11:01)
[2021-12-24 11:09] VITALS: BP 156/95
[2021-12-24] MEDS ORDERED: RT-LEVALBUTEROL (XOPENEX) 1.25 MG/3 ML NEB NON-FORMULARY INH PRN (11:15)
[2021-12-24] MEDS: methylPREDNISolone 40 MG/ML (Solu-MEDROL) VIAL IV SCH ×2 (11:20→18:18)
--- NOTE | 2021-12-24 11:38 | Tele-ICU Consult ---
History of Present Illness History of Present Illness Date Seen by Provider: Dec 24, 2021 Time Seen by Provider: 11:37 Date of Admission (Tele-ICU Physician , consultation) Available chart/ vitals / labs / Images reviewed H&P is from ER notes Patient's information available about PMH, Shx, Fhx allergy reviewed inEMR. ROS as per chart and RN report Now in ICU, hemodynamically stable Video assessment done using teleICU camera, rest of exam as per RN Discussed with RN. Consultants: Hospital course: 12-24: +Severe Sepsis Covid PCR Negative 56 y/o F - LLL PNA - COPD Exac - Acute Hypoxic Resp Failure. BiPAP. A/P Acute ( on chronic ) resp failure -with AECOPD, ( CT chest 12/24- NO PE ) with mild compensated hypercapnea - on bip[ap 15/5 fio2 tv 400 rr 20s AECOPD - steroids IV , nebs PNA , possible - CT with RUL minimal tree- in -bud infiltrates - ( covid and flu NEG ) - empiric CAP coverage started COPD - nocturnal o2 use 1L DM - ISS Lines : periph , (Central Line Necessity Reviewed) Dyer: OG: Nutrition: Analgesia: Anxiety/ delirium VTE Prophylaxis: elsa Stress Ulcer Prophylaxis: Glycemic Control: Plans in collaboration with bedside consultants and IM MDs. Discussed with RN to reach out if any questions or concerns A total of 33 minutes of critical care time was devoted to this patient today, required to treat and/or prevent further deterioration of critical care condition ( as above ) . Allergies and Home Medications Allergies Coded Allergies: Penicillins (Verified Allergy, Unknown, 05/09/17) aspirin (Verified Allergy, Unknown, 05/09/17) ibuprofen (Verified Allergy, Unknown, 09/19/20) morphine (Verified Allergy, Unknown, 05/09/17) Home Medications Acetaminophen 500 Mg Tablet, 1,000 MG PO Q4H PRN for PAIN-MILD (1-4), (Reported) TAKES 2 (500MG) TAB Budesonide/Formoterol Fumarate 80 Mcg-4.5 Mcg/Actuation Hfa.aer.ad, 2 PUFF IH BID, (Reported) Cefdinir 300 Mg Capsule, 300 MG PO BID Prescribed by: FEDERICA GILMORE on 09/27/21 1021 Cetirizine HCl 10 Mg Tablet, 10 MG PO DAILY, (Reported) Fluticasone Propionate 50 Mcg/Actuation Comfort.susp, 1 SPRAY NS DAILY PRN for CONGESTION, (Reported) 1 SPRAY EACH NARE DAILY Ibuprofen 200 Mg Tablet, 400 MG PO Q8H PRN for PAIN-MILD (1-4), (Reported) TAKES 2 (200MG) TAB Levalbuterol Tartrate 45 Mcg/Actuation Hfa.aer.ad, 1 PUFF INH Q4H PRN for SHORTNESS OF BREATH, (Reported) Liraglutide 0.6 Mg/0.1 Ml (18 Mg/3 Ml) Pen.injctr, 2.4 MG SQ DAILY, (Reported) Metformin HCl 500 Mg Tab.er.24, 1,000 MG PO BID, (Reported) TAKES 2 (500MG) TABS Montelukast Sodium 10 Mg Tablet, 10 MG PO HS Prescribed by: FEDERICA GILMORE on 09/27/21 1021 Omeprazole 20 Mg Tablet.dr, 20 MG PO DAILY Prescribed by: MARIA ISABEL OCHOA on 12/26/21 112 Prednisone 10 Mg Tab.ds.pk, 10 MG PO DAILY Take 4 tabs(40mg)daily,decrease by 1 tab(10MG)daily. Prescribed by: FEDERICA GILMORE on 09/27/21 1021 Prednisone 10 Mg Tab.ds.pk, 10 MG PO DAILY Take 4 tabs with breakfast for 2 days 3 tabs for 2 days 2 tabs for 2 days then 1 tab for 2 days Prescribed by: MARIA ISABEL OCHOA on 12/26/21 1127 Past Medical/Social/Family Hx Patient Social History Tobacco Use?: Yes Tobacco type used: Cigarettes Smoking Status: Former Smoker Substance use?: No Alcohol Use?: No Immunizations Up To Date Tetanus Booster (TDap): Less Than 5 Years Current Status Advance Directives: No Communicates: Verbally Primary Language: Taiwanese Preferred Spoken Language: Taiwanese Is interpretation needed?: No Past Medical History PMHx: COPD DMII Anxiety Depression HLD SurgHx: Tubal ligation Cholecystectomy 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 Family Medical History Family Hx: SOCIAL HISTORY: -SMOKED <1 PPD, QUIT -DENIES ETOH -DENIES DRUG USE Review of Systems Constitutional: see HPI Focused Exam Lactate Level 12/24/21 05:55: Lactic Acid Level 0.85 Height, Weight, BMI Height: 5'6.00" Weight: 320lbs. 12.8oz. 145.183666sk; 32.00 BMI Method:Actual Time of Focused Exam: 07:41 Exam Exam Patient acknowledged, consented, and participated in this virtual visit which was conducted using real time audio/video Vital Signs Date Time Temp Pulse Resp B/P (MAP) Pulse Ox O2 Delivery O2 Flow Rate FiO2 12/24/21 11:09 36.0 124 81 24 12/24/21 11:05 94 12/24/21 11:00 100 18 120/54 99 NIV Bilevel 50.00 12/24/21 11:00 93 24 99 50.00 12/24/21 10:40 36.0 83 19 117/73 99 NIV Bilevel 12/24/21 07:53 114 32 99 80.00 12/24/21 07:06 123 29 99 80.00 12/24/21 06:33 97 Nasal Cannula 4.00 12/24/21 05:15 81 Nasal Cannula 4.00 12/24/21 05:14 36.0 124 30 156/95 (115) 81 Room Air 12/24/21 05:14 Nasal Cannula 1.00 I & O 12/24/21 07:00 Intake Total 50 ml Balance 50 ml Height & Weight Height: 5'6.00" Weight: 320lbs. 12.8oz. 145.385902le; 32.00 BMI Method:Actual General Appearance: No Apparent Distress Respiratory: Decreased Breath Sounds, Wheezing Cardiovascular: No Edema, No Murmur, Tachycardia Capillary Refill: Less Than 3 Seconds Gastrointestinal: non tender, soft Results Lab Laboratory Tests 12/24/21 05:28 Assessment/Plan Assessment/Plan 1 RJ BOLES MD Dec 24, 2021 11:38
[2021-12-24] MEDS: inSUlin ASPART (NovoLOG) 1 UNIT/0.01 ML (CHARGE PER UNIT) SC SCH ×3 (12:44→20:50)
[2021-12-24] MEDS: RT-LEVALBUTEROL (XOPENEX) 1.25 MG/3 ML NEB NON-FORMULARY INH SCH ×3 (14:18→22:28)
[2021-12-24 14:19] VITALS: BP 118/81
[2021-12-24] MEDS: LORazepam 0.5 MG (ATIVAN) TABLET PO PRN (16:11)
[2021-12-24] MEDS: ONDANSETRON 4 MG/2 ML (SDV) Z0FRAN IV PRN (19:47)
[2021-12-24 22:31] VITALS: BP 120/78
[2021-12-25] MEDS: CEFEPIME INJECTION 1,000 MG in NS (IVPB) 50 ML IV SCH ×4 (00:50→17:57)
[2021-12-25] MEDS: methylPREDNISolone 40 MG/ML (Solu-MEDROL) VIAL IV SCH ×4 (00:50→20:14)
[2021-12-25] MEDS: DOCUSATE SODIUM 100 MG (COLACE) CAP PO SCH ×3 (00:55→20:14)
[2021-12-25] MEDS: SENNOSIDES 8.6 MG (SENOKOT) TAB PO SCH ×3 (00:55→20:14)
[2021-12-25] MEDS: RT-LEVALBUTEROL (XOPENEX) 1.25 MG/3 ML NEB NON-FORMULARY INH SCH ×6 (02:42→22:43)
[2021-12-25 04:50] LABS: BASOPHILS % (AUTO) 0 % (0-10); EOSINOPHILS % (AUTO) 0 % (0-10); HEMATOCRIT 35 % (35-52); HEMOGLOBIN 11.5 g/dL (11.5-16.0); LYMPHOCYTES # (AUTO) 0.7 10^3/uL (1.0-4.0); LYMPHOCYTES % (AUTO) 7 % (12-44); MEAN CORPUSCULAR HEMOGLOBIN 30 pg (25-34); MEAN CORPUSCULAR HGB CONC 33 g/dL (32-36); MEAN CORPUSCULAR VOLUME 89 fL (80-99); MEAN PLATELET VOLUME 10.2 fL (9.0-12.2); MONOCYTES # (AUTO) 0.2 10^3/uL (0.0-1.0); MONOCYTES % (AUTO) 2 % (0-12); NEUTROPHILS # (AUTO) 8.1 10^3/uL (1.8-7.8); NEUTROPHILS % (AUTO) 89 % (42-75); PLATELET COUNT 209 10^3/uL (130-400); WHITE BLOOD COUNT 9.1 10^3/uL (4.3-11.0)
[2021-12-25 05:19] LABS: ALBUMIN 3.6 GM/DL (3.2-4.5); BILIRUBIN,TOTAL 0.3 MG/DL (0.1-1.0); CALCIUM 8.8 MG/DL (8.5-10.1); CREATININE SERUM 0.7 MG/DL (0.60-1.30); PHOSPHORUS 2.9 MG/DL (2.3-4.7); POTASSIUM 4.2 MMOL/L (3.6-5.0); TOTAL PROTEIN 6.5 GM/DL (6.4-8.2)
[2021-12-25] MEDS: POTASSIUM CL 10MEQ/50ML IVPB 50 ML IV SCH (05:40)
[2021-12-25] MEDS: KCL 20 MEQ TAB (K-DUR) PO SCH (05:40)
[2021-12-25] MEDS: MAGNESIUM 1 GM/100 ML IVPB 100 ML IV SCH (05:40)
[2021-12-25] MEDS: inSUlin ASPART (NovoLOG) 1 UNIT/0.01 ML (CHARGE PER UNIT) SC SCH ×4 (06:06→20:20)
[2021-12-25] MEDS: CATHETER FLUSH 10 ML SYR IV PRN (06:07)
--- NOTE | 2021-12-25 07:47 | Diagnostic Imaging Report ---
EXAMINATION: Chest 1 view HISTORY: Short of breath COMPARISON: 05/26/2021. FINDINGS: There is mild bibasilar atelectasis. Otherwise, the lungs are clear without edema or pneumonia. No pleural effusion or pneumothorax. Heart size is normal. IMPRESSION: 1. Mild atelectasis, otherwise clear lungs. Dictated by: Dictated on workstation # [id number]
[2021-12-25] MEDS: NS IV 1000 ML 1,000 ML IV SCH (07:57)
[2021-12-25] MEDS: AZITHROMYCIN INJECTION 250 MG in NS (IVPB) 250 ML IV SCH (08:04)
--- NOTE | 2021-12-25 09:08 | Tele-ICU Progress Note ---
Subjective Date Seen by a Provider: Dec 25, 2021 Time Seen by a Provider: 09:07 Subjective/Events-last exam (Tele-ICU Physician , consultation) Available chart/ vitals / labs / Images reviewed H&P is from ER notes Patient's information available about PMH, allergy reviewed in EMR. ROS as per chart and RN report Video assessment done using teleICU camera, rest of exam as per RN Discussed with RN. Sepsis Event Evaluation Height, Weight, BMI Height: 5'6.00" Weight: 320lbs. 12.8oz. 145.517868wf; 41.48 BMI Method:Actual Focused Exam Lactate Level 12/24/21 05:55: Lactic Acid Level 0.85 Time of Focused Exam: 07:41 Exam Exam Patient acknowledged, consented, and participated in this virtual visit which was conducted using real time audio/video Vital Signs Date Time Temp Pulse Resp B/P (MAP) Pulse Ox O2 Delivery O2 Flow Rate FiO2 12/25/21 08:00 96 Nasal Cannula 5.00 12/25/21 08:00 102 17 131/85 94 NIV Bilevel 40.00 12/25/21 07:00 100 12/25/21 07:00 92 17 110/75 96 NIV Bilevel 40.00 12/25/21 06:55 93 Nasal Cannula 5.00 12/25/21 06:00 84 18 103/53 96 NIV Bilevel 40.00 12/25/21 05:00 84 17 117/71 95 NIV Bilevel 40.00 12/25/21 04:00 90 17 92/51 92 NIV Bilevel 40.00 12/25/21 04:00 97 Nasal Cannula 5.00 12/25/21 03:59 36.0 12/25/21 03:00 95 19 100/53 94 NIV Bilevel 40.00 12/25/21 02:42 96 Nasal Cannula 5.00 12/25/21 02:00 85 10 109/63 96 NIV Bilevel 40.00 12/25/21 01:00 93 14 107/66 95 NIV Bilevel 40.00 12/25/21 01:00 91 12/25/21 00:00 96 Nasal Cannula 5.00 12/25/21 00:00 87 17 86/51 98 NIV Bilevel 40.00 12/24/21 23:34 36.0 12/24/21 23:00 95 20 113/72 98 NIV Bilevel 40.00 12/24/21 22:41 NIV Bilevel 40.00 12/24/21 22:31 98 18 97 40.00 12/24/21 22:29 95 Nasal Cannula 5.00 12/24/21 22:00 103 22 100/58 96 Nasal Cannula 5.00 12/24/21 21:00 93 20 100/52 94 Nasal Cannula 5.00 12/24/21 20:00 97 23 95/52 93 Nasal Cannula 5.00 12/24/21 20:00 94 Nasal Cannula 5.00 12/24/21 19:04 94 Nasal Cannula 5.00 12/24/21 19:00 96 12/24/21 19:00 96 23 98/72 94 Nasal Cannula 5.00 12/24/21 18:00 92 32 104/56 93 NIV Bilevel 50.00 12/24/21 17:00 85 11 111/70 94 NIV Bilevel 50.00 12/24/21 16:00 86 17 113/76 98 NIV Bilevel 50.00 12/24/21 16:00 100 NIV Bilevel 50 12/24/21 16:00 36.5 12/24/21 15:00 88 19 106/75 98 NIV Bilevel 50.00 12/24/21 14:19 85 18 99 50.00 12/24/21 14:00 89 17 120/85 100 NIV Bilevel 50.00 12/24/21 13:00 98 22 123/85 100 NIV Bilevel 50.00 12/24/21 13:00 86 12/24/21 12:00 85 15 120/76 100 NIV Bilevel 50.00 12/24/21 11:09 36.0 124 81 24 12/24/21 11:05 94 12/24/21 11:00 100 18 120/54 99 NIV Bilevel 50.00 12/24/21 11:00 100 NIV Bilevel 50 12/24/21 11:00 93 24 99 50.00 12/24/21 10:40 36.0 83 19 117/73 99 NIV Bilevel I & O 12/25/21 07:00 Intake Total 850 ml Output Total 545 ml Balance 305 ml Height & Weight Height: 5'6.00" Weight: 320lbs. 12.8oz. 145.928320st; 41.48 BMI Method:Actual General Appearance: Anxious, Chronically ill, Mild Distress HEENT: PERRL/EOMI, Normal ENT Inspection, Pharynx Normal, Moist Mucous Membranes Neck: Full Range of Motion, Normal Inspection, Non Tender Respiratory: Chest Non Tender, Lungs Clear, Normal Breath Sounds, No Res piratory Distress, Accessory Muscle Use, Decreased Breath Sounds, Wheezing Cardiovascular: Regular Rate, Rhythm, No Edema, No Gallop, No JVD, No Murmur, Normal Peripheral Pulses Capillary Refill: Less Than 3 Seconds Gastrointestinal: non tender, soft Extremity: Normal Capillary Refill, Normal Inspection, Normal Range of Motion, Non Tender, No Calf Tenderness, No Pedal Edema Neurologic/Psychiatric: Alert, Oriented x3, No Motor/Sensory Deficits, Normal Mood/Affect Skin: Normal Color, Warm/Dry Lymphatic: No Adenopathy Results Lab Laboratory Tests 12/24/21 05:28 12/25/21 04:38 Assessment/Plan Assessment/Plan 1. Acute on chronic respiratory failure due to COPD exacerbation. CT angiogram on 812 showed no PE On a BiPAP on admission currently requiring oxygen with the 4 L of nasal cannula. 2. COPD. She was on nocturnal oxygen 1 L at baseline. 3. Pneumonia. CT with right upper lobe minimal tree-in-bud infiltrates. COVID and flu negative. Empiric CAP coverage started. 4. DM type II Insulin with sliding scale coverage. 5. DVT prophylaxis with Lovenox. Recommendations plans in collaboration with bedside consultants and IM MDs. Discussed with RN to reach out if any questions or concern Critical Care: Critically Ill Patient Time spent with patient (mins): 20 MICHELLE LICEA MD Dec 25, 2021 09:08
[2021-12-25] MEDS: ENOXAPARIN 40 MG/0.4 ML (LOVENOX) SYR SC SCH (10:45)
[2021-12-25] MEDS: ONDANSETRON 4 MG/2 ML (SDV) Z0FRAN IV PRN ×2 (12:14→20:19)
--- NOTE | 2021-12-25 12:27 | Progress Note - Hospitalist ---
Subjective HPI/CC On Admission Date Seen by Provider: Dec 25, 2021 Time Seen by Provider: 13:30 CC: SOB HPI: This is a [facility] female pt with a history of COPD. She presented with SOB. D- Dimer was elevated. CT angiogram showed no evidence of any PE. She was placed on IV steroids and BiPAP. She is doing much better now. Subjective/Events-last exam Patient feeling better less short of breath maintaining O2 saturations off of BiPAP currently and does not appear to be in acute distress although fatigued. She denies chest pain or shortness of breath at rest. Focused Exam Lactate Level 12/24/21 05:55: Lactic Acid Level 0.85 Time of Focused Exam: 07:41 Objective Exam Vital Signs Vital Signs Date Time Temp Pulse Resp B/P (MAP) Pulse Ox O2 Delivery O2 Flow Rate FiO2 12/25/21 16:07 36.4 90 18 134/80 90 Nasal Cannula 3.00 12/24/21 16:00 50 Capillary Refill : Less Than 3 Seconds General Appearance: No Apparent Distress, Obese Respiratory: Chest Non Tender, Lungs Clear, Normal Breath Sounds, No Accessory Muscle Use, No Respiratory Distress Cardiovascular: Regular Rate, Rhythm, No Edema, No Gallop, No JVD, No Murmur, Normal Peripheral Pulses Gastrointestinal: Normal Bowel Sounds, No Organomegaly, No Pulsatile Mass, Non Tender, Soft Results/Procedures Lab Laboratory Tests 12/25/21 04:38 Patient resulted labs reviewed. Assessment/Plan Assessment and Plan Assess & Plan/Chief Complaint Assessment: Acute respiratory failure LLL PNA AECOPD BIPAP dependency Smoker 12/25/2021: Respiratory status appears to be significantly improved will transfer to the floor and decrease Solu-Medrol from 40 every 6 to 40 every 12. Patient has underlying type 2 diabetes that has been over 24 hours since contrast study we will resume metformin this evening considering her normal renal function and increase insulin sliding scale to b. Plan: IV steroids Ativan BIPAP IV abx Critical Care Critically Ill Patient MARIA ISABEL OCHOA MD Dec 25, 2021 12:27
[2021-12-25] MEDS: metFORMIN XR 500 MG (GLUCOPHAGE XR) TAB PO SCH (16:27)
[2021-12-25] MEDS: LORazepam 0.5 MG (ATIVAN) TABLET PO PRN (21:51)
[2021-12-26] MEDS: CEFEPIME INJECTION 1,000 MG in NS (IVPB) 50 ML IV SCH ×3 (00:37→11:05)
[2021-12-26] MEDS: RT-LEVALBUTEROL (XOPENEX) 1.25 MG/3 ML NEB NON-FORMULARY INH SCH ×3 (03:00→10:43)
[2021-12-26 06:16] LABS: BASOPHILS % (AUTO) 0 % (0-10); EOSINOPHILS % (AUTO) 0 % (0-10); HEMATOCRIT 34 % (35-52); LYMPHOCYTES % (AUTO) 10 % (12-44); MEAN CORPUSCULAR HEMOGLOBIN 30 pg (25-34); MEAN CORPUSCULAR HGB CONC 33 g/dL (32-36); MEAN CORPUSCULAR VOLUME 91 fL (80-99); MEAN PLATELET VOLUME 10.6 fL (9.0-12.2); MONOCYTES # (AUTO) 0.3 10^3/uL (0.0-1.0); MONOCYTES % (AUTO) 4 % (0-12); NEUTROPHILS # (AUTO) 8.2 10^3/uL (1.8-7.8); NEUTROPHILS % (AUTO) 86 % (42-75); PLATELET COUNT 230 10^3/uL (130-400); WHITE BLOOD COUNT 9.6 10^3/uL (4.3-11.0)
[2021-12-26] MEDS: metFORMIN XR 500 MG (GLUCOPHAGE XR) TAB PO SCH (06:28)
[2021-12-26] MEDS: inSUlin ASPART (NovoLOG) 1 UNIT/0.01 ML (CHARGE PER UNIT) SC SCH ×2 (06:29→11:06)
[2021-12-26] MEDS: NS IV 1000 ML 1,000 ML IV SCH (06:29)
[2021-12-26 06:37] LABS: ALBUMIN 3.5 GM/DL (3.2-4.5); BILIRUBIN,TOTAL 0.2 MG/DL (0.1-1.0); CALCIUM 8.7 MG/DL (8.5-10.1); CREATININE SERUM 0.73 MG/DL (0.60-1.30); MAGNESIUM 1.9 MG/DL (1.6-2.4); PHOSPHORUS 2.4 MG/DL (2.3-4.7); POTASSIUM 4.2 MMOL/L (3.6-5.0); TOTAL PROTEIN 6.6 GM/DL (6.4-8.2)
[2021-12-26] MEDS: KCL 20 MEQ TAB (K-DUR) PO SCH (06:47)
[2021-12-26] MEDS: MAGNESIUM 1 GM/100 ML IVPB 100 ML IV SCH (06:47)
[2021-12-26] MEDS: POTASSIUM CL 10MEQ/50ML IVPB 50 ML IV SCH (06:47)
[2021-12-26] MEDS ORDERED: PANTOPRAZOLE 40 MG (PROTONIX) TAB PO SCH (09:00)
[2021-12-26] MEDS: SENNOSIDES 8.6 MG (SENOKOT) TAB PO SCH ×2 (09:10→09:13)
[2021-12-26] MEDS: DOCUSATE SODIUM 100 MG (COLACE) CAP PO SCH ×2 (09:10→09:13)
[2021-12-26] MEDS: methylPREDNISolone 40 MG/ML (Solu-MEDROL) VIAL IV SCH (09:11)
[2021-12-26] MEDS: ENOXAPARIN 40 MG/0.4 ML (LOVENOX) SYR SC SCH (09:11)
[2021-12-26] MEDS: AZITHROMYCIN INJECTION 250 MG in NS (IVPB) 250 ML IV SCH (09:29)
[2021-12-26] MEDS ORDERED: PRED10TA22 PO (11:27)
[2021-12-26] MEDS ORDERED: OMEP20TA56 PO (11:27)
--- NOTE | 2021-12-26 11:35 | Discharge Summary ---
Diagnosis/Chief Complaint Date of Admission Dec 24, 2021 at 09:07 Date of Discharge Discharge Date: Dec 26, 2021 Admission Diagnosis Assessment: Acute respiratory failure LLL PNA AECOPD BIPAP dependency Smoker Plan: IV steroids Ativan BIPAP IV abx Primary Care Dinora Morales [employer] Discharge Diagnosis (1) COPD exacerbation (2) LLL pneumonia Status: Acute (3) Acute respiratory failure with hypoxia Status: Acute Discharge Summary Discharge Physical Exam Allergies: Coded Allergies: Penicillins (Verified Allergy, Unknown, 05/09/17) aspirin (Verified Allergy, Unknown, 05/09/17) ibuprofen (Verified Allergy, Unknown, 09/19/20) morphine (Verified Allergy, Unknown, 05/09/17) Vitals & I&Os Vital Signs Date Time Temp Pulse Resp B/P (MAP) Pulse Ox O2 Delivery O2 Flow Rate FiO2 12/26/21 11:21 36.6 84 20 135/81 94 Room Air 12/26/21 07:31 2.00 12/24/21 16:00 50 General Appearance: No Apparent Distress Respiratory: Chest Non Tender, Lungs Clear, Normal Breath Sounds, No Accessory Muscle Use, No Respiratory Distress Cardiovascular: Regular Rate, Rhythm, No Edema, No Gallop, No JVD, No Murmur, Normal Peripheral Pulses Skin: Normal Color Neurologic/Psychiatric: Alert, Oriented x3 Hospital Course Was the Problem List Reviewed?: Yes PT ARRIVES VIA POV FROM HOME IN [place] C/O SHORTNESS OF BREATH SINCE YESTERDAY WAS AT WORK WITH HOME HEALTH, WHEN SYMPTOMS BEGAN C/O NON-PRODUCTIVE COUGH NO KNOWN FEVER BUT HAS HAD CHILLS--HAS NOT TAKEN TEMP C/O HEADACHE NO BODY ACHES C/O NAUSEA, NO VOMITING. NO DIARRHEA. NO SWELLING IN LEGS/FEET OR PAIN IN CALVES NO CHEST PAIN PT HAS COPD AND WEARS O2 AT 1L/NC AT NIGHT ONLY--HAS NOT USED IT DURING THE DAY PT TAKES XOPENEX BUT SHE RAN OUT YESTERDAY MORNING PT ALSO USES SYMBICORT--USED JUST PRIOR TO ARRIVAL PT HAS NOT HAD COVID OR FLU VACCINES Patient was admitted to the intensive care unit and started on BiPAP. Steroids and empiric antibiotics were initiated but the patient really did not have any signs or symptoms to suggest bacterial pneumonia. She had a mild cough productive of nonpurulent appearing sputum had no fever and CTA of the chest revealed no evidence for pulmonary embolism. There is report of a tree-in-bud type appearance in the upper lobes of the lung suggesting an inflammatory process but on steroids she was free of wheezing a little after 24 hours with no abnormalities noted auscultation with attention to the upper lobes. She does report some chronic heartburn type symptoms and considering that she is going home on prednisone we did initiate omeprazole 20 mg daily and a prednisone taper 40 mg daily for 2 tapering 10 mg every second day until off. She has an appointment at [facility] [place] in the morning which she is advised to keep and she will continue her other home medications unchanged. She is not being discharged on antibiotic as there is no evidence to suggest bacterial infection at at this time. She is concerned about a urinary tract infection but UA was unremarkable on admission. Labs (last 24 hrs) Laboratory Tests 12/25/21 16:11: Glucometer 301H 12/25/21 20:11: Glucometer 243H 12/26/21 04:50: Glucometer 324H 12/26/21 05:27: White Blood Count 9.6, Red Blood Count 3.72L, Hemoglobin 11.0L, Hematocrit 34L, Mean Corpuscular Volume 91, Mean Corpuscular Hemoglobin 30, Mean Corpuscular Hemoglobin Concent 33, Red Cell Distribution Width 12.8, Platelet Count 230, Mean Platelet Volume 10.6, Immature Granulocyte % (Auto) 1, Neutrophils (%) (Auto) 86H, Lymphocytes (%) (Auto) 10L, Monocytes (%) (Auto) 4, Eosinophils (%) (Auto) 0, Basophils (%) (Auto) 0, Neutrophils # (Auto) 8.2H, Lymphocytes # (Auto) 1.0, Monocytes # (Auto) 0.3, Eosinophils # (Auto) 0.0, Basophils # (Auto) 0.0, Immature Granulocyte # (Auto) 0.1, Sodium Level 137, Potassium Level 4.2, Chloride Level 103, Carbon Dioxide Level 23, Anion Gap 11, Blood Urea Nitrogen 21H, Creatinine 0.73, Estimat Glomerular Filtration Rate 95, BUN/Creatinine Ratio 29, Glucose Level 361H, Calcium Level 8.7, Corrected Calcium 9.1, Phosphorus Level 2.4, Magnesium Level 1.9, Total Bilirubin 0.2, Aspartate Amino Transf (AST/SGOT) 11, Alanine Aminotransferase (ALT/SGPT) 18, Alkaline Phosphatase 76, Total Protein 6.6, Albumin 3.5 12/26/21 10:56: Glucometer 212H Microbiology 12/24/21 MRSA Screen - Final, Complete MRSA not isolated 12/24/21 Urine Culture - Final, Complete Gram Pos Mixed Bacterial Valerie 12/24/21 Blood Culture - Preliminary, Resulted No growth Patient resulted labs reviewed. Pending Labs Laboratory Tests 12/26/21 04:50: Glucometer 324 12/26/21 05:27: White Blood Count 9.6, Red Blood Count 3.72, Hemoglobin 11.0, Hematocrit 34, Mean Corpuscular Volume 91, Mean Corpuscular Hemoglobin 30, Mean Corpuscular Hemoglobin Concent 33, Red Cell Distribution Width 12.8, Platelet Count 230, Mean Platelet Volume 10.6, Immature Granulocyte % (Auto) 1, Neutrophils (%) (Auto) 86, Lymphocytes (%) (Auto) 10, Monocytes (%) (Auto) 4, Eosinophils (%) (Auto) 0, Basophils (%) (Auto) 0, Neutrophils # (Auto) 8.2, Lymphocytes # (Auto) 1.0, Monocytes # (Auto) 0.3, Eosinophils # (Auto) 0.0, Basophils # (Auto) 0.0, Immature Granulocyte # (Auto) 0.1, Sodium Level 137, Potassium Level 4.2, Chloride Level 103, Carbon Dioxide Level 23, Anion Gap 11, Blood Urea Nitrogen 21, Creatinine 0.73, Estimat Glomerular Filtration Rate 95, BUN/Creatinine Ratio 29, Glucose Level 361, Calcium Level 8.7, Corrected Calcium 9.1, Phosphorus Level 2.4, Magnesium Level 1.9, Total Bilirubin 0.2, Aspartate Amino Transf (AST/SGOT) 11, Alanine Aminotransferase (ALT/SGPT) 18, Alkaline Phosphatase 76, Total Protein 6.6, Albumin 3.5 12/26/21 10:56: Glucometer 212 Discussion & Recommendations Discharge Planning: >30 minutes discharge planning Discharge Home Medications: Active Scripts Active Prednisone 10 Mg Tab.ds.pk 10 Mg PO DAILY Take 4 tabs with breakfast for 2 days 3 tabs for 2 days 2 tabs for 2 days then 1 tab for 2 days Omeprazole 20 Mg Tablet.dr 20 Mg PO DAILY 30 Days Prednisone 10 Mg Tab.ds.pk 10 Mg PO DAILY Take 4 tabs(40mg)daily,decrease by 1 tab(10MG)daily. Cefdinir 300 Mg Capsule 300 Mg PO BID Montelukast Sodium 10 Mg Tablet 10 Mg PO HS Reported Ibuprofen 200 Mg Tablet 400 Mg PO Q8H PRN TAKES 2 (200MG) TAB Tylenol Extra Strength (Acetaminophen) 500 Mg Tablet 1,000 Mg PO Q4H PRN TAKES 2 (500MG) TAB Victoza 3-Chandrakant (Liraglutide) 0.6 Mg/0.1 Ml (18 Mg/3 Ml) Pen.injctr 2.4 Mg SQ DAILY Xopenex Hfa (Levalbuterol Tartrate) 45 Mcg/Actuation Hfa.aer.ad 1 Puff INH Q4H PRN Symbicort 80-4.5 Mcg Inhaler (Budesonide/Formoterol Fumarate) 80 Mcg-4.5 Mcg/Actuation Hfa.aer.ad 2 Puff IH BID Flonase Allergy Relief (Fluticasone Propionate) 50 Mcg/Actuation [place].susp 1 [place] NS DAILY PRN 1 SPRAY EACH NARE DAILY Metformin HCl ER (Metformin HCl) 500 Mg Tab.er.24 1,000 Mg PO BID TAKES 2 (500MG) TABS Cetirizine HCl 10 Mg Tablet 10 Mg PO DAILY Instructions to patient/family Please see electronic discharge instructions given to patient. Copy Copies To 1: [facility]/ Problem Qualifiers (1) LLL pneumonia: Pneumonia type: due to unspecified organism Qualified Codes: J18.9 - Pneumonia, unspecified organism MARIA ISABEL OCHOA MD Dec 26, 2021 11:35
[2021-12-26 13:20] VITALS: BP 135/81
--- NOTE | 2021-12-27 13:25 | Physician Query Clarification ---
PQ-Uncertain Diagnosis Admission/Discharge Admission Date: Dec 24, 2021 at 09:07 Discharge Date: Dec 26, 2021 at 13:20 Dr. Ochoa, The medical record reflects the following clinical scenario: History/Risk Factors: Pneumonia, COPDAE, A:>C hypoxic respiratory failure Clinical Findings: T36.0, P 124, R 30, WBC 14.3, Lactic acid .85 Treatment: IV Ceftriaxone, IV Azithromycin Question: Is sepsis a clinically valid diagnosis? Sepsis was documented in the ER record with no further documentation in the medical record. Please document a response in Progress Note or Discharge Summary. 1. Yes, clinically valid, condition resolved. 2. No, condition ruled out. 3. Other, with explanation of clinical findings. 4. Undetermined, no explanation for clinical findings. PHYSICIAN RESPONSE Diagnosis clinically valid: Yes, Conditon resolved In responding to this query, please exercise your independent professional judgment. The purpose of this communication is to more accurately reflect the complexity of your patients condition. The fact that a question is asked does not imply that any particular answer is desired or expected. Thank you for your timely response to this clarification. Requestors name: Angie THIS PHYSICIAN QUERY FORM IS A PERMANENT PART OF THE MEDICAL RECORD ANGIE QUESADA Dec 27, 2021 13:25 MARIA ISABEL OCOHA MD Dec 29, 2021 07:37
== END 2021-12-26 13:20 | disposition home or self-care (01) | DRG 871 ==
LOC: EDUNIT# 05:04 → ER 05:16 → ICU 09:07 → 4TH 12-25 12:55
PROVIDERS: ADMIT Internal Medicine; ATTEND Internal Medicine
PROC: 5A09357 Assistance with Respiratory Ventilation, Less than 24 Consecutive Hours, Continuous Positive Airway Pressure (ICD-10-PCS; principal; 2021-12-24)
DX: A41.9 Sepsis, unspecified organism (principal); J18.9 Pneumonia, unspecified organism; J96.21 Acute and chronic respiratory failure with hypoxia; J44.1 Chronic obstructive pulmonary disease with (acute) exacerbation; J44.0 Chronic obstructive pulmonary disease with (acute) lower respiratory infection; I10 Essential (primary) hypertension; E11.9 Type 2 diabetes mellitus without complications; F41.9 Anxiety disorder, unspecified; F32.A Depression, unspecified; Z20.822 Contact with and (suspected) exposure to COVID-19; Z87.891 Personal history of nicotine dependence; Z79.84 Long term (current) use of oral hypoglycemic drugs; Z79.52 Long term (current) use of systemic steroids; Z83.3 Family history of diabetes mellitus; Z82.49 Family history of ischemic heart disease and other diseases of the circulatory system; Z88.6 Allergy status to analgesic agent; Z88.5 Allergy status to narcotic agent; Z88.0 Allergy status to penicillin
CPT/HCPCS: 36415; 36600; 71045; 71275; 80053; 81000; 82150; 82550; 82553; 82805; 82947; 83605; 83690; 83735; 83874; 83880; 84100; 84145; 84484; 85007; 85025; 85027; 85379; 85610; 85652; 85730; 86141; 87040; 87081; 87088; 87636; 93005; 93041; 94640; 94660; 94664; 96365; 96375

== ENCOUNTER 2022-04-18 10:28 | Emergency (ER) | payer BC ==
[~2022-04-18] VITALS: Ht 167 cm; Wt 91.0 kg
[~2022-04-18 10:28] MED LIST changes: +ALBU8.5H6 IH; +LEVO750T PO; -LEVO750T39 PO; +OMEP20TA56 PO; -RT-ALBUINH IH
[2022-04-18] MEDS ORDERED: ACETAMINOPHEN 500 MG TAB (TYLENOL) PO ONE (11:00)
[2022-04-18] MEDS ORDERED: CEFU250T80 PO (11:00)
[2022-04-18] MEDS ORDERED: ALBU2.5V4 INH (11:00)
[2022-04-18] MEDS ORDERED: RT-ALBUTEROL/IPRATROPIUM 3 ML (DUONEB) VIAL INH ONE (11:00)
[2022-04-18] MEDS ORDERED: predniSONE 20 MG TAB PO ONE (11:00)
--- NOTE | 2022-04-18 11:00 | ED Cough/URI ---
General Chief Complaint: Cough/Cold/Flu Symptoms Stated Complaint: CHEST CONGESTION | FEVER Nursing Triage Note: PT AMB TO [facility] PT CO OF COUGH COLD, FLU TYPE SX, INTERMITTENT FEVERS, FOR 1 WEEK, PT WAS TESTED LAST AND WAS NEG FOR COVID, STREP, FLU. PT WEARS O2 @1L PER NC Source: patient Exam Limitations: no limitations History of Present Illness Date Seen by Provider: Apr 18, 2022 Time Seen by Provider: 10:57 Initial Comments To ER with cough, feeling cold, general malaise, intermittent fevers. She is oxygen dependent at 1 L per nasal cannula at home. She wears a CPAP at night. Symptoms began 7 days ago. 6 days ago she was tested for flu and COVID both negative. Symptoms persist and she presented to the ER for this reason today. She was started on prednisone. Timing/Duration: constant, week Severity/Quality: dry cough Prior Episodes/Possible Cause: no prior episodes Associated Symptoms: cough, fever/chills, muscle aches, nasal congestion, shortness of breath, wheezing Allergies and Home Medications Allergies Coded Allergies: Penicillins (Verified Allergy, Unknown, 05/09/17) aspirin (Verified Allergy, Unknown, 05/09/17) ibuprofen (Verified Allergy, Unknown, 09/19/20) morphine (Verified Allergy, Unknown, 05/09/17) Patient Home Medication List Home Medication List Reviewed: Yes Acetaminophen (Tylenol Extra Strength) 500 Mg Tablet, 1,000 MG PO Q4H PRN for PAIN-MILD (1-4), (Reported) Entered as Reported by: RAMON MIGUEL on 09/27/21 1002 Albuterol Sulfate (Albuterol Sulfate) 2.5 Mg/3 Ml (0.083 %) Vial.neb, 2.5 MG INH Q4H PRN for WHEEZING Prescribed by: BENTON BECKER on 04/18/22 1100 Budesonide/Formoterol Fumarate (Symbicort 80-4.5 Mcg Inhaler) 80 Mcg-4.5 Mcg/Actuation Hfa.aer.ad, 2 PUFF IH BID, (Reported) Entered as Reported by: RAMON MIGUEL on 09/27/21 0957 Cefdinir (Cefdinir) 300 Mg Capsule, 300 MG PO BID Prescribed by: FEDERICA GILMORE on 09/27/21 1021 Cefuroxime Axetil (Cefuroxime) 250 Mg Tablet, 250 MG PO BID Prescribed by: BENTON BECKER on 04/18/22 1100 Cetirizine HCl (Cetirizine HCl) 10 Mg Tablet, 10 MG PO DAILY, (Reported) Entered as Reported by: RAMON MIGUEL on 09/27/21 0951 Fluticasone Propionate (Flonase Allergy Relief) 50 Mcg/Actuation [place].susp, 1 SPRAY NS DAILY PRN for CONGESTION, (Reported) Entered as Reported by: ARMON MIGUEL on 09/27/21 0956 Ibuprofen (Ibuprofen) 200 Mg Tablet, 400 MG PO Q8H PRN for PAIN-MILD (1-4), (Reported) Entered as Reported by: RAMON MIGUEL on 09/27/21 1004 Levalbuterol Tartrate (Xopenex Hfa) 45 Mcg/Actuation Hfa.aer.ad, 1 PUFF INH Q4H PRN for SHORTNESS OF BREATH, (Reported) Entered as Reported by: RAMON MIGUEL on 09/27/21 0959 Liraglutide (Victoza 3-Chandrakant) 0.6 Mg/0.1 Ml (18 Mg/3 Ml) Pen.injctr, 2.4 MG SQ DAILY, (Reported) Entered as Reported by: RAMON MIGUEL on 09/27/21 1000 Metformin HCl (Metformin HCl ER) 500 Mg Tab.er.24, 1,000 MG PO BID, (Reported) Entered as Reported by: RAMON MIGUEL on 09/27/21 0952 Montelukast Sodium (Montelukast Sodium) 10 Mg Tablet, 10 MG PO HS Prescribed by: FEDERICA GILMORE on 09/27/21 1021 Omeprazole (Omeprazole) 20 Mg Tablet.dr, 20 MG PO DAILY Prescribed by: MARIA ISABEL OCHOA on 12/26/21 112 Prednisone (Prednisone) 10 Mg Tab.ds.pk, 10 MG PO DAILY Prescribed by: FEDERICA GILMORE on 09/27/21 1021 Prednisone (Prednisone) 10 Mg Tab.ds.pk, 10 MG PO DAILY Prescribed by: MARIA ISABEL OCHOA on 12/26/211126 Review of Systems Review of Systems Constitutional: see HPI EENTM: see HPI Respiratory: see HPI, cough, wheezing Cardiovascular: no symptoms reported Genitourinary: no symptoms reported Musculoskeletal: no symptoms reported Skin: no symptoms reported Psychiatric/Neurological: No Symptoms Reported Hematologic/Lymphatic: No Symptoms Reported Immunological/Allergic: no symptoms reported Past Soisjhn-Bklvug-Lxfqhf Hx Patient Social History Tobacco Use?: No Smoking Status: Former Smoker Substance use?: No Alcohol Use?: No Pt feels they are or have been: Yes Immunizations Up To Date Tetanus Booster (TDap): Unknown Seasonal Allergies Seasonal Allergies: No Past Medical History Surgery/Hospitalization HX: COPD, TYPE 2 DIABETES Surgeries: Yes Gallbladder, 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, Tubal Ligation Respiratory: Yes Pneumonia, COPD Currently Using CPAP: Yes Currently Using BIPAP: No Cardiac: Yes Hypertension Neurological: No 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 Disorders: Yes Female 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 Disorders: Menstrual Problems [employer] History: 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, Menopausal Genitourinary: No Gastrointestinal: No Musculoskeletal: No Endocrine: Yes Diabetes, Insulin dep HEENT: No Cancer: No Psychosocial: Yes Anxiety, Depression Integumentary: No Blood Disorders: No Family Medical History Diabetes mellitus 19 FATHER FH: breast cancer 19 MOTHER Myocardial infarction 19 FATHER Thyroid disease G8 SISTER SOCIAL HISTORY: -SMOKED <1 PPD, QUIT -DENIES ETOH -DENIES DRUG USE Physical Exam Vital Signs - First Documented 04/18/22 10:45 Temp 37.2 Pulse 109 Resp 18 B/P (MAP) 113/79 (90) Pulse Ox 90 O2 Delivery Room Air O2 Flow Rate 1.00 Capillary Refill : Height: 5'6.00" Weight: 320lbs. 12.8oz. 145.413911cm; 32.00 BMI Method:Actual General Appearance: WD/WN, no apparent distress Eyes: Bilateral Eye Normal Inspection, Bilateral Eye PERRL, Bilateral Eye EOMI HEENT: PERRL/EOMI, normal ENT inspection Neck: non-tender, full range of motion Respiratory: no respiratory distress, no accessory muscle use, decreased breath sounds, wheezing Cardiovascular: regular rate, rhythm, no murmur Gastrointestinal: normal bowel sounds, non tender, soft Neurologic/Psychiatric: alert, normal mood/affect, oriented x 3 Skin: normal color, warm/dry Progress/Results/Core Measures Suspected Sepsis SIRS Temperature: Pulse: 109 Respiratory Rate: 18 Blood Pressure 113 /79 Mean: 90 Results/Orders Lab Results Laboratory Tests Test 04/18/22 10:45 Range/Units My Orders Orders - BENTON BECKER APRN Chest 1 View, Ap/Pa Only (04/18/22 10:42) Covid 19 Inhouse Test (04/18/22 10:42) Influenza A And B By Pcr (04/18/22 10:42) Acetaminophen Tablet (Tylenol Tablet) (04/18/22 11:00) Prednisone Tablet (Deltasone Tablet) (04/18/22 11:00) Albuterol/Ipra Inhalation Soln (Duoneb I (04/18/22 11:00) Svn Small Volume Nebulizer (04/18/22 10:54) Vital Signs/I&O 04/18/22 04/18/22 10:45 10:45 Temp 37.2 Pulse 109 Resp 18 B/P (MAP) 113/79 (90) Pulse Ox 90 O2 Delivery Room Air Nasal Cannula O2 Flow Rate 1.00 Capillary Refill : Blood Pressure Mean: 90 Departure Communication (Admissions) NAME: MAYO CONDE [facility] REC#: [id number] PT STATUS: REG ER : 1965 PHYSICIAN: BENTON BECKER APRN ADMIT DATE: 04/18/22/ER Draft Date of Exam:04/18/22 CHEST 1 VIEW, AP/PA ONLY INDICATION: Cough. COMPARISON: Comparison is made with prior examination of 12/25/2021. FINDINGS: The heart size, mediastinal configuration, and pulmonary vascularity are within normal limits. There is no pleural effusion, pneumothorax, or pneumonia. The osseous structures are unremarkable. IMPRESSION: No acute cardiopulmonary abnormality. Dictated on workstation # [id number] Dict: 04/18/22 1105 Trans: 04/18/22 1108 [id number] Interpreted by: AURELIANO AGUIRRE MD Electronically signed by: Impression Primary Impression: COPD exacerbation Disposition: 01 HOME, SELF-CARE Condition: Stable Departure-Patient Inst. Decision time for Depature: 10:59 Referrals: LEESA FRAIRE APRN (PCP/Family) Primary Care Physician Patient Instructions: Acute Bronchitis, Adult (DC) Add. Discharge Instructions: 1. Medication as directed 2. Follow-up with your doctor next week 3. Return to ER for any worsening. All discharge instructions reviewed with patient and/or family. Voiced understanding. Scripts Cefuroxime Axetil (Cefuroxime) 250 Mg Tablet 250 MG PO BID, #10 TAB Prov: BENTON BECKER APRN 04/18/22 Albuterol Sulfate (Albuterol Sulfate) 2.5 Mg/3 Ml (0.083 %) Vial.neb 2.5 MG INH Q4H PRN for WHEEZING, #25 EA Prov: BENTON BECKER APRN 04/18/22 BENTON BECKER APRN Apr 18, 2022 11:00
--- NOTE | 2022-04-18 11:09 | Diagnostic Imaging Report ---
INDICATION: Cough. COMPARISON: Comparison is made with prior examination of 12/25/2021. FINDINGS: The heart size, mediastinal configuration, and pulmonary vascularity are within normal limits. There is no pleural effusion, pneumothorax, or pneumonia. The osseous structures are unremarkable. IMPRESSION: No acute cardiopulmonary abnormality. Dictated by: Dictated on workstation # [id number]
[2022-04-18 11:50] VITALS: BP 120/79
[2022-04-18] MEDS ORDERED: LEVA1.2543 IH (11:54)
== END 2022-04-18 11:51 | disposition home or self-care (01) ==
LOC: EDUNIT# 10:28 → ER 10:31
DX: J44.1 Chronic obstructive pulmonary disease with (acute) exacerbation (principal); E11.9 Type 2 diabetes mellitus without complications; Z99.89 Dependence on other enabling machines and devices; Z99.81 Dependence on supplemental oxygen; Z79.4 Long term (current) use of insulin; Z20.822 Contact with and (suspected) exposure to COVID-19; Z87.891 Personal history of nicotine dependence
CPT/HCPCS: 71045; 87636; 94640

== ENCOUNTER 2022-04-26 05:59 | Observation (INO) | payer BC ==
[~2022-04-26] VITALS: Ht 168.9 cm; Wt 106.1 kg
[~2022-04-26 05:59] MED LIST changes: +ALBU2.5V4 INH; +CEFU250T80 PO; +LEVA1.2543 IH
[2022-04-26] MEDS ORDERED: NS IV 1000 ML 1,000 ML IV STA (06:13)
[2022-04-26] MEDS ORDERED: ONDANSETRON 4 MG/2 ML (SDV) Z0FRAN IVP ONE ×2 (06:15→07:30)
--- NOTE | 2022-04-26 06:16 | ED General ---
General Chief Complaint: Respiratory Problems Stated Complaint: SOB X 2WKS Source of Information: Patient Exam Limitations: No Limitations History of Present Illness Date Seen by Provider: Apr 26, 2022 Time Seen by Provider: 06:04 Initial Comments Here by EMS with report of shortness of air over the last couple of weeks but markedly worse over the last 2 days. She returned to work yesterday and was very weak. This morning she has nausea and vomiting and increasing shortness of breath. Does have history of COPD. Apparently diagnosed with influenza last week and should have been clear as a few days ago. States the breathing problems have worsened. She called EMS for shortness of breath. EMS reports that the patient had O2 sat in the mid 80s on their arrival which did improve with O2 at 4 L via nasal cannula. Vital signs otherwise okay per EMS. They did give albuterol treatment in route which seemed to have helped. Patient reports nausea and vomiting overnight and has had intermittent fevers but states that has improved. States that she feels weak. She is able to eat and drink a lthough this morning has the nausea and vomiting. Timing/Duration: 1 Week, Getting Worse Severity: Moderate Associated Systoms: No Chest Pain; Cough, Fever/Chills, Nausea/Vomiting, Shortness of Air, Weakness Allergies and Home Medications Allergies Coded Allergies: Penicillins (Verified Allergy, Unknown, 05/09/17) aspirin (Verified Allergy, Unknown, 05/09/17) ibuprofen (Verified Allergy, Unknown, 09/19/20) morphine (Verified Allergy, Unknown, 05/09/17) Patient Home Medication List Home Medication List Reviewed: Yes Acetaminophen (Tylenol Extra Strength) 500 Mg Tablet, 1,000 MG PO Q4H PRN for PAIN-MILD (1-4), (Reported) Entered as Reported by: RAMON MIGUEL on 09/27/21 1002 Budesonide/Formoterol Fumarate (Symbicort 80-4.5 Mcg Inhaler) 80 Mcg-4.5 Mcg/Actuation Hfa.aer.ad, 2 PUFF IH BID, (Reported) Entered as Reported by: RAMON MIGUEL on 09/27/21 0957 Cefdinir (Cefdinir) 300 Mg Capsule, 300 MG PO BID Prescribed by: FEDERICA GILMORE on 09/27/21 1021 Cefuroxime Axetil (Cefuroxime) 250 Mg Tablet, 250 MG PO BID Prescribed by: BENTON BECKER on 04/18/22 1100 Cetirizine HCl (Cetirizine HCl) 10 Mg Tablet, 10 MG PO DAILY, (Reported) Entered as Reported by: RAMON MIGUEL on 09/27/21 0951 Fluticasone Propionate (Flonase Allergy Relief) 50 Mcg/Actuation [place].susp, 1 SPRAY NS DAILY PRN for CONGESTION, (Reported) Entered as Reported by: RAMON MIGUEL on 09/27/21 0956 Ibuprofen (Ibuprofen) 200 Mg Tablet, 400 MG PO Q8H PRN for PAIN-MILD (1-4), (Reported) Entered as Reported by: RAMON MIGUEL on 09/27/21 1004 Levalbuterol HCl (Levalbuterol HCl) 1.25 Mg/3 Ml Vial.neb, 1.25 MG IH Q4H PRN for WHEEZING Prescribed by: BENTON BECKER on 04/18/22 1154 Levalbuterol Tartrate (Xopenex Hfa) 45 Mcg/Actuation Hfa.aer.ad, 1 PUFF INH Q4H PRN for SHORTNESS OF BREATH, (Reported) Entered as Reported by: ARMON MIGUEL on 09/27/21 0959 Liraglutide (Victoza 3-Chandrakant) 0.6 Mg/0.1 Ml (18 Mg/3 Ml) Pen.injctr, 2.4 MG SQ DAILY, (Reported) Entered as Reported by: RAMON MIGUEL on 09/27/21 1000 Metformin HCl (Metformin HCl ER) 500 Mg Tab.er.24, 1,000 MG PO BID, (Reported) Entered as Reported by: RAMON MIGUEL on 09/27/21 0952 Montelukast Sodium (Montelukast Sodium) 10 Mg Tablet, 10 MG PO HS Prescribed by: FEDERICA GILMORE on 09/27/21 1021 Omeprazole (Omeprazole) 20 Mg Tablet.dr, 20 MG PO DAILY Prescribed by: MARIA ISABEL OCHOA on 12/26/21 1127 Prednisone (Prednisone) 10 Mg Tab.ds.pk, 10 MG PO DAILY Prescribed by: FEDERICA GILMORE on 09/27/21 1021 Prednisone (Prednisone) 10 Mg Tab.ds.pk, 10 MG PO DAILY Prescribed by: MARIA ISABEL OCHOA on 12/26/21 1127 Review of Systems Review of Systems Constitutional: see HPI, chills, fever EENTM: nose congestion, throat pain Respiratory: cough, short of breath Cardiovascular: No chest pain, No edema Gastrointestinal: No diarrhea; nausea, vomiting Genitourinary: no symptoms reported Musculoskeletal: no symptoms reported Skin: no symptoms reported All Other Systems Reviewed Negative Unless Noted: Yes Past Paaojwn-Zpavua-Abkqup Hx Patient Social History Tobacco Use?: No Use of E-Cig and/or Vaping dev: No Substance use?: No Alcohol Use?: No Pt feels they are or have been: No Immunizations Up To Date Tetanus Booster (TDap): Unknown Influenza Vaccine Up-to-Date: No; Not Current Seasonal Allergies Seasonal Allergies: No Past Medical History Surgery/Hospitalization HX: COPD, TYPE 2 DIABETES Surgeries: Yes Gallbladder, 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, Tubal Ligation Respiratory: Yes Pneumonia, COPD Currently Using CPAP: Yes Currently Using BIPAP: No Cardiac: Yes Hypertension Neurological: No 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 Disorders: Yes Female 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 Disorders: 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, 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 Genitourinary: No Gastrointestinal: No Musculoskeletal: No Endocrine: Yes Diabetes, Insulin dep HEENT: No Cancer: No Psychosocial: Yes Anxiety, Depression Integumentary: No Blood Disorders: No Family Medical History Reviewed Nursing Family Hx Diabetes mellitus 19 FATHER FH: breast cancer 19 MOTHER Myocardial infarction 19 FATHER Thyroid disease G8 SISTER SOCIAL HISTORY: -SMOKED <1 PPD, QUIT -DENIES ETOH -DENIES DRUG USE Physical Exam-Suspected Sepsis Physical Exam Vital Signs Vital Signs - First Documented 04/26/22 06:00 Pulse Ox 99 O2 Delivery Nasal Cannula O2 Flow Rate 2.00 Capillary Refill : Height, Weight, BMI Height: 5'6.00" Weight: 320lbs. 12.8oz. 145.210128xg; 32.00 BMI Method:Actual General Appearance: No Apparent Distress, WD/WN HEENT: PERRL/EOMI, Pharyngeal Erythema Neck: Non Tender, Supple Respiratory: Crackles (Right base); No Wheezing Cardiovascular: No Murmur, Tachycardia Gastrointestinal: Non Tender, Soft Extremity: Normal Range of Motion, Non Tender Neurologic/Psychiatric: Alert, Oriented x3 Skin: normal color, warm/dry Focused Exam Lactate Level 04/26/22 06:05: Lactic Acid Level 1.18 Lactic Acid Level Laboratory Tests Test 04/26/22 06:05 Lactic Acid Level 1.18 MMOL/L (0.50-2.00) Progress/Results/Core Measures Suspected Sepsis SIRS Temperature: Pulse: Respiratory Rate: Laboratory Tests 04/26/22 06:05: White Blood Count 14.5H Blood Pressure / Mean: 04/26/22 06:05: Lactic Acid Level 1.18 Laboratory Tests 04/26/22 06:05: Creatinine 0.66, INR Comment 1.0, Platelet Count 279, Total Bilirubin 0.8 Results/Orders Lab Results Laboratory Tests Test 04/26/22 06:05 04/26/22 07:20 04/26/22 09:00 Range/Units White Blood Count 14.5 H 4.3-11.0 10^3/uL Red Blood Count 4.71 3.80-5.11 10^6/uL Hemoglobin 14.0 11.5-16.0 g/dL Hematocrit 42 35-52 % Mean Corpuscular Volume 89 80-99 fL Mean Corpuscular Hemoglobin 30 25-34 pg Mean Corpuscular Hemoglobin Concent 33 32-36 g/dL Red Cell Distribution Width 13.0 10.0-14.5 % Platelet Count 279 130-400 10^3/uL Mean Platelet Volume 9.2 9.0-12.2 fL Immature Granulocyte % (Auto) 0 % Neutrophils (%) (Auto) 78 H 42-75 % Lymphocytes (%) (Auto) 15 12-44 % Monocytes (%) (Auto) 6 0-12 % Eosinophils (%) (Auto) 0 0-10 % Basophils (%) (Auto) 0 0-10 % Neutrophils # (Auto) 11.3 H 1.8-7.8 10^3/uL Lymphocytes # (Auto) 2.2 1.0-4.0 10^3/uL Monocytes # (Auto) 0.9 0.0-1.0 10^3/uL Eosinophils # (Auto) 0.0 0.0-0.3 10^3/uL Basophils # (Auto) 0.0 0.0-0.1 10^3/uL Immature Granulocyte # (Auto) 0.1 0.0-0.1 10^3/uL Neutrophils % (Manual) 76 % Lymphocytes % (Manual) 15 % Monocytes % (Manual) 8 % Eosinophils % (Manual) 1 % Basophils % (Manual) 0 % Band Neutrophils 0 % Blood Morphology Comment NORMAL Prothrombin Time 13.7 12.2-14.7 SEC INR Comment 1.0 0.8-1.4 Activated Partial Thromboplast Time 28 24-35 SEC Sodium Level 138 135-145 MMOL/L Potassium Level 4.0 3.6-5.0 MMOL/L Chloride Level 100 98-107 MMOL/L Carbon Dioxide Level 28 21-32 MMOL/L Anion Gap 10 5-14 MMOL/L Blood Urea Nitrogen 10 7-18 MG/DL Creatinine 0.66 0.60-1.30 MG/DL Estimat Glomerular Filtration Rate 102 BUN/Creatinine Ratio 15 Glucose Level 210 H 70-105 MG/DL Lactic Acid Level 1.18 0.50-2.00 MMOL/L Calcium Level 9.6 8.5-10.1 MG/DL Corrected Calcium 9.8 8.5-10.1 MG/DL Total Bilirubin 0.8 0.1-1.0 MG/DL Aspartate Amino Transf (AST/SGOT) 16 5-34 U/L Alanine Aminotransferase (ALT/SGPT) 21 0-55 U/L Alkaline Phosphatase 95 40-136 U/L Troponin I < 0.028 <0.028 NG/ML C-Reactive Protein High Sensitivity 4.45 H 0.00-0.50 MG/DL Total Protein 7.6 6.4-8.2 GM/DL Albumin 3.8 3.2-4.5 GM/DL Procalcitonin 0.10 H <0.10 NG/ML Urine Color YELLOW Urine Clarity CLEAR Urine pH 5.5 5-9 Urine Specific Thornton 1.020 1.016-1.022 Urine Protein NEGATIVE NEGATIVE Urine Glucose (UA) NEGATIVE NEGATIVE Urine Ketones NEGATIVE NEGATIVE Urine Nitrite POSITIVE H NEGATIVE Urine Bilirubin NEGATIVE NEGATIVE Urine Urobilinogen 0.2 < = 1.0 MG/DL Urine Leukocyte Esterase NEGATIVE NEGATIVE Urine RBC (Auto) NEGATIVE NEGATIVE Urine RBC NONE /HPF Urine WBC RARE /HPF Urine Squamous Epithelial Cells RARE /HPF Urine Crystals NONE /LPF Urine Bacteria LARGE H /HPF Urine Casts NONE /LPF Urine Mucus NEGATIVE /LPF Urine Culture Indicated YES Blood Gas Puncture Site R RAD Blood Gas Patient Temperature 35.6 Arterial Blood pH 7.39 7.37-7.43 Arterial Blood Partial Pressure CO2 50 H 35-45 MMHG Arterial Blood Partial Pressure O2 75 L 79-93 MMHG Arterial Blood HCO3 30 H 23-27 MMOL/L Arterial Blood Total CO2 31.3 H 21.0-31.0 MMOL/L Arterial Blood Oxygen Saturation 97 94-100 % Arterial Blood Base Excess 4.6 H -2.5-2.5 MMOL/L Erich Test YES-POS Blood Gas Ventilator Setting NO Blood Gas Inspired Oxygen 4L My Orders Orders - HERMELINDO RAMSEY MD Cbc With Automated Diff (04/26/22 06:13) Comprehensive Metabolic Panel (04/26/22 06:13) Blood Culture (04/26/22 06:13) Sputum Culture (04/26/22 06:13) Urinalysis (04/26/22 06:13) Protime With Inr (04/26/22 06:13) Partial Thromboplastin Time (04/26/22 06:13) Chest 1 View, Ap/Pa Only (04/26/22 06:13) Ed Iv/Invasive Line Start (04/26/22 06:13) Troponin I Karis (04/26/22 06:13) Vital Signs Adult Sepsis Patie Q15M (04/26/22 06:13) O2 (04/26/22 06:13) Remove Rings In Anticipation O (04/26/22 06:13) Lactic Acid Analyzer (04/26/22 06:13) Ekg Tracing (04/26/22 06:13) Ondansetron Injection (Zofran Injectio (04/26/22 06:15) Ns Iv 1000 Ml (Sodium Chloride 0.9%) (04/26/22 06:13) Manual Differential (04/26/22 06:05) Hs C Reactive Protein (04/26/22 06:49) Procalcitonin (Pct) (04/26/22 06:49) Ondansetron Injection (Zofran Injectio (04/26/22 07:30) Promethazine/ Codeine Syrup (Phenergan W (04/26/22 07:30) Urine Culture (04/26/22 07:20) Albuterol Pre-Mix Nebs (Rt) (Proventil (04/26/22 07:45) Svn Small Volume Nebulizer (04/26/22 07:45) Methylprednisolone Sod Succ (Solu-Medrol (04/26/22 08:00) Cefepime Injection (Maxipime Injection) (04/26/22 08:00) Arterial Blood Gas (04/26/22 08:25) Ed Admission (Communication) (04/26/22 08:25) Albuterol Pre-Mix Nebs (Rt) (Proventil (04/26/22 08:26) Svn Small Volume Nebulizer (04/26/22 08:26) Medications Given in ED Current Medications Medications Dose Ordered Sig/Cait Route Start Time Stop Time Status Last Admin Dose Admin Cefepime HCl 1000 mg/Sodium Chloride 50 ml @ 100 mls/hr ONCE ONCE IV 04/26/22 08:00 04/26/22 08:29 DC 04/26/22 08:09 100 MLS/HR Methylprednisolone Sodium Succinate 125 mg ONCE ONCE IVP 04/26/22 08:00 04/26/22 08:01 DC 04/26/22 08:08 125 MG Ondansetron HCl 4 mg ONCE ONCE IVP 04/26/22 06:15 04/26/22 06:17 DC 04/26/22 06:40 4 MG Ondansetron HCl 4 mg ONCE ONCE IVP 04/26/22 07:30 04/26/22 07:31 DC 04/26/22 07:29 4 MG Promethazine HCl/ Codeine 5 ml ONCE ONCE PO 04/26/22 07:30 04/26/22 07:31 DC 04/26/22 07:39 5 ML Vital Signs/I&O 04/26/22 04/26/22 04/26/22 04/26/22 06:00 06:02 06:02 07:56 Temp 36.9 Pulse 116 Resp 28 B/P (MAP) 146/81 (102) Pulse Ox 99 94 96 O2 Delivery Nasal Cannula Room Air Room Air Nasal Cannula O2 Flow Rate 2.00 4.00 04/26/22 04/26/22 08:54 09:02 Pulse 95 Resp 20 B/P (MAP) 93/60 Pulse Ox 99 97 O2 Delivery Nasal Cannula Nasal Cannula O2 Flow Rate 2.00 4.00 Capillary Refill : Progress Note : Progress Note Seen and evaluated. Due to history of influenza and now with increasing shortness of breath and requiring oxygen, sepsis protocol will be initiated. IV established by EMS. Labs including CBC, CMP, blood cultures and lactic acid ordered. We will check chest x-ray as well as UA. Normal saline 1 L bolus ordered for tachycardia. Zofran 4 mg IV for nausea and vomiting. We will check EKG due to tachycardia. Monitor patient. 0830: We have initiated cefepime 1 g IV and given albuterol nebulizer treatment and initiated Solu-Medrol 125 mg IV. Patient did receive a second dose of Zofran 4 mg IV and then we gave Phenergan with codeine 5 mL p.o. for cough and nausea and vomiting. This seems to have helped a little bit. She is still requiring 2 L of oxygen. We will repeat b reathing treatments. I have discussed the case with Dr. Gilmore who accepts the patient for admission, observation status. She has requested ABG which was ordered. Patient noted to have UTI but does not have elevated lactic acid and is not showing signs of severe sepsis. No indication for high-volume fluid resuscitation. We will treat COPD exacerbation and mild UTI. Discussed findings and concerns with patient who agrees with plan. ECG Initial ECG Impression Date: Apr 26, 2022 Initial ECG Impression Time: 07:55 Initial ECG Rate: 89 Initial ECG Rhythm: Normal Sinus Initial ECG Impression: Normal Comment Sinus rhythm with normal axis. No evidence of ST elevation [place]. Interpreted by me. Diagnostic Imaging Diagonstic Imaging: Xray Plain Films/CT/US/NM/MRI: chest Comments [facility], [place] NAME: MAYO CONDE [facility] REC#: [id number] PT STATUS: REG ER : 1965 PHYSICIAN: HERMELINDO RAMSEY MD ADMIT DATE: 04/26/22/ER Draft Date of Exam:04/26/22 CHEST 1 VIEW, AP/PA ONLY Indication: Shortness of air. Study compared to 04/18/2022 FINDINGS: The lungs clear. No failure, effusion or pneumothorax. IMPRESSION: No acute appearing abnormality. Dictated on workstation # [id number] Dict: 04/26/22 0725 Trans: 04/26/22 0736 [facility] [id number] Interpreted by: ОЛЬГА BOSWELL Electronically signed by: Departure Communication (Admissions) Time/Spoke to Admitting Phy: 08:28 Impression Primary Impression: COPD exacerbation Additional Impression: Urinary tract infection Qualified Codes: N30.00 - Acute cystitis without hematuria Disposition: ADMITTED INPATIENT Condition: Stable Admissions Decision to Admit Reason: Admit from ER (Trauma) Decision to Admit/Date: Apr 26, 2022 Time/Decision to Admit Time: 08:28 Departure-Patient Inst. Referrals: LEESA FRAIRE APRN (PCP/Family) Primary Care Physician HERMELINDO RAMSEY MD Apr 26, 2022 06:16
[2022-04-26 06:23] LABS: BASOPHILS % (AUTO) 0 % (0-10); EOSINOPHILS % (AUTO) 0 % (0-10); HEMATOCRIT 42 % (35-52); LYMPHOCYTES # (AUTO) 2.2 10^3/uL (1.0-4.0); LYMPHOCYTES % (AUTO) 15 % (12-44); MEAN CORPUSCULAR HEMOGLOBIN 30 pg (25-34); MEAN CORPUSCULAR HGB CONC 33 g/dL (32-36); MEAN CORPUSCULAR VOLUME 89 fL (80-99); MEAN PLATELET VOLUME 9.2 fL (9.0-12.2); MONOCYTES # (AUTO) 0.9 10^3/uL (0.0-1.0); MONOCYTES % (AUTO) 6 % (0-12); NEUTROPHILS # (AUTO) 11.3 10^3/uL (1.8-7.8); NEUTROPHILS % (AUTO) 78 % (42-75); PLATELET COUNT 279 10^3/uL (130-400); WHITE BLOOD COUNT 14.5 10^3/uL (4.3-11.0)
[2022-04-26 06:29] LABS: PROTHROMBIN TIME PATIENT 13.7 SEC (12.2-14.7)
[2022-04-26 06:36] LABS: ALANINE AMINOTRANSFERASE 21 U/L (0-55); ALBUMIN 3.8 GM/DL (3.2-4.5); ALKALINE PHOSPHATASE 95 U/L (40-136); BILIRUBIN,TOTAL 0.8 MG/DL (0.1-1.0); BUN/CREATININE RATIO 15; CARBON DIOXIDE 28 MMOL/L (21-32); CHLORIDE 100 MMOL/L (98-107); CREATININE SERUM 0.66 MG/DL (0.60-1.30); GFR ESTIMATED 102; GLUCOSE 210 MG/DL (70-105); SODIUM 138 MMOL/L (135-145); TOTAL PROTEIN 7.6 GM/DL (6.4-8.2)
[2022-04-26 06:56] LABS: BAND NEUTROPHILS 0 %; BASOPHILS % (MANUAL) 0 %; EOSINOPHILS % (MANUAL) 1 %; LYMPHOCYTES % (MANUAL) 15 %; MONOCYTES % (MANUAL) 8 %; NEUTROPHILS % (MANUAL) 76 %; RBC MORPH NORMAL
[2022-04-26 07:11] LABS: CALCIUM 9.6 MG/DL (8.5-10.1)
[2022-04-26 07:30] LABS: BILIRUBIN,URINE NEGATIVE (NEGATIVE); CLARITY,URINE CLEAR; COLOR,URINE YELLOW; GLUCOSE, URINE (UA) NEGATIVE (NEGATIVE); KETONES,URINE NEGATIVE (NEGATIVE); LEUKOCYTE ESTERASE ,URINE NEGATIVE (NEGATIVE); NITRITE,URINE POSITIVE (NEGATIVE); PH,URINE 5.5 (5-9); PROTEIN,URINE NEGATIVE (NEGATIVE)
[2022-04-26] MEDS ORDERED: PROMETHAZINE/ CODEINE SYRUP 5 ML UDC PO ONE (07:30)
[2022-04-26 07:37] LABS: BACTERIA,URINE LARGE /HPF; SQUAMOUS EPITHELIAL CELL,UR RARE /HPF; WBC,URINE RARE /HPF
--- NOTE | 2022-04-26 07:37 | Diagnostic Imaging Report ---
Indication: Shortness of air. Study compared to 04/18/2022 FINDINGS: The lungs clear. No failure, effusion or pneumothorax. IMPRESSION: No acute appearing abnormality. Dictated by: Dictated on workstation # [id number]
[2022-04-26] MEDS ORDERED: RT-ALBUTEROL SULF 2.5 MG/3 ML PRE-MIX VIAL INH STA ×2 (07:45→08:26)
[2022-04-26] MEDS ORDERED: CEFEPIME INJECTION 1,000 MG in NS (IVPB) 50 ML IV ONE (08:00)
[2022-04-26] MEDS ORDERED: methylPREDNISolone 125 MG (Solu-MEDROL) VIAL IVP ONE (08:00)
[2022-04-26 09:07] LABS: ABG BASE EXCESS 4.6 MMOL/L (-2.5-2.5); ABG OXYGEN SATURATION 97 % (94-100); ABG PCO2 50 MMHG (35-45); ABG PH 7.39 (7.37-7.43); ABG PO2 75 MMHG (79-93); ABG TCO2 31.3 MMOL/L (21.0-31.0)
[2022-04-26 09:08] LABS: ALLENS TEST YES-POS; INSPIRED O2 4L; PATIENT TEMP 35.6; VENTILATOR NO
[2022-04-26] MEDS ORDERED: polyethylene glycoL POWDER 17 GM (MIRALAX) PACK PO PRN (09:30)
[2022-04-26] MEDS ORDERED: ONDANSETRON 4 MG (ZOFRAN) ORAL DISSOLVE TAB PO PRN (09:30)
[2022-04-26] MEDS ORDERED: ANTACID SUSP 30 ML UDC (MYLANTA) PO PRN (09:30)
[2022-04-26] MEDS ORDERED: LACTULOSE SYRUP 10GM/15ML (ENULOSE) 30ML UDC PO PRN (09:30)
[2022-04-26] MEDS ORDERED: BISACODYL 10 MG SUPP (DULCOLAX) PR PRN (09:30)
[2022-04-26] MEDS ORDERED: MELATONIN 3 MG TABLET PO PRN (09:30)
[2022-04-26] MEDS ORDERED: ONDANSETRON 4 MG/2 ML (SDV) Z0FRAN IV PRN (09:30)
[2022-04-26] MEDS ORDERED: HYDROmorphone 2 MG/ML VIAL (DILAUDID) IV PRN (09:30)
[2022-04-26] MEDS ORDERED: cloNIDine 0.1 MG (CATAPRES) TAB PO PRN (09:30)
[2022-04-26] MEDS ORDERED: ALPRAZolam 1 MG (XANAX) TAB PO PRN (09:30)
[2022-04-26] MEDS ORDERED: CALCIUM CARBONATE 500 MG (TUMS) TAB.CHEW PO PRN (09:30)
[2022-04-26] MEDS ORDERED: diphenhydrAMINE 25 MG TAB (BENADRYL) PO PRN (09:30)
[2022-04-26] MEDS ORDERED: diphenhydrAMINE 50 MG/ML INJ (BENADRYL) IVP PRN (09:30)
[2022-04-26] MEDS ORDERED: MILK OF MAGNESIA 400 MG/5 ML 30 ML UDC PO PRN (09:30)
[2022-04-26] MEDS ORDERED: ACETAMINOPHEN 325 MG TABLET PO PRN (09:30)
--- NOTE | 2022-04-26 09:34 | History & Physical-Hospitalist ---
History of Present Illness Date Seen 04/26/22 Attending Physician Dinora Morales Aprn PCP Admitting Physician: Mona Krause DO Attending Physician: Mona Krause DO Referring Physician Date of Admission Apr 26, 2022 at 08:26 Home Medications & Allergies Home Medications Reviewed patient Home Medication Reconciliation performed by pharmacy medication reconciliations compounding pharmacy technician and/or nursing. Patients Allergies have been reviewed. Allergies Allergies Coded Allergies Penicillins (Verified Allergy, Unknown, 05/09/17) aspirin (Verified Allergy, Unknown, 05/09/17) ibuprofen (Verified Allergy, Unknown, 09/19/20) morphine (Verified Allergy, Unknown, pt has tolerated codeine and lortab, 04/26/22) Past Jijkpnn-Rhzvgq-Uyupel Hx Patient Social History Tobacco Use?: No Use of E-Cig and/or Vaping dev: No Substance use?: No Alcohol Use?: No Pt feels they are or have been: No Immunizations Up To Date Tetanus Booster (TDap): Less Than 5 Years Seasonal Allergies Seasonal Allergies: No Current Status Advance Directives: No Primary Language: Japanese Preferred Spoken Language: Japanese Implanted or Applied Medical D: None Past Medical History Surgeries: Gallbladder, 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, Tubal Ligation Pneumonia, COPD Currently Using CPAP: Yes Currently Using BIPAP: No Hypertension 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 History: 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, Menopausal Diabetes, Insulin dep Anxiety, Depression Blood Disorders: No PMHx: COPD DMII Anxiety Depression HLD SurgHx: Tubal ligation Cholecystectomy 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 Family Medical History Reviewed Nursing Family Hx Diabetes mellitus 19 FATHER FH: breast cancer 19 MOTHER Myocardial infarction 19 FATHER Thyroid disease G8 SISTER SOCIAL HISTORY: -SMOKED <1 PPD, QUIT -DENIES ETOH -DENIES DRUG USE Physical Exam Physical Exam Vital Signs Vital Signs - First Documented 04/26/22 04/26/22 06:00 09:58 Pulse Ox 99 O2 Delivery Nasal Cannula O2 Flow Rate 2.00 FiO2 36 Capillary Refill : Less Than 3 Seconds Height, Weight, BMI Height: 5'6.00" Weight: 320lbs. 12.8oz. 145.395076de; 32.00 BMI Method:Actual Results Results/Procedures Labs Laboratory Tests 04/26/22 06:05 Patient resulted labs reviewed. MONA KRAUSE DO Apr 26, 2022 09:34
[2022-04-26 09:56] VITALS: BP 104/67
[2022-04-26 09:58] VITALS: BP 104/67
[2022-04-26] MEDS ORDERED: CEFEPIME INJECTION 1,000 MG in NS (IVPB) 50 ML IV SCH (10:00)
[2022-04-26] MEDS ORDERED: RT-ALBUTEROL/IPRATROPIUM 3 ML (DUONEB) VIAL INH PRN (10:15)
[2022-04-26] MEDS: ENOXAPARIN 40 MG/0.4 ML (LOVENOX) SYR SC SCH (10:22)
[2022-04-26] MEDS: NS IV 1000 ML 1,000 ML IV SCH (10:22)
[2022-04-26] MEDS: RT-ALBUTEROL/IPRATROPIUM 3 ML (DUONEB) VIAL INH SCH ×4 (10:55→21:58)
[2022-04-26 11:15] VITALS: BP 119/67
--- NOTE | 2022-04-26 11:19 | History & Physical-Hospitalist ---
KACY MARCUM 04/26/22 1119: History of Present Illness HPI/Chief Complaint CC: COPD Exacerbation HPI: Genet Leach is a 56 yo female who was admitted to inpatient care from the ED with diagnoses of COPD exacerbation and acute cystitis. The patient was pizano sported via EMS from home to the ED with chief complaint of shortness of breath. She reports she has experienced around 2 weeks of shortness of breath, acutely worsening over the past 2 days, accompanied by nausea and three episodes of vomiting while on the ambulance today. She had been using nebulizers at home with only mild improvement. The patient notes she was diagnosed with influenza 2 weeks ago in Urgent Care. EMS recorded O2 saturation in the 80s on arrival, which improved en route to the ED with nasal cannula O2. Patient had negative CXR in the ED. Bloodwork was significant for WBC 14.5, CRP 4.45, Procalcitonin 0.10; ABG showed pH 7.39, pCO2 50, pO2 75; UA revealed Nitrites and Bacteria Large. At the time of my evaluation, the patient states she feels improved post- treatment from the ED but has persistent right-sided flank pain which she attributes to muscular soreness from her cough. She also endorses decreased appetite for the past 4 weeks, stating that she has only eaten 5 jellos and 5 popsicles over the past 4 weeks. The patient further reports several days of increased urinary urgency and nocturnal urinary incontinence secondary to this urgency. The patient denies any chest pain, abdominal pain, diarrhea, constipation, hematemesis, hematuria, hematochezia, urinary frequency, or dysuria. Source: patient, old records Exam Limitations: no limitations Date Seen 04/26/22 Time Seen by a Provider: 11:15 Attending Physician Dinora Morales Aprn PCP Admitting Physician: Mona Gilmore DO Attending Physician: Mona Gilmore DO Referring Physician Date of Admission Apr 26, 2022 at 08:26 Home Medications & Allergies Home Medications Reviewed patient Home Medication Reconciliation performed by pharmacy medication reconciliations commercial tire service technician and/or nursing. Patients Allergies have been reviewed. Allergies Allergies Coded Allergies Penicillins (Verified Allergy, Unknown, 05/09/17) aspirin (Verified Allergy, Unknown, 05/09/17) ibuprofen (Verified Allergy, Unknown, 09/19/20) morphine (Verified Allergy, Unknown, 05/09/17) Past Kdfzhzn-Mtqfdv-Izeysq Hx Patient Social History Tobacco Use?: No Smoking Status: Former Smoker Use of E-Cig and/or Vaping dev: No Substance use?: No Alcohol Use?: No Pt feels they are or have been: No Immunizations Up To Date Tetanus Booster (TDap): Less Than 5 Years Seasonal Allergies Seasonal Allergies: No Current Status Advance Directives: Yes Advance Directive Location: Unable to obtain copy Communicates: Verbally Primary Language: Georgian Preferred Spoken Language: Georgian Is interpretation needed?: No Sensory deficits: Vision impairment Implanted or Applied Medical D: None Past Medical History Surgeries: Gallbladder, 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, Tubal Ligation Pneumonia, COPD Currently Using CPAP: Yes Currently Using BIPAP: No High Cholesterol, Hypertension 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, 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 Diabetes, Insulin dep Anxiety, Depression Blood Disorders: No PMHx: COPD DMII Anxiety Depression HLD SurgHx: Tubal ligation Cholecystectomy 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 Family Medical History Reviewed Nursing Family Hx Diabetes mellitus 19 FATHER FH: breast cancer 19 MOTHER Myocardial infarction 19 FATHER Thyroid disease G8 SISTER SOCIAL HISTORY: -SMOKED <1 PPD, QUIT -DENIES ETOH -DENIES DRUG USE Review of Systems Constitutional: No chills, No fever Respiratory: cough, dyspnea on exertion, short of breath Cardiovascular: no symptoms reported; No chest pain Gastrointestinal: No abdominal pain; loss of appetite, nausea, vomiting Genitourinary: No dysuria, No frequency; incontinence Physical Exam Physical Exam Vital Signs Vital Signs - First Documented 04/26/22 04/26/22 06:00 09:58 Pulse Ox 99 O2 Delivery Nasal Cannula O2 Flow Rate 2.00 FiO2 36 Capillary Refill : Less Than 3 Seconds Height, Weight, BMI Height: 5'6.00" Weight: 320lbs. 12.8oz. [id number]; 36.84 BMI Method:Actual General Appearance: No Apparent Distress, WD/WN Respiratory: Chest Non Tender, Lungs Clear, Normal Breath Sounds, No Accessory Muscle Use, No Respiratory Distress Cardiovascular: Regular Rate, Rhythm, No Edema, No Gallop, No Murmur, Normal Peripheral Pulses Gastrointestinal: Soft, Tenderness (RUQ, RLQ) Back: CVA Tenderness (R) Extremity: No Pedal Edema Neurologic/Psychiatric: Alert, Oriented x3 Skin: Normal Color, Warm/Dry Results Results/Procedures Labs Laboratory Tests 04/26/22 06:05 Patient resulted labs reviewed. Imaging CHEST 1 VIEW, AP/PA ONLY IMPRESSION: No acute appearing abnormality. Assessment/Plan Admission Diagnosis COPD Exacerbation Admission Status: Inpatient Order (span 2 midnights) Reason for Inpatient Admission: COPD Exacerbation Assessment and Plan 1. COPD Exacerbation: Continue nebulizer treatments, initiate inhaled steroid regimen. Continue monitoring respiratory status. 2. UTI: Initiate cefepime, doxycycline. Monitor urinary symptoms. 3. Right flank pain: MSK vs renal etiology. Continue monitoring. 4. Hx of HLD, Diabetes MONA GILMORE DO 04/27/22 0438: History of Present Illness Source: patient Exam Limitations: no limitations Past Dvtlrne-Wlsolo-Zshgnp Hx Patient Social History Marrital Status: single Employed/Student: retired Smoking Status: Current Everyday Smoker Past Medical History COPD High Cholesterol, Hypertension Family Medical History Diabetes mellitus 19 FATHER FH: breast cancer 19 MOTHER Myocardial infarction 19 FATHER Thyroid disease G8 SISTER Review of Systems Constitutional: see HPI Physical Exam Physical Exam General Appearance: No Apparent Distress Respiratory: No Accessory Muscle Use, No Respiratory Distress, Decreased Breath Sounds Cardiovascular: Regular Rate, Rhythm Assessment/Plan Admission Diagnosis Assessment: COPD exacerbation Smoker History of BiPAP dependence Plan: IV steroids Oxygen Admission Status: Observation Supervisory-Addendum Brief Verification & Attestation Participated in pt care: history, MDM, physical Personally performed: exam, history, MDM, supervision of care Care discussed with: Medical Student Procedures: n/a Results interpretation: Verified all documentation Verification and Attestation of Medical Student E/M Service A medical student performed and documented this service in my presence. I reviewed and verified all information documented by the medical student and made modifications to such information, when appropriate. I personally performed the physical exam and medical decision making. Mona Gilmore, Apr 27, 2022,04:35 KACY MARCUM Apr 26, 2022 11:19 MONA GILMORE DO Apr 27, 2022 04:38
[2022-04-26] MEDS: inSUlin ASPART (NovoLOG) 1 UNIT/0.01 ML (CHARGE PER UNIT) SC SCH ×3 (11:49→21:03)
[2022-04-26] MEDS: guaiFENesin/CODEINE (ROBITUSSIN AC) 10ML UDC PO PRN (12:03)
[2022-04-26] MEDS: BENZONATATE 100 MG (TESSALON) CAPSULE PO SCH ×3 (12:03→21:03)
[2022-04-26] MEDS: CEFEPIME INJECTION 1,000 MG in NS (IVPB) 50 ML IV SCH ×2 (13:18→21:03)
[2022-04-26] MEDS: methylPREDNISolone 40 MG/ML (Solu-MEDROL) VIAL IV SCH ×2 (13:18→21:03)
[2022-04-26] MEDS ORDERED: RT-ALBUTEROL/IPRATROPIUM 3 ML (DUONEB) VIAL INH SCH (14:00)
[2022-04-26] MEDS ORDERED: SIMV40TA25 PO (15:26)
[2022-04-26 15:37] VITALS: BP 105/66
[2022-04-26] MEDS: DOXYCYCLINE 100 MG (VIBRAMYCIN) TABLET PO SCH (17:43)
[2022-04-26 20:24] VITALS: BP 117/75
[2022-04-26] MEDS ORDERED: RT--FLUTICASONE/SALMETEROL 113-14 (AIRDUO RespiCLICK) IH SCH (21:00)
[2022-04-26] MEDS ORDERED: ADVAIR HFA 115/21 MCG INHALER 8 GM IH SCH (21:00)
[2022-04-26] MEDS ORDERED: MONTELUKAST 10 MG (SINGULAIR) TAB PO SCH (21:00)
[2022-04-26] MEDS: SENNOSIDES 8.6 MG (SENOKOT) TAB PO SCH (21:05)
[2022-04-26] MEDS: DOCUSATE SODIUM 100 MG (COLACE) CAP PO SCH (21:05)
[2022-04-26 23:58] VITALS: BP 137/62
[2022-04-27] MEDS: NS IV 1000 ML 1,000 ML IV SCH (01:06)
[2022-04-27] MEDS: CEFEPIME INJECTION 1,000 MG in NS (IVPB) 50 ML IV SCH ×3 (02:21→15:14)
[2022-04-27] MEDS: methylPREDNISolone 40 MG/ML (Solu-MEDROL) VIAL IV SCH ×3 (02:21→15:12)
[2022-04-27] MEDS: RT-ALBUTEROL/IPRATROPIUM 3 ML (DUONEB) VIAL INH SCH ×3 (02:52→11:22)
[2022-04-27 05:00] VITALS: BP 154/78
[2022-04-27] MEDS ORDERED: RT-ALBUTEROL SULF 2.5 MG/3 ML PRE-MIX VIAL IH PRN (05:00)
[2022-04-27] MEDS: DOXYCYCLINE 100 MG (VIBRAMYCIN) TABLET PO SCH (06:08)
[2022-04-27] MEDS: inSUlin ASPART (NovoLOG) 1 UNIT/0.01 ML (CHARGE PER UNIT) SC SCH ×3 (06:09→16:34)
[2022-04-27 06:12] LABS: BASOPHILS % (AUTO) 0 % (0-10); EOSINOPHILS % (AUTO) 0 % (0-10); HEMATOCRIT 38 % (35-52); HEMOGLOBIN 12.3 g/dL (11.5-16.0); LYMPHOCYTES # (AUTO) 0.6 10^3/uL (1.0-4.0); LYMPHOCYTES % (AUTO) 8 % (12-44); MEAN CORPUSCULAR HEMOGLOBIN 29 pg (25-34); MEAN CORPUSCULAR HGB CONC 33 g/dL (32-36); MEAN CORPUSCULAR VOLUME 89 fL (80-99); MONOCYTES # (AUTO) 0.1 10^3/uL (0.0-1.0); MONOCYTES % (AUTO) 1 % (0-12); NEUTROPHILS # (AUTO) 6.4 10^3/uL (1.8-7.8); NEUTROPHILS % (AUTO) 90 % (42-75); PLATELET COUNT 247 10^3/uL (130-400); WHITE BLOOD COUNT 7.1 10^3/uL (4.3-11.0)
[2022-04-27 06:45] LABS: ALBUMIN 3.6 GM/DL (3.2-4.5); POTASSIUM 4.4 MMOL/L (3.6-5.0)
[2022-04-27 06:46] LABS: CALCIUM 9.2 MG/DL (8.5-10.1)
[2022-04-27 06:49] LABS: BILIRUBIN,TOTAL 0.4 MG/DL (0.1-1.0)
[2022-04-27 06:51] LABS: CREATININE SERUM 0.76 MG/DL (0.60-1.30)
[2022-04-27] MEDS ORDERED: RT--FLUTICASONE/SALMETEROL 113-14 (AIRDUO RespiCLICK) IH SCH (08:00)
[2022-04-27] MEDS ORDERED: metFORMIN XR 500 MG (GLUCOPHAGE XR) TAB PO SCH (08:00)
[2022-04-27 08:30] VITALS: BP 128/68
[2022-04-27] MEDS: ENOXAPARIN 40 MG/0.4 ML (LOVENOX) SYR SC SCH (08:58)
[2022-04-27] MEDS: DOCUSATE SODIUM 100 MG (COLACE) CAP PO SCH (08:58)
[2022-04-27] MEDS: SENNOSIDES 8.6 MG (SENOKOT) TAB PO SCH (08:59)
[2022-04-27] MEDS: BENZONATATE 100 MG (TESSALON) CAPSULE PO SCH ×2 (08:59→15:16)
[2022-04-27] MEDS ORDERED: LIRAGLUTIDE SQ SCH (09:00)
[2022-04-27] MEDS ORDERED: BUDE10.22 IH (11:48)
[2022-04-27] MEDS ORDERED: DOXY100T2 PO (11:48)
[2022-04-27] MEDS ORDERED: GFCD10B PO (11:48)
[2022-04-27] MEDS ORDERED: NF-XOP-HFA INH (11:48)
[2022-04-27] MEDS ORDERED: BENZ100C18 PO (11:48)
[2022-04-27] MEDS ORDERED: MONT-40 PO (11:48)
[2022-04-27] MEDS ORDERED: PRED10TA22 PO (11:48)
--- NOTE | 2022-04-27 11:49 | Discharge Summary ---
Discharge Summary Hospital Course Was the Problem List Reviewed?: Yes Problems/Dx: (1) Acute respiratory failure with hypoxia Status: Acute (2) LLL pneumonia Status: Acute Hospital Course Date of Admission: Apr 26, 2022 at 08:26 Admission Diagnosis : Family Physician/Provider: Dinora Morales Aprn Date of Discharge: 04/27/22 Discharge Diagnosis: [ ] Hospital Course: Genet Leach is a 56 yo female who was admitted to inpatient care from the ED with diagnoses of COPD exacerbation and acute cystitis. The patient was transported via EMS from home to the ED with chief complaint of shortness of breath. She reports she has experienced around 2 weeks of shortness of breath, acutely worsening over the past 2 days, accompanied by nausea and three episodes of vomiting while on the ambulance today. She had been using nebulizers at home with only mild improvement. The patient notes she was diagnosed with influenza 2 weeks ago in Urgent Care. EMS recorded O2 saturation in the 80s on arrival, which improved en route to the ED with nasal cannula O2. Patient had negative CXR in the ED with UA showing UTI; bloodwork confirmed infection with elevated WBC, CRP, and Procalcitonin. Cefepime and doxycycline were started empirically. Patient also had secondary complaint of right-sided flank pain on arrival, accompanied by increased urinary urgency and urinary incontinence, as well as nausea. On evaluation on 04/27, the patient reports she feels fatigued secondary to difficulty sleeping due to persistent cough. She states she does not feel short of breath at rest while on oxygen, but attempted to self-wean off her oxygen last night and felt dyspneic after 30-35 minutes. She indicates her shortness of breath and cough are about the same as they were yesterday post-treatment. The patient remarks her nausea has significantly improved, and she has regained her appetite. Her right flank pain has also resolved at this time, as has her headache. She notes her urinary urgency and incontinence have persisted overnight. The patient has no new concerns or complaints. She states she has an oxygen tank at home. Labs and Pending Lab Test: Laboratory Tests 04/26/22 15:40: Glucometer 204H 04/27/22 05:30: White Blood Count 7.1, Red Blood Count 4.21, Hemoglobin 12.3, Hematocrit 38, Mean Corpuscular Volume 89, Mean Corpuscular Hemoglobin 29, Mean Corpuscular Hemoglobin Concent 33, Red Cell Distribution Width 12.6, Platelet Count 247, Mean Platelet Volume 10.0, Immature Granulocyte % (Auto) 1, Neutrophils (%) (Auto) 90H, Lymphocytes (%) (Auto) 8L, Monocytes (%) (Auto) 1, Eosinophils (%) (Auto) 0, Basophils (%) (Auto) 0, Neutrophils # (Auto) 6.4, Lymphocytes # (Auto) 0.6L, Monocytes # (Auto) 0.1, Eosinophils # (Auto) 0.0, Basophils # (Auto) 0.0, Immature Granulocyte # (Auto) 0.1, Sodium Level 134L, Potassium Level 4.4, Chloride Level 100, Carbon Dioxide Level 24, Anion Gap 10, Blood Urea Nitrogen 13, Creatinine 0.76, Estimat Glomerular Filtration Rate 91, BUN/Creatinine Ratio 17, Glucose Level 364H, Calcium Level 9.2, Corrected Calcium 9.5, Total Bilirubin 0.4, Aspartate Amino Transf (AST/SGOT) 12, Alanine Aminotransferase (ALT/SGPT) 18, Alkaline Phosphatase 86, Total Protein 7.0, Albumin 3.6 04/27/22 06:04: Glucometer 301H Microbiology 04/26/22 Urine Culture - Preliminary, Resulted Gram Negative Michael Home Meds Active Prednisone 10 Mg Tab.ds.pk 10 Mg PO DAILY Take 6 tabs(60mg)daily,decrease by 1 tab(10MG)daily. Montelukast Sodium 10 Mg Tablet 10 Mg PO HS Robitussin Ac (Codeine) Syrup (Guaifenesin/Codeine Phosphate) 10 Ml Syrp 5 Ml PO Q4H PRN Tessalon Perles (Benzonatate) 100 Mg Capsule 200 Mg PO TID Doxycycline Hyclate 100 Mg Tablet 100 Mg PO BID@07,17 Xopenex Hfa (Levalbuterol Tartrate) 45 Mcg/Actuation Hfa.aer.ad 1 Puff INH Q4H PRN Symbicort 80-4.5 Mcg Inhaler (Budesonide/Formoterol Fumarate) 80 Mcg-4.5 Mcg/Actuation Hfa.aer.ad 2 Puff IH BID Reported Simvastatin 40 Mg Tablet 40 Mg PO DAILY Tylenol Extra Strength (Acetaminophen) 500 Mg Tablet 1,000 Mg PO Q4H PRN TAKES 2 (500MG) TAB Victoza 3-Chandrakant (Liraglutide) 0.6 Mg/0.1 Ml (18 Mg/3 Ml) Pen.injctr 2.4 Mg SQ DAILY Metformin HCl ER (Metformin HCl) 500 Mg Tab.er.24 1,000 Mg PO BID TAKES 2 (500MG) TABS Cetirizine HCl 10 Mg Tablet 10 Mg PO HS Assessment/Pt Instructions PCP in 1 week Discharge Planning: <30 minutes discharge planning Discharge Instructions Discharge Diet: No Restrictions Discharge Physical Examination Vital Signs Vital Signs Date Time Temp Pulse Resp B/P (MAP) Pulse Ox O2 Delivery O2 Flow Rate FiO2 04/27/22 08:30 36.1 101 19 128/68 (88) 95 Nasal Cannula 3.50 04/26/22 09:58 36 General Appearance: No Apparent Distress, WD/WN, Chronically ill Respiratory: Lungs Clear, Normal Breath Sounds Cardiovascular: Regular Rate, Rhythm Allergies: Coded Allergies: Penicillins (Verified Allergy, Unknown, 05/09/17) aspirin (Verified Allergy, Unknown, 05/09/17) ibuprofen (Verified Allergy, Unknown, 09/19/20) morphine (Verified Allergy, Unknown, pt has tolerated codeine and lortab, 04/26/22) Discharge Summary Date of Admission Apr 26, 2022 at 08:26 Date of Discharge Discharge Date: Apr 27, 2022 Admission Diagnosis Assessment: COPD exacerbation Smoker History of BiPAP dependence Plan: IV steroids Oxygen FEDERICA GILMORE DO Apr 27, 2022 11:49
[2022-04-27] MEDS ORDERED: inSUlin ASPART (NovoLOG) 1 UNIT/0.01 ML (CHARGE PER UNIT) SC ONE (12:15)
[2022-04-27 12:29] VITALS: BP 135/78
--- NOTE | 2022-04-27 13:08 | Progress Note - Hospitalist ---
KEVINLISSYKACY 04/27/22 1308: Subjective HPI/CC On Admission Date Seen by Provider: Apr 27, 2022 Time Seen by Provider: 10:10 COPD exacerbation Subjective/Events-last exam Genet Leach is a 56 yo female who was admitted to inpatient care from the ED with diagnoses of COPD exacerbation and acute cystitis. The patient was transported via EMS from home to the ED with chief complaint of shortness of breath. She reports she has experienced around 2 weeks of shortness of breath, acutely worsening over the past 2 days, accompanied by nausea and three episodes of vomiting while on the ambulance today. She had been using nebulizers at home with only mild improvement. The patient notes she was diagnosed with influenza 2 weeks ago in Urgent Care. EMS recorded O2 saturation in the 80s on arrival, which improved en route to the ED with nasal cannula O2. Patient had negative CXR in the ED with UA showing UTI; bloodwork confirmed infection with elevated WBC, CRP, and Procalcitonin. Cefepime and doxycycline were started empirically. Patient also had secondary complaint of right-sided flank pain on arrival, accompanied by increased urinary urgency and urinary incontinence, as well as nausea. On evaluation on 04/27, the patient reports she feels fatigued secondary to difficulty sleeping due to persistent cough. She states she does not feel short of breath at rest while on oxygen, but attempted to self-wean off her oxygen last night and felt dyspneic after 30-35 minutes. She indicates her shortness of breath and cough are about the same as they were yesterday post-treatment. The patient remarks her nausea has significantly improved, and she has regained her appetite. Her right flank pain has also resolved at this time, as has her headache. She notes her urinary urgency and incontinence have persisted overnight. The patient has no new concerns or complaints. She states she has an oxygen tank at home. Review of Systems General: No Chills; Fatigue HEENT: No Head Aches Pulmonary: Dyspnea, Cough Cardiovascular: No: Chest Pain, Edema Gastrointestinal: No: Nausea, Vomiting, Abdominal Pain Genitourinary: No Dysuria; Incontinence Focused Exam Lactate Level 04/26/22 06:05: Lactic Acid Level 1.18 Objective Exam Vital Signs Vital Signs Date Time Temp Pulse Resp B/P (MAP) Pulse Ox O2 Delivery O2 Flow Rate FiO2 04/27/22 12:29 36.4 102 18 135/78 (97) 96 Nasal Cannula 3.00 04/26/22 09:58 36 Capillary Refill : Less Than 3 Seconds General Appearance: WD/WN, Mild Distress Respiratory: Chest Non Tender, Lungs Clear, Normal Breath Sounds, No Accessory Muscle Use, Other (patient appears dyspneic moving from a supine lying to a seated position.) Cardiovascular: Regular Rate, Rhythm, No Edema, No Gallop, No JVD, No Murmur, Normal Peripheral Pulses Gastrointestinal: Normal Bowel Sounds, Non Tender, Soft Back: No CVA Tenderness; No CVA Tenderness (R) Extremity: No Calf Tenderness, No Pedal Edema Neurologic/Psychiatric: Alert, Oriented x3 Skin: Normal Color, Warm/Dry Results/Procedures Lab Laboratory Tests 04/27/22 05:30 Patient resulted labs reviewed. Assessment/Plan Assessment and Plan Assess & Plan/Chief Complaint 1. COPD Exacerbation: Continue nebulizer treatments, continue inhaled steroid regimen. Continue monitoring respiratory status. Continue empiric doxycycline regimen. 2. UTI: Urine culture returned positive for Gram negative rods. Continue c efepime. Monitor urinary symptoms. 3. Right flank pain: MSK vs renal etiology. Resolved 04/27. Continue monitoring. 4. Fatigue: Treat underlying respiratory distress and UTI causing patient to have difficulty sleeping. 5. Headache: Resolved 04/27. 6. Leukocytosis: WBC 14.5 on arrival. Resolved 04/27 with WBC 7.1. 7. Hx of HLD, Diabetes MONA GILMORE DO 04/28/22 0452: Supervisory-Addendum Brief Verification & Attestation Participated in pt care: history, MDM, physical Personally performed: exam, history, MDM, supervision of care Care discussed with: Medical Student Procedures: n/a Results interpretation: Verified all documentation Verification and Attestation of Medical Student E/M Service A medical student performed and documented this service in my presence. I reviewed and verified all information documented by the medical student and made modifications to such information, when appropriate. I personally performed the physical exam and medical decision making. Mona Gilmore, Apr 28, 2022,04:52 KACY MARCUM Apr 27, 2022 13:08 MONA GILMORE DO Apr 28, 2022 04:52
[2022-04-27] MEDS: guaiFENesin/CODEINE (ROBITUSSIN AC) 10ML UDC PO PRN (15:17)
[2022-04-27 15:37] VITALS: BP 133/75
[2022-04-27 17:02] VITALS: BP 133/75
[2022-04-27] MEDS ORDERED: LORATADINE (CLARITIN) 10 MG TAB PO SCH (21:00)
== END 2022-04-27 17:00 | disposition home or self-care (01) ==
LOC: EDUNIT# 05:59 → ER 06:01 → 4TH 08:26
PROVIDERS: ADMIT Internal Medicine; ATTEND Internal Medicine
DX: J44.1 Chronic obstructive pulmonary disease with (acute) exacerbation (principal); J18.9 Pneumonia, unspecified organism; J96.01 Acute respiratory failure with hypoxia; F17.210 Nicotine dependence, cigarettes, uncomplicated; N30.00 Acute cystitis without hematuria; E78.5 Hyperlipidemia, unspecified; E11.9 Type 2 diabetes mellitus without complications; R51.9 Headache, unspecified; Z28.310 Unvaccinated for COVID-19; Z99.89 Dependence on other enabling machines and devices
CPT/HCPCS: 36600; 71045; 80053 ×2; 81000; 82805; 82947 ×2; 83605; 84145; 84484; 85007; 85025; 85027; 85610; 85730; 86141; 87040; 87077; 87088; 87186; 93005; 94640 ×4; 94760 ×2; 94761; 96372 ×2; 96376 ×2; 99284; G0378; 36415

== ENCOUNTER 2022-05-12 16:56 | Emergency (ER) | payer BC ==
[~2022-05-12] VITALS: Ht 167 cm; Wt 105.6 kg
[~2022-05-12 16:56] MED LIST changes: +BENZ100C18 PO; +DOXY100T2 PO; +GFCD10B PO
--- NOTE | 2022-05-12 17:43 | Diagnostic Imaging Report ---
INDICATION: Shortness of air, cough, runny nose. COMPARED to 04/26/2022 FINDINGS: The lungs are clear. No failure, effusion or pneumothorax. IMPRESSION: Negative. Dictated by: Dictated on workstation # [id number]
--- NOTE | 2022-05-12 18:06 | ED Respiratory ---
General Chief Complaint: Respiratory Problems Stated Complaint: TROUBLE BREATHING,WHEEZING Nursing Triage Note: ARRIVED VIA AMB TO TRIAGE WITH COMPLAINTS OF SOA, COUGH, RUNNY NOSE ET CHEST PAIN WHEN SHE COUGHS, AND GEN BODY ACHES. . TESTED FOR COVID TODAY AND IT WAS NEG. FLU + 2 WEEKS AGO. History of Present Illness Date Seen by Provider: May 12, 2022 Time Seen by Provider: 17:00 Initial Comments 56 year old COPD patient presents with cough, congestion and myalgias for 3-4 da ys. She is normally on Xopenex but has been out for 3 days. Has not attempted to see her PCP or [facility] walk in. Hx of COPD, poorly managed by patient. Timing/Duration: changing over time Severity: mild Prior Episodes/Possible Cause: frequent episodes Modifying Factors: Improves With Oxygen, Improves With Rest Associated Symptoms: chest pain/soreness, cough; No fever/chills; muscle aches, shortness of breath (chronic, stable from baseline) Allergies and Home Medications Allergies Coded Allergies: Penicillins (Verified Allergy, Unknown, 05/09/17) aspirin (Verified Allergy, Unknown, 05/09/17) ibuprofen (Verified Allergy, Unknown, 09/19/20) morphine (Verified Allergy, Unknown, pt has tolerated codeine and lortab, 04/26/22) albuterol (Verified Adverse Reaction, Unknown, VOMITING, 05/12/22) Patient Home Medication List Home Medication List Reviewed: Yes Acetaminophen (Tylenol Extra Strength) 500 Mg Tablet, 1,000 MG PO Q4H PRN for PAIN-MILD (1-4), (Reported) Entered as Reported by: RAMON MIGUEL on 09/27/21 1002 Benzonatate (Tessalon Perles) 100 Mg Capsule, 200 MG PO TID Prescribed by: FEDERICA GILMORE on 04/27/22 1148 Budesonide/Formoterol Fumarate (Symbicort 80-4.5 Mcg Inhaler) 80 Mcg-4.5 Mcg/Actuation Hfa.aer.ad, 2 PUFF IH BID Prescribed by: FEDERICA GILMORE on 04/27/22 1148 Cetirizine HCl (Cetirizine HCl) 10 Mg Tablet, 10 MG PO HS, (Reported) Entered as Reported by: RAMON MIGUEL on 09/27/21 0951 Doxycycline Hyclate (Doxycycline Hyclate) 100 Mg Tablet, 100 MG PO BID@07,17 Prescribed by: FEDERICA GILMORE on 04/27/22 1148 Guaifenesin/Codeine (Robitussin Ac (Codeine) Syrup) 10 Ml Syrp, 5 ML PO Q4H PRN for COUGH Prescribed by: FEDERICA GILMORE on 04/27/22 1149 Levalbuterol HCl (Xopenex) 1.25 Mg/3 Ml Vial.neb, 1.25 MG INH Q4H PRN for CONGESTION Prescribed by: DALLAS GILLETTE on 05/12/22 1900 Levalbuterol Tartrate (Xopenex Hfa) 45 Mcg/Actuation Hfa.aer.ad, 1 PUFF INH Q4H PRN for SHORTNESS OF BREATH Prescribed by: FEDERICA GILMORE on 04/27/22 1148 Liraglutide (Victoza 3-Chandrakant) 0.6 Mg/0.1 Ml (18 Mg/3 Ml) Pen.injctr, 2.4 MG SQ DAILY, (Reported) Entered as Reported by: RAMON MIGUEL on 09/27/21 1000 Metformin HCl (Metformin HCl ER) 500 Mg Tab.er.24, 1,000 MG PO BID, (Reported) Entered as Reported by: RAOMN MIGUEL on 09/27/21 0952 Montelukast Sodium (Montelukast Sodium) 10 Mg Tablet, 10 MG PO HS Prescribed by: FEDERICA GILMORE on 04/27/22 1148 Prednisone (Prednisone) 10 Mg Tab.ds.pk, 10 MG PO DAILY Prescribed by: FEDERICA GILMORE on 04/27/22 1148 Prednisone (Prednisone) 20 Mg Tab, 40 MG PO DAILY Prescribed by: DALLAS GILLETTE on 05/12/22 190 Simvastatin (Simvastatin) 40 Mg Tablet, 40 MG PO DAILY, (Reported) Entered as Reported by: PIETER PAREDES on 04/26/22 1526 Review of Systems Review of Systems Constitutional: see HPI, malaise EENTM: see HPI, no symptoms reported Respiratory: see HPI, cough, orthopnea, short of breath Cardiovascular: no symptoms reported, see HPI Gastrointestinal: no symptoms reported, see HPI All Other Systems Reviewed Negative Unless Noted: Yes Past Rzpjybv-Frxsfk-Pnlarw Hx Patient Social History Tobacco Use?: Yes Smoking Status: Former Smoker Substance use?: No Alcohol Use?: No Immunizations Up To Date Tetanus Booster (TDap): Unknown Seasonal Allergies Seasonal Allergies: No Past Medical History Surgery/Hospitalization HX: NONE Surgeries: Yes Gallbladder, 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, Tubal Ligation Respiratory: Yes COPD Currently Using CPAP: Yes Currently Using BIPAP: No Cardiac: Yes High Cholesterol, Hypertension Neurological: No 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 Disorders: Yes Female 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 Disorders: Menstrual 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, 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 Genitourinary: No Gastrointestinal: No Musculoskeletal: No Endocrine: Yes Diabetes, Insulin dep HEENT: No Cancer: No Psychosocial: Yes Anxiety, Depression Integumentary: No Blood Disorders: No Family Medical History Reviewed Nursing Family Hx Diabetes mellitus 19 FATHER FH: breast cancer 19 MOTHER Myocardial infarction 19 FATHER Thyroid disease G8 SISTER SOCIAL HISTORY: -SMOKED <1 PPD, QUIT -DENIES ETOH -DENIES DRUG USE Physical Exam Vital Signs - First Documented 05/12/22 17:00 Temp 37.0 Pulse 113 Resp 24 B/P (MAP) 163/85 (111) Pulse Ox 93 O2 Delivery Room Air Capillary Refill : Less Than 3 Seconds Height: 5'6.00" Weight: 320lbs. 12.8oz. 145.412321kd; 37.00 BMI Method:Actual General Appearance: WD/WN, no apparent distress (SaO2 98% on RA. ) HEENT: PERRL/EOMI, normal ENT inspection, TMs normal, pharynx normal Neck: non-tender, full range of motion, supple, normal inspection Respiratory: chest non-tender, lungs clear, normal breath sounds, no respiratory distress Cardiovascular: normal peripheral pulses, regular rate, rhythm Gastrointestinal: normal bowel sounds, non tender, soft Extremities: normal range of motion, non-tender, normal inspection, no pedal edema Neurologic/Psychiatric: no motor/sensory deficits, alert, normal mood/affect, oriented x 3 Skin: normal color, warm/dry Progress/Results/Core Measures Suspected Sepsis SIRS Temperature: Pulse: 113 Respiratory Rate: 24 Laboratory Tests 05/12/22 18:21: White Blood Count 8.3 Blood Pressure 163 /85 Mean: 111 Laboratory Tests 05/12/22 18:21: Creatinine 0.71, INR Comment 0.9, Platelet Count 196, Total Bilirubin 0.3 Results/Orders Lab Results Laboratory Tests Test 05/12/22 17:33 05/12/22 18:21 Range/Units Influenza Type A (RT-PCR) Not Detected Not Detecte Influenza Type B (RT-PCR) Not Detected Not Detecte SARS-CoV-2 RNA (RT-PCR) Not Detected Not Detecte White Blood Count 8.3 4.3-11.0 10^3/uL Red Blood Count 4.27 3.80-5.11 10^6/uL Hemoglobin 12.5 11.5-16.0 g/dL Hematocrit 39 35-52 % Mean Corpuscular Volume 90 80-99 fL Mean Corpuscular Hemoglobin 29 25-34 pg Mean Corpuscular Hemoglobin Concent 33 32-36 g/dL Red Cell Distribution Width 13.3 10.0-14.5 % Platelet Count 196 130-400 10^3/uL Mean Platelet Volume 10.0 9.0-12.2 fL Immature Granulocyte % (Auto) 0 % Neutrophils (%) (Auto) 70 42-75 % Lymphocytes (%) (Auto) 22 12-44 % Monocytes (%) (Auto) 7 0-12 % Eosinophils (%) (Auto) 1 0-10 % Basophils (%) (Auto) 0 0-10 % Neutrophils # (Auto) 5.8 1.8-7.8 10^3/uL Lymphocytes # (Auto) 1.8 1.0-4.0 10^3/uL Monocytes # (Auto) 0.6 0.0-1.0 10^3/uL Eosinophils # (Auto) 0.1 0.0-0.3 10^3/uL Basophils # (Auto) 0.0 0.0-0.1 10^3/uL Immature Granulocyte # (Auto) 0.0 0.0-0.1 10^3/uL Prothrombin Time 12.7 12.2-14.7 SEC INR Comment 0.9 0.8-1.4 Activated Partial Thromboplast Time 27 24-35 SEC Sodium Level 141 135-145 MMOL/L Potassium Level 3.9 3.6-5.0 MMOL/L Chloride Level 104 98-107 MMOL/L Carbon Dioxide Level 27 21-32 MMOL/L Anion Gap 10 5-14 MMOL/L Blood Urea Nitrogen 13 7-18 MG/DL Creatinine 0.71 0.60-1.30 MG/DL Estimat Glomerular Filtration Rate 98 BUN/Creatinine Ratio 18 Glucose Level 240 H 70-105 MG/DL Calcium Level 8.7 8.5-10.1 MG/DL Corrected Calcium 8.9 8.5-10.1 MG/DL Total Bilirubin 0.3 0.1-1.0 MG/DL Aspartate Amino Transf (AST/SGOT) 15 5-34 U/L Alanine Aminotransferase (ALT/SGPT) 29 0-55 U/L Alkaline Phosphatase 82 40-136 U/L Troponin I < 0.028 <0.028 NG/ML C-Reactive Protein High Sensitivity 0.78 H 0.00-0.50 MG/DL Total Protein 6.6 6.4-8.2 GM/DL Albumin 3.7 3.2-4.5 GM/DL My Orders Orders - DALLAS GILLETTE LEAD RECOVERER Covid 19 Inhouse Test (05/12/22 17:28) Influenza A And B By Pcr (05/12/22 17:28) Cbc With Automated Diff (05/12/22 17:29) Comprehensive Metabolic Panel (05/12/22 17:29) Hs C Reactive Protein (05/12/22 17:29) Protime With Inr (05/12/22 17:29) Partial Thromboplastin Time (05/12/22 17:29) Troponin I [place] (05/12/22 17:29) Chest 1 View, Ap/Pa Only (05/12/22 17:29) Levalbuterol (Non-Formulary) (Xopenex (N (05/12/22 18:10) Ed Iv/Invasive Line Start (05/12/22 18:10) Ns Iv 1000 Ml (Sodium Chloride 0.9%) (05/12/22 18:15) Methylprednisolone Sod Succ (Solu-Medrol (05/12/22 19:01) Vital Signs/I&O 05/12/22 05/12/22 05/12/22 17:00 17:17 19:18 Temp 37.0 Pulse 113 98 Resp 24 20 B/P (MAP) 163/85 (111) 129/85 Pulse Ox 93 96 O2 Delivery Room Air Room Air Room Air Capillary Refill : Less Than 3 Seconds Blood Pressure Mean: 111 Diagnostic Imaging Diagonstic Imaging: Xray Plain Films/CT/US/NM/MRI: chest Comments NAME: MAYO CONDE Alicia MED REC#: [id number] PT STATUS: REG ER : 1965 PHYSICIAN: DALLAS GILLETTE ADMIT DATE: 05/12/22/ER Signed Date of Exam:05/12/22 CHEST 1 VIEW, AP/PA ONLY INDICATION: Shortness of air, cough, runny nose. COMPARED to 04/26/2022 FINDINGS: The lungs are clear. No failure, effusion or pneumothorax. IMPRESSION: Negative. Dictated by: Dictated on workstation # [id number] Dict: 05/12/221740 Trans: 05/12/221749 AC [id number] Interpreted by: ОЛЬГА BOSWELL Electronically signed by: ОЛЬГА BOSWELL 05/12/221749 Reviewed: Reviewed by Me Departure Impression Primary Impression: Viral URI Additional Impression: COPD (chronic obstructive pulmonary disease) Qualified Codes: J44.9 - Chronic obstructive pulmonary disease, unspecified Disposition: 01 HOME, SELF-CARE Condition: Stable Departure-Patient Inst. Decision time for Depature: 18:45 Referrals: LEESA FRAIRE APRN (PCP/Family) Primary Care Physician Patient Instructions: Viral Upper Respiratory Infection, Adult (DC) Add. Discharge Instructions: Take all medications as prescribed. Schedule appointment with your primary care provider at [facility] or go to walk-in to get your medications refilled as needed. Use your Xopenex every 4 hours as prescribed. Take the steroids as prescribed. Increase water intake, 16 ounces every 2 hours while awake. Return to the emergency department for new, urgent healthcare needs. All discharge instructions reviewed with patient and/or family. Voiced understanding. Scripts Prednisone (Prednisone) 20 Mg Tab 40 MG PO DAILY, #6 TAB 0 Refills Prov: DALLAS GILLETTE 05/12/22 Levalbuterol HCl (Xopenex) 1.25 Mg/3 Ml Vial.neb 1.25 MG INH Q4H PRN for CONGESTION, #24 EA Prov: DALLAS GILLETTE 05/12/22 DALLAS GILLETTE May 12, 2022 18:06
[2022-05-12] MEDS ORDERED: RT-LEVALBUTEROL (XOPENEX) 1.25 MG/3 ML NEB NON-FORMULARY INH STA (18:10)
[2022-05-12] MEDS ORDERED: NS IV 1000 ML 1,000 ML IV SCH (18:15)
[2022-05-12 18:25] LABS: BASOPHILS % (AUTO) 0 % (0-10); EOSINOPHILS # (AUTO) 0.1 10^3/uL (0.0-0.3); EOSINOPHILS % (AUTO) 1 % (0-10); HEMATOCRIT 39 % (35-52); HEMOGLOBIN 12.5 g/dL (11.5-16.0); LYMPHOCYTES # (AUTO) 1.8 10^3/uL (1.0-4.0); LYMPHOCYTES % (AUTO) 22 % (12-44); MEAN CORPUSCULAR HEMOGLOBIN 29 pg (25-34); MEAN CORPUSCULAR HGB CONC 33 g/dL (32-36); MEAN CORPUSCULAR VOLUME 90 fL (80-99); MONOCYTES # (AUTO) 0.6 10^3/uL (0.0-1.0); MONOCYTES % (AUTO) 7 % (0-12); NEUTROPHILS # (AUTO) 5.8 10^3/uL (1.8-7.8); NEUTROPHILS % (AUTO) 70 % (42-75); PLATELET COUNT 196 10^3/uL (130-400); WHITE BLOOD COUNT 8.3 10^3/uL (4.3-11.0)
[2022-05-12 18:32] LABS: ALBUMIN 3.7 GM/DL (3.2-4.5); CHLORIDE 104 MMOL/L (98-107); POTASSIUM 3.9 MMOL/L (3.6-5.0); SODIUM 141 MMOL/L (135-145)
[2022-05-12 18:33] LABS: CALCIUM 8.7 MG/DL (8.5-10.1)
[2022-05-12 18:34] LABS: GLUCOSE 240 MG/DL (70-105); TOTAL PROTEIN 6.6 GM/DL (6.4-8.2)
[2022-05-12 18:35] LABS: CARBON DIOXIDE 27 MMOL/L (21-32); INR 0.9 (0.8-1.4); PROTHROMBIN TIME PATIENT 12.7 SEC (12.2-14.7)
[2022-05-12 18:36] LABS: BILIRUBIN,TOTAL 0.3 MG/DL (0.1-1.0)
[2022-05-12 18:38] LABS: ALKALINE PHOSPHATASE 82 U/L (40-136); CREATININE SERUM 0.71 MG/DL (0.60-1.30); GFR ESTIMATED 98
[2022-05-12 18:39] LABS: BUN/CREATININE RATIO 18
[2022-05-12 18:41] LABS: ALANINE AMINOTRANSFERASE 29 U/L (0-55)
[2022-05-12] MEDS ORDERED: LEVA1.2527 INH (19:00)
[2022-05-12] MEDS ORDERED: PRD20T PO (19:00)
[2022-05-12] MEDS ORDERED: methylPREDNISolone 125 MG (Solu-MEDROL) VIAL IVP STA (19:01)
[2022-05-12 19:18] VITALS: BP 129/85
== END 2022-05-12 19:19 | disposition home or self-care (01) ==
LOC: EDUNIT# 16:56 → ER 16:58
DX: J06.9 Acute upper respiratory infection, unspecified (principal); J44.9 Chronic obstructive pulmonary disease, unspecified; Z87.891 Personal history of nicotine dependence; Z99.89 Dependence on other enabling machines and devices; Z20.822 Contact with and (suspected) exposure to COVID-19; Z28.310 Unvaccinated for COVID-19
CPT/HCPCS: 36415; 71045; 80053; 84484; 85025; 85610; 85730; 86141; 87636

== ENCOUNTER 2022-06-21 18:22 | Emergency (ER) | payer BC ==
[~2022-06-21 18:22] MED LIST changes: +LEVA1.2527 INH
[2022-06-21] MEDS ORDERED: RT-LEVALBUTEROL (XOPENEX) 1.25 MG/3 ML NEB NON-FORMULARY INH SCH (19:00)
[2022-06-21] MEDS ORDERED: predniSONE 20 MG TAB PO ONE (19:00)
--- NOTE | 2022-06-21 19:01 | ED Respiratory ---
General Chief Complaint: Respiratory Problems Stated Complaint: SOB Nursing Triage Note: PT TO RM 5 BY WC WITH O2 WITH C/O SOB X3 DAYS Source: patient Exam Limitations: no limitations History of Present Illness Date Seen by Provider: Jun 21, 2022 Time Seen by Provider: 18:45 Initial Comments 56-year-old female presents to the emergency department today for shortness of breath. Symptoms present for 2 or 3 days and associated with some fevers at home subjectively though she has not taken her temperature. She does have a history of COPD, uses oxygen 3 L via nasal cannula [id number] though she does endorse that sometimes she does not use this at work. She denies any chest pain but does have progressively worsening shortness of breath. She states she was exposed to COVID on Monday and has decreased appetite secondary to loss of taste. No recent long distance travel, unilateral lower extremity pain or swelling. She has been using breathing treatments at home, Xopenex as she is allergic to albuterol which causes swelling. Allergies and Home Medications Allergies Coded Allergies: Penicillins (Verified Allergy, Unknown, 05/09/17) aspirin (Verified Allergy, Unknown, 05/09/17) ibuprofen (Verified Allergy, Unknown, 09/19/20) morphine (Verified Allergy, Unknown, pt has tolerated codeine and lortab, 04/26/22) albuterol (Verified Adverse Reaction, Unknown, VOMITING, 05/12/22) Patient Home Medication List Home Medication List Reviewed: Yes Acetaminophen (Tylenol Extra Strength) 500 Mg Tablet, 1,000 MG PO Q4H PRN for PAIN-MILD (1-4), (Reported) Entered as Reported by: RAMON MIGUEL on 09/27/21 1002 Benzonatate (Tessalon Perles) 100 Mg Capsule, 200 MG PO TID Prescribed by: FEDERICA GILMORE on 04/27/22 1148 Budesonide/Formoterol Fumarate (Symbicort 80-4.5 Mcg Inhaler) 80 Mcg-4.5 Mcg/Actuation Hfa.aer.ad, 2 PUFF IH BID Prescribed by: FEDERICA GILMORE on 04/27/22 1148 Cetirizine HCl (Cetirizine HCl) 10 Mg Tablet, 10 MG PO HS, (Reported) Entered as Reported by: RAMON MIGUEL on 09/27/21 0951 Doxycycline Hyclate (Doxycycline Hyclate) 100 Mg Tablet, 100 MG PO BID@07,17 Prescribed by: FEDERICA GILMORE on 04/27/22 1148 Guaifenesin/Codeine (Robitussin Ac (Codeine) Syrup) 10 Ml Syrp, 5 ML PO Q4H PRN for COUGH Prescribed by: FEDERICA GILMORE on 04/27/22 1149 Levalbuterol HCl (Xopenex) 1.25 Mg/3 Ml Vial.neb, 1.25 MG INH Q4H PRN for CONGESTION Prescribed by: DALLAS GILLETTE on 05/12/221899 Levalbuterol Tartrate (Xopenex Hfa) 45 Mcg/Actuation Hfa.aer.ad, 1 PUFF INH Q4H PRN for SHORTNESS OF BREATH Prescribed by: FEDERICA GILMORE on 04/27/22 114 Liraglutide (Victoza 3-Chandrakant) 0.6 Mg/0.1 Ml (18 Mg/3 Ml) Pen.injctr, 2.4 MG SQ DAILY, (Reported) Entered as Reported by: RAMON MIGUEL on 09/27/21 1000 Metformin HCl (Metformin HCl ER) 500 Mg Tab.er.24, 1,000 MG PO BID, (Reported) Entered as Reported by: RAMON MIGULE on 09/27/21 0952 Montelukast Sodium (Montelukast Sodium) 10 Mg Tablet, 10 MG PO HS Prescribed by: FEDERICA GILMORE on 04/27/22 114 Nirmatrelvir/Ritonavir (Paxlovid 300-100 mg Pack (Eua)) 300 Mg (150 Mg X 2)-100 Mg Tab.ds.pk, 1 EACH PO DAILY Prescribed by: ISABELLE IGNACIO MD on 06/21/221999 Prednisone (Prednisone) 10 Mg Tab.ds.pk, 10 MG PO DAILY Prescribed by: FEDERICA GILMORE on 04/27/22 114 Prednisone (Prednisone) 20 Mg Tab, 40 MG PO DAILY Prescribed by: DALLAS GILLETTE on 05/12/221899 Simvastatin (Simvastatin) 40 Mg Tablet, 40 MG PO DAILY, (Reported) Entered as Reported by: PIETER PAREDES on 04/26/22 1526 Review of Systems Review of Systems Constitutional: fever EENTM: no symptoms reported Respiratory: cough, short of breath Cardiovascular: no symptoms reported Gastrointestinal: no symptoms reported Genitourinary: no symptoms reported Musculoskeletal: no symptoms reported Skin: no symptoms reported Psychiatric/Neurological: No Symptoms Reported Hematologic/Lymphatic: No Symptoms Reported Immunological/Allergic: no symptoms reported Past Evofpgc-Eknsue-Dcylce Hx Patient Social History Tobacco Use?: No Smoking Status: Former Smoker Use of E-Cig and/or Vaping dev: No Substance use?: No Alcohol Use?: No Pt feels they are or have been: No Immunizations Up To Date Tetanus Booster (TDap): Unknown Influenza Vaccine Up-to-Date: No; Not Current First/Initial COVID19 Vaccinat: NO Second COVID19 Vaccination Kameron: NO Third COVID19 Vaccination Date: NO Seasonal Allergies Seasonal Allergies: No Past Medical History Surgery/Hospitalization HX: COPD, DM TUBAL, HYSTO Surgeries: Yes Gallbladder, 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, Tubal Ligation Respiratory: Yes COPD Currently Using CPAP: Yes Currently Using BIPAP: No Cardiac: Yes High Cholesterol, Hypertension Neurological: No 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 Disorders: Yes Female 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 Disorders: Menstrual 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, 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 Genitourinary: No Gastrointestinal: No Musculoskeletal: No Endocrine: Yes Diabetes, Insulin dep HEENT: No Cancer: No Psychosocial: Yes Anxiety, Depression Integumentary: No Blood Disorders: No Family Medical History Reviewed Nursing Family Hx Diabetes mellitus 19 FATHER FH: breast cancer 19 MOTHER Myocardial infarction 19 FATHER Thyroid disease G8 SISTER No Pertinent Family Hx SOCIAL HISTORY: -SMOKED <1 PPD, QUIT -DENIES ETOH -DENIES DRUG USE Physical Exam Vital Signs - First Documented 06/21/22 18:35 Temp 37.7 Pulse 132 Resp 25 B/P (MAP) 139/77 (97) Pulse Ox 97 O2 Delivery Nasal Cannula O2 Flow Rate 3.00 Capillary Refill : Height: 5'6.00" Weight: 320lbs. 12.8oz. 145.955496kq; 37.00 BMI Method:Actual General Appearance: WD/WN, no apparent distress HEENT: normal ENT inspection, pharynx normal Neck: non-tender, full range of motion, supple, normal inspection Respiratory: chest non-tender, no respiratory distress, other (Mild increased work of breathing. Scant inspiratory and expiratory wheezes bilaterally.) Cardiovascular: no murmur, tachycardia Gastrointestinal: normal bowel sounds, non tender, soft, no organomegaly Extremities: normal range of motion, non-tender, normal inspection, no pedal edema, normal capillary refill Neurologic/Psychiatric: alert, normal mood/affect, oriented x 3 Skin: normal color, warm/dry Progress/Results/Core Measures Suspected Sepsis SIRS Temperature: Pulse: 132 Respiratory Rate: 25 Blood Pressure 139 /77 Mean: 97 Results/Orders Lab Results Laboratory Tests Test 06/21/22 18:57 Range/Units Influenza Type A (RT-PCR) Not Detected Not Detecte Influenza Type B (RT-PCR) Not Detected Not Detecte SARS-CoV-2 RNA (RT-PCR) Detected H Not Detecte My Orders Orders - SANDEEISABELLE Weller DO Covid 19 Inhouse Test (06/21/22 18:56) Influenza A And B By Pcr (06/21/22 18:56) Levalbuterol (Non-Formulary) (Xopenex (N (06/21/22 19:00) Prednisone Tablet (Deltasone Tablet) (06/21/22 19:00) Chest 1 View, Ap/Pa Only (06/21/22 19:06) Medications Given in ED Vital Signs/I&O 06/21/22 06/21/22 06/21/22 18:35 18:43 20:10 Temp 37.7 37.7 Pulse 132 97 Resp 25 22 B/P (MAP) 139/77 (97) 124/74 Pulse Ox 97 97 O2 Delivery Nasal Cannula Nasal Cannula Nasal Cannula O2 Flow Rate 3.00 3.00 3.00 3.00 Capillary Refill : Blood Pressure Mean: 97 Departure Communication (Admissions) Patient is hemodynamically stable. Her oxygen is 94 to 96% on 2 to 3 L of oxygen via nasal cannula which is what she uses at home. She is not in any respiratory distress. Chest x-ray is normal. She was given a breathing treatment here and her wheezing has improved. COVID test is positive. Electrolytes are unremarkable, renal function is normal. She is not anemic. No indication for admission to the hospital at this time however she is high risk w e will go ahead and give her Paxlovid. I did discuss with her the need to return for any severe shortness of breath or if her symptoms change in any way concerning to her. She stated understanding. She is comfortable with discharge at this time Impression Primary Impression: COVID-19 virus infection Disposition: HOME, SELF-CARE Condition: Stable Departure-Patient Inst. Referrals: [facility] (PCP/Family) Primary Care Physician Patient Instructions: COVID-19 ED Add. Discharge Instructions: You were seen in the emergency department for shortness of breath. Your COVID test is positive. I prescribed Paxlovid, oral COVID medication. Pick this up at your pharmacy tomorrow. You will need to quarantine till you are fever free for 24 hours. Treat your fluids at home, rest. Use anti-inflammatory medicines as needed for pains. Continue your home oxygen. There is no indication for admission at this time however you need to return to the emergency department immediately if you develop any severe shortness of breath or if her symptoms change in any way concerning to you. I want you to follow-up with your primary doctor in the next 2 to 3 days. All discharge instructions reviewed with patient and/or family. Voiced understanding. Scripts Nirmatrelvir/Ritonavir (Paxlovid 300-100 mg Pack (Eua)) 300 Mg (150 Mg X 2)-100 Mg Tab.ds.pk 1 EACH PO DAILY for 5 Days, #1 PKG Prov: ISABELLE IGNACIO DO 06/21/22 ISABELLE IGNACIO DO Jun 21, 2022 19:01
--- NOTE | 2022-06-21 19:15 | Diagnostic Imaging Report ---
INDICATION: Shortness of breath. Time of Exam: 6:59 PM Correlation is made with prior chest from 05/12/2022. FINDINGS: The heart size is normal. The pulmonary vascularity is unremarkable. The lungs are clear. No infiltrate, effusion or pneumothorax is detected. IMPRESSION: No acute cardiopulmonary process is detected. Dictated by: Dictated on workstation # [id number]
[2022-06-21 19:51] VITALS: BP_SYST 104; BP_SYST 108; BP_SYST 109; BP_DIAS 50; BP_DIAS 72
[2022-06-21] MEDS ORDERED: NIRM1TAB PO (20:00)
[2022-06-21 20:10] VITALS: BP 124/74
== END 2022-06-21 20:14 | disposition home or self-care (01) ==
LOC: EDUNIT# 18:22 → ER 18:23
DX: U07.1 COVID-19 (principal); J44.9 Chronic obstructive pulmonary disease, unspecified; Z87.891 Personal history of nicotine dependence; Z28.310 Unvaccinated for COVID-19; Z99.81 Dependence on supplemental oxygen; Z99.89 Dependence on other enabling machines and devices
CPT/HCPCS: 71045; 87636